=== PATIENT | male | born 1945 | race Caucasian/White ===

== ENCOUNTER 2018-06-27 21:10 | Observation (INO) | payer MEDICARE, OTHER ==
[2018-06-27] MEDS ORDERED: ACETAMINOPHEN 325 MG TABLET PO STA (21:17)
[2018-06-27 21:38] LABS: BASOPHILS # (AUTO) 0.1 10^3/uL (0.0-0.1); BASOPHILS % (AUTO) 0.6 %; EOSINOPHILS % (AUTO) 0.2 %; LYMPHOCYTES # (AUTO) 0.2 10^3/uL (1.5-3.5); LYMPHOCYTES % (AUTO) 1.8 %; MEAN CORPUSCULAR HEMOGLOBIN 31.8 pg (27.0-31.0); MEAN CORPUSCULAR HGB CONC 33.8 g/dL (32.0-36.0); MEAN CORPUSCULAR VOLUME 94.2 fL (80.0-94.0); MEAN PLATELET VOLUME 9.3 fL (7.4-11.4); MONOCYTES # (AUTO) 0.5 10^3/uL (0.0-1.0); MONOCYTES % (AUTO) 5.7 %; NEUTROPHILS # (AUTO) 8.2 10^3/uL (1.5-6.6); NEUTROPHILS % (AUTO) 91.7 %; PLT - PLATELET COUNT 101 10^3/uL (130-450); RED BLOOD COUNT 5.04 10^6/uL (4.70-6.10); RED CELL DISTRIBUTION WIDTH 13.2 % (12.0-15.0)
[2018-06-27 21:46] LABS: INR 1.3 (0.8-1.2); PT - PROTHROMBIN TIME 14.9 secs (9.9-12.6)
[2018-06-27 21:48] LABS: ALBUMIN 4.3 g/dL (3.2-5.5); ALBUMIN/GLOBULIN RATIO 1.3 (1.0-2.2); BILIRUBIN,TOTAL 1.3 mg/dL (0.2-1.0); CALCIUM 8.8 mg/dL (8.5-10.3); TOTAL PROTEIN 7.6 g/dL (6.7-8.2)
[2018-06-27 21:56] LABS: BILIRUBIN,URINE NEGATIVE (NEGATIVE); CLARITY,URINE CLEAR (CLEAR); GLUCOSE, URINE (UA) NEGATIVE (NEGATIVE); KETONES,URINE (UA) TRACE mg/dL (NEGATIVE); LEUKOCYTE ESTERASE, URINE NEGATIVE (NEGATIVE); NITRITE,URINE NEGATIVE (NEGATIVE); OCCULT BLOOD,URINE NEGATIVE (NEGATIVE); PROTEIN,URINE 100 mg/dL (NEGATIVE); UROBILINOGEN,URINE 0.2 (NORMAL) E.U./dL (NORMAL)
[2018-06-27] MEDS ORDERED: methylPREDNISolone SUCCINATE 125 MG/2 ML VIAL IVP STA (21:57)
[2018-06-27] MEDS ORDERED: IPRATROPIUM/ALBUTEROL 3 ML NEB INH STA (21:57)
--- NOTE | 2018-06-27 21:57 | ED Physician Documentation ---
History of Present Illness - Stated complaint Stated Complaint: SOA - Chief complaint Chief Complaint: Resp - History obtained from History obtained from: Patient - History of Present Illness Timing: Today Pain level max: 0 Pain level now: 0 Improved by: neb treatment Worsened by: exertion - Additonal information Additional information: Increased difficulty breathing for the past several days. Has a history of COPD and is using his inhaler more often. Subjective fevers as well. Increased coughing. Review of Systems Ten Systems: 10 systems reviewed and negative Constitutional: reports: Fever, Chills Nose: reports: Rhinorrhea / runny nose, Congestion Respiratory: denies: Cough GI: denies: Nausea, Vomiting, Diarrhea : denies: Dysuria Skin: denies: Rash Musculoskeletal: denies: Neck pain, Back pain Neurologic: denies: Headache PD PAST MEDICAL HISTORY - Past Medical History Past Medical History: Yes Cardiovascular: Hypertension, High cholesterol Respiratory: COPD, CPAP use HEENT: None Derm: None - Past Surgical History Past Surgical History: Yes Cardiovascular: Pacemaker - Present Medications Home Medications: Ambulatory Orders Medication Instructions Recorded Confirmed Aspirin 325 mg DAILY 10/25/15 10/25/15 Ibuprofen 800 mg PO DAILY 10/25/15 10/25/15 Multivitamin [Multivitamins] 1 each PO DAILY 10/25/15 10/25/15 oxyCODONE [Roxicodone] 5 mg PO Q4-6H #20 tablet 10/25/15 - Allergies Allergies/Adverse Reactions: Allergies Allergy/AdvReac Type Severity Reaction Status Date / Time No Known Drug Allergies Allergy Verified 10/25/15 19:16 - Social History Does the pt smoke?: Yes Smoking Status: Current every day smoker Does the pt drink ETOH?: No Does the pt have substance abuse?: No - Immunizations Immunizations are current?: Yes PD ED PE NORMAL - Vitals Vital signs reviewed: Yes - General General: Alert and oriented X 3, No acute distress - HEENT HEENT: Moist mucous membranes - Neck Neck: Supple, no meningeal sign - Cardiac Cardiac: RRR, Strong equal pulses - Respiratory Respiratory: No respiratory distress, Other (wheezing B) - Abdomen Abdomen: Soft, Non tender, Non distended - Back Back: No CVA TTP, No spinal TTP - Derm Derm: Warm and dry - Extremities Extremities: No edema - Neuro Neuro: Alert and oriented X 3 Results - Vitals Vitals: Vital Signs - 24 hr 06/27/18 06/27/18 06/27/18 21:10 21:56 22:06 Temperature 39.4 C H 37.8 C H Heart Rate 87 64 69 Respiratory 24 26 H 20 Rate Blood Pressure 138/66 H 98/52 L O2 Saturation 90 L 91 L 06/27/18 06/27/18 06/28/18 23:18 23:27 00:04 Temperature 37.5 C Heart Rate 72 52 L Respiratory 30 H 18 Rate Blood Pressure 77/59 L O2 Saturation 92 Oxygen O2 Source Nasal cannula - EKG (time done) 2122 Rate: Rate (enter#) (86) Rhythm: Paced - Labs Labs: Laboratory Tests 06/27/18 06/27/18 06/27/18 21:29 21:29 21:29 WBC 9.0 RBC 5.04 Hgb 16.0 Hct 47.5 MCV 94.2 H MCH 31.8 H MCHC 33.8 RDW 13.2 Plt Count 101 L MPV 9.3 Neut # (Auto) 8.2 H Lymph # (Auto) 0.2 L [place] # (Auto) 0.5 Eos # (Auto) 0.0 Baso # (Auto) 0.1 Absolute Nucleated RBC 0.00 Nucleated RBC % 0.0 PT INR Sodium 135 Potassium 4.4 Chloride 102 Carbon Dioxide 25 Anion Gap 8.0 BUN 20 Creatinine 1.0 Estimated GFR (MDRD) 73 L Glucose 126 H Lactic Acid Calcium 8.8 Total Bilirubin 1.3 H AST 29 ALT 21 Alkaline Phosphatase 45 Troponin I 0.07 Total Protein 7.6 Albumin 4.3 Globulin 3.3 Albumin/Globulin Ratio 1.3 Lipase 24 Urine Color Urine Clarity Urine pH Ur Specific [place] Urine Protein Urine Glucose (UA) Urine Ketones Urine Occult Blood Urine Nitrite Urine Bilirubin Urine Urobilinogen Ur Leukocyte Esterase Urine RBC Urine WBC Ur Squamous Epith Cells Urine Bacteria Ur Microscopic Review Urine Culture Comments Influenza A (Rapid) Influenza B (Rapid) 06/27/18 06/27/18 06/27/18 21:29 21:50 22:11 WBC RBC Hgb Hct MCV MCH MCHC RDW Plt Count MPV Neut # (Auto) Lymph # (Auto) [place] # (Auto) Eos # (Auto) Baso # (Auto) Absolute Nucleated RBC Nucleated RBC % PT 14.9 H INR 1.3 H Sodium Potassium Chloride Carbon Dioxide Anion Gap BUN Creatinine Estimated GFR (MDRD) Glucose Lactic Acid 1.0 Calcium Total Bilirubin AST ALT Alkaline Phosphatase Troponin I Total Protein Albumin Globulin Albumin/Globulin Ratio Lipase Urine Color DARK YELLOW Urine Clarity CLEAR Urine pH 6.0 Ur Specific [place] >=1.030 H Urine Protein 100 H Urine Glucose (UA) NEGATIVE Urine Ketones TRACE Urine Occult Blood NEGATIVE Urine Nitrite NEGATIVE Urine Bilirubin NEGATIVE Urine Urobilinogen 0.2 (NORMAL) Ur Leukocyte Esterase NEGATIVE Urine RBC 0-5 Urine WBC 0-3 Ur Squamous Epith Cells FEW Squamous Urine Bacteria None Seen Ur Microscopic Review INDICATED Urine Culture Comments NOT INDICATED Influenza A (Rapid) Influenza B (Rapid) 06/27/18 06/28/18 23:30 00:25 WBC RBC Hgb Hct MCV MCH MCHC RDW Plt Count MPV Neut # (Auto) Lymph # (Auto) [place] # (Auto) Eos # (Auto) Baso # (Auto) Absolute Nucleated RBC Nucleated RBC % PT INR Sodium Potassium Chloride Carbon Dioxide Anion Gap BUN Creatinine Estimated GFR (MDRD) Glucose Lactic Acid Calcium Total Bilirubin AST ALT Alkaline Phosphatase Troponin I 0.07 Total Protein Albumin Globulin Albumin/Globulin Ratio Lipase Urine Color Urine Clarity Urine pH Ur Specific [place] Urine Protein Urine Glucose (UA) Urine Ketones Urine Occult Blood Urine Nitrite Urine Bilirubin Urine Urobilinogen Ur Leukocyte Esterase Urine RBC Urine WBC Ur Squamous Epith Cells Urine Bacteria Ur Microscopic Review Urine Culture Comments Influenza A (Rapid) Negative Influenza B (Rapid) Negative - Rads (name of study) cxr Radiology: Prelim report reviewed, EMP read contemporaneously, See rad report (No acute disease) PD MEDICAL DECISION MAKING - ED course Complexity details: reviewed results, re-evaluated patient, considered differential, d/w patient, d/w family ED course: 73-year-old male presents to the emergency department for what appears to be a viral upper respiratory infection and COPD exacerbation. Given IV fluids, Solu- Medrol, breathing treatments. His blood pressure dropped significantly while in the emergency department and did respond to fluid bolus. Lactate is normal. No acute findings on chest x-ray, EKG. Given his hypotension and need for continued IV fluids as well as his hypoxia, not usually on oxygen at home, will have him observed in the hospital overnight.Discussed the case with the hospitalist who accepts This document was made in part using voice recognition software. While efforts are made to proofread this document, sound alike and grammatical errors may occur. Departure - Departure Disposition: 66 [facility] DC/Xfer Clinical Impression: COPD exacerbation, Hypoxia Hypotension Qualifiers: Hypotension type: unspecified hypotension type Qualified Code(s): I95.9 - Hypotension, unspecified Condition: Stable Discharge Date/Time: 06/28/18 01:35
[2018-06-27 22:00] LABS: BACTERIA,URINE None Seen /HPF (None Seen); RBC,URINE 0-5 /HPF (0-5); SQUAMOUS EPITHELIAL CELL,UR FEW Squamous (<= Few)
--- NOTE | 2018-06-27 22:08 | XRAY Report ---
Reason: cough, fever Procedure Date: 06/27/2018 Accession Number: [id number] / [id number] Procedure: XR - Chest 1 View X-Ray CPT Code: 74327 FULL RESULT: EXAM: CHEST RADIOGRAPHY EXAM DATE: 06/27/2018 09:38 PM. CLINICAL HISTORY: Cough, fever. COMPARISON: [facility] W/PA CHEST LT 10/25/2015 8:18 PM. TECHNIQUE: 1 view. FINDINGS: Lungs/Pleura: No focal opacities evident. No pleural effusion. No pneumothorax. Mediastinum: There is cardiomegaly. Left subclavian dual-lead pacemaker is in place. Other: None. IMPRESSION: No acute intrathoracic plain film abnormality. RADIA
[2018-06-27] MEDS ORDERED: ALBUTEROL NEB 2.5 MG/3 ML INH STA (23:13)
[2018-06-28] MEDS ORDERED: SODIUM CHLORIDE 0.9% 1,000 ML IV ONE ×2 (00:09→00:26)
[2018-06-28] MEDS ORDERED: SODIUM CHLORIDE FLUSH 0.9% 10 ML SYRINGE IVP PRN (00:58)
[2018-06-28] MEDS ORDERED: LACTATED RINGERS 1,000 ML IV SCH (01:00)
[2018-06-28] MEDS ORDERED: IOPAMIDOL-300 100 ML VIAL ONE (01:01)
[2018-06-28] MEDS ORDERED: methylPREDNISolone SUCCINATE 40 MG/ML VIAL IVP SCH ×2 (01:02→06:00)
[2018-06-28] MEDS ORDERED: IPRATROPIUM/ALBUTEROL 3 ML NEB INH PRN (01:02)
[2018-06-28] MEDS ORDERED: guaiFENesin/CODEINE 5 ML UDC PO PRN (01:04)
[2018-06-28] MEDS ORDERED: NITROGLYCERIN SL 0.4 MG TABLET SL PRN (01:05)
--- NOTE | 2018-06-28 01:11 | HISTORY & PHYSICAL EXAMINATION ---
Chief Complaint - Chief Complaint Chief Complaint: Shortness of breath with productive cough and wheezing Respiratory Admission HPI - History Obtained From Records Reviewed: RN notes reviewed History obtained from: Patient, Other () Exam limitations: No limitations - History of Present Illness HPI Comment/Other: This is a obese 73-year-old male with a history of COPD, obstructive sleep apnea on CPAP, coronary artery disease with an OH status post stent placement x1 04/2018 in [facility]), primary chief orthoptist Dr. Clyde Arreola, history of hypertension and a PM, p/w Increased difficulty breathing for the past several days. Has a history of COPD and is using his inhaler more often. Subjective fevers as well. Tmax 102 in ED with Increased coughing. Patient was also wheezing in ED, eventually ameliorated with duo nebs along with medical management. Patient was placed on 3 L nasal cannula as pulse ox showed 90% O2 saturation on room air. Patient's blood pressure dropped from systolics of 120s-130s to 77/50 and did respond to aggressive IV fluid resuscitation with 1 L normal saline bolus. Upon further review chest x-ray showed cardiomegaly with a left subclavian dual-chamber pacemaker with no evidence of PNA. Patient had a flu swab along with CBC which showed thrombocytopenia with a platelet of 101, creatinine of 1.0, 2 sets of troponin were 0.07. Patient does have possible underlying chronic kidney disease with a UA showing 100+ protein. Patient's INR was 1.3 with a glucose of 126 and a T bilirubin of 1.3. Patient states that he was feeling very weak and did not eat breakfast however took his blood pressure medications this morning. D-dimer as well as lactic acid were drawn, as well as blood cultures and CTA ordered in the setting of symptomatic hypotension. PMH/PSH - Past Medical History Cardiovascular: positive: Hypertension, High cholesterol Respiratory: positive: COPD, CPAP use HEENT: positive: None Derm: positive: None MRSA Hx?: No - Past Surgical History Cardiovascular: positive: Pacemaker Social & Family Hx - Social History Does the pt smoke?: Yes Smoking Status: Current every day smoker Does the pt drink ETOH?: No Does the pt have substance abuse?: No Meds/Allgy - Home Medications Home Medications: Ambulatory Orders Medication Instructions Recorded Confirmed Aspirin 325 mg DAILY 10/25/15 10/25/15 Ibuprofen 800 mg PO DAILY 10/25/15 10/25/15 Multivitamin [Multivitamins] 1 each PO DAILY 10/25/15 10/25/15 oxyCODONE [Roxicodone] 5 mg PO Q4-6H #20 tablet 10/25/15 - Allergies Allergies/Adverse Reactions: Allergies Allergy/AdvReac Type Severity Reaction Status Date / Time No Known Drug Allergies Allergy Verified 10/25/15 19:16 Review of Systems - All Other Systems All Other Systems: reports: Reviewed and negative Prior Level of Functionality: Patient is independent with home ADLs Exam - Vital Signs Reviewed Vital Signs: Yes Vital Signs: Vital Signs x48h Temp Pulse Resp BP Pulse Ox 06/28/18 00:04 37.5 C 06/27/18 23:27 52 L 18 06/27/18 23:18 72 30 H 77/59 L 92 06/27/18 22:06 69 20 06/27/18 21:56 37.8 C H 64 26 H 98/52 L 91 L 06/27/18 21:10 39.4 C H 87 24 138/66 H 90 L - Physical Exam General Appearance: positive: Alert, Mild distress, Other (Patient appears ill appearing, Calm and cooperative, Actively coughing) Eyes Bilateral: positive: Normal inspection, PERRL, EOMI ENT: positive: ENT inspection nml, Pharynx nml, No signs of dehydration. negative: Purulent nasal drainage, Pharyngeal erythema, Oral lesions Neck: positive: Thyroid nml, No JVD, Trachea midline. negative: Thyromegaly Respiratory: positive: Chest non-tender, Rhonchi, Other (Prolonged expiratory phase bilaterally) Cardiovascular: positive: Regular rate & rhythm, No murmur, No gallop, Other (Dual-chamber pacemaker) Peripheral Pulses: positive: 2+ Abdomen: positive: Non-tender, No organomegaly, Nml bowel sounds, No distention. negative: Tenderness, Bruit Back: positive: Nml inspection Skin: positive: Color nml, No rash, Warm Extremities: positive: Non-tender, Full ROM, Nml appearance Neurologic/Psychiatric: positive: Oriented x3, CN's nml (2-12) Results - Lab Results Lab results reviewed: Yes Fish Bones: 06/27/18 21:29 06/27/18 21:29 Other Lab Results: Lab Results x24hrs 06/27/18 06/27/18 06/27/18 Range/Units 23:30 22:11 21:50 WBC (4.8-10.8) x10^3/uL RBC (4.70-6.10) 10^6/uL Hgb (14.0-18.0) g/dL Hct (42.0-52.0) % MCV (80.0-94.0) fL MCH (27.0-31.0) pg MCHC (32.0-36.0) g/dL RDW (12.0-15.0) % Plt Count (130-450) 10^3/uL MPV (7.4-11.4) fL Neut # (Auto) (1.5-6.6) 10^3/uL Lymph # (Auto) (1.5-3.5) 10^3/uL [place] # (Auto) (0.0-1.0) 10^3/uL Eos # (Auto) (0.0-0.7) 10^3/uL Baso # (Auto) (0.0-0.1) 10^3/uL Absolute Nucleated RBC x10^3/uL Nucleated RBC % /100WBC PT (9.9-12.6) secs INR (0.8-1.2) Sodium (135-145) mmol/L Potassium (3.5-5.0) mmol/L Chloride (101-111) mmol/L Carbon Dioxide (21-32) mmol/L Anion Gap (6-13) BUN (6-20) mg/dL Creatinine (0.6-1.2) mg/dL Estimated GFR (MDRD) (>89) Glucose (70-100) mg/dL Lactic Acid 1.0 (0.5-2.2) mmol/L Calcium (8.5-10.3) mg/dL Total Bilirubin (0.2-1.0) mg/dL AST (10-42) IU/L ALT (10-60) IU/L Alkaline Phosphatase (42-121) IU/L Troponin I 0.07 (<0.49) ng/mL Total Protein (6.7-8.2) g/dL Albumin (3.2-5.5) g/dL Globulin (2.1-4.2) g/dL Albumin/Globulin Ratio (1.0-2.2) Lipase (22-51) U/L Urine Color DARK YELLOW Urine Clarity CLEAR (CLEAR) Urine pH 6.0 (5.0-7.5) PH Ur Specific [place] >=1.030 H (1.002-1.030) Urine Protein 100 H (NEGATIVE) mg/dL Urine Glucose (UA) NEGATIVE (NEGATIVE) mg/dL Urine Ketones TRACE (NEGATIVE) mg/dL Urine Occult Blood NEGATIVE (NEGATIVE) Urine Nitrite NEGATIVE (NEGATIVE) Urine Bilirubin NEGATIVE (NEGATIVE) Urine Urobilinogen 0.2 (NORMAL) (NORMAL) E.U./dL Ur Leukocyte Esterase NEGATIVE (NEGATIVE) Urine RBC 0-5 (0-5) /HPF Urine WBC 0-3 (0-3) /HPF Ur Squamous Epith Cells FEW Squamous (<= Few) Urine Bacteria None Seen (None Seen) /HPF Ur Microscopic Review INDICATED Urine Culture Comments NOT INDICATED 06/27/18 06/27/18 06/27/18 Range/Units 21:29 21:29 21:29 WBC (4.8-10.8) x10^3/uL RBC (4.70-6.10) 10^6/uL Hgb (14.0-18.0) g/dL Hct (42.0-52.0) % MCV (80.0-94.0) fL MCH (27.0-31.0) pg MCHC (32.0-36.0) g/dL RDW (12.0-15.0) % Plt Count (130-450) 10^3/uL MPV (7.4-11.4) fL Neut # (Auto) (1.5-6.6) 10^3/uL Lymph # (Auto) (1.5-3.5) 10^3/uL [place] # (Auto) (0.0-1.0) 10^3/uL Eos # (Auto) (0.0-0.7) 10^3/uL Baso # (Auto) (0.0-0.1) 10^3/uL Absolute Nucleated RBC x10^3/uL Nucleated RBC % /100WBC PT 14.9 H (9.9-12.6) secs INR 1.3 H (0.8-1.2) Sodium 135 (135-145) mmol/L Potassium 4.4 (3.5-5.0) mmol/L Chloride 102 (101-111) mmol/L Carbon Dioxide 25 (21-32) mmol/L Anion Gap 8.0 (6-13) BUN 20 (6-20) mg/dL Creatinine 1.0 (0.6-1.2) mg/dL Estimated GFR (MDRD) 73 L (>89) Glucose 126 H (70-100) mg/dL Lactic Acid (0.5-2.2) mmol/L Calcium 8.8 (8.5-10.3) mg/dL Total Bilirubin 1.3 H (0.2-1.0) mg/dL AST 29 (10-42) IU/L ALT 21 (10-60) IU/L Alkaline Phosphatase 45 (42-121) IU/L Troponin I 0.07 (<0.49) ng/mL Total Protein 7.6 (6.7-8.2) g/dL Albumin 4.3 (3.2-5.5) g/dL Globulin 3.3 (2.1-4.2) g/dL Albumin/Globulin Ratio 1.3 (1.0-2.2) Lipase 24 (22-51) U/L Urine Color Urine Clarity (CLEAR) Urine pH (5.0-7.5) PH Ur Specific [place] (1.002-1.030) Urine Protein (NEGATIVE) mg/dL Urine Glucose (UA) (NEGATIVE) mg/dL Urine Ketones (NEGATIVE) mg/dL Urine Occult Blood (NEGATIVE) Urine Nitrite (NEGATIVE) Urine Bilirubin (NEGATIVE) Urine Urobilinogen (NORMAL) E.U./dL Ur Leukocyte Esterase (NEGATIVE) Urine RBC (0-5) /HPF Urine WBC (0-3) /HPF Ur Squamous Epith Cells (<= Few) Urine Bacteria (None Seen) /HPF Ur Microscopic Review Urine Culture Comments 06/27/18 Range/Units 21:29 WBC 9.0 (4.8-10.8) x10^3/uL RBC 5.04 (4.70-6.10) 10^6/uL Hgb 16.0 (14.0-18.0) g/dL Hct 47.5 (42.0-52.0) % MCV 94.2 H (80.0-94.0) fL MCH 31.8 H (27.0-31.0) pg MCHC 33.8 (32.0-36.0) g/dL RDW 13.2 (12.0-15.0) % Plt Count 101 L (130-450) 10^3/uL MPV 9.3 (7.4-11.4) fL Neut # (Auto) 8.2 H (1.5-6.6) 10^3/uL Lymph # (Auto) 0.2 L (1.5-3.5) 10^3/uL [place] # (Auto) 0.5 (0.0-1.0) 10^3/uL Eos # (Auto) 0.0 (0.0-0.7) 10^3/uL Baso # (Auto) 0.1 (0.0-0.1) 10^3/uL Absolute Nucleated RBC 0.00 x10^3/uL Nucleated RBC % 0.0 /100WBC PT (9.9-12.6) secs INR (0.8-1.2) Sodium (135-145) mmol/L Potassium (3.5-5.0) mmol/L Chloride (101-111) mmol/L Carbon Dioxide (21-32) mmol/L Anion Gap (6-13) BUN (6-20) mg/dL Creatinine (0.6-1.2) mg/dL Estimated GFR (MDRD) (>89) Glucose (70-100) mg/dL Lactic Acid (0.5-2.2) mmol/L Calcium (8.5-10.3) mg/dL Total Bilirubin (0.2-1.0) mg/dL AST (10-42) IU/L ALT (10-60) IU/L Alkaline Phosphatase (42-121) IU/L Troponin I (<0.49) ng/mL Total Protein (6.7-8.2) g/dL Albumin (3.2-5.5) g/dL Globulin (2.1-4.2) g/dL Albumin/Globulin Ratio (1.0-2.2) Lipase (22-51) U/L Urine Color Urine Clarity (CLEAR) Urine pH (5.0-7.5) PH Ur Specific [place] (1.002-1.030) Urine Protein (NEGATIVE) mg/dL Urine Glucose (UA) (NEGATIVE) mg/dL Urine Ketones (NEGATIVE) mg/dL Urine Occult Blood (NEGATIVE) Urine Nitrite (NEGATIVE) Urine Bilirubin (NEGATIVE) Urine Urobilinogen (NORMAL) E.U./dL Ur Leukocyte Esterase (NEGATIVE) Urine RBC (0-5) /HPF Urine WBC (0-3) /HPF Ur Squamous Epith Cells (<= Few) Urine Bacteria (None Seen) /HPF Ur Microscopic Review Urine Culture Comments - Diagnostic Imaging Results Diagnostic Imaging Results: positive: Final report reviewed (Chest x-ray shows no acute cardiopulmonary process, cardiomegaly with left subclavian dual-chamber pacemaker leads) - EKG Results EKG Interpreted Independently: Yes EKG Comparison: positive: Old EKG unavailable EKG Findings: Patient has ventricular paced complexes noted on EKG Sepsis Event Note (H) - Evaluation Current Stage of Sepsis: Ruled out - Sepsis Criteria Sepsis Criteria: Recorded Temperature greater than 38.3C or Less than 36C (Meets SIRS ), Respiratory: Increasing oxygen requirements, SBP less than 90 mmH g Impression/Plan - Problem List Problem List: 1. SIRS 2. Acute COPD exacerbation 3. Symptomatic hypotension status post 1 L NS bolus, Responding to fluid challenge 4. Ischemic heart disease/CAD with hx OH s/p stent plcmt in 04/27 with mildly elevated troponin secondary to type II OH, demand ischemia 5. Obstructive sleep apnea on CPAP 6. Chronic tobacco use 7. Hypertension 8. Obese 9. Generalized weakness secondary to above 10. Advance care planning education and counseling Plan: Admit to telemetry under observation, Patient meets SIRS criteria, placed on IV Levaquin due to sputum production with no evidence of pneumonia on x-ray however would medically manage patient's chronic what appears to be chronic ischemic heart disease with mildly elevated troponins in the setting of underlying chronic kidney disease as seen with urinalysis and proteinuria with a creatinine of 1.0. Thrombocytopenia likely related to underlying COPD exacerbation or prior viral illness. Flu swab A/B negative, troponin trending as well as obtaining TSH and magnesium to rule out other metabolic causes. Patient is non-oxygen dependent and requiring up to 3 L nasal cannula currently saturation at 94-97% O2 saturation. Patient has chronic tobacco use and consumption where he smokes through a pipe will provide a nicotine patch. Pat ient primary chief orthoptist is Dr. Clyde Arreola who performed a stent placement unclear or unknown anatomy and would request records from [facility] in [place]. Stent was placed back in April 2018. Patient will continue with aspirin and likely needs a statin plus or minus beta-blockade however currently patient has symptomatic hypotension and will hold off on MADISON inhibitor ARB or beta blockade. May need an echocardiogram, if trops uptrend. Patient appears to be noncompliant as he was scheduled to return to Dr. Clyde Arreola and has not seen him since his last stent placement. We will continue with IV fluid resuscitation to correct systolic blood pressures and maintain map above 60. D- dimer as well as a CTA have been ordered to evaluate for possible underlying pulmonary embolism. Patient was initially febrile and unclear if this is due to underlying pulmonary embolism versus viral or other type of infection. Lactic acid was only 1.0. We will continue with duo nebs, pulmonary toileting, IV Solu- Medrol, obtain sputum Gram stain and culture. Anti-tussives for cough. Patient was given smoking cessation as well as advanced care planning education and counseling in regards to his cardiovascular comorbidities as it pertains to disease management symptomatic management and disease trajectory. Initiate DVT/GI prophylaxis. CODE STATUS: Full code Core Measures - Anticipated LOS I expect patient to be DC'd or transferred within 96 hours.: Yes - DVT/VTE - Prophylaxis VTE/DVT Device ordered at admit?: Yes VTE/DVT Prophylaxis med ordered at admit?: Yes - Stroke - Rehab Assessment Rehab services assessment to be ordered?: No Not Ordered - Medical Reason: Not indicated - AMI - Statin at Admit Aspirin Prescribed on Admit: Yes
[2018-06-28] MEDS ORDERED: IOPAMIDOL-300 100 ML VIAL IVP ONE ×2 (01:30)
[2018-06-28] MEDS ORDERED: levoFLOXacin 750 MG/150 ML 750 MG/150 ML BAG IV SCH (02:00)
--- NOTE | 2018-06-28 02:04 | CT Report ---
Reason: fever, cough, poss PE? Procedure Date: 06/28/2018 Accession Number: [id number] / [id number] Procedure: CT - ANGIO CHEST W/WO CPT Code: FULL RESULT: EXAM: CT ANGIOGRAM CHEST EXAM DATE: 06/28/2018 01:27 AM. CLINICAL HISTORY: Shortness of breath for 2 days. Productive cough. COMPARISON: None. TECHNIQUE: Routine helical imaging was performed through the chest in the pulmonary arterial phase. IV Contrast: 90 mL Isovue 300. Reconstructions: Coronal 3D MIP reconstructions. Sagittal and coronal. In accordance with CT protocol optimization, one or more of the following dose reduction techniques were utilized for this exam: automated exposure control, adjustment of mA and/or KV based on patient size, or use of iterative reconstructive technique. FINDINGS: Pulmonary Arteries: There is adequate opacification through the segmental arteries. No evidence for acute or chronic pulmonary emboli. Lungs and Pleura: Mild dependent atelectasis. No definite effusion or pneumothorax. Central Airways: Visualized central airways are without suspicious filling defects. Chest Wall: No significant abnormality. Thyroid: No significant abnormality. Mediastinum: Indeterminate right-sided paratracheal lymph node within the superior mediastinum, at the level of the aortic arch, measuring 2.8 x 1.5 cm (image 59 series 4). A few additional small as well as borderline enlarged mediastinal lymph nodes are noted. These are nonspecific. Heart: Mild to moderate cardiomegaly. No pericardial effusion. Severe coronary vascular calcifications. Severe aortic valvular calcifications. Aorta: Normal caliber. Moderate to severe atherosclerosis. Upper Abdomen: No significant abnormality. Bones: No suspicious bony lesions evident. IMPRESSION: 1. No evidence of pulmonary embolism. 2. Mild bilateral lower lobe dependent atelectasis. No other significant pulmonary parenchymal abnormality. 3. Mild mediastinal lymphadenopathy is noted, nonspecific. RADIA
[2018-06-28] MEDS: SODIUM CHLORIDE FLUSH 0.9% 10 ML SYRINGE IVP SCH ×2 (02:37→09:02)
[2018-06-28] MEDS: BENZONATATE 100 MG CAPSULE PO SCH ×2 (02:47→06:01)
[2018-06-28 05:07] LABS: ALBUMIN 3.6 g/dL (3.2-5.5); CALCIUM 8.2 mg/dL (8.5-10.3); CREATININE 1.1 mg/dL (0.6-1.2); PHOSPHORUS 2.8 mg/dL (2.5-4.6)
[2018-06-28 05:14] LABS: CHOL/HDL RATIO 2.4 (<5.0); CHOLESTEROL 126 mg/dL; HDL CHOLESTEROL 52 mg/dL; LDL CHOLESTEROL,CALCULATED 66 mg/dL; LDL/HDL RATIO 1.3 (<3.6); VLDL CHOLESTEROL 8 mg/dL
[2018-06-28 05:17] LABS: BASOPHILS % (AUTO) 0.1 %; HGB - HEMOGLOBIN 14.5 g/dL (14.0-18.0); LYMPHOCYTES # (AUTO) 0.1 10^3/uL (1.5-3.5); LYMPHOCYTES % (AUTO) 2.1 %; MEAN CORPUSCULAR HEMOGLOBIN 31.7 pg (27.0-31.0); MEAN CORPUSCULAR HGB CONC 33.4 g/dL (32.0-36.0); MEAN CORPUSCULAR VOLUME 94.9 fL (80.0-94.0); MEAN PLATELET VOLUME 9.2 fL (7.4-11.4); MONOCYTES # (AUTO) 0.1 10^3/uL (0.0-1.0); MONOCYTES % (AUTO) 1.4 %; NEUTROPHILS # (AUTO) 6.1 10^3/uL (1.5-6.6); NEUTROPHILS % (AUTO) 96.4 %; PLT - PLATELET COUNT 84 10^3/uL (130-450); RED BLOOD COUNT 4.57 10^6/uL (4.70-6.10); RED CELL DISTRIBUTION WIDTH 12.9 % (12.0-15.0); WHITE BLOOD COUNT 6.3 x10^3/uL (4.8-10.8)
[2018-06-28] MEDS ORDERED: BUDESONIDE 0.5 MG/2 ML NEB INH SCH (07:00)
[2018-06-28 07:31] VITALS: BP 109/58
[2018-06-28] MEDS ORDERED: ENOXAPARIN 40 MG/0.4 ML SYRINGE SUBQ SCH (09:00)
[2018-06-28] MEDS ORDERED: POLYETHYLENE GLYCOL 3350 17 GM PACKET PO SCH (09:00)
[2018-06-28] MEDS ORDERED: NICOTINE 14 MG PATCH TOP SCH (09:00)
[2018-06-28] MEDS ORDERED: ASPIRIN 325 MG TABLET PO SCH (09:00)
[2018-06-28] MEDS ORDERED: FAMOTIDINE 20 MG TABLET PO SCH (09:00)
[2018-06-28] MEDS ORDERED: IBUPROFEN 800 MG TABLET PO PRN (09:09)
--- NOTE | 2018-06-28 11:32 | Discharge Plan ---
Discharge Plan Disposition: Home, Self Care Condition: Good Prescriptions: Ipratropium/Albuterol [Duoneb] 3 ml INH Q4HR PRN #50 neb PRN Reason: Wheezing guaiFENesin/CODEINE [Robitussin AC] 10 ml PO TID PRN #120 udc PRN Reason: Cough Ibuprofen [Motrin] 800 mg PO BID PRN #60 tablet PRN Reason: Pain Levofloxacin [Levaquin] 750 mg PO DAILY #6 tablet Methylprednisolone [Medrol] 4 mg PO DAILY #1 tab.ds.pk Montelukast [Singulair] 10 mg PO QPM #30 tablet Nitroglycerin [Nitrostat] 0.4 mg SL PRN PRN #30 tablet PRN Reason: Chest Pain Diet: Cardiac Activity Restrictions: Activity as Tolerated Shower Restrictions: No Driving Restrictions: No Instruction Topics: COPD, Chronic Lung Disease Prevent Infec Additional Instructions or Follow Up instructions: You were admitted to the hospital and placed under observation for fever, and worsening of your mild emphysema. We did several studies to see if you had pneumonia because of your phlegm and fever. Chest x-ray was negative and CT scan of your chest was negative for pneumonia. Nevertheless your shortness of breath improved with nebulizers, steroids, antibiotics. We look for other amalia rces of infection such as your abdomen, or urine, and those were not the reason you were sick as far as we could see. You have improved tremendously after 1 night by doing these measures. We will continue treating you as if you have a lung infection or a viral infection. You need to take antibiotics for 6 more days. I have given you nebulizer treatments to put in your nebulizer machine. Steroids to taper off. And you asked for a refill of Motrin. Please do not smoke any tobacco products at all. You must know that it contributes to more emphysema as well as head and neck cancer. It will also contribute to hardening of the arteries in the stent that was placed in you in April and will be for nothing if you block that up again through smoking. [place] for you to get care [place] if you have a doctor that you can see locally. No Smoking: If you smoke, Please STOP! Call for help. Follow-up with: Clyde Arreola MD [Physician No Access] -
[2018-06-28] MEDS ORDERED: MONTELUKAST 10 MG TABLET PO SCH (21:00)
--- NOTE | 2018-06-30 03:32 | DISCHARGE SUMMARY ---
Physician: Kenyatta Miramontes MD DATE OF ADMISSION: 06/28/2018 DATE OF DISCHARGE: 06/28/2018 DISCHARGE DIAGNOSES 1. Systemic inflammatory response syndrome of noninfectious origin without acute organ dysfunction. 2. Chronic obstructive pulmonary disease exacerbation. 3. Thrombocytopenia. 4. Obstructive sleep apnea. 5. Atherosclerotic heart disease without angina. 6. Presence of a pacemaker. 7. Nicotine dependence. 8. Noncompliance with medical regimen and treatment. DISCHARGE MEDICATIONS 1. Aspirin 325 p.o. daily. 2. Atorvastatin 20 daily. 3. Plavix 75 daily. 4. Lasix 20 daily. 5. Lisinopril 5 daily. 6. Metoprolol XL 25 daily. 7. Multivitamin 1 daily. 8. DuoNeb via nebulizer every 4 hours as needed. 9. Guaifenesin with codeine 5 mL t.i.d. as needed. 10. Motrin 800 mg p.o. b.i.d. 11. Levaquin 750 mg daily, #6. 12. Medrol Dosepak, use as directed. 13. Singulair 10 mg p.o. daily, #30. 14. Sublingual nitroglycerin used p.r.n. angina, #30. PRINCIPAL PROCEDURES 1. Blood cultures negative after 1 day. 2. Respiratory culture with normal respiratory italo present in culture. 3. Chest x-ray with no acute intrapulmonary abnormalities. Pacer noted in place. 4. CT pulmonary angiogram has bibasilar atelectasis, possible early consolidation, pacer in place, n o pulmonary emboli. HOSPITAL COURSE: He is a 73-year-old male who has a history of COPD and continues to smoke tobacco p roducts, obstructive sleep apnea on CPAP, coronary artery disease with [place] and a stent placed in 2018 in [place], [facility], and has had increasing difficulty breathing for the last several d ays. He has not seen a primary care provider in quite some time. Has not seen the steam and gas turbine assembler in [facility] since his stent was placed in April. Because he has not seen his primary care provider. Susanna middleton has run out of his inhalers. What he did have, he was using more and more often over the last few days. He has had subjective fevers, myalgias, with severe coughing, producing phlegm. The phlegm is clear to yellow. T-max in the emergency room was 102, and he was wheezing quite a bit. He received DuoNeb with IV fluids, and a single dose of antibiotics. He was placed on 3 liters nasal cannula be cause pulse oximetry showed a 90% O2 saturation on room air. The patient's blood pressure then dropp ed from systolics of 120s-130s to 77/50. He required another liter of his aggressive IV fluid resusc itation. Chest x-ray showed cardiomegaly with a left subclavian dual-chamber pacemaker, but no evide nce of pneumonia. Flu swab with CBC was negative for flu, but he did have thrombocytopenia with plat elets of 101. Creatinine 1. Troponins for 2 sets were 0.07. Urinalysis has proteinuria, and he has chronic kidney disease of 1.1, and a GFR of 66 on his labs. TSH was 0.14. The patient was weak, wheezing, slightly tachypneic, and said that he did take his blood pressure thi s morning. D-dimer and lactic acid were drawn. Lactic acid was normal at 1. D-dimer was 219. Mary use of the hypotension and hypoxemia, he did have a CT pulmonary angiogram done and he was negative f or PE. The patient was placed in observation because he could go either way. He did not have clearcut pneum onia, and may have been having severe bronchitis with self PEEP as a cause of hypotension. Troponins were repeated and they were 0.06. It was noted about his TSH and we asked him to please follow up t o make sure that he was not hyperthyroid with his PCP. He also shared that he did not have a PCP. Has not seen one in a while and we encouraged him to do s o. He also wanted to have refills of his DuoNeb at home since he had run out of those, but he still had his nebulizer machine. After an overnight stay where he received empiric antibiotic therapy, had negative sputum cultures, n egative blood cultures, steroids, he was much improved. He was short of breath with getting up to wa lk to the bathroom, had a frequent cough productive of thick, yellowish, white phlegm. Initially, he was using his accessory muscles to breathe, but after an overnight stay that had abated. On the elkin of discharge, after an overnight stay, the patient felt that even though he was coughing, he was much improved. He did not want to stay anymore. I advised him to please stop smoking, please get a primary care provider, and to please follow up with his steam and gas turbine assembler because he had a stent, and he needed to make sure that he was maximally medically managed. By the morning after discharge, he was 92% on room air, and he really felt like he did not need to stay anymore. As such, he was discharged with a refill of his nebulizers. He was given antibiotics to complete, as well as a Medrol Dosepak. I added Singulair. I gave him a refill of sublingual nitroglycerin becau se the bottle he had, had been opened quite some time ago and he no longer felt they worked at all. He had no headaches with them. PHYSICAL EXAMINATION AT DISCHARGE GENERAL: Showed him to be a tall, white male, looks stated age. Well-nourished, well-developed. VITAL SIGNS: Temperature 36.5, pulse 64, respirations 16 and unlabored with a nasal tone of voice, c ough intermittent productive of thick, yellow phlegm; 92% on room air. [place]oddy anterior cervical milad opathy. LUNGS: Coarse tubular breath sounds, but no outright wheezing. No crackles or rhonchi, and no use o f accessory muscles at the time of discharge. HEART: PMI is normally placed, with a regular rate and rhythm. ABDOMEN: Soft, nontender. No organomegaly. He had trace pedal edema around both ankles. Again, I cannot emphasize enough that I asked him to please see his steam and gas turbine assembler and see primary care provider, and please stop smoking. TD: 06/29/2018 17:15
== END 2018-06-28 11:50 | disposition home or self-care (01) ==
LOC: ED 21:10 → UNDOADMIN 06-28 00:58 → MS3 06-28 00:58 → INTOOBSV 06-28 00:58
PROVIDERS: ADMIT Family Medicine; ATTEND Specialist
DX: R65.10 Systemic inflammatory response syndrome (SIRS) of non-infectious origin without acute organ dysfunction (principal); J44.1 Chronic obstructive pulmonary disease with (acute) exacerbation; D69.6 Thrombocytopenia, unspecified; G47.33 Obstructive sleep apnea (adult) (pediatric); F17.290 Nicotine dependence, other tobacco product, uncomplicated; I25.10 Atherosclerotic heart disease of native coronary artery without angina pectoris; I12.9 Hypertensive chronic kidney disease with stage 1 through stage 4 chronic kidney disease, or unspecified chronic kidney disease; N18.9 Chronic kidney disease, unspecified; I95.9 Hypotension, unspecified; R50.9 Fever, unspecified; T48.6X6A Underdosing of antiasthmatics, initial encounter; Z91.19 Patient's noncompliance with other medical treatment and regimen; E66.9 Obesity, unspecified; Z68.32 Body mass index [BMI] 32.0-32.9, adult; R79.89 Other specified abnormal findings of blood chemistry; Z95.0 Presence of cardiac pacemaker; Z95.5 Presence of coronary angioplasty implant and graft; I25.2 Old myocardial infarction; Z79.82 Long term (current) use of aspirin; Z79.899 Other long term (current) drug therapy; Z79.1 Long term (current) use of non-steroidal anti-inflammatories (NSAID)
CPT/HCPCS: 36415; 51701; 71045; 71275; 80053; 80061; 80069; 81001; 83605; 83690; 83735; 84443; 84484; 85025; 85379; 85610; 87040; 87070; 87205; 87275; 87276; 93005; 94640; 94664; 96361; 96365; 96366; 96375; 96376; 99284; A9270; G0378; J7120; J7626; Q9967; 81003; 83721; 87086; 96374; 99283

== ENCOUNTER → 2022-08-07 | Outpatient (CLI) | payer MEDICARE, OTHER | END | disposition short-term general hospital (02) | LOC: EMS 17:52 | DX: R07.89 Other chest pain (principal); Z95.810 Presence of automatic (implantable) cardiac defibrillator | CPT/HCPCS: A0425; A0429 ==

== ENCOUNTER 2022-12-27 12:49 | Observation (INO) | payer MEDICARE, OTHER ==
[2022-12-27] MEDS ORDERED: methylPREDNISolone SUCCINATE 125 MG/2 ML VIAL IVP STA (13:14)
[2022-12-27] MEDS ORDERED: IPRATROPIUM/ALBUTEROL 3 ML NEB INH STA (13:15)
--- NOTE | 2022-12-27 13:18 | ED Physician Documentation ---
History of Present Illness - Stated complaint Stated Complaint: COPD/COUGH - Chief complaint Chief Complaint: Resp - Additonal information Additional information: 77-year-old male who has a history of non O2 dependent COPD, A-fib flutter, st atus post pacemaker and AICD with known CHF presents emergency department for evaluation of 3 days cough, congestion and wheeze. No fevers. He has not smoked for many years. He reports that he knows he has COPD but does not take any medications or inhalers for it. His cardiac condition is followed by [facility]. He is denying chest pain. EMS noted that he had saturations of 90% on room air. 2 L nasal cannula quickly improved sats to 99%. He did receive a DuoNeb in route. Review of Systems Eyes: reports: Reviewed and negative Nose: reports: Reviewed and negative Throat: reports: Reviewed and negative Cardiac: denies: Chest pain / pressure, Palpitations, Pedal edema Respiratory: reports: Dyspnea, Cough, Wheezing GI: reports: Reviewed and negative : reports: Reviewed and negative Skin: reports: Reviewed and negative PD PAST MEDICAL HISTORY - Past Medical History Cardiovascular: Hypertension, High cholesterol Respiratory: COPD, CPAP use Endocrine/Autoimmune: None GI: None : Other HEENT: None Psych: None Musculoskeletal: None Derm: None - Past Surgical History Past Surgical History: Yes Cardiovascular: Pacemaker - Present Medications Home Medications: Ambulatory Orders Medication Instructions Recorded Confirmed Aspirin 325 mg DAILY 10/25/15 06/28/18 Multivitamin [Multivitamins] 1 each PO DAILY 10/25/15 06/28/18 Atorvastatin Calcium 20 mg PO QPM 06/28/18 06/28/18 Clopidogrel [Plavix] 75 mg PO DAILY 06/28/18 06/28/18 Furosemide [Lasix] 20 mg PO DAILY 06/28/18 06/28/18 Ibuprofen [Motrin] 800 mg PO BID PRN #60 tablet 06/28/18 Ipratropium/Albuterol [Duoneb] 3 ml INH Q4HR PRN #50 neb 06/28/18 Lisinopril [Zestril] 5 mg PO DAILY 06/28/18 06/28/18 Metoprolol Succinate [Toprol Xl] 25 mg PO DAILY 06/28/18 06/28/18 Montelukast [Singulair] 10 mg PO QPM #30 tablet 06/28/18 Nitroglycerin [Nitrostat] 0.4 mg SL PRN PRN #30 tablet 06/28/18 guaiFENesin/CODEINE [Robitussin AC] 10 ml PO TID PRN #120 udc 06/28/18 levoFLOXacin [Levaquin] 750 mg PO DAILY #6 tablet 06/28/18 methylPREDNISolone [Medrol] 4 mg PO DAILY #1 tab.ds.pk 06/28/18 - Allergies Allergies/Adverse Reactions: Allergies Allergy/AdvReac Type Severity Reaction Status Date / Time No Known Drug Allergies Allergy Verified 10/25/15 19:16 - Social History Does the pt smoke?: Yes Smoking Status: Current every day smoker Does the pt drink ETOH?: No Does the pt have substance abuse?: No - Immunizations Immunizations are current?: Yes PD ED PE NORMAL - General General: Alert and oriented X 3, No acute distress, Well developed/nourished - HEENT HEENT: Atraumatic, Moist mucous membranes - Neck Neck: Supple, no meningeal sign, No adenopathy - Cardiac Cardiac: Strong equal pulses, Other (No leg edema). No: RRR (Paced ECG on monitor.) - Respiratory Respiratory: No respiratory distress. No: Clear bilaterally (Diffuse scattered expiratory wheezes all lung brandt. No crackles.) - Abdomen Abdomen: Normal bowel sounds, Soft - Back Back: No CVA TTP, No spinal TTP - Derm Derm: Normal color - Extremities Extremities: No deformity - Neuro Neuro: Alert and oriented X 3, chemistry technician 2-12 intact Eye Opening: Spontaneous Motor: Obeys Commands Verbal: Oriented GCS Score: 15 Results - Vitals Vitals: Vital Signs - 24 hr 12/27/22 12/27/22 12/27/22 13:00 13:57 15:03 Temperature 37.2 C Heart Rate 72 62 Respiratory 22 16 24 Rate Blood Pressure 123/74 114/62 O2 Saturation 88 L 80 L If not protocol : Oxygen Flow, liters/minute 12/27/22 12/27/22 12/27/22 15:07 18:16 20:41 Temperature Heart Rate 60 75 16 L Respiratory 24 16 17 Rate Blood Pressure 103/61 O2 Saturation 92 If not protocol 2 2 : Oxygen Flow, liters/minute Oxygen O2 Source Room air - EKG (time done) 1300 EKG releavant findings:: EKG personally interpreted by author of this note. Relevant findings are: Rate: Rate (enter#) (62) Rhythm: Paced, Other (Underlying A-fib/flutter) [place]: Normal Intervals: Normal FL QRS: Normal Ischemia: Normal ST segments Computer interpretation: Agree with computer - Labs Labs: Laboratory Tests 12/27/22 12/27/22 12/27/22 13:36 13:37 13:37 WBC 6.3 RBC 4.91 Hgb 15.1 Hct 46.6 MCV 94.9 H MCH 30.8 MCHC 32.4 RDW 13.2 Plt Count 101 L MPV 10.8 Neut # (Auto) 5.4 Lymph # (Auto) 0.3 L Jack # (Auto) 0.5 Eos # (Auto) 0.0 Baso # (Auto) 0.0 Absolute Nucleated RBC 0.00 Nucleated RBC % 0.0 PT INR Sodium 137 Potassium 4.5 Chloride 101 Carbon Dioxide 30 Anion Gap 6.0 BUN 19 Creatinine 0.8 Estimated GFR (MDRD) 94 Glucose 123 H Calcium 9.4 Total Bilirubin 0.9 AST 22 ALT 23 Alkaline Phosphatase 54 B-Natriuretic Peptide 1283 H Total Protein 6.2 L Albumin 3.7 Globulin 2.5 Albumin/Globulin Ratio 1.5 Lipase 16 Nasal Adenovirus (PCR) NOT DETECTED Nasal B. parapertussis DNA (PCR) NOT DETECTED Nasal Coronavir 229E PCR NOT DETECTED Nasal Coronavir HKU1 PCR NOT DETECTED Nasal Coronavir NL63 PCR NOT DETECTED Nasal Coronavir OC43 PCR NOT DETECTED Nasal Enterovir/Rhinovir PCR NOT DETECTED Nasal Influenza B PCR NOT DETECTED Nasal Influenza A PCR NOT DETECTED Nasal Parainfluen 1 PCR NOT DETECTED Nasal Parainfluen 2 PCR NOT DETECTED Nasal Parainfluen 3 PCR NOT DETECTED Nasal Parainfluen 4 PCR NOT DETECTED Nasal RSV (PCR) NOT DETECTED Nasal B.pertussis DNA PCR NOT DETECTED Nasal C.pneumoniae (PCR) NOT DETECTED Shivam Human Metapneumo PCR NOT DETECTED Nasal M.pneumoniae (PCR) NOT DETECTED Nasal SARS-CoV-2 (PCR) NOT DETECTED 12/27/22 13:37 WBC RBC Hgb Hct MCV MCH MCHC RDW Plt Count MPV Neut # (Auto) Lymph # (Auto) Jack # (Auto) Eos # (Auto) Baso # (Auto) Absolute Nucleated RBC Nucleated RBC % PT 23.9 H INR 2.3 H Sodium Potassium Chloride Carbon Dioxide Anion Gap BUN Creatinine Estimated GFR (MDRD) Glucose Calcium Total Bilirubin AST ALT Alkaline Phosphatase B-Natriuretic Peptide Total Protein Albumin Globulin Albumin/Globulin Ratio Lipase Nasal Adenovirus (PCR) Nasal B. parapertussis DNA (PCR) Nasal Coronavir 229E PCR Nasal Coronavir HKU1 PCR Nasal Coronavir NL63 PCR Nasal Coronavir OC43 PCR Nasal Enterovir/Rhinovir PCR Nasal Influenza B PCR Nasal Influenza A PCR Nasal Parainfluen 1 PCR Nasal Parainfluen 2 PCR Nasal Parainfluen 3 PCR Nasal Parainfluen 4 PCR Nasal RSV (PCR) Nasal B.pertussis DNA PCR Nasal C.pneumoniae (PCR) Shivam Human Metapneumo PCR Nasal M.pneumoniae (PCR) Nasal SARS-CoV-2 (PCR) - Rads (name of study) cxr Relevant Findings:: Final report received (No acute cardiopulmonary process) PD Medical Decision Making - ED course Complexity details: reviewed results, re-evaluated patient, considered differential, d/w patient ED course: 77-year-old male who has a past medical history most significant for A-fib, presence of pacemaker/AICD presents to the emergency department for evaluation of dyspnea. He reports history of COPD but states he has not taking any respiratory medications for at least 8 or 9 months. He is followed by cardiology at [facility]. Dr. Quinn On presentation the patient is saturating 88 to 90% on room air though at times he does desaturate to 80%. He is diffusely wheezy though this did not improve with a DuoNeb treatment either by myself or EMS. A chest x-ray was without acute focal findings. Respiratory PCR panel is negative. We did obtain a CBC, electrolytes and a BNP. Per my interpretation normal hemoglobin. He does have a BNP of 1283. No previous for comparison. I did give the patient 125 mg of methylprednisolone on presentation given concern for COPD exacerbation. He also recceived 20 mg lasix IV. I was unable to speak with his chairman ceo though I did speak with the RN in clinic today. He indicated to me that the patient's last echo completed in August 2022 showed an EF of 30 to 35%. Previous to that it had been 50-55. He confirms the patient's medications is atorvastatin 20 mg daily, Plavix 75 mg daily, 20 mg of Lasix daily, metoprolol succinate 100 mg daily, Eliquis 5 mg twice daily, lisinopril 5 mg once daily, nitroglycerin as needed for pain. At this time there are no beds available for admission at [facility]. He will continue to board in the emergency department pending bed availability for CHF with hypoxia in the setting of COPD. 2030: Admission beds have opened up here at [facility]. I have spoken with Dr. Quiles [facility] hospitalist who reports that he will call back within about an hour to interview and admit the patient. Departure - Departure Disposition: 66 [facility] DC/Xfer Clinical Impression: Hypoxia CHF (congestive heart failure) Qualifiers: Heart failure type: unspecified Heart failure chronicity: unspecified Qualified Code(s): I50.9 - Heart failure, unspecified Forms: PCP List
[2022-12-27 13:52] LABS: BASOPHILS % (AUTO) 0.3 %; EOSINOPHILS % (AUTO) 0.6 %; HCT - HEMATOCRIT 46.6 % (42.0-52.0); HGB - HEMOGLOBIN 15.1 g/dL (14.0-18.0); LYMPHOCYTES # (AUTO) 0.3 10^3/uL (1.5-3.5); LYMPHOCYTES % (AUTO) 4.6 %; MEAN CORPUSCULAR HEMOGLOBIN 30.8 pg (27.0-31.0); MEAN CORPUSCULAR HGB CONC 32.4 g/dL (32.0-36.0); MEAN CORPUSCULAR VOLUME 94.9 fL (80.0-94.0); MEAN PLATELET VOLUME 10.8 fL (7.4-11.4); MONOCYTES # (AUTO) 0.5 10^3/uL (0.0-1.0); MONOCYTES % (AUTO) 8.4 %; NEUTROPHILS # (AUTO) 5.4 10^3/uL (1.5-6.6); NEUTROPHILS % (AUTO) 85.8 %; PLT - PLATELET COUNT 101 10^3/uL (130-450); RED BLOOD COUNT 4.91 10^6/uL (4.70-6.10); RED CELL DISTRIBUTION WIDTH 13.2 % (12.0-15.0); WHITE BLOOD COUNT 6.3 x10^3/uL (4.8-10.8)
[2022-12-27 14:09] LABS: ALBUMIN 3.7 g/dL (3.2-5.5); ALBUMIN/GLOBULIN RATIO 1.5 (1.0-2.2); BILIRUBIN,TOTAL 0.9 mg/dL (0.2-1.0); CALCIUM 9.4 mg/dL (8.5-10.3); CREATININE 0.8 mg/dL (0.6-1.3); POTASSIUM 4.5 mmol/L (3.5-4.5); TOTAL PROTEIN 6.2 g/dL (6.4-8.9)
--- NOTE | 2022-12-27 14:09 | XRAY Report ---
PROCEDURE: Chest 1 View X-Ray INDICATIONS: chest pain TECHNIQUE: One view of the chest was acquired. COMPARISON: None. FINDINGS: Surgical changes and devices: Left chest bell ICD/pacemaker generator with intravenous leads. Lungs and pleura: No pleural effusions or pneumothorax. Lungs are clear. Mediastinum: Mediastinal contours appear normal. Heart size is normal. Bones and chest wall: No suspicious bony lesions. Overlying soft tissues appear unremarkable. IMPRESSION: No acute cardiopulmonary process. Reviewed by: Antonio Brewer on 12/27/2022 2:08 PM PDT Approved by: Antonio Breewr on 12/27/2022 2:08 PM PDT Station ID: [id number]
[2022-12-27 14:10] LABS: INR 2.3 (0.8-1.2); PT - PROTHROMBIN TIME 23.9 secs (9.9-12.6)
[2022-12-27 14:47] LABS: CORONAVIRUS 229E-RESP PCR NOT DETECTED; CORONAVIRUS HKU1-RESP PCR NOT DETECTED; CORONAVIRUS NL63-RESP PCR NOT DETECTED; CORONAVIRUS OC43-RESP PCR NOT DETECTED; HUMAN METAPNEUMOVIRUS NOT DETECTED; INFLUENZA A- RESP PCR PANEL NOT DETECTED; RHINOVIRUS/ENTEROVIRUS NOT DETECTED; SARS-CoV-2 -RESP PCR PANEL NOT DETECTED
[2022-12-27 14:48] LABS: B. PARAPERTUSSIS- RESP PCR PAN NOT DETECTED; B. PERTUSSIS- RESP PCR PANEL NOT DETECTED; C. PNEUMONIAE- RESP PCR PANEL NOT DETECTED; INFLUENZA B - RESP PCR PANEL NOT DETECTED; M. PNEUMONIAE- RESP PCR PANEL NOT DETECTED; PARAINFLUENZA VIRUS 1 NOT DETECTED; PARAINFLUENZA VIRUS 2 NOT DETECTED; PARAINFLUENZA VIRUS 3 NOT DETECTED; PARAINFLUENZA VIRUS 4 NOT DETECTED; RSV- RESP PCR PANEL NOT DETECTED
[2022-12-27] MEDS ORDERED: FUROSEMIDE 20 MG/2 ML VIAL IVP STA (15:07)
[2022-12-27] MEDS: ALBUTEROL NEB 2.5 MG/3 ML INH SCH ×2 (18:14→20:39)
[2022-12-27] MEDS ORDERED: NITROGLYCERIN SL 0.4 MG TABLET SL PRN (22:28)
[2022-12-27] MEDS ORDERED: ACETAMINOPHEN 325 MG TABLET PO PRN (22:42)
[2022-12-27] MEDS ORDERED: SODIUM CHLORIDE FLUSH 0.9% 10 ML SYRINGE IVP PRN (22:42)
[2022-12-27] MEDS ORDERED: ONDANSETRON 4 MG/2 ML VIAL IVP PRN (22:42)
[2022-12-27] MEDS ORDERED: HYDROcod/ACETAM 5/325 MG TABLET PO PRN (22:42)
--- NOTE | 2022-12-27 22:52 | HISTORY & PHYSICAL EXAMINATION ---
Chief Complaint - Chief Complaint Chief Complaint: SOB and inability to get air in the lungs History of Present Illness - Admitted From Admitted From:: Home - History Obtained From Records Reviewed: Yes History obtained from: Patient and ER team and review of records Exam Limitations: None - History of Present Illness HPI Comment/Other: 77-year-old male who has a history of non O2 dependent COPD, A-fib flutter, status post pacemaker and AICD with known CHF presents emergency department for evaluation of 3 days cough, congestion and wheeze. No fevers. He has not smoked for many years. He reports that he knows he has COPD but does not take any medications or inhalers for it. His cardiac condition is followed by [place] [facility] services. He is denying chest pain. EMS noted that he had saturations of 90% on room air. 2 L nasal cannula quickly improved sats to 99%. He did receive a DuoNeb in route. 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 We discussed that when he goes to see his parimutuel cashier in [place] he should mention if he will benefit from Farxiga and Entresto, His EF is 30-35% meds reviewed, does not take ASA any more on Plavix and Eliquis. Ex smoker quit many years ago. Very nice gentleman who is pleasant and has a good attitude Patient informed this is telemedicine and I am based in [place], consent for telemedicine obtained and patient agrees History - Past Medical History Cardiovascular: reports: Hypertension, High cholesterol Respiratory: reports: COPD, CPAP use Endocrine/Autoimmune: reports: None GI: reports: None : reports: Other HEENT: reports: None Psych: reports: None Musculoskeletal: reports: None Derm: reports: None MRSA Hx?: No - Past Surgical History Cardiovascular: reports: Pacemaker Meds/Allgy - Home Medications Home Medications: Ambulatory Orders Medication Instructions Recorded Confirmed Aspirin 325 mg DAILY 10/25/15 06/28/18 Multivitamin [Multivitamins] 1 each PO DAILY 10/25/15 06/28/18 Atorvastatin Calcium 20 mg PO QPM 06/28/18 06/28/18 Clopidogrel [Plavix] 75 mg PO DAILY 06/28/18 06/28/18 Furosemide [Lasix] 20 mg PO DAILY 06/28/18 06/28/18 Ibuprofen [Motrin] 800 mg PO BID PRN #60 tablet 06/28/18 Ipratropium/Albuterol [Duoneb] 3 ml INH Q4HR PRN #50 neb 06/28/18 Lisinopril [Zestril] 5 mg PO DAILY 06/28/18 06/28/18 Metoprolol Succinate [Toprol Xl] 25 mg PO DAILY 06/28/18 06/28/18 Montelukast [Singulair] 10 mg PO QPM #30 tablet 06/28/18 Nitroglycerin [Nitrostat] 0.4 mg SL PRN PRN #30 tablet 06/28/18 guaiFENesin/CODEINE [Robitussin AC] 10 ml PO TID PRN #120 udc 06/28/18 levoFLOXacin [Levaquin] 750 mg PO DAILY #6 tablet 06/28/18 methylPREDNISolone [Medrol] 4 mg PO DAILY #1 tab.ds.pk 06/28/18 - Allergies Allergies/Adverse Reactions: Allergies Allergy/AdvReac Type Severity Reaction Status Date / Time No Known Drug Allergies Allergy Verified 10/25/15 19:16 Review of Systems - Respiratory Respiratory: reports: Cough, Orthopnea, SOB at rest, SOB with exertion Prior Level of Functionality: Independent with ADL, actively drives Exam - Vital Signs Vital Signs: Vital Signs x48h Pulse Resp BP Pulse Ox O2 Flow Rate 12/27/22 20:41 16 L 17 12/27/22 18:16 75 16 2 12/27/22 15:07 60 24 103/61 92 2 12/27/22 15:03 24 114/62 80 L - Physical Exam General Appearance: positive: No acute distress, Alert Eyes Bilateral: positive: Normal inspection, PERRL Neck: positive: Nml inspection, Thyroid nml Respiratory: positive: Breath sounds nml Cardiovascular: positive: Irregularly irregular, Systolic murmur Abdomen: positive: Non-tender, No organomegaly Back: positive: Nml inspection Extremities: positive: Non-tender, Full ROM Neurologic/Psychiatric: positive: Oriented x3, CN's nml (2-12) Sepsis Event Note (H) - Evaluation Current Stage of Sepsis: Ruled out Conclusion/Plan - Problem List (1) Atrial fibrillation and flutter Conclusion/Plan: Rate controlled Continue Eliquis Continue Toprol XL (2) Hypoxia Conclusion/Plan: Currently on room air, encourage use of CPAP at night hypoxia is resoled after nebs and diuretics (3) COPD exacerbation Conclusion/Plan: Duonebs, Prednisone 30 mg po x 3 days Magnesium 2 gm ivpb x one dose Singulair Outpatient Pulmoanry follow up and consider PFT Needs to be vaccinated for Flu if available in the hospital prior to dc (4) Heart failure Conclusion/Plan: BNP is mildly elevated Lasix 40 mg ivp in am then back to home dose continue current meds [place] XL Plavix Eliquis Statin discussed with primary cards regarding Entresto and Farxiga AICD in situ - Lab Results Fish Bones: 12/27/22 13:37 12/27/22 13:37 - Diagnostic Imaging Results Diagnostic Imaging Results: positive: Prelim report reviewed, Final report reviewed
[2022-12-27] MEDS ORDERED: MAGNESIUM SULFATE 2 GRAM 2 GM/50 ML BAG IV ONE (23:09)
[2022-12-27] MEDS: SODIUM CHLORIDE FLUSH 0.9% 10 ML SYRINGE IVP SCH (23:50)
[2022-12-28] MEDS: IPRATROPIUM/ALBUTEROL 3 ML NEB INH SCH ×2 (01:06→06:56)
[2022-12-28] MEDS ORDERED: FUROSEMIDE 40 MG/4 ML VIAL IVP SCH (05:00)
[2022-12-28] MEDS ORDERED: MULTIVITAMIN TABLET PO SCH (08:00)
[2022-12-28 08:29] VITALS: BP 117/58; O2SAT 91
[2022-12-28] MEDS: SODIUM CHLORIDE FLUSH 0.9% 10 ML SYRINGE IVP SCH (08:30)
[2022-12-28] MEDS ORDERED: CLOPIDOGREL 75 MG TABLET PO SCH (09:00)
[2022-12-28] MEDS ORDERED: lisinopriL 5 MG TABLET PO SCH (09:00)
[2022-12-28] MEDS ORDERED: METOPROLOL SUCCINATE 25 MG TABLET PO SCH (09:00)
[2022-12-28] MEDS ORDERED: APIXABAN 5 MG TABLET PO SCH (09:00)
[2022-12-28] MEDS ORDERED: predniSONE 20 MG TABLET PO SCH (09:00)
--- NOTE | 2022-12-28 10:26 | Discharge Plan ---
Discharge Plan Problem Reviewed?: Yes Disposition: Home, Self Care Condition: Stable Prescriptions: Ipratropium/Albuterol [Duoneb] 3 ml INH Q4HR PRN 30 Days #120 ml PRN Reason: Wheezing levoFLOXacin [Levaquin] 750 mg PO ONCE #21 tablet methylPREDNISolone [Medrol Dose Pack] 1 each PO .PACKAGEINSTRUCTIONS 6 Days #1 each Diet: Low Sodium Activity Restrictions: Activity as Tolerated Shower Restrictions: No Driving Restrictions: No Health Concerns: Mr. Hinojosa, You are a gentleman who has some serious medical issues with regards to lung and heart. You do not have a primary care provider. But you do have a cargo and ramp services manager and a rip and groove machine operator. While you know the name of your rip and groove machine operator, you do not know the name of your cargo and ramp services manager. You think you saw your cargo and ramp services manager a year ago. You also ran out of your nebulizer solution for an unknown length of time. When I listen to you tell me all of this, I gather that you feel relatively well enough not to worry about getting regular follow-up care. You find that it is difficult to even go see your specialist once a year. I know you were reluctant when I spoke to you, but I really do need you to invest in your health a little bit more seriously and a little bit more frequently. I am asking you to see your doctors every 4 months. There is a lot of loose ends going on with your heart and lungs that need to be seen more frequently. All of this is with a goal of having you live a longer and more healthy life. Only you can decide if that goal is worth achieving or if you would rather just let things slide with an expectation that you will not be with us as long as you could be. You came to the emergency room because you were having increasing cough, increasing phlegm. The problems we found you to have were: 1. Exacerbation of baseline emphysema. You also run out of your nebulizers. Chest x-ray did not have pneumonia. Oxygen was low and carbon dioxide levels were high. You have been stabilized with nebulizers, steroids, and antibiotics. You also still smoke. 2. You have history of congestive heart failure, and a low enough ejection fraction (how much blood is pushed forward with each heartbeat) that you have an AICD. Both problem #1 of emphysema and problem #3 of atrial fibrillation that is with an uncontrolled rate will make your congestive heart failure worse. 3. Your chronic atrial fibrillation was not very well controlled with regards to rate. The faster your heart rate, the worst your congestive heart failure. The pump cannot fill out fast enough to then push blood forward. Still blood starts backing up into your lungs and makes it even more short of breath. Plan of Treatment: 1. Please, please, please see your rip and groove machine operator and cargo and ramp services manager in the next 1 to 2 weeks. We had considered repeating your echocardiogram while here but since you already have a rip and groove machine operator and most likely have an echocardiogram in his office, we do not feel the need to repeat that here. But your rip and groove machine operator needs to adjust your meds with regards to your congestive heart failure and your atrial fibrillation. 2. I am sending prescriptions to [facility] in [place]. The prescriptions are for refills of your nebulizer solution to use in your nebulizer. You need to use those 4 times a day. I am ordering an antibiotic to be taken once a day for 7 days. And I also need you to take a steroid which is Medrol Dosepak in a tapering fashion over the next 5 days. 3. You need to stop all forms of tobacco. 4. I strongly recommend that your cargo and ramp services manager refer you to the cardiopulmonary rehab program that we have here in the hospital. It really will help cough and shortness of breath. Care Goals: My care goals for you would be for you to have your heart and lung disease is under control. This will then allow you to live a much more robust life. Assessment: Patient is alert, oriented. Understands situation. He says Following through will be difficult, and he does not know if he can comply with my request, but he will try No Smoking: If you smoke, Please STOP! Call for help.
--- NOTE | 2022-12-28 10:59 | DISCHARGE SUMMARY ---
Discharge Summary Admit Date: 12/27/22 Discharge Date: 12/28/22 Discharging Provider: Kenyatta Miramontes MD Primary Care Provider: Zhang Lynn MD Code Status: Attempt Resuscitation Condition at Discharge: Stable Discharge Disposition: 01 Home, Self Care - DIAGNOSES Discharge Diagnoses with Status of Each Condition: 1. COPD exacerbation 2. Acute respiratory failure with hypoxia 3. Atrial fibrillation with RVR, chronic 4. Acute on chronic systolic heart failure 5. Noncompliance with medications - HPI History of Present Illness: 77-year-old male who has a history of non O2 dependent COPD, A-fib flutter, status post pacemaker and AICD with known CHF presents emergency department for evaluation of 3 days cough, congestion and wheeze. No fevers. He has not smoked for many years. He reports that he knows he has COPD but does not take any medications or inhalers for it. His cardiac condition is followed by [place] [facility]ology services. He is denying chest pain. EMS noted that he had saturations of 90% on room air. 2 L nasal cannula quickly improved sats to 99%. He did receive a DuoNeb in route. 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 We discussed that when he goes to see his rebrander in [place] he should mention if he will benefit from Farxiga and Entresto, His EF is 30-35% meds reviewed, does not take ASA any more on Plavix and Eliquis. Ex smoker quit many years ago. Very nice gentleman who is pleasant and has a good attitude Patient informed this is telemedicine and I am based in [place], consent for telemedicine obtained and patient agrees History - Past Medical History Cardiovascular: reports: Hypertension, High cholesterol Respiratory: reports: COPD, CPAP use Endocrine/Autoimmune: reports: None GI: reports: None : reports: Other HEENT: reports: None Psych: reports: None Musculoskeletal: reports: None Derm: reports: None MRSA Hx?: No - Past Surgical History Cardiovascular: reports: Pacemaker - CONSULTS | PROCEDURES Procedures: Chest x-ray has no acute cardiopulmonary changes. Specifically no pneumonia. - HOSPITAL COURSE Hospital Course: This renzo gentleman shared with me that he is run out of his nebulized solution for several weeks now. And his shortness of breath was getting so worse that he could not "even take in a sip of air". Cough is increased, phlegm is increased. He did well with our steroids, empiric antibiotics and nebulizer treatment. Only needed to stay few hours. He felt stable enough to go home and didn't want to stay, but he asked if I could please refill his nebulizer solution. The impression this gentleman leaves me with is that he is reluctant patient with regards to follow-up. Has not seen his jd edwards in over a year. He thinks he saw his rebrander within the last year. He has ischemic cardiomyopathy with a low ejection fraction requiring an AICD, COPD, and continues to smoke a pipe, and is noncompliant with medications. I have stressed several times to him that he needs to take his medications on a regular basis. And it would make me, personally, feels so much better if he saw his jd edwards and rebrander at least every 4 months to make sure he is on the right course. He does not have a primary care provider. I explained to him my rationale. That if he can get his lungs and his heart under stable condition, it might buy him a better quality of life and a slightly longer life span. But if he keeps on smoking, keeps on being noncompliant with his medications, his lifespan will be significantly shortened. He responded that if he at least lives another day, that would be good for him. I am discharging him with a refill of DuoNeb for 30 days. I am giving him a Medrol Dosepak, and Levaquin for the next week. I am asking him to at least make an appointment to see his rebrander, Dr. Zhang Lynn, in the next 1 to 2 weeks. Even if his to see one of her colleagues in the office if she is not available. When I asked him to be seen every 4 months he says that he does not think he can do that because it is just hard enough for him to get there once a year much less every 4 months. I am also recommending that he be referred to cardiopulmonary rehab by his jd edwards. He is discharged in stable condition. He is walking in the room without any tachypnea, cough, increased respiratory effort. Temperature is 36.5, heart rate 84, blood pressure 117/58, respirations 18, 91 to 93% on room air. Shotty neck adenopathy. He has very limited airflow and I cannot really hear airflow but I hear copious musical rhonchi throughout all lung brandt but loudest at the bases. Prolonged I:E ratio but no outright wheezing. Abdomen is obese soft nontender. Extremities without edema. When I tell him that his lung exam is not at baseline he tries to reassure me by telling me "I always sound this way". - ALLERGIES Allergies/Adverse Reactions: Allergies Allergy/AdvReac Type Severity Reaction Status Date / Time No Known Drug Allergies Allergy Verified 10/25/15 19:16 - MEDICATIONS Home Medications: Ambulatory Orders Medication Instructions Recorded Confirmed Aspirin 325 mg DAILY 10/25/15 06/28/18 Multivitamin [Multivitamins] 1 each PO DAILY 10/25/15 06/28/18 Atorvastatin Calcium 20 mg PO QPM 06/28/18 06/28/18 Clopidogrel [Plavix] 75 mg PO DAILY 06/28/18 06/28/18 Furosemide [Lasix] 20 mg PO DAILY 06/28/18 06/28/18 Ibuprofen [Motrin] 800 mg PO BID PRN #60 tablet 06/28/18 Lisinopril [Zestril] 5 mg PO DAILY 06/28/18 06/28/18 Metoprolol Succinate [Toprol Xl] 25 mg PO DAILY 06/28/18 06/28/18 Montelukast [Singulair] 10 mg PO QPM #30 tablet 06/28/18 Nitroglycerin [Nitrostat] 0.4 mg SL PRN PRN #30 tablet 06/28/18 Apixaban [Eliquis] 5 mg PO BID tab 12/28/22 Ipratropium/Albuterol [Duoneb] 3 ml INH Q4HR PRN 30 Days #120 ml 12/28/22 levoFLOXacin [Levaquin] 750 mg PO ONCE #21 tablet 12/28/22 methylPREDNISolone [Medrol Dose 1 each PO .PACKAGEINSTRUCTIONS 6 12/28/22 Pack] Days #1 each - LABS Result Diagrams: 12/27/22 13:37 12/27/22 13:37
[2022-12-28] MEDS ORDERED: MONTELUKAST 10 MG TABLET PO SCH (21:00)
[2022-12-28] MEDS ORDERED: ATORVASTATIN 10 MG TABLET PO SCH (21:00)
== END 2022-12-28 11:00 | disposition home or self-care (01) ==
LOC: ED 12:49 → MS2 22:42
PROVIDERS: ADMIT Internal Medicine; ATTEND Specialist
DX: J44.1 Chronic obstructive pulmonary disease with (acute) exacerbation (principal); J96.01 Acute respiratory failure with hypoxia; I48.20 Chronic atrial fibrillation, unspecified; I11.0 Hypertensive heart disease with heart failure; I50.23 Acute on chronic systolic (congestive) heart failure; E78.00 Pure hypercholesterolemia, unspecified; I25.5 Ischemic cardiomyopathy; Z20.822 Contact with and (suspected) exposure to COVID-19; Z79.01 Long term (current) use of anticoagulants; Z79.02 Long term (current) use of antithrombotics/antiplatelets; Z79.82 Long term (current) use of aspirin; Z79.899 Other long term (current) drug therapy; Z87.891 Personal history of nicotine dependence; Z91.148 Patient's other noncompliance with medication regimen for other reason; Z95.810 Presence of automatic (implantable) cardiac defibrillator
CPT/HCPCS: 36415; 71045; 80053; 83690; 83880; 85025; 85610; 87633; 93005; 94640; 96365; 96375; 96376; 99285; A9270; G0378; J7512

== ENCOUNTER 2023-09-20 10:31 | Observation (INO) | payer MEDICARE, OTHER ==
[2023-09-20 11:06] LABS: BASOPHILS % (AUTO) 0.5 %; EOSINOPHILS # (AUTO) 0.1 10^3/uL (0.0-0.7); EOSINOPHILS % (AUTO) 1.3 %; HCT - HEMATOCRIT 52.4 % (42.0-52.0); LYMPHOCYTES # (AUTO) 0.7 10^3/uL (1.5-3.5); LYMPHOCYTES % (AUTO) 11.3 %; MEAN CORPUSCULAR HEMOGLOBIN 30.7 pg (27.0-31.0); MEAN CORPUSCULAR HGB CONC 30.5 g/dL (32.0-36.0); MEAN CORPUSCULAR VOLUME 100.6 fL (80.0-94.0); MEAN PLATELET VOLUME 10.5 fL (7.4-11.4); MONOCYTES # (AUTO) 0.5 10^3/uL (0.0-1.0); MONOCYTES % (AUTO) 8.4 %; NEUTROPHILS # (AUTO) 4.8 10^3/uL (1.5-6.6); NEUTROPHILS % (AUTO) 78.3 %; PLT - PLATELET COUNT 105 10^3/uL (130-450); RED BLOOD COUNT 5.21 10^6/uL (4.70-6.10); RED CELL DISTRIBUTION WIDTH 13.9 % (12.0-15.0); WHITE BLOOD COUNT 6.1 x10^3/uL (4.8-10.8)
--- NOTE | 2023-09-20 11:16 | ED Physician Documentation ---
PD HPI DYSPNEA - Stated complaint Stated Complaint: SOA,DIZZINESS,SHAKING - Chief complaint Chief Complaint: Cardiac - Additional information Additional information: 78-year-old male history of hypertension, hypercholesterolemia, COPD and known CHF presents emergency department from walk-in clinic for increased shortness of breath, dizziness that has been ongoing for the last couple days. He has had multiple near syncopal episodes over the last few days denies any chest pain. Patient said last time he was here he had his right lung drained sounds like they took about a liter off and he had significant improvement of symptoms at home he is on room air about per triage nurse patient was satting well on room air but any sort of exertional activity his oxygen dropped to the mid 80s requiring now supplemental oxygen. Patient says that they were supposed to drain his left lung but for some reason never got around to it. No new medication or supplement changes. No recent fevers or chills no rhinorrhea. Patient also reports that he has pacemaker and defibrillator also reports that he smokes a tobacco pipe daily. PD PAST MEDICAL HISTORY - Past Medical History Past Medical History: Yes Cardiovascular: Hypertension, High cholesterol, Other Respiratory: COPD, CPAP use Endocrine/Autoimmune: None GI: None : Other HEENT: None Psych: None Musculoskeletal: None Derm: None - Past Surgical History Past Surgical History: Yes Cardiovascular: Pacemaker - Present Medications Home Medications: Ambulatory Orders Medication Instructions Recorded Confirmed Aspirin 325 mg DAILY 10/25/15 06/28/18 Multivitamin [Multivitamins] 1 each PO DAILY 10/25/15 06/28/18 Atorvastatin Calcium 20 mg PO QPM 06/28/18 06/28/18 Clopidogrel [Plavix] 75 mg PO DAILY 06/28/18 06/28/18 Furosemide [Lasix] 20 mg PO DAILY 06/28/18 06/28/18 Ibuprofen [Motrin] 800 mg PO BID PRN #60 tablet 06/28/18 Lisinopril [Zestril] 5 mg PO DAILY 06/28/18 06/28/18 Metoprolol Succinate [Toprol Xl] 25 mg PO DAILY 06/28/18 06/28/18 Montelukast [Singulair] 10 mg PO QPM #30 tablet 06/28/18 Nitroglycerin [Nitrostat] 0.4 mg SL PRN PRN #30 tablet 06/28/18 Apixaban [Eliquis] 5 mg PO BID tab 12/28/22 Ipratropium/Albuterol [Duoneb] 3 ml INH Q4HR PRN 30 Days #120 ml 12/28/22 levoFLOXacin [Levaquin] 750 mg PO ONCE #21 tablet 12/28/22 methylPREDNISolone [Medrol Dose 1 each PO .PACKAGEINSTRUCTIONS 6 12/28/22 Pack] Days #1 each - Allergies Allergies/Adverse Reactions: Allergies Allergy/AdvReac Type Severity Reaction Status Date / Time No Known Drug Allergies Allergy Verified 09/20/23 10:48 - Social History Does the pt smoke?: Yes Smoking Status: Current every day smoker Does the pt drink ETOH?: No Does the pt have substance abuse?: No - Immunizations Immunizations are current?: Yes PD ED PE NORMAL - Vitals Vital signs reviewed: Yes - General General: Alert and oriented X 3, Well developed/nourished, Other (Shortness of breath) - HEENT HEENT: Atraumatic - Cardiac Cardiac: RRR, No murmur PD ED PE EXPANDED - Respiratory Respiratory: Rhonchi, Decreased breath sounds, Right upper lobe, Right middle lobe, Right lower lobe, Left upper lobe, Left lower lobe Results - Vitals Vitals: Vital Signs - 24 hr 09/20/23 09/20/23 09/20/23 10:43 10:48 10:49 Temperature 36.3 C L Heart Rate 70 Respiratory 18 Rate Blood Pressure 124/63 O2 Saturation 94 83 L 97 If not protocol 4 : Oxygen Flow, liters/minute 09/20/23 09/20/23 09/20/23 11:50 12:48 14:00 Temperature Heart Rate 80 70 60 Respiratory 20 18 15 Rate Blood Pressure 126/70 106/60 O2 Saturation 96 90 L If not protocol 4 : Oxygen Flow, liters/minute 09/20/23 14:25 Temperature Heart Rate Respiratory Rate Blood Pressure O2 Saturation 88 L If not protocol : Oxygen Flow, liters/minute Oxygen O2 Source Room air Oxygen Flow Rate 3 - EKG (time done) 1107 EKG releavant findings:: EKG personally interpreted by author of this note. Relevant findings are: Rate: Rate (enter#) (60) Rhythm: Atrial fibrillation, Other (Ventricular paced rhythm) Ischemia: Normal ST segments Computer interpretation: Agree with computer - Labs Labs: Laboratory Tests 09/20/23 09/20/23 09/20/23 10:55 10:55 10:55 WBC 6.1 RBC 5.21 Hgb 16.0 Hct 52.4 H MCV 100.6 H MCH 30.7 MCHC 30.5 L RDW 13.9 Plt Count 105 L MPV 10.5 Neut # (Auto) 4.8 Lymph # (Auto) 0.7 L Amelia # (Auto) 0.5 Eos # (Auto) 0.1 Baso # (Auto) 0.0 Absolute Nucleated RBC 0.00 Nucleated RBC % 0.0 Sodium 141 Potassium 5.0 H Chloride 102 Carbon Dioxide 38 H Anion Gap 1.0 L BUN 21 H Creatinine 0.9 Estimated GFR (MDRD) 82 L Glucose 106 H Calcium 9.7 Total Bilirubin 0.9 AST 29 ALT 23 Alkaline Phosphatase 75 Troponin I High Sens 27.7 H* B-Natriuretic Peptide 1254 H Total Protein 7.0 Albumin 3.9 Globulin 3.1 Albumin/Globulin Ratio 1.3 Lipase 27 Nasal Adenovirus (PCR) Nasal B. parapertussis DNA (PCR) Nasal Coronavir 229E PCR Nasal Coronavir HKU1 PCR Nasal Coronavir NL63 PCR Nasal Coronavir OC43 PCR Nasal Enterovir/Rhinovir PCR Nasal Influenza B PCR Nasal Influenza A PCR Nasal Parainfluen 1 PCR Nasal Parainfluen 2 PCR Nasal Parainfluen 3 PCR Nasal Parainfluen 4 PCR Nasal RSV (PCR) Nasal B.pertussis DNA PCR Nasal C.pneumoniae (PCR) Shivam Human Metapneumo PCR Nasal M.pneumoniae (PCR) Nasal SARS-CoV-2 (PCR) 09/20/23 09/20/23 13:25 14:03 WBC RBC Hgb Hct MCV MCH MCHC RDW Plt Count MPV Neut # (Auto) Lymph # (Auto) Amelia # (Auto) Eos # (Auto) Baso # (Auto) Absolute Nucleated RBC Nucleated RBC % Sodium Potassium Chloride Carbon Dioxide Anion Gap BUN Creatinine Estimated GFR (MDRD) Glucose Calcium Total Bilirubin AST ALT Alkaline Phosphatase Troponin I High Sens 28.8 H* B-Natriuretic Peptide Total Protein Albumin Globulin Albumin/Globulin Ratio Lipase Nasal Adenovirus (PCR) NOT DETECTED Nasal B. parapertussis DNA (PCR) NOT DETECTED Nasal Coronavir 229E PCR NOT DETECTED Nasal Coronavir HKU1 PCR NOT DETECTED Nasal Coronavir NL63 PCR NOT DETECTED Nasal Coronavir OC43 PCR NOT DETECTED Nasal Enterovir/Rhinovir PCR NOT DETECTED Nasal Influenza B PCR NOT DETECTED Nasal Influenza A PCR NOT DETECTED Nasal Parainfluen 1 PCR NOT DETECTED Nasal Parainfluen 2 PCR NOT DETECTED Nasal Parainfluen 3 PCR NOT DETECTED Nasal Parainfluen 4 PCR NOT DETECTED Nasal RSV (PCR) NOT DETECTED Nasal B.pertussis DNA PCR NOT DETECTED Nasal C.pneumoniae (PCR) NOT DETECTED Shviam Human Metapneumo PCR NOT DETECTED Nasal M.pneumoniae (PCR) NOT DETECTED Nasal SARS-CoV-2 (PCR) NOT DETECTED - Rads (name of study) Chest x-ray Relevant Findings:: Final report received, EMP independent interpretation of test, Other (Mild cardiomegaly with bilateral interstitial prominence and small bilateral pleural effusions) CTA chest Relevant Findings:: Final report received, EMP independent interpretation of test, Other (No acute pulmonary embolism, enlargement of the left side of the heart, CHF, moderate right pleural effusion, mild left pleural effusion, bibasilar atelectasis) PD Medical Decision Making - ED course ED course: 78-year-old male presents emergency department for increased shortness of b reath. Differentials include but are not limited to, COPD exacerbation, CHF exacerbation, pulmonary embolism, pneumonia, upper respiratory infection. Labs are complete for further evaluation no elevated white count or anemia he does have hyperkalemia, potassium 5.0, BUN also very minimally elevated at 21 most likely due to dehydration as well as an elevated BNP at 1254. Initial troponin came back at 27.7 and repeat troponin 2 hours later also came back slightly elevated at 28.8 this is most likely related to demand I do not believe this is acute coronary syndrome. Respiratory swab also came back negative. EKG does not show any ST elevation or T wave inversions. He is found to be in A- fib/flutter and is ventricular paced. Patient was given 40 mg of IV Lasix here in the emergency department to help with CHF exacerbation pleural effusion is not large enough to tap CTA negative for pulmonary embolism but does reveal enlargement of the left side of the heart and compensated CHF. He was also given 125 mg of methylprednisolone here in the emergency department for possible COPD exacerbation given that patient was quite hypoxic desatting to 86% on room air at rest and also desatted into the low 80s with any sort of exertional activity. Patient was originally going to leave AGAINST MEDICAL ADVICE but has agreed no at this point in time to stay after speaking with his . I spoke with hospitalist Dr. Ching who is graciously agreed to admit the patient for observation to help with CHF versus COPD exacerbation. Departure - Departure Disposition: ED Place in Observation Clinical Impression: CHF exacerbation, COPD exacerbation, Hypoxia
[2023-09-20 11:20] LABS: ALBUMIN 3.9 g/dL (3.2-5.5); ALBUMIN/GLOBULIN RATIO 1.3 (1.0-2.2); BILIRUBIN,TOTAL 0.9 mg/dL (0.2-1.0); CALCIUM 9.7 mg/dL (8.5-10.3); CREATININE 0.9 mg/dL (0.6-1.3)
[2023-09-20] MEDS ORDERED: iohexoL-300 100 ML VIAL ONE (11:36)
[2023-09-20 11:42] LABS: TROPONIN I HIGH SENSITIVITY 27.7 ng/L (2.3-19.7)
--- NOTE | 2023-09-20 11:44 | XRAY Report ---
PROCEDURE: Chest 1V INDICATIONS: Chest pain TECHNIQUE: One view of the chest was acquired. COMPARISON: Chest radiographs 12/27/2022. FINDINGS: Surgical changes and devices: A cardiac pacemaker is seen with pulse generator in the left chest. Lungs and pleura: Small bilateral pleural effusions and bibasilar atelectasis. Mild interstitial pro minence. No pneumothorax. Mediastinum: Cardiac silhouette is enlarged. Bones and chest wall: No suspicious bony lesions. Overlying soft tissues appear unremarkable. IMPRESSION: Mild cardiomegaly as well as bilateral interstitial prominence and small bilateral pleural effusions, suspicious for pulmonary edema/CHF. Reviewed by: Dionicio Mckenzie MD on 09/20/2023 11:43 AM PDT Approved by: Dionicio Mckenzie MD on 09/20/2023 11:43 AM PDT Station ID: [id number]
[2023-09-20] MEDS: IPRATROPIUM/ALBUTEROL 3 ML NEB INH STA (11:47)
[2023-09-20] MEDS: methylPREDNISolone SUCCINATE 125 MG/2 ML VIAL IVP STA (12:10)
--- NOTE | 2023-09-20 13:13 | CT Report ---
PROCEDURE: Angio Chest INDICATIONS: r/o PE CONTRAST: Omni 300 80ml TECHNIQUE: After the administration of intravenous contrast, 2 mm axial images were acquired from the pulmonary apices to the posterior costophrenic angles during the arterial phase. In addition, 1 mm lung kernel and 5 mm soft tissue kernel reconstructions were performed. 3-dimensional coronal oblique maximum int ensity projection (MIP) reformats, 8 mm axial MIP, and 5 mm coronal and sagittal MPR reformats were t hen performed through the thorax. For radiation dose reduction, the following was used: automated exp osure control, adjustment of mA and/or kV according to patient size. COMPARISON: 06/28/2018. FINDINGS: Image quality: Excellent. Large vessels: No filling defects within the opacified pulmonary arteries, accounting for motion and contrast timing. No evidence of acute aortic syndrome or aortic aneurysm. Lungs and pleura: Moderate right pleural effusion with compressive atelectasis on the right lower lob e. Mild left pleural effusion with left basilar compressive atelectasis. No suspicious pulmonary nodu les which require follow up. Mediastinum: Left ventricular enlargement. A degree of left atrial enlargement. Pacemaker. No pericar dial effusion. No large vessel abnormality. No mediastinal adenopathy by size criteria. Chest wall and lower neck: Thyroid is unremarkable. No axillary or supraclavicular adenopathy by size . Bones: No aggressive osseous abnormality. Upper Abdomen: Unremarkable. IMPRESSION: 1. No acute pulmonary blood. 2. Enlargement of the left side of the heart. 3. Findings consistent with compensated congestive heart failure. Moderate right pleural effusion, mi ld left pleural effusion, bibasilar atelectasis, right greater than left. Reviewed by: Keny Ho MD on 09/20/2023 1:12 PM PDT Approved by: Keny Ho MD on 09/20/2023 1:12 PM PDT Station ID: [id number]
[2023-09-20] MEDS: FUROSEMIDE 40 MG/4 ML VIAL IVP STA (13:59)
[2023-09-20 15:01] LABS: B. PARAPERTUSSIS- RESP PCR PAN NOT DETECTED; B. PERTUSSIS- RESP PCR PANEL NOT DETECTED; C. PNEUMONIAE- RESP PCR PANEL NOT DETECTED; CORONAVIRUS 229E-RESP PCR NOT DETECTED; CORONAVIRUS HKU1-RESP PCR NOT DETECTED; CORONAVIRUS NL63-RESP PCR NOT DETECTED; CORONAVIRUS OC43-RESP PCR NOT DETECTED; HUMAN METAPNEUMOVIRUS NOT DETECTED; INFLUENZA A- RESP PCR PANEL NOT DETECTED; INFLUENZA B - RESP PCR PANEL NOT DETECTED; M. PNEUMONIAE- RESP PCR PANEL NOT DETECTED; PARAINFLUENZA VIRUS 1 NOT DETECTED; PARAINFLUENZA VIRUS 2 NOT DETECTED; PARAINFLUENZA VIRUS 3 NOT DETECTED; PARAINFLUENZA VIRUS 4 NOT DETECTED; RHINOVIRUS/ENTEROVIRUS NOT DETECTED; RSV- RESP PCR PANEL NOT DETECTED; SARS-CoV-2 -RESP PCR PANEL NOT DETECTED
[2023-09-20] MEDS: iohexoL-300 100 ML VIAL IVP ONE (15:19)
[2023-09-20] MEDS ORDERED: SODIUM CHLORIDE FLUSH 0.9% 10 ML SYRINGE IVP PRN (15:32)
[2023-09-20] MEDS ORDERED: ACETAMINOPHEN 325 MG TABLET PO PRN (15:32)
[2023-09-20] MEDS ORDERED: HYDROcod/ACETAM 5/325 MG TABLET PO PRN (15:32)
[2023-09-20] MEDS ORDERED: ONDANSETRON ODT 4 MG TABLET TL PRN (15:32)
[2023-09-20] MEDS ORDERED: NITROGLYCERIN SL 0.4 MG TABLET SL PRN (15:39)
--- NOTE | 2023-09-20 15:54 | HISTORY & PHYSICAL EXAMINATION ---
Chief Complaint - Chief Complaint Chief Complaint: Weakness and shortness of breath History of Present Illness - Admitted From Admitted From:: Emergency department - History Obtained From Records Reviewed: ED records History obtained from: Patient Exam Limitations: None - History of Present Illness HPI Comment/Other: Patient is a 78-year-old man with a PMH of COPD, CHF, suspected aortic valve disease, status post defibrillator and pacemaker, paroxysmal atrial fibrillation, hyperlipidemia, who presented to the ED with 2-day history of worsening shortness of breath. Patient states that in the last couple of months he has been having worsening dyspnea on exertion as well as orthopnea. He was evaluated in the outpatient setting and found to have bilateral pleural effusions and had a right-sided thoracentesis and was supposed to come back to have the left side but never did. After worsening shortness of breath over the past few days he attempted to visit a new PCP hoping to get a referral for a repeat thoracentesis but was instead referred directly to the emergency department. In the ED, he presented with oxygen saturations in the mid 80% range, was tachypneic and unable to speak comfortably. He was placed on oxygen by nasal cannula and was responding well to 2 to 4 L of nasal cannula oxygen. His chest x-ray was remarkable for bilateral pleural effusions and a CT angiogram was obtained to rule out PE which did not show any embolus but did confirm bilateral pleural effusions as well. His WBC was normal, he had no fever, and vital signs were stable. He was given 1 dose of Lasix 40 mg IV and 1 dose of 125 solu- medrol IV and observation admission was requested. History - Past Medical History Cardiovascular: reports: Hypertension, High cholesterol, Other Respiratory: reports: COPD, CPAP use Endocrine/Autoimmune: reports: None GI: reports: None : reports: Other HEENT: reports: None Psych: reports: None Musculoskeletal: reports: None Derm: reports: None MRSA Hx?: No - Past Surgical History Cardiovascular: reports: Pacemaker - Family & Social History Living arrangement: At home Meds/Allgy - Home Medications Home Medications: Ambulatory Orders Medication Instructions Recorded Confirmed Aspirin 325 mg DAILY 10/25/15 06/28/18 Multivitamin [Multivitamins] 1 each PO DAILY 10/25/15 06/28/18 Atorvastatin Calcium 20 mg PO QPM 06/28/18 06/28/18 Clopidogrel [Plavix] 75 mg PO DAILY 06/28/18 06/28/18 Furosemide [Lasix] 20 mg PO DAILY 06/28/18 06/28/18 Ibuprofen [Motrin] 800 mg PO BID PRN #60 tablet 06/28/18 Lisinopril [Zestril] 5 mg PO DAILY 06/28/18 06/28/18 Metoprolol Succinate [Toprol Xl] 25 mg PO DAILY 06/28/18 06/28/18 Montelukast [Singulair] 10 mg PO QPM #30 tablet 06/28/18 Nitroglycerin [Nitrostat] 0.4 mg SL PRN PRN #30 tablet 06/28/18 Apixaban [Eliquis] 5 mg PO BID tab 12/28/22 Ipratropium/Albuterol [Duoneb] 3 ml INH Q4HR PRN 30 Days #120 ml 12/28/22 levoFLOXacin [Levaquin] 750 mg PO ONCE #21 tablet 12/28/22 methylPREDNISolone [Medrol Dose 1 each PO .PACKAGEINSTRUCTIONS 6 12/28/22 Pack] Days #1 each - Allergies Allergies/Adverse Reactions: Allergies Allergy/AdvReac Type Severity Reaction Status Date / Time No Known Drug Allergies Allergy Verified 09/20/23 10:48 Review of Systems - Constitutional Constitutional: reports: Fatigue, Weakness - Cardiovascular Cariovascular: reports: Lightheadedness, Exertional dyspnea, Orthopnea. denies: Irregular heart rate, Palpitations, Chest pain, Syncope - All Other Systems All Other Systems: reports: Reviewed and negative Prior Level of Functionality: Independent but worsening mobility over the past year and no longer lives with his house very often. He is retired and lives with his . Exam - Vital Signs Reviewed Vital Signs: Yes Vital Signs: Vital Signs x48h Temp Pulse Resp BP Pulse Ox O2 Flow Rate 09/20/23 14:25 88 L 09/20/23 14:00 60 15 106/60 90 L 09/20/23 12:48 70 18 126/70 96 4 09/20/23 11:50 80 20 09/20/23 10:49 97 4 09/20/23 10:48 83 L 09/20/23 10:43 36.3 C L 70 18 124/63 94 - Physical Exam General Appearance: positive: No acute distress, Alert Eyes Bilateral: positive: Normal inspection Neck: positive: Nml inspection, Thyroid nml, No JVD Respiratory: positive: Chest non-tender, No respiratory distress, Rales. negative: Wheezes, Rhonchi Cardiovascular: positive: Regular rate & rhythm, No murmur, No gallop, Other (Distant heart sounds bilaterally) Peripheral Pulses: positive: 2+ Abdomen: positive: Non-tender, No organomegaly, Nml bowel sounds Skin: positive: Color nml, No rash, Warm Extremities: positive: Pedal edema (mild, R >L) Neurologic/Psychiatric: positive: Oriented x3, CN's nml (2-12) Conclusion/Plan - Problem List (1) Acute respiratory failure with hypoxia Conclusion/Plan: Patient with acute respiratory failure with hypoxia, responding well to 2 to 4 L nasal cannula with no tachypnea at rest. Suspect underlying etiology is cardiac in origin rather than COPD. Given history of aortic valve disease, and may have worsening aortic stenosis versus CHF versus both. Admit patient to [facility] observation for IV Lasix and echocardiogram. Repeat BNP in the a.m. Wean oxygen as able. (2) Bilateral pleural effusion Conclusion/Plan: Pleural effusion likely secondary to fluid overload due to CHF. Status postthoracentesis 1 month ago, may require a second thoracentesis but at this time given that his oxygen burden is relatively manageable will start with IV Lasix 40 mg IV and proceed accordingly. (3) Aortic valve disease Conclusion/Plan: Uncertain if this patient has an aortic valve regurgitation versus stenosis versus both. Check echocardiogram in the a.m. (4) CHF exacerbation Conclusion/Plan: Uncertain ejection fraction but presenting like CHF exacerbation. Will continue metoprolol and lisinopril and check echocardiogram in the morning. As above, Lasix 40 mg IV twice daily and titrate to dry weight. (5) HLD (hyperlipidemia) Conclusion/Plan: Stable, resume statin (6) Atrial fibrillation and flutter Conclusion/Plan: Patient with history of sick sinus syndrome and pacemaker with defibrillator. Currently stable, rate controlled. Continue metoprolol and Eliquis. (7) CAD (coronary artery disease) Conclusion/Plan: CAD status post multiple stents with no presenting ACS symptoms. Stable, continue home medications. Qualifiers: Associated angina: without angina - Lab Results Lab results reviewed: Yes Fish Bones: 09/20/23 10:55 09/20/23 10:55 - Diagnostic Imaging Results Diagnostic Imaging Results: positive: Final report reviewed - EKG Results EKG Interpreted Independently: Yes Core Measures - Anticipated LOS I expect patient to be DC'd or transferred within 96 hours.: Yes - DVT/VTE - Prophylaxis VTE/DVT Device ordered at admit?: Yes
--- NOTE | 2023-09-20 17:59 | PHARMACY PROGRESS NOTE ---
- Best Possible Medication History Admit Date and Time: 09/20/23 1533 Processed by: Pharmacy Medications reviewed in ED?: No Medication History completed: In progress (CONFIRMED WITH PATIENT. PENDING INSURANCE FILL HX WITH [facility] TO CROSS CHECK.) Patient Interview: Completed As the person ultimately responsible for medication therapy, providers are able to order a medication from an existing home medication list in [facility] via the "Reconcile Routine" prior to Confirmation of that medication by medical support specialist. Such practice is discouraged except when the physician, in their clinical judgment, deems that a medical need exists for a medication without regard to previous use.
[2023-09-20] MEDS: ATORVASTATIN 10 MG TABLET PO SCH (20:14)
[2023-09-20] MEDS: FUROSEMIDE 40 MG/4 ML VIAL IVP SCH (20:14)
[2023-09-20] MEDS: SODIUM CHLORIDE FLUSH 0.9% 10 ML SYRINGE IVP SCH (20:14)
[2023-09-20] MEDS: APIXABAN 5 MG TABLET PO SCH (20:14)
[2023-09-20] MEDS: MONTELUKAST 10 MG TABLET PO SCH (20:15)
[2023-09-21] MEDS: IPRATROPIUM/ALBUTEROL 3 ML NEB INH PRN (00:25)
[2023-09-21 06:03] LABS: CALCIUM 9.2 mg/dL (8.5-10.3); POTASSIUM 4.7 mmol/L (3.5-4.5)
[2023-09-21] MEDS: lisinopriL 5 MG TABLET PO SCH (08:16)
[2023-09-21] MEDS: MULTIVITAMIN TABLET PO SCH (08:17)
[2023-09-21] MEDS: CLOPIDOGREL 75 MG TABLET PO SCH (08:17)
[2023-09-21] MEDS: METOPROLOL SUCCINATE 25 MG TABLET PO SCH (08:17)
[2023-09-21 12:58] VITALS: BP 88/49; O2SAT 88
--- NOTE | 2023-09-21 14:06 | Discharge Plan ---
Discharge Plan Problem Reviewed?: Yes Disposition: Home, Self Care Condition: Stable Diet: Low Sodium Activity Restrictions: Activity as Tolerated Shower Restrictions: No Driving Restrictions: No Weight Bearing: Full Weight Plan of Treatment: Justin, you have fluid in your lungs that is what is likely the main cause of your shortness of breath. Although you also have COPD, I don't feel like this current difficulty breathing was because of COPD but rather the fluid in your lungs. The fluid could be caused by your heart. And this is why I ordered an echocardiogram. Although this test was completed today, I don't have results yet, but your PCP can obtain the records at your follow up appointment and review them to determine the next steps. For now, we admitted you and provided IV Lasix to help get the fluid off your lungs. This may prove to be insufficient and you may still eventually need to have another drainage of the lungs. But for now, the increased dose of lasix (3 tabs in the morning and 2 tabs in the afternoon) along with the newly provided oxygen should help until you can follow up with your ux engineer, cardiologis t, and PCP. No Smoking: If you smoke, Please STOP! Call for help.
--- NOTE | 2023-09-21 16:20 | DISCHARGE SUMMARY ---
"Discharge Summary Admit Date: 09/20/23 Discharge Date: 09/21/23 Discharging Provider: Rustam Ching MD Condition at Discharge: Stable Discharge Disposition: 01 Home, Self Care - DIAGNOSES Admission Diagnoses: Acute respiratory failure with hypoxia Bilateral pleural effusion Aortic valve disease CHF exacerbation HLD A-fib and flutter CAD Discharge Diagnoses with Status of Each Condition: Acute respiratory failure with hypoxia - Stable, patient discharged home with oxygen Bilateral pleural effusion - Improved, patient diuresed with IV Lasix during admission Aortic valve disease - Stable CHF exacerbation - Improved HLD - Stable A-fib and flutter - Stable CAD - Stable - HPI History of Present Illness: Patient is a 78-year-old man with a PMH of COPD, CHF, suspected aortic valve disease, status post defibrillator and pacemaker, paroxysmal atrial fibrillation, hyperlipidemia, who presented to the ED with 2-day history of worsening shortness of breath. Patient states that in the last couple of months he has been having worsening dyspnea on exertion as well as orthopnea. He was evaluated in the outpatient setting and found to have bilateral pleural effusions and had a right-sided thoracentesis and was supposed to come back to have the left side but never did. After worsening shortness of breath over the past few days he attempted to visit a new PCP hoping to get a referral for a repeat thoracentesis but was instead referred directly to the emergency department. In the ED, he presented with oxygen saturations in the mid 80% range, was tachypneic and unable to speak comfortably. He was placed on oxygen by nasal cannula and was responding well to 2 to 4 L of nasal cannula oxygen. His chest x-ray was remarkable for bilateral pleural effusions and a CT angiogram was obtained to rule out PE which did not show any embolus but did confirm bilateral pleural effusions as well. His WBC was normal, he had no fever, and vital signs were stable. He was given 1 dose of Lasix 40 mg IV and 1 dose of 125 solu- medrol IV and observation admission was requested. - CONSULTS | PROCEDURES Procedures: Echocardiogram - HOSPITAL COURSE Hospital Course: Patient was admitted from the ED after having received Lasix 40 mg IV x 1. He was then placed in telemetry unit where Lasix 40 mg IV twice daily was ordered. This was successful in providing adequate diuresis to improve his dyspnea and orthopnea, but did not resolve his hypoxia. A oxygen desaturation screening was done which demonstrated that the patient continued to be hypoxic requiring 2 to 3 L of oxygen delivered by nasal cannula at rest and potentially higher with ambulation. His hypoxia may be indefinite given that he has a known history of COPD as well as aortic valve disease, and CHF along with bilateral pleural effusions that were already addressed by thoracentesis 1 month prior and reaccumulated. Home oxygen was prescribed. Of note, an echocardiogram was obtained however the patient became very anxious about discharging home and initially tried to leave against medical advice in the laborer general after admission. I was able to convince the patient to stay long enough to at least obtain the echocardiogram, even if he did not want to wait for the results. I also told him that I would like to try to continue more aggressive diuresis as it was likely that he continued to have fluid that would respond to IV Lasix and his renal function also demonstrated the ability to tolerate more diuresis. Unfortunately he did not want to stay any longer so I recommended follow-up with his PCP, cardiology, and pulmonology. The results of the echocardiogram remain pending at the time of discharge.He was advised to increase his home Lasix of 20 mg tablets to 3 tablets (60mg) in the morning and 2 (40mg) in the afternoon which is an increase from previously taking 40 mg twice daily. The importance of follow-up labs to monitor renal function was relayed to the patient. - ALLERGIES Allergies/Adverse Reactions: Allergies Allergy/AdvReac Type Severity Reaction Status Date / Time No Known Drug Allergies Allergy Verified 09/20/23 10:48 - MEDICATIONS Home Medications: Ambulatory Orders Medication Instructions Recorded Confirmed Multivitamin [Multivitamins] 1 each PO DAILY 10/25/15 09/20/23 Atorvastatin Calcium 20 mg PO DAILY 06/28/18 09/20/23 Clopidogrel [Plavix] 75 mg PO DAILY 06/28/18 09/20/23 Furosemide [Lasix] 20 mg PO DAILY 06/28/18 09/20/23 Lisinopril [Zestril] 5 mg PO DAILY 06/28/18 09/20/23 Metoprolol Succinate [Toprol Xl] 25 mg PO DAILY 06/28/18 09/20/23 Nitroglycerin [Nitrostat] 0.4 mg SL PRN PRN #30 tablet 06/28/18 09/20/23 Apixaban [Eliquis] 5 mg PO BID tab 12/28/22 09/20/23 Ibuprofen [Motrin] 800 mg PO DAILY PRN 09/20/23 09/20/23 Ipratropium/Albuterol [Duoneb] 3 ml INH DAILY PRN 09/20/23 09/20/23 Acetaminophen [Tylenol] 650 mg PO Q4HR PRN tab 09/21/23 FUROSEMIDE INJ 40mg VIAL [LASIX 40 mg IVP BID ml 09/21/23 INJ 40 mg VIAL] HYDROcod/ACETAM 5/325 [[place] 5/325] 1 tab PO Q4HR PRN tab 09/21/23 Ipratropium/Albuterol [Duoneb] 3 ml INH Q4HR PRN ml 09/21/23 Montelukast [Singulair] 10 mg PO QPM tab 09/21/23 Ondansetron Odt [Zofran Odt] 4 mg TL Q6HR PRN tab 09/21/23 Sodium Chloride Flush 0.9% [Normal 10 ml IVP 0100,0900,1700 ml 09/21/23 Saline Flush 0.9%] Sodium Chloride Flush 0.9% [Normal 10 ml IVP PRN PRN ml 09/21/23 Saline Flush 0.9%] - LABS Result Diagrams: 09/20/23 10:55 09/21/23 05:36"
== END 2023-09-21 15:35 | disposition home or self-care (01) ==
LOC: ED 10:31 → MS2 15:33
PROVIDERS: ADMIT Family Medicine Sports Medicine; ATTEND Family Medicine Sports Medicine
DX: J96.01 Acute respiratory failure with hypoxia (principal); J90 Pleural effusion, not elsewhere classified; I50.9 Heart failure, unspecified; I48.92 Unspecified atrial flutter; I25.10 Atherosclerotic heart disease of native coronary artery without angina pectoris; I48.0 Paroxysmal atrial fibrillation; E78.00 Pure hypercholesterolemia, unspecified; F17.290 Nicotine dependence, other tobacco product, uncomplicated; E87.5 Hyperkalemia; J44.1 Chronic obstructive pulmonary disease with (acute) exacerbation; I35.1 Nonrheumatic aortic (valve) insufficiency; Z20.818 Contact with and (suspected) exposure to other bacterial communicable diseases; Z20.822 Contact with and (suspected) exposure to COVID-19; Z20.828 Contact with and (suspected) exposure to other viral communicable diseases; Z79.01 Long term (current) use of anticoagulants; Z79.02 Long term (current) use of antithrombotics/antiplatelets; Z79.82 Long term (current) use of aspirin; Z79.899 Other long term (current) drug therapy; Z95.810 Presence of automatic (implantable) cardiac defibrillator
CPT/HCPCS: 36415; 71045; 71275; 80048; 80053; 83690; 83880; 84484; 85025; 87633; 93005; 93307; 94640; 94761; 96374; 96375; 96376; 99285; A9270; G0378; Q9967

== ENCOUNTER 2023-12-11 09:03 | Outpatient (CLI) | payer MEDICARE, OTHER ==
[2023-12-11 09:17] LABS: BASOPHILS % (AUTO) 0.4 %; EOSINOPHILS # (AUTO) 0.1 10^3/uL (0.0-0.7); EOSINOPHILS % (AUTO) 1.8 %; HGB - HEMOGLOBIN 14.2 g/dL (14.0-18.0); LYMPHOCYTES # (AUTO) 0.6 10^3/uL (1.5-3.5); LYMPHOCYTES % (AUTO) 8.5 %; MEAN CORPUSCULAR HEMOGLOBIN 30.7 pg (27.0-31.0); MEAN CORPUSCULAR HGB CONC 32.3 g/dL (32.0-36.0); MEAN CORPUSCULAR VOLUME 95.2 fL (80.0-94.0); MEAN PLATELET VOLUME 10.3 fL (7.4-11.4); MONOCYTES # (AUTO) 0.7 10^3/uL (0.0-1.0); MONOCYTES % (AUTO) 9.4 %; NEUTROPHILS # (AUTO) 5.7 10^3/uL (1.5-6.6); NEUTROPHILS % (AUTO) 79.5 %; PLT - PLATELET COUNT 157 10^3/uL (130-450); RED BLOOD COUNT 4.62 10^6/uL (4.70-6.10); RED CELL DISTRIBUTION WIDTH 12.7 % (12.0-15.0); WHITE BLOOD COUNT 7.1 x10^3/uL (4.8-10.8)
[2023-12-11 09:33] LABS: ALBUMIN 3.5 g/dL (3.2-5.5); BILIRUBIN,TOTAL 0.8 mg/dL (0.2-1.0); CALCIUM 9.1 mg/dL (8.5-10.3); CREATININE 0.8 mg/dL (0.6-1.3)
== END 2023-12-11 09:04 | disposition home or self-care (01) ==
LOC: LAB 09:03
PROVIDERS: ATTEND Nurse Practitioner Family
DX: I50.9 Heart failure, unspecified (principal)
CPT/HCPCS: 36415; 80053; 83880; 85025

== ENCOUNTER 2023-12-14 13:01 | Outpatient (CLI) | payer MEDICARE, OTHER ==
--- NOTE | 2023-12-14 17:26 | XRAY Report ---
PROCEDURE: Chest 2V INDICATIONS: CONGESTIVE HEART FAILURE TECHNIQUE: 2 views of the chest were acquired. COMPARISON: 09/20/2023 FINDINGS: Surgical changes and devices: Left chest wall pulse generator. Lungs and pleura: Bibasilar opacities and small effusions. Background interstitial prominence. Mediastinum: Heart size is borderline enlarged, unchanged. Bones and chest wall: Degenerative findings IMPRESSION: Small bilateral effusions and adjacent opacities. Interstitial prominence. Findings are suggestive of edema and atelectasis. Superimposed infection is possible. Consider future imaging surveillance to assess for resolution. Reviewed by: Diego Russell MD on 12/14/2023 5:25 PM PDT Approved by: Diego Russell MD on 12/14/2023 5:25 PM PDT Station ID: [id number]
== END 2023-12-14 13:02 | disposition home or self-care (01) ==
LOC: DI 13:01
PROVIDERS: ATTEND Family Medicine
DX: J90 Pleural effusion, not elsewhere classified (principal); I50.9 Heart failure, unspecified

== ENCOUNTER 2024-03-10 05:22 | Inpatient (IN) ==
[2024-03-10] MEDS ORDERED: SUCCINYLCHOLINE 200 MG/10 ML VIAL ONE (05:26)
[2024-03-10] MEDS ORDERED: PROPOFOL 1000 MG/100 ML 1,000 MG/100 ML BOTTLE IV ONE (05:27)
[2024-03-10] MEDS ORDERED: MIDAZOLAM DRIP 50 MG/50 ML 50 MG/50 ML BAG IV ONE (05:29)
[2024-03-10] MEDS ORDERED: MIDAZOLAM 2 MG/2 ML VIAL ONE ×2 (05:29→05:32)
[2024-03-10] MEDS: MIDAZOLAM 10 MG/2 ML VIAL IVP STA (05:34)
[2024-03-10] MEDS: SUCCINYLCHOLINE 200 MG/10 ML VIAL IVP STA (05:35)
[2024-03-10] MEDS: PROPOFOL 1000 MG/100 ML 1,000 MG/100 ML BOTTLE IV STA (05:47)
--- NOTE | 2024-03-10 05:47 | ED Physician Documentation ---
History of Present Illness Stated complaint Stated Complaint: UNRESPONSIVE Chief complaint Chief Complaint: Critical Care Additonal information Additional information: BIBA. Patient arrives in extremis (respiratory distress), required my immediate attention on arrival. He is unable to contribute to HPI/ROS. EMS says that patient's called 911. 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 EMS arrived to find patient's pulse ox 88% on room air. They say he was responding and was verbal albeit 1-2 word responses at the time. They trialed him on CPAP but shortly after initiating this intervention, the patient became unresponsive. Meds/Allgy Home Medications Ambulatory Orders Medication Instructions Recorded Confirmed multivitamin 1 ea PO DAILY 10/25/15 02/22/24 atorvastatin 20 mg tablet 20 mg PO DAILY 06/28/18 02/22/24 apixaban 5 mg tablet (Eliquis) 5 mg PO BID 12/28/22 02/22/24 ipratropium 0.5 mg-albuterol 3 mg 3 ml inhalation Q4H PRN 09/26/23 02/22/24 (2.5 mg base)/3 mL nebulization Wheezing/Shortness of breath #360 soln mL empagliflozin 10 mg tablet mg PO QDAY 01/16/24 02/22/24 (Jardiance) losartan 25 mg tablet mg PO QDAY 01/16/24 02/22/24 metoprolol succinate 50 mg mg PO 01/16/24 02/22/24 tablet,extended release 24 hr nitroglycerin 0.4 mg sublingual 0.4 mg sublingual Q5M PRN 01/16/24 02/22/24 tablet omega-3 fatty acids 1,000 mg 1,000 mg PO QDAY 01/16/24 02/22/24 capsule spironolactone 25 mg tablet 12.5 mg PO QDAY 01/16/24 02/22/24 Permanent Disabled Placard #1 ea 01/28/24 01/28/24 amiodarone 200 mg tablet 200 mg PO QDAY 02/22/24 02/22/24 budesonide-formoterol HFA 160 2 puff inhalation BID #10.2 grams 02/22/24 02/22/24 mcg-4.5 mcg/actuation aerosol inhaler (Symbicort) furosemide 40 mg tablet 40 mg PO QDAY 02/22/24 02/22/24 ibuprofen 800 mg tablet 800 mg PO Q8H 02/22/24 02/22/24 Allergies Allergies Allergy/AdvReac Type Severity Reaction Status Date / Time No Known Drug Allergies Allergy Verified 02/22/24 11:41 [facility] Medical History Medical History HTN (hypertension) Pacemaker Myocardial infarction Prostate cancer Family History Family History Other Alzheimers disease CAD (coronary artery disease) COPD (chronic obstructive pulmonary disease) Cancer Heart attack High blood pressure Social History Social History Smoking Status: Former smoker If you are a former smoker, when did you quit? (Date/Year): 2022; pipe Number of Years Smoked: 60 Second hand tobacco smoke exposure: No Do you dip or chew tobacco?: No Do you vape?: No Patient requests smoking cessation consult: No Initiate information on smoking cessation: No Living arrangement: At home Marital Status: Living Condition: With spouse/s.o. Relationship: Caregiver Level: Independent Do you feel safe in your home environment?: Yes (unobtainable) Suffered physical, verbal, emotional, or financial abuse?: No (unobtainable) History of Abuse: No ETOH Use: None Substance Use: denies use Are you sexually active?: No Retired: Yes Service: Yes Dates of Service: [id number] Are you following a diet prescribed by a doctor: No Are you following a special diet: No Exam Constitutional distress noted (severe) and (respiratory) and level of alertness abnormal (obtunded) Neck/C-Spine trachea midline Respiratory breath sounds equal bilaterally, abnormal respiratory effort (labored), auscultation abnormal (diminished breath sound) and rales noted (throughout) Cardiovascular normal heart rate noted and rhythm abnormal (irregular) Gastrointestinal abdomen soft to palpation and nondistended Psychiatry mental status abnormal (obtunded) responds to painful stimuli only Results Vitals Vitals: Vital Signs - 24 hr 03/10/24 05:22 03/10/24 05:45 03/10/24 06:09 Temperature 36.5 C Temperature Source Temporal Artery Scan Pulse Rate 80 67 61 Respiratory Rate 25 H 20 Blood Pressure 162/102 H O2 Saturation 7 L O2 Source Ambu bag Mechanical ventilator Fraction of Inspired Oxygen (FIO2) 100 Pain Intensity 0 03/10/24 06:16 03/10/24 06:26 03/10/24 06:36 Temperature 36.7 C 36.7 C Temperature Source Rectal Rectal Pulse Rate 64 61 62 Respiratory Rate 18 20 20 Blood Pressure 139/104 H 95/53 L 90/48 L O2 Saturation 92 99 100 O2 Source Mechanical ventilator Mechanical ventilator Mechanical ventilator Fraction of Inspired Oxygen (FIO2) Pain Intensity 4 0 0 03/10/24 06:47 03/10/24 06:54 03/10/24 07:19 Temperature Temperature Source Pulse Rate 63 64 Respiratory Rate 19 Blood Pressure 82/38 L 86/44 L O2 Saturation 98 92 O2 Source Mechanical ventilator Mechanical ventilator Fraction of Inspired Oxygen (FIO2) Pain Intensity 0 0 10 Oxygen O2 Source Mechanical ventilator EKG (time done) 05:28: EKG releavant findings:: EKG personally interpreted by author of this note. Relevant findings are: Rate: Rate (enter#) (80) Rhythm: Atrial fibrillation Labs Labs: Laboratory Tests 03/10/24 03/10/24 03/10/24 05:31 05:33 06:03 WBC 11.3 H RBC 5.14 Hgb 15.8 Hct 53.9 H MCV 104.9 H MCH 30.7 MCHC 29.3 L RDW 13.6 Plt Count 144 MPV 10.5 Neut # (Auto) 8.2 H Lymph # (Auto) 1.7 [place] # (Auto) 1.1 H Eos # (Auto) 0.2 Baso # (Auto) 0.1 Absolute Nucleated RBC 0.00 Nucleated RBC % 0.0 Bld Gas Analysis Time Sample Site ABG pH ABG pCO2 ABG pO2 ABG HCO3 ABG Total CO2 ABG O2 Saturation ABG Base Excess Win Test Respiration Rate O2 Delivery Device Vent Mode FiO2 Tidal Volume PEEP Pressure Support Vent Sodium 139 Potassium 4.3 Chloride 99 L Carbon Dioxide 36 H Anion Gap 4.0 L BUN 24 H Creatinine 1.5 H Estimated GFR (MDRD) 45 L Glucose 235 H POC Whole Bld Glucose 215 Calcium 9.5 Total Bilirubin 1.0 AST 21 ALT 16 Alkaline Phosphatase 70 Troponin I High Sens 26.1 H* B-Natriuretic Peptide 1545 H Total Protein 8.3 Albumin 4.1 Globulin 4.2 Albumin/Globulin Ratio 1.0 Lipase 15 Nasal Adenovirus (PCR) NOT DETECTED Nasal B. parapertussis DNA (PCR) NOT DETECTED Nasal Coronavir 229E PCR NOT DETECTED Nasal Coronavir HKU1 PCR NOT DETECTED Nasal Coronavir NL63 PCR NOT DETECTED Nasal Coronavir OC43 PCR NOT DETECTED Nasal Enterovir/Rhinovir PCR NOT DETECTED Nasal Influenza B PCR NOT DETECTED Nasal Influenza A PCR NOT DETECTED Nasal Parainfluen 1 PCR NOT DETECTED Nasal Parainfluen 2 PCR NOT DETECTED Nasal Parainfluen 3 PCR NOT DETECTED Nasal Parainfluen 4 PCR NOT DETECTED Nasal RSV (PCR) NOT DETECTED Nasal B.pertussis DNA PCR NOT DETECTED Nasal C.pneumoniae (PCR) NOT DETECTED Shivam Human Metapneumo PCR NOT DETECTED Nasal M.pneumoniae (PCR) NOT DETECTED Nasal SARS-CoV-2 (PCR) NOT DETECTED 03/10/24 06:42 WBC RBC Hgb Hct MCV MCH MCHC RDW Plt Count MPV Neut # (Auto) Lymph # (Auto) [place] # (Auto) Eos # (Auto) Baso # (Auto) Absolute Nucleated RBC Nucleated RBC % Bld Gas Analysis Time 06:56 Sample Site LEFT RADIAL ABG pH 7.29 L ABG pCO2 70 H* ABG pO2 108 H ABG HCO3 33.4 H ABG Total CO2 35.6 H ABG O2 Saturation 98 ABG Base Excess 4.3 H Win Test POSITIVE Respiration Rate 20 O2 Delivery Device VENTILATOR Vent Mode SIMV FiO2 100.00 Tidal Volume 500 PEEP 5 Pressure Support Vent 12 Sodium Potassium Chloride Carbon Dioxide Anion Gap BUN Creatinine Estimated GFR (MDRD) Glucose POC Whole Bld Glucose Calcium Total Bilirubin AST ALT Alkaline Phosphatase Troponin I High Sens B-Natriuretic Peptide Total Protein Albumin Globulin Albumin/Globulin Ratio Lipase Nasal Adenovirus (PCR) Nasal B. parapertussis DNA (PCR) Nasal Coronavir 229E PCR Nasal Coronavir HKU1 PCR Nasal Coronavir NL63 PCR Nasal Coronavir OC43 PCR Nasal Enterovir/Rhinovir PCR Nasal Influenza B PCR Nasal Influenza A PCR Nasal Parainfluen 1 PCR Nasal Parainfluen 2 PCR Nasal Parainfluen 3 PCR Nasal Parainfluen 4 PCR Nasal RSV (PCR) Nasal B.pertussis DNA PCR Nasal C.pneumoniae (PCR) Shivam Human Metapneumo PCR Nasal M.pneumoniae (PCR) Nasal SARS-CoV-2 (PCR) Rads (name of study) chest xray: Relevant Findings:: Prelim report reviewed and See rad report Procedures Intubation - Major Provider: Emergency physician Medications: Versed, Propofol and Succinylcholine Blade: Glidescope (S3) Tube: Size-enter number (8.5), Cuffed and Marked at lips-enter cm (25) Route: Oral Confirmation: Direct visualization (via glidescope camera), Bilateral breath sounds, No abdominal breath sound, Pulse ox, Chest xray and Other (colorometric change noted) Complications: No compications PD Medical Decision Making ED course Complexity details: reviewed results, re-evaluated patient and considered differential ED course: Unremarkable CBC. Mildly elevated bun (24), creatinine (1.5). Hyperglyemic (235). BNP 1545 and chest xray c/w CHF (bilateral pleural effusions). Given 60mg IV lasix to effect diuresis. hs-cTn mildly elevated (26.1). Care of patient is turned over to oncoming ED physician at end of my shift (Dr. Bah) Critical Care Time(min): 45 Time Includes: Direct patient care, Review records, Reassess patient, Document care and See progress note Data interpretation: Labs, Pulse ox, ABG, CXR and See progress note Procedures included in critical care time: See progress note Procedures excluded from critical care time: Intubation and See progress note Discharge Plan Discharge Prescriptions: No Action multivitamin 1 EACH capsule 1 ea PO DAILY atorvastatin 20 MG tablet 20 mg PO DAILY apixaban [Eliquis] 5 MG tablet 5 mg PO BID 0RF ipratropium-albuterol 3 ML solution for nebulization 3 ml inhalation Q4H PRN (Reason: Wheezing/Shortness of breath) Qty: 360 2RF Rx Instructions: Nebulize 3 mL every 4 hours as needed for wheezing/shortness of breath. (DME) [facility] [place]ructions .MEDSUPPLY Qty: 1 0RF Rx Instructions: As directed Jardiance 10 mg tablet PO QDAY losartan 25 mg tablet PO QDAY metoprolol succinate 50 mg tablet extended release 24 hr PO spironolactone 25 mg tablet 12.5 mg PO QDAY omega-3 fatty acids 1,000 mg capsule 1,000 mg PO QDAY nitroglycerin 0.4 mg tablet, sublingual 0.4 mg sublingual Q5M PRN Rx Instructions: do not exceed 3 doses per episode amiodarone 200 mg tablet 200 mg PO QDAY furosemide 40 mg tablet 40 mg PO QDAY ibuprofen 800 mg tablet 800 mg PO Q8H budesonide-formoterol [Symbicort] 160-4.5 mcg/actuation HFA aerosol inhaler 2 puff inhalation BID Qty: 10.2 4RF Print Language: Tajik Stand Alone Forms: PCP List
[2024-03-10 05:57] LABS: BASOPHILS # (AUTO) 0.1 10^3/uL (0.0-0.1); BASOPHILS % (AUTO) 0.4 %; EOSINOPHILS # (AUTO) 0.2 10^3/uL (0.0-0.7); EOSINOPHILS % (AUTO) 1.4 %; HCT - HEMATOCRIT 53.9 % (42.0-52.0); HGB - HEMOGLOBIN 15.8 g/dL (14.0-18.0); LYMPHOCYTES # (AUTO) 1.7 10^3/uL (1.5-3.5); LYMPHOCYTES % (AUTO) 15.2 %; MEAN CORPUSCULAR HEMOGLOBIN 30.7 pg (27.0-31.0); MEAN CORPUSCULAR HGB CONC 29.3 g/dL (32.0-36.0); MEAN CORPUSCULAR VOLUME 104.9 fL (80.0-94.0); MEAN PLATELET VOLUME 10.5 fL (7.4-11.4); MONOCYTES # (AUTO) 1.1 10^3/uL (0.0-1.0); MONOCYTES % (AUTO) 9.6 %; NEUTROPHILS # (AUTO) 8.2 10^3/uL (1.5-6.6); PLT - PLATELET COUNT 144 10^3/uL (130-450); RED BLOOD COUNT 5.14 10^6/uL (4.70-6.10); RED CELL DISTRIBUTION WIDTH 13.6 % (12.0-15.0); WHITE BLOOD COUNT 11.3 x10^3/uL (4.8-10.8)
[2024-03-10] MEDS: IPRATROPIUM/ALBUTEROL 3 ML NEB INH STA (06:01)
[2024-03-10] MEDS: DEXAMETHASONE 10 MG/ML VIAL IVP STA (06:03)
[2024-03-10 06:11] LABS: ALBUMIN 4.1 g/dL (3.2-5.5); CALCIUM 9.5 mg/dL (8.5-10.3); CREATININE 1.5 mg/dL (0.6-1.3); POTASSIUM 4.3 mmol/L (3.5-4.5); TOTAL PROTEIN 8.3 g/dL (6.4-8.9)
[2024-03-10] MEDS: FUROSEMIDE 40 MG/4 ML VIAL IVP STA (06:13)
[2024-03-10] MEDS: PROPOFOL 200 MG/20 ML VIAL IVP STA (06:31)
[2024-03-10 06:58] LABS: ABG BASE EXCESS 4.3 mmol/L (-2.0-3.0); ABG HCO3 33.4 mmol/L (22.0-26.0); ABG OXYGEN SATURATION 98 % (94-98); ABG PH 7.29 (7.35-7.45); ABG PO2 108 mmHg (80-100); ABG TCO2 35.6 MMOL/L (21.0-29.0)
[2024-03-10 06:59] LABS: ABG MODE OF VENTILATION SIMV; ABG RESPIRATORY RATE 20 b/min; ALLEN TEST POSITIVE
[2024-03-10 06:59] LABS: B. PARAPERTUSSIS- RESP PCR PAN NOT DETECTED; B. PERTUSSIS- RESP PCR PANEL NOT DETECTED; C. PNEUMONIAE- RESP PCR PANEL NOT DETECTED; CORONAVIRUS 229E-RESP PCR NOT DETECTED; CORONAVIRUS HKU1-RESP PCR NOT DETECTED; CORONAVIRUS NL63-RESP PCR NOT DETECTED; CORONAVIRUS OC43-RESP PCR NOT DETECTED; HUMAN METAPNEUMOVIRUS NOT DETECTED; INFLUENZA A- RESP PCR PANEL NOT DETECTED; INFLUENZA B - RESP PCR PANEL NOT DETECTED; M. PNEUMONIAE- RESP PCR PANEL NOT DETECTED; PARAINFLUENZA VIRUS 1 NOT DETECTED; PARAINFLUENZA VIRUS 2 NOT DETECTED; PARAINFLUENZA VIRUS 3 NOT DETECTED; PARAINFLUENZA VIRUS 4 NOT DETECTED; RHINOVIRUS/ENTEROVIRUS NOT DETECTED; RSV- RESP PCR PANEL NOT DETECTED; SARS-CoV-2 -RESP PCR PANEL NOT DETECTED
[2024-03-10 07:01] LABS: ABG PCO2 70 mmHg (34-45)
--- NOTE | 2024-03-10 07:07 | ED Physician Documentation ---
ED Addendum Addendum Addendum: Signout from Dr. Kirkpatrick at 7 AM shift change. Briefly Patient is a 79-year-old man with a PMH of COPD, CHF, suspected aortic valve disease, status post defibrillator and pacemaker, paroxysmal atrial fibrillation, hyperlipidemia, .who developed severe respiratory distress at home and then became obtunded. On signout he has low blood pressure in the neighborhood of 86/44 but is fighting the vent. Chest x-ray showing severe pulmonary edema. BNP severely elevated. Mild respiratory acidosis probably acute on chronic CO2 retention on ABG. I ordered a fentanyl bolus and drip for agitation noting his low blood pressure and plan to place central line. not at the bedside at this time but reportedly full code. Procedure note, central line: Consent could not be obtained as patient is obtunded and intubated. not at the bedside. He is in shock though with need for central access and pressors. The patient was prepped twice with ChloraPrep. I wore cap, mask, gown, sterile gloves. Full sterile sheet was utilized. Using real-time ultrasound guidance the right internal jugular vein was accessed and using Seldinger technique a triple-lumen 7 Green[place]ic central line was placed in standard fashion and sutured into place without immediate complications. Spoke with at 0747 by phone, . DNR for now, but vacillating. Awoke her this morning at 0400, sweaty and dyspneic. He wears O2 at baseline, not sure of amount, but questions 3 liters. Had CO with arrest in the past. Sees pulmonology/cardiology associated [facility]. Post Line CXR: 1. Lines and tubes in satisfactory position. Development of severe congestive heart failure Cardiology consult from January 31 of this year from Dr. Wiley was reviewed. He has a history of biventricular ICD, HFrEF, CAD, aortic stenosis, mitral regurgitation, KENIA, V. tach and pleural effusion. He has stents placed in 2018. He had an episode of V. tach and was hospitalized at [facility] in January. In March of last year he had LVEF 30% with multiple regional LV wall motion abnormalities, mild LVH, moderate and trace to mild AR. His troponin only went up slightly in a pattern not consistent with CO. Spoke with Dr. Tee Esparza for admission at 08 24 who accepts to the ICU. Both I and the nurse attempted Nj placement. A lot of resistance at the prostate and unable to pass. Asked our urologic store sales consultant, Dr. Cisneros to do his magic at 08 45. The urologist was also unable to place a Nj at bedside and plans to take him to the OR for catheter placement. Discharge Plan Discharge Patient Disposition: 66 [facility] DC/Xfer Condition: Critical Clinical Impression: Respiratory failure Congestive heart failure (CHF) Qualifiers: Heart failure type: unspecified Heart failure chronicity: acute on chronic Qualified Code(s): I50.9 - Heart failure, unspecified Prescriptions: No Action multivitamin 1 EACH capsule 1 ea PO DAILY atorvastatin 20 MG tablet 20 mg PO DAILY apixaban [Eliquis] 5 MG tablet 5 mg PO BID 0RF ipratropium-albuterol 3 ML solution for nebulization 3 ml inhalation Q4H PRN (Reason: Wheezing/Shortness of breath) Qty: 360 2RF Rx Instructions: Nebulize 3 mL every 4 hours as needed for wheezing/shortness of breath. (DME) Permanent Disabled Placard Misc See Rx Instructions .MEDSUPPLY Qty: 1 0RF Rx Instructions: As directed Jardiance 10 mg tablet PO QDAY losartan 25 mg tablet PO QDAY metoprolol succinate 50 mg tablet extended release 24 hr PO spironolactone 25 mg tablet 12.5 mg PO QDAY omega-3 fatty acids 1,000 mg capsule 1,000 mg PO QDAY nitroglycerin 0.4 mg tablet, sublingual 0.4 mg sublingual Q5M PRN Rx Instructions: do not exceed 3 doses per episode amiodarone 200 mg tablet 200 mg PO QDAY furosemide 40 mg tablet 40 mg PO QDAY ibuprofen 800 mg tablet 800 mg PO Q8H budesonide-formoterol [Symbicort] 160-4.5 mcg/actuation HFA aerosol inhaler 2 puff inhalation BID Qty: 10.2 4RF Print Language: Estonian
[2024-03-10] MEDS: fentaNYL 100 MCG/2 ML VIAL IVP STA (07:19)
[2024-03-10] MEDS: NOREPINEPHRINE/0.9 % NS 8 MG/250 ML BAG IV SCH (07:25)
[2024-03-10] MEDS: fentaNYL 2,500 MCG in SODIUM CHLORIDE 0.9% 200 ML IV STA (07:41)
--- NOTE | 2024-03-10 08:07 | XRAY Report ---
PROCEDURE: XR Chest for Line Placement INDICATIONS: RIJ CVC TECHNIQUE: One view of the chest was acquired. COMPARISON: 02/05/2024. FINDINGS: Surgical changes and devices: Pacemaker, ET tube, NG tube, right IJ line. Lines and tubes in satisfa ctory position. Tip of right IJ line projects in the distal SVC. Lungs and pleura: Development of extensive alveolar pulmonary edema, bilateral pleural effusions, an d bibasilar atelectasis. Mediastinum: Mediastinal contours appear normal. Heart size is normal. Bones and chest wall: No suspicious bony lesions. Overlying soft tissues appear unremarkable. IMPRESSION: 1. Lines and tubes in satisfactory position. Development of severe congestive heart failure Reviewed by: Keny Ho MD on 03/10/2024 8:06 AM PST Approved by: Keny Ho MD on 03/10/2024 8:06 AM PST Station ID: [id number]
--- NOTE | 2024-03-10 08:16 | XRAY Report ---
PROCEDURE: XR Chest 1V INDICATIONS: respiratory failure TECHNIQUE: One view of the chest was acquired. COMPARISON: Chest chest x-ray 02/05/2024 x-ray 02/05/2024 FINDINGS: Surgical changes and devices: Pacemaker is present. Endotracheal tube is proximally 4.5 cm superior to the caro. Distal aspect of the nasogastric tube is not included within distal aspect of the fernanda ogastric tube is not included within the [id number] the field of view.. Lungs and pleura: Mild effusion with edema. Mediastinum: Mediastinal contours appear normal. Heart size is enlarged Bones and chest wall: No suspicious bony lesions. Overlying soft tissues appear unremarkable. IMPRESSION: Support lines as support lines as above, some incompletely visualized. Effusion with edema. The above findings are concordant with preliminary report. Reviewed by: Evelyn Harkins MD on 03/10/2024 8:14 AM PST Approved by: Evelyn Harkins MD on 03/10/2024 8:14 AM [facility] Station ID: [id number]
--- NOTE | 2024-03-10 09:18 | PREOP HISTORY & PHYSICAL ---
Surgical History & Physical Chief Complaint/HPI Chief Complaint: urinary retention History of Present Illness: Justin is a 79-year-old male who is here for a COPD and CHF exacerbation. He has atrial fibrillation and is on Eliquis. At the time my evaluation he was intubated and sedated in the ER. He reportedly has a history of prostate cancer. We can see a dots in his pelvis consistent with radiation targeting. I do not have any records otherwise A catheter was attempted to be placed to help diurese him along with evaluate strict I&O's for his ICU admission. However, nursing staff and ER physician were unable to place catheter. I attempted to place 16 Togolese coud catheter and met resistance of the prostate consistent with stricture disease. Home Meds and Allergies Active Medications Generic Name Dose Route Start Last Admin Trade Name Freq PRN Reason Stop Dose Admin Amiodarone HCl 200 mg 03/10/24 09:00 Amiodarone 200 Mg Tablet PO DAILY AVIS Apixaban 5 mg 03/10/24 09:00 Apixaban 5 Mg Tablet PO BID AVIS Atorvastatin Calcium 20 mg 03/10/24 09:00 Atorvastatin 10 Mg Tablet PO DAILY AVIS Furosemide 40 mg 03/10/24 14:00 Furosemide 40 Mg/4 Ml Vial IVP BID AVIS Propofol 1,000 mg in 100 mls @ 6.66 mls/hr 03/10/24 06:27 03/10/24 06:56 Diprivan IV 03/10/24 21:27 20 mcg/kg/min TITR STA 13.32 mls/hr Titration Protocol 10 MCG/KG/MIN Fentanyl 2,500 mcg/ Sodium 250 mls @ 11.1 mls/hr 03/10/24 07:04 03/10/24 07:41 Chloride IV 03/11/24 05:35 1 mcg/kg/hr .[id number] STA 11.1 mls/hr Administration Protocol 1 MCG/KG/HR Norepinephrine/Sodium Chloride 8 mg in 250 mls @ 15 mls/hr 03/10/24 08:00 03/10/24 08:47 Levophed 8 Mg/250-0.9% Nacl IV 0 mcg/min .[id number] AVIS 0 mls/hr Titration Protocol 8 MCG/MIN Cefazolin Sodium 2 gm/ Sodium 100 mls @ 200 mls/hr 03/10/24 09:14 Chloride IV 03/10/24 09:43 ONCE ONE Insulin Human Regular 1 - 5 unit 03/10/24 12:00 Insulin Regular, Human 300 Unit/3 Ml Pen SUBQ Q6HR [facility] Protocol Sodium Chloride 10 ml 03/10/24 08:48 Sodium Chloride Flush 0.9% 10 Ml Syringe IVP PRN PRN NEEDED PER PROVIDER ORDERS Sodium Chloride 10 ml 03/10/24 09:00 Sodium Chloride Flush 0.9% 10 Ml Syringe IVP 0100,0900,1700 [facility] multivitamin 1 ea PO DAILY 10/25/15 atorvastatin 20 mg tablet 20 mg PO DAILY 06/28/18 apixaban 5 mg tablet (Eliquis) 5 mg PO BID 12/28/22 ipratropium 0.5 mg-albuterol 3 mg (2.5 mg base)/3 mL nebulization soln 3 ml inhalation Q4H PRN Wheezing/Shortness of breath #360 mL 09/26/23 empagliflozin 10 mg tablet (Jardiance) mg PO QDAY 01/16/24 losartan 25 mg tablet mg PO QDAY 01/16/24 metoprolol succinate 50 mg tablet,extended release 24 hr mg PO 01/16/24 nitroglycerin 0.4 mg sublingual tablet 0.4 mg sublingual Q5M PRN 01/16/24 omega-3 fatty acids 1,000 mg capsule 1,000 mg PO QDAY 01/16/24 spironolactone 25 mg tablet 12.5 mg PO QDAY 01/16/24 Permanent Disabled Placard #1 ea 01/28/24 amiodarone 200 mg tablet 200 mg PO QDAY 02/22/24 budesonide-formoterol HFA 160 mcg-4.5 mcg/actuation aerosol inhaler (Symbicort) 2 puff inhalation BID #10.2 grams 02/22/24 furosemide 40 mg tablet 40 mg PO QDAY 02/22/24 ibuprofen 800 mg tablet 800 mg PO Q8H 02/22/24 Allergies Allergy/AdvReac Type Severity Reaction Status Date / Time No Known Drug Allergies Allergy Verified 02/22/24 11:41 Vital Signs O2 Saturation: 100 Patient Review Patient Review Pertinent Tests Reviewed [facility] Medical History Medical History (Updated 03/10/24 @ 08:24 by Jose Bah MD) HTN (hypertension) Pacemaker Myocardial infarction Prostate cancer Family History Family History Other Alzheimers disease CAD (coronary artery disease) COPD (chronic obstructive pulmonary disease) Cancer Heart attack High blood pressure Social History Social History Smoking Status: Former smoker If you are a former smoker, when did you quit? (Date/Year): 2022; pipe Number of Years Smoked: 60 Second hand tobacco smoke exposure: No Do you dip or chew tobacco?: No Do you vape?: No Patient requests smoking cessation consult: No Initiate information on smoking cessation: No Living arrangement: At home Marital Status: Living Condition: With spouse/s.o. Relationship: Caregiver Level: Independent Do you feel safe in your home environment?: Yes (unobtainable) Suffered physical, verbal, emotional, or financial abuse?: No (unobtainable) History of Abuse: No ETOH Use: None Substance Use: denies use Are you sexually active?: No Retired: Yes Service: Yes Dates of Service: [id number] Are you following a diet prescribed by a doctor: No Are you following a special diet: No Exam Exam NAD lying in bed intubated RRR breath sounds mechanical Assessment & Plan Assessment & Plan Assessment & Plan: 79-year-old male who is critically ill with CHF and COPD exacerbation requiring diuresis, now with urinary retention and inability to place catheter likely secondary to 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 On Eliquis for atrial fibrillation Urology unable to place catheter at bedside Patient requires a cystoscopy, urethral dilation, possible suprapubic tube. Unfortunately we are unable to reach the family despite multiple phone calls. For this reason given the critical need for this and overall minimal risks for this procedure a two-physician consent was obtained with the hospitalist. For this reason risk and benefits alternatives were not able to be discussed appropriate with the patient given his sedated status and inability to reach his family members. Risks of this procedure include: Infection, bleeding, injury to adjacent structures, need for additional procedures, failure of therapy, Anesthesia risks
[2024-03-10 10:08] LABS: ABG BASE EXCESS 9.3 mmol/L (-2.0-3.0); ABG HCO3 33.4 mmol/L (22.0-26.0); ABG OXYGEN SATURATION 98 % (94-98); ABG PCO2 43 mmHg (34-45); ABG PH 7.51 (7.35-7.45); ABG PO2 87 mmHg (80-100); ABG TCO2 34.7 MMOL/L (21.0-29.0)
[2024-03-10 10:09] LABS: ABG MODE OF VENTILATION SIMV; ABG RESPIRATORY RATE 22 b/min
[2024-03-10 10:10] LABS: ALLEN TEST POSITIVE
[2024-03-10] MEDS ORDERED: iohexoL-240 10 ML VIAL IVP ONE (10:31)
[2024-03-10] MEDS ORDERED: LIDOCAINE 2% URO-JET 5 ML SYRINGE UR ONE (10:31)
--- NOTE | 2024-03-10 10:33 | HISTORY & PHYSICAL EXAMINATION ---
Chief Complaint Chief Complaint Chief Complaint: Shortness of breath History of Present Illness Admitted From Admitted From:: Home History of Present Illness HPI Comment/Other: Information was obtained from previous chart notes, ED physician at bedside. Currently patient intubated and sedated. This is a 79-year-old male with An extensive cardiac history including CHF with reduced ejection fraction of 30%, per echo done in January 30, Severe aortic stenosis, Coronary artery disease, Ventricular tachycardia status post ICD, MRI about 10 years ago, hypertension, atrial fibrillation on Eliquis, hyperlipidemia, KENIA treated with CPAP, status post breast cancer, COPD from long-term smoking history, recurrent bilateral effusions And diabetes type 2 who presents to the ER intubated due to Acute Respiratory failure Per family, patient reportedly had a rapid onset of dyspnea a few hours [employer], rapidly worsening. EMS arrived to find patient's pulse ox 88% on room air. They say he was responding and was verbal albeit 1-2 word responses at the time. They trialed him on CPAP but shortly after initiating this intervention, the patient became unresponsive. Patient was intubated in the field. Upon arrival to the ER, patient became hypotensive, the midline was placed and patient was started on Low-dose Levophed. Patient was given 1 dose of Lasix in the ER Chest x-ray indicates extensive pulm edema likely secondary to CHF exacerbation Initial ABG Indicated hypercapnic respiratory acidosis, pH 7.29 pCO2 70 pO2 108 on 100% FiO2 and PEEP of 5 Patient went to the OR for placement of suprapubic catheter. Chemistry indicated slightly elevated creatinine of 1.5, troponin of 30.8 and elevated BNP of 1545 Patient see [facility] cardiology in [place] Patient consults: Partial code, yes to intubation, no to ACLS procedure Meds/Allgy Home Medications Ambulatory Orders Medication Instructions Recorded Confirmed multivitamin 1 ea PO DAILY 10/25/15 03/10/24 atorvastatin 20 mg tablet 20 mg PO DAILY 06/28/18 02/22/24 apixaban 5 mg tablet (Eliquis) 5 mg PO BID 12/28/22 03/10/24 ipratropium 0.5 mg-albuterol 3 mg 3 ml inhalation Q4H PRN 09/26/23 03/10/24 (2.5 mg base)/3 mL nebulization Wheezing/Shortness of breath #360 soln mL empagliflozin 10 mg tablet 10 mg PO DAILY 10/09/24 12/02/24 (Jardiance) losartan 25 mg tablet 25 mg PO DAILY 01/16/24 03/10/24 nitroglycerin 0.4 mg sublingual 0.4 mg sublingual Q5M PRN chest 01/16/24 03/10/24 tablet pain omega-3 fatty acids 1,000 mg 1,000 mg PO QDAY 01/16/24 03/10/24 capsule Permanent Disabled Placard #1 ea 01/28/24 01/28/24 amiodarone 200 mg tablet 200 mg PO DAILY 02/22/24 03/10/24 budesonide-formoterol HFA 160 2 puff inhalation BID #10.2 grams 02/22/24 03/10/24 mcg-4.5 mcg/actuation aerosol inhaler (Symbicort) furosemide 40 mg tablet 40 mg PO QDAY 02/22/24 03/10/24 Allergies Allergies Allergy/AdvReac Type Severity Reaction Status Date / Time No Known Drug Allergies Allergy Verified 02/22/24 11:41 [facility] Medical History Medical History (Updated 03/10/24 @ 11:55 by Michael Esparza DO) HTN (hypertension) Myocardial infarction Prostate cancer Family History Family History Other Alzheimers disease CAD (coronary artery disease) COPD (chronic obstructive pulmonary disease) Cancer Heart attack High blood pressure Social History Social History Smoking Status: Former smoker If you are a former smoker, when did you quit? (Date/Year): 2022; pipe Number of Years Smoked: 60 Second hand tobacco smoke exposure: No Do you dip or chew tobacco?: No Do you vape?: No Patient requests smoking cessation consult: No Initiate information on smoking cessation: No Living arrangement: At home Marital Status: Living Condition: With spouse/s.o. Relationship: Spouse Level: Independent Home Mobility Equipment: Walker Do you feel safe in your home environment?: Yes (per ) Suffered physical, verbal, emotional, or financial abuse?: No History of Abuse: No ETOH Use: None Substance Use: denies use Are you sexually active?: No Retired: Yes Service: Yes Dates of Service: [id number] Are you following a diet prescribed by a doctor: No Are you following a special diet: No POLST POLST Status: Limited Interventions (Yes to intubation, no chest compression) Review of Systems Unable to assess, patient Is intubated and sedated Exam Constitutional normal general appearance and no apparent distress HENMT normocephalic Eyes PERRL Neck/C-Spine visual inspection normal and trachea midline Right-sided Central line present Chest inspection of chest normal Reduced breath sounds bilaterally Respiratory Reduced breath sounds bilaterally Cardiovascular Borderline Bradycardic, paced Gastrointestinal abdomen normal to inspection and abdomen soft to palpation Morbidly obese Genitourinary external appearance normal Extremities normal to inspection Neurology Unable to assess, patient is intubated and sedated Skin skin color normal Conclusion/Plan Problem List (1) Acute on chronic respiratory failure with hypoxia and hypercapnia: Plan: Likely due to CHF exacerbation resulting in flash pulm edema requiring intubation Lung protective ventilation DuoNebs as needed Daily SAT, SBT (2) COPD (chronic obstructive pulmonary disease): Plan: DuoNebs prn At this time patient does not seem to be in exacerbation, Qualifiers: COPD type: unspecified COPD Qualified Code(s): J44.9 - Chronic obstructive pulmonary disease, unspecified (3) Reduced ejection fraction concurrent with and due to acute on chronic heart failure: Plan: Echo in January 2024 indicated a reduced EF of 30%. Continue with aggressive diuresis, BNP is elevated at > 1500 Continue amidarone for HR control Strict I/O. Hold losartan and metoprolol due to borderline hypotension Pt is followed by cardiology in [place] (4) AICD (automatic cardioverter/defibrillator) present: Plan: due to hx of ventricular tachycardia, monitor for arrhythmia, continue amiodarone (5) Flash pulmonary edema: Plan: Likely due to exacerbation of heart failure w/ reduced EF. Diuresis, lasix bid, hold off on echo, latest echo done in Jan 2024 EF < 30% (6) Bilateral pleural effusion: Plan: consider thoracentesis if not resolve with diuretics (7) Hypotension: Plan: wean off levophed as tolerated Qualifiers: Hypotension type: unspecified hypotension type Qualified Code(s): I95.9 - Hypotension, unspecified (8) DAVID (acute kidney injury): Plan: Likely ATN due to EF < 30%, hypotension monitor urine output avoid nephrotoxic drugs (9) A-fib: Plan: continue eliquis, amiodarone hold metoprolol due hypotension Qualifiers: Atrial fibrillation type: longstanding persistent Qualified Code(s): I 48.11 - Longstanding persistent atrial fibrillation (10) Elevated troponin: Plan: likley due to demand ischemia, ischemic cardiomyopathy monitor trop (11) Suprapubic catheter: Plan: Unable to place Nj catheter due to previous history of radiation radiation treatment of prostate cancer. Suprapubic catheter was placed by urology in the OR. Recommendation: Follow-up with Urology Within 7 days after discharge. Lab Results Lab results reviewed: Yes 03/10/24 05:31 03/10/24 05:31 Diagnostic Imaging Results Diagnostic Imaging Results: positive Final report reviewed EKG Results EKG Interpreted Independently: Yes
--- NOTE | 2024-03-10 10:41 | ANESTHESIA PROCEDURE NOTE ---
Pre-Anesthesia VS, & Labs Diagnosis Surgical Diagnosis:: urinary retention Procedure Procedure: cystoscopy, urethral dilation, crowley placement, possible suprapubic catheter Vitals Vital Signs: Temp Pulse Resp BP Pulse Ox O2 Flow Rate 37 C 60 22 118/71 100 100 03/10/24 08:00 03/10/24 09:42 03/10/24 09:42 03/10/24 09:42 03/10/24 09:42 03/10/24 08:00 NPO NPO: Other Lab Results Current Lab Results: Laboratory Tests 03/10/24 09:57: Bld Gas Analysis Time 10:03, Sample Site LEFT RADIAL, ABG pH 7.51 H, ABG pCO2 43, ABG pO2 87, ABG HCO3 33.4 H, ABG Total CO2 34.7 H, ABG O2 Saturation 98, ABG Base Excess 9.3 H, Win Test POSITIVE, Respiration Rate 22, O2 Delivery Device VENTILATOR, Vent Mode SIMV, FiO2 80.00, Tidal Volume 500, PEEP 5, Pressure Support Vent 12 03/10/24 07:45: Troponin I High Sens 30.8 H* 03/10/24 07:39: POC Whole Bld Glucose 135 03/10/24 06:42: Bld Gas Analysis Time 06:56, Sample Site LEFT RADIAL, ABG pH 7.29 L, ABG pCO2 70 H*, ABG pO2 108 H, ABG HCO3 33.4 H, ABG Total CO2 35.6 H, ABG O2 Saturation 98, ABG Base Excess 4.3 H, Win Test POSITIVE, Respiration Rate 20, O2 Delivery Device VENTILATOR, Vent Mode SIMV, FiO2 100.00, Tidal Volume 500, PEEP 5, Pressure Support Vent 12 03/10/24 05:33: POC Whole Bld Glucose 215 03/10/24 05:31: WBC 11.3 H, RBC 5.14, Hgb 15.8, Hct 53.9 H, MCV 104.9 H, MCH 30.7, MCHC 29.3 L, RDW 13.6, Plt Count 144, MPV 10.5, Neut # (Auto) 8.2 H, Lymph # (Auto) 1.7, Avery # (Auto) 1.1 H, Eos # (Auto) 0.2, Baso # (Auto) 0.1, Absolute Nucleated RBC 0.00, Nucleated RBC % 0.0, Sodium 139, Potassium 4.3, Chloride 99 L, Carbon Dioxide 36 H, Anion Gap 4.0 L, BUN 24 H, Creatinine 1.5 H, Estimated GFR (MDRD) 45 L, Glucose 235 H, Calcium 9.5, Total Bilirubin 1.0, AST 21, ALT 16, Alkaline Phosphatase 70, Troponin I High Sens 26.1 H*, B-Natriuretic Peptide 1545 H, Total Protein 8.3, Albumin 4.1, Globulin 4.2, Albumin/Globulin Ratio 1.0, Lipase 15 03/10/24 05:31 03/10/24 05:31 Meds/Allgy Home Medications Ambulatory Orders Medication Instructions Recorded Confirmed multivitamin 1 ea PO DAILY 10/25/15 02/22/24 atorvastatin 20 mg tablet 20 mg PO DAILY 06/28/18 02/22/24 apixaban 5 mg tablet (Eliquis) 5 mg PO BID 12/28/22 02/22/24 ipratropium 0.5 mg-albuterol 3 mg 3 ml inhalation Q4H PRN 09/26/23 02/22/24 (2.5 mg base)/3 mL nebulization Wheezing/Shortness of breath #360 soln mL empagliflozin 10 mg tablet mg PO QDAY 01/16/24 02/22/24 (Jardiance) losartan 25 mg tablet mg PO QDAY 01/16/24 02/22/24 metoprolol succinate 50 mg mg PO 01/16/24 02/22/24 tablet,extended release 24 hr nitroglycerin 0.4 mg sublingual 0.4 mg sublingual Q5M PRN 01/16/24 02/22/24 tablet omega-3 fatty acids 1,000 mg 1,000 mg PO QDAY 01/16/24 02/22/24 capsule spironolactone 25 mg tablet 12.5 mg PO QDAY 01/16/24 02/22/24 Permanent Disabled Placard #1 ea 01/28/24 01/28/24 amiodarone 200 mg tablet 200 mg PO QDAY 02/22/24 02/22/24 budesonide-formoterol HFA 160 2 puff inhalation BID #10.2 grams 02/22/24 02/22/24 mcg-4.5 mcg/actuation aerosol inhaler (Symbicort) furosemide 40 mg tablet 40 mg PO QDAY 02/22/24 02/22/24 ibuprofen 800 mg tablet 800 mg PO Q8H 02/22/24 02/22/24 Allergies Allergies Allergy/AdvReac Type Severity Reaction Status Date / Time No Known Drug Allergies Allergy Verified 02/22/24 11:41 [facility] Medical History Medical History (Updated 03/10/24 @ 10:43 by Gisela Rosas CRNA) HTN (hypertension) Myocardial infarction Prostate cancer Family History Family History Other Alzheimers disease CAD (coronary artery disease) COPD (chronic obstructive pulmonary disease) Cancer Heart attack High blood pressure Social History Social History Smoking Status: Former smoker If you are a former smoker, when did you quit? (Date/Year): 2022; pipe Number of Years Smoked: 60 Second hand tobacco smoke exposure: No Do you dip or chew tobacco?: No Do you vape?: No Patient requests smoking cessation consult: No Initiate information on smoking cessation: No Living arrangement: At home Marital Status: Living Condition: With spouse/s.o. Relationship: Caregiver Level: Independent Do you feel safe in your home environment?: Yes (unobtainable) Suffered physical, verbal, emotional, or financial abuse?: No (unobtainable) History of Abuse: No ETOH Use: None Substance Use: denies use Are you sexually active?: No Retired: Yes Service: Yes Dates of Service: [id number] Are you following a diet prescribed by a doctor: No Are you following a special diet: No POLST POLST Status: Limited Interventions Anesthesia Exam (Expanded) Exam General: Other (sedated) Dental: Other (unable to exam) Neck Mobility: Normal Mallampati classification: IV Thyromental Distance: 4-6 cm Respiratory: Crackles and Rhonchi Cardiovascular: Other (Afib/flutter) Plan Problem List (1) Respiratory failure: (2) Sedentary lifestyle: (3) COPD (chronic obstructive pulmonary disease): Qualifiers: COPD type: unspecified COPD Qualified Code(s): J44.9 - Chronic obstructive pulmonary disease, unspecified (4) Edema, peripheral: (5) Congestive heart failure (CHF): Qualifiers: Heart failure type: unspecified Heart failure chronicity: acute on chronic Qualified Code(s): I50.9 - Heart failure, unspecified (6) A-fib: Qualifiers: Atrial fibrillation type: longstanding persistent Qualified Code(s): I 48.11 - Longstanding persistent atrial fibrillation (7) Medication management: (8) Dyspnea on exertion: (9) Heart failure: Qualifiers: Heart failure type: unspecified Heart failure chronicity: acute Q ualified Code(s): I50.9 - Heart failure, unspecified (10) HTN (hypertension): (11) Pacemaker: (12) Myocardial infarction: (13) Prostate cancer: (14) AICD (automatic cardioverter/defibrillator) present: (15) Atrial flutter: Plan Anesthesia Type: General and MAC (pt currently intubated/sedated. will monitor and provide anesthesia as needed) Consent for Procedure(s) Verified and Reviewed: Yes Code Status: Do Not Attempt Resuscitation (medications only) ASA Classification ASA classification: 5-Moribund Is this case an emergency?: Yes
[2024-03-10] MEDS ORDERED: ROCURONIUM 50 MG/5 ML VIAL ONE (11:24)
[2024-03-10] MEDS ORDERED: ceFAZolin 1 GM VIAL ONE (11:33)
--- NOTE | 2024-03-10 11:59 | OPERATIVE REPORT ---
Operative Report General Admit Date: 03/10/24 Procedure Data: Operation Date: 03/10/24 13:25 Proposed Procedures p Cystoscopy with Urethral Dilation(Not Applicable) - Rashel Cisneros MD Actual Procedures p Cystoscopy with Urethral Dilation W/COMPLEX OWENS PLACEMENT(Not Applicable) - Rashel Cisneros MD Pre-Op Diagnosis: RESPIRATORY FAILURE CHF EXACERBATION; CYSTOSCOPY, URETERAL DILATION, POSSIBLE SUPRAPUBIC TUBE Anesthesia Type General Case Staff Anesthesia Provider: Tomas Bell Case Times Procedure Start: 03/10/24 11:28 Time out: 03/10/24 11:28 Pre-Op Diagnosis: Urinary retention Post Op Diagnosis: Urinary retention Procedure Note Estimated Blood Loss (ml): 5 Findings: Dense prostate obstruction and false passage Complications: none Other Other Information/Narrative: After informed consent was obtained from the family and from a second physician emergency consent the patient was brought to the OR and laid in the supine position. The patient was anesthetized per anesthesia protocols and then prepped draped in the usual sterile fashion in the dorsolithotomy position. A 22 Lao cystoscope was advanced easily into the bulbar urethra. There we could see that his prostate had a false passage and was significantly obstructed from likely prostate radiation damage. It was difficult to find a true lumen but after a Crede maneuver we were able to see a small opening in the left posterior lateral aspect of his urethra. A sensor wire was placed through this easily. We then placed a 5 Lao open-ended ureteral catheter over this and we could see that there was a steady drip of urine. We then switched the wire for a Amplatz Super Stiff wire and then sequentially dilated his urethra up from 5 Lao to 26 Lao. We reinspected his urethra and his bladder using a 22 Lao cystoscope we could see now a true lumen. He had a dense prostate from his radiation damage. There was no bladder mucosal abnormalities seen besides radiation changes. There were no obvious large masses or concerns. We tried to place a 22 Lao three-way Owens catheter however we could not pass this over the wire we placed a 20 Lao three-way Owens catheter. He was placed to gravity drainage. This concluded the procedure the patient tolerated the procedure well. He was brought to ICU without further issue He will keep the catheter in place for now and follow-up as an outpatient
--- NOTE | 2024-03-10 13:31 | PHARMACY PROGRESS NOTE ---
Best Possible Medication History Admit Date and Time: 03/10/24 Home Medications Medication Instructions Recorded Confirmed Type multivitamin 1 ea PO DAILY 10/25/15 03/10/24 History atorvastatin 20 mg tablet 20 mg PO DAILY 06/28/18 02/22/24 History apixaban 5 mg tablet (Eliquis) 5 mg PO BID 12/28/22 03/10/24 Rx ipratropium 0.5 mg-albuterol 3 mg 3 ml inhalation Q4H PRN 09/26/23 03/10/24 Rx (2.5 mg base)/3 mL nebulization Wheezing/Shortness of breath #360 soln mL empagliflozin 10 mg tablet 10 mg PO DAILY 01/16/24 03/10/24 History (Jardiance) losartan 25 mg tablet 25 mg PO DAILY 01/16/24 03/10/24 History nitroglycerin 0.4 mg sublingual 0.4 mg sublingual Q5M PRN chest 01/16/24 History tablet pain omega-3 fatty acids 1,000 mg 1,000 mg PO QDAY 01/16/24 03/10/24 History capsule Permanent Disabled Placard #1 ea 01/28/24 01/28/24 Rx amiodarone 200 mg tablet 200 mg PO DAILY 02/22/24 03/10/24 History budesonide-formoterol HFA 160 2 puff inhalation BID #10.2 grams 02/22/24 03/10/24 Rx mcg-4.5 mcg/actuation aerosol inhaler (Symbicort) furosemide 40 mg tablet 40 mg PO QDAY 02/22/24 03/10/24 History Processed by: Pharmacy Medications reviewed in ED?: No Medication History completed: Yes Patient Interview: Pt unable to participate Secondary Source(s): Spouse/Significant other ( confirmed most medications, however unable to confirm atorvastatin. I do not see any recent fill hx and unsure if patient is still on. Eliquis is being purchased in [place], no fill history available.) and Insurance records [facility] Statement: As the person ultimately responsible for medication therapy, providers are able to order a medication from an existing home medication list in [facility] via the "Reconcile Routine" prior to Confirmation of that medication by family support worker. Such practice is discouraged except when the physician, in their clinical judgment, deems that a medical need exists for a medication without regard to previous use.
[2024-03-10] MEDS: ceFAZolin (2G) 2 GM in SODIUM CHLORIDE 0.9% MINIBAG 100 ML IV ONE (14:03)
[2024-03-10] MEDS: ATORVASTATIN 10 MG TABLET PO SCH (14:14)
[2024-03-10] MEDS: APIXABAN 5 MG TABLET PO SCH (14:15)
[2024-03-10] MEDS: AMIODARONE 200 MG TABLET PO SCH (14:16)
[2024-03-10] MEDS: SODIUM CHLORIDE FLUSH 0.9% 10 ML SYRINGE IVP SCH (14:20)
[2024-03-10] MEDS: INSULIN REGULAR, HUMAN 300 UNIT/3 ML PEN SUBQ SCH (14:21)
[2024-03-10] MEDS: FUROSEMIDE 40 MG/4 ML VIAL IVP SCH (14:28)
[2024-03-10] MEDS: MIDAZOLAM DRIP 50 MG/50 ML 50 MG/50 ML BAG IV SCH (15:29)
[2024-03-10 15:30] LABS: ESTIMATED AVERAGE GLUCOSE 105 mg/dL (70-100); HEMOGLOBIN A1c% 5.3 % (4.27-6.07)
[2024-03-10] MEDS: IPRATROPIUM/ALBUTEROL 3 ML NEB INH PRN (17:04)
[2024-03-10 17:15] LABS: BILIRUBIN,URINE NEGATIVE (NEGATIVE); GLUCOSE, URINE (UA) 250 mg/dL (NEGATIVE); KETONES,URINE (UA) NEGATIVE (NEGATIVE); LEUKOCYTE ESTERASE, URINE TRACE (NEGATIVE); NITRITE,URINE NEGATIVE (NEGATIVE); OCCULT BLOOD,URINE LARGE (NEGATIVE); PROTEIN,URINE NEGATIVE (NEGATIVE); UROBILINOGEN,URINE 0.2 (NORMAL) E.U./dL (NORMAL)
[2024-03-10 17:34] LABS: BACTERIA,URINE Few /HPF (None Seen); CASTS, URINE 0-2 Hyaline Casts /LPF; CLARITY,URINE HAZY (CLEAR); RBC,URINE TNTC /HPF (0-5); SQUAMOUS EPITHELIAL CELL,UR NONE SEEN (<= Few)
[2024-03-10] MEDS: SODIUM CHLORIDE FLUSH 0.9% 10 ML SYRINGE IVP PRN (20:07)
[2024-03-10] MEDS: fentaNYL 2,500 MCG in SODIUM CHLORIDE 0.9% 200 ML IV SCH (22:04)
[2024-03-11 05:35] LABS: HCT - HEMATOCRIT 41.3 % (42.0-52.0); HGB - HEMOGLOBIN 13.5 g/dL (14.0-18.0); LYMPHOCYTES # (AUTO) 0.3 10^3/uL (1.5-3.5); LYMPHOCYTES % (AUTO) 2.8 %; MEAN CORPUSCULAR HEMOGLOBIN 30.8 pg (27.0-31.0); MEAN CORPUSCULAR HGB CONC 32.7 g/dL (32.0-36.0); MEAN CORPUSCULAR VOLUME 94.3 fL (80.0-94.0); MEAN PLATELET VOLUME 11.5 fL (7.4-11.4); MONOCYTES # (AUTO) 0.6 10^3/uL (0.0-1.0); MONOCYTES % (AUTO) 5.5 %; NEUTROPHILS # (AUTO) 10.6 10^3/uL (1.5-6.6); NEUTROPHILS % (AUTO) 91.2 %; PLT - PLATELET COUNT 119 10^3/uL (130-450); RED BLOOD COUNT 4.38 10^6/uL (4.70-6.10); RED CELL DISTRIBUTION WIDTH 13.7 % (12.0-15.0); WHITE BLOOD COUNT 11.6 x10^3/uL (4.8-10.8)
[2024-03-11 05:49] LABS: CREATININE 1.2 mg/dL (0.6-1.3); POTASSIUM 3.4 mmol/L (3.5-4.5)
[2024-03-11] MEDS: DEXMEDETOMIDINE 400 MCG/100 ML 100 ML IV PRN (11:07)
[2024-03-11] MEDS: PANTOPRAZOLE 40 MG VIAL IVP SCH (11:35)
--- NOTE | 2024-03-11 11:49 | PROVIDER PROGRESS NOTE ---
Subjective Subjective Subjective: Patient is intubated and sedated. When sedation is held, patient does follow some commands. Patient has an extensive cardiac history: CAD s/p arthrectomy and 02/2018, 3 drug-eluting stent placements to RCA, biventricular AICD placement. Echo done 01/11/2024 shows left ventricular ejection fraction of 20%, severe aortic valve stenosis. He was admitted to [facility] in January for ventricular tachycardia, hypotension requiring amiodarone drip. He visited his supervisor airplane flight attendant in [place] on 02/03; his medication list was updated to the following: Amiodarone 200 mg daily, Eliquis 5 mg twice daily, Lipitor 20 mg daily, Pulmicort daily, Jardiance 10 mg daily, perform rest daily, Lasix 40 mg daily, DuoNebs as needed, metoprolol 50 mg every 24 hours, spironolactone 25 mg daily. His supervisor airplane flight attendant was also planning on doing a thoracentesis in [place] if he still had large pleural effusions. He was told that he was too high risk for a TAVR with such poor LV function. Current Medications Current Medications Current Medications: Current Medications Generic Name Dose Route Start Last Admin Trade Name Freq PRN Reason Stop Dose Admin Albuterol/Ipratropium 3 ml 03/10/24 16:10 03/10/24 17:04 Ipratropium/Albuterol 3 Ml Neb INH 3 ml Q4HR PRN Administration Wheezing Amiodarone HCl 200 mg 03/10/24 09:00 03/11/24 09:26 Amiodarone 200 Mg Tablet PO 200 mg DAILY AVIS Administration Apixaban 5 mg 03/10/24 09:00 03/11/24 09:27 Apixaban 5 Mg Tablet PO 5 mg BID AVIS Administration Atorvastatin Calcium 20 mg 03/10/24 09:00 03/11/24 09:26 Atorvastatin 10 Mg Tablet PO 20 mg DAILY AVIS Administration Furosemide 40 mg 03/10/24 14:00 03/11/24 09:26 Furosemide 40 Mg/4 Ml Vial IVP 40 mg BID AVIS Administration Norepinephrine/Sodium Chloride 8 mg in 250 mls @ 15 mls/hr 03/10/24 08:00 03/11/24 06:23 Levophed 8 Mg/250-0.9% Nacl IV Not Given .[id number] AVIS Protocol 8 MCG/MIN Midazolam HCl 50 mg in 50 mls @ 4.28 mls/hr 03/10/24 15:00 03/11/24 10:20 Versed Drip 50 Mg/50 Ml IV Infused .[id number] AVIS Titration Protocol 0.04 MG/KG/HR Fentanyl 2,500 mcg/ Sodium 250 mls @ 10.7 mls/hr 03/10/24 23:00 03/10/24 23:57 Chloride IV 1 mcg/kg/hr .[id number] AVIS 10.7 mls/hr Titration Protocol 1 MCG/KG/HR Dexmedetomidine/Sodium Chloride 100 mls @ 5.25 mls/hr 03/11/24 10:46 03/11/24 11:07 Precedex Premix IV 0.2 mcg/kg/hr .Q19H3M PRN 5.25 mls/hr Agitation Administration Protocol 0.2 MCG/KG/HR Insulin Human Regular 1 - 5 unit 03/10/24 12:00 03/11/24 06:00 Insulin Regular, Human 300 Unit/3 Ml Pen SUBQ Not Given Q6HR [facility] Protocol Midazolam HCl 1 mg 03/10/24 14:24 Midazolam 2 Mg/2 Ml Vial IVP Q1H PRN AGITATION Pantoprazole Sodium 40 mg 03/11/24 11:00 03/11/24 11:35 Pantoprazole 40 Mg Vial IVP 40 mg QDAC AVIS Administration Sodium Chloride 10 ml 03/10/24 08:48 03/11/24 04:55 Sodium Chloride Flush 0.9% 10 Ml Syringe IVP 10 ml PRN PRN Administration NEEDED PER PROVIDER ORDERS Sodium Chloride 10 ml 03/10/24 09:00 03/11/24 09:27 Sodium Chloride Flush 0.9% 10 Ml Syringe IVP 10 ml 0100,0900,1700 AVIS Administration Objective Vital Signs/Intake & Output Reviewed Vital Signs: Yes Vital Signs: Vital Signs x48h Temp Pulse Pulse Resp BP Pulse Ox 03/11/24 11:34 60 03/11/24 11:00 98 H 18 122/70 94 03/11/24 10:00 60 18 112/57 L 93 03/11/24 09:20 98 H 03/11/24 09:00 88 18 115/62 94 03/11/24 08:00 98.8 F 61 18 103/54 L 95 03/11/24 07:00 60 18 109/57 L 97 03/11/24 06:59 60 03/11/24 06:00 60 18 112/57 L 97 03/11/24 05:00 98.6 F 64 18 111/60 98 03/11/24 04:45 66 03/11/24 04:00 98.8 F 61 18 102/61 97 Intake & Output: Intake & Output 03/09/24 03/10/24 03/11/24 03/12/24 05:59 05:59 05:59 05:59 Intake Total 532 / 532 195 / 195 Output Total 1916 / 1916 910 / 910 Balance -1385 / -1385 -715 / -715 Weight (kg) 111 kg 107 kg 105 kg Objective General Appearance: positive No acute distress and Other (Intubated, sedated. ET tube in place.) Eyes Bilateral: positive Normal inspection, PERRL and EOMI ENT: positive ENT inspection nml and No signs of dehydration Neck: positive Nml inspection and Trachea midline Respiratory: positive Rales (bilateral diffuse crackles noted) Cardiovascular: positive No gallop, Irregularly irregular and Systolic murmur Abdomen: positive Non-tender, No organomegaly and No distention; negative Tenderness or Guarding Back: positive Nml inspection; negative CVA tenderness (R) or CVA tenderness (L) Skin: positive Color nml, No rash, Warm and Dry Extremities: positive Non-tender, Nml appearance and Pedal edema Neurologic/Psychiatric: positive Other (Sedated) Lab Results 03/11/24 04:58 03/11/24 04:58 Other Labs: Lab Results x24hrs 03/11/24 03/11/24 03/11/24 Range/Units 11:31 09:46 06:05 WBC (4.8-10.8) x10^3/uL RBC (4.70-6.10) 10^6/uL Hgb (14.0-18.0) g/dL Hct (42.0-52.0) % MCV (80.0-94.0) fL MCH (27.0-31.0) pg MCHC (32.0-36.0) g/dL RDW (12.0-15.0) % Plt Count (130-450) 10^3/uL MPV (7.4-11.4) fL Neut # (Auto) (1.5-6.6) 10^3/uL Lymph # (Auto) (1.5-3.5) 10^3/uL Cottle # (Auto) (0.0-1.0) 10^3/uL Eos # (Auto) (0.0-0.7) 10^3/uL Baso # (Auto) (0.0-0.1) 10^3/uL Absolute Nucleated RBC x10^3/uL Nucleated RBC % /100WBC Sodium (135-145) mmol/L Potassium (3.5-4.5) mmol/L Chloride (101-111) mmol/L Carbon Dioxide (21-32) mmol/L Anion Gap (6-13) BUN (6-20) mg/dL Creatinine (0.6-1.3) mg/dL Estimated GFR (MDRD) (>89) Glucose (74-104) mg/dL POC Whole Bld Glucose 123 113 106 (70-100) mg/dL Estimat Average Glucose (70-100) mg/dL Hemoglobin A1c % (4.27-6.07) % Calcium (8.5-10.3) mg/dL Troponin I High Sens (2.3-19.7) ng/L Urine Color Urine Clarity (CLEAR) Urine pH (5.0-7.5) PH Ur Specific Hudd[place]eston (1.002-1.030) Urine Protein (NEGATIVE) mg/dL Urine Glucose (UA) (NEGATIVE) mg/dL Urine Ketones (NEGATIVE) mg/dL Urine Occult Blood (NEGATIVE) Urine Nitrite (NEGATIVE) Urine Bilirubin (NEGATIVE) Urine Urobilinogen (NORMAL) E.U./dL Ur Leukocyte Esterase (NEGATIVE) Urine RBC (0-5) /HPF Urine WBC (0-3) /HPF Ur Squamous Epith Cells (<= Few) Urine Bacteria (None Seen) /HPF Urine Casts /LPF Urine Culture Comments Nasal Screen MRSA (PCR) (NEGATIVE) 03/11/24 03/10/24 03/10/24 Range/Units 04:58 23:58 17:00 WBC 11.6 H (4.8-10.8) x10^3/uL RBC 4.38 L (4.70-6.10) 10^6/uL Hgb 13.5 L (14.0-18.0) g/dL Hct 41.3 L (42.0-52.0) % MCV 94.3 H (80.0-94.0) fL MCH 30.8 (27.0-31.0) pg MCHC 32.7 (32.0-36.0) g/dL RDW 13.7 (12.0-15.0) % Plt Count 119 L (130-450) 10^3/uL MPV 11.5 H (7.4-11.4) fL Neut # (Auto) 10.6 H (1.5-6.6) 10^3/uL Lymph # (Auto) 0.3 L (1.5-3.5) 10^3/uL Cottle # (Auto) 0.6 (0.0-1.0) 10^3/uL Eos # (Auto) 0.0 (0.0-0.7) 10^3/uL Baso # (Auto) 0.0 (0.0-0.1) 10^3/uL Absolute Nucleated RBC 0.00 x10^3/uL Nucleated RBC % 0.0 /100WBC Sodium 143 (135-145) mmol/L Potassium 3.4 L (3.5-4.5) mmol/L Chloride 101 (101-111) mmol/L Carbon Dioxide 36 H (21-32) mmol/L Anion Gap 6.0 (6-13) BUN 31 H (6-20) mg/dL Creatinine 1.2 (0.6-1.3) mg/dL Estimated GFR (MDRD) 58 L (>89) Glucose 113 H (74-104) mg/dL POC Whole Bld Glucose 132 (70-100) mg/dL Estimat Average Glucose (70-100) mg/dL Hemoglobin A1c % (4.27-6.07) % Calcium 9.0 (8.5-10.3) mg/dL Troponin I High Sens (2.3-19.7) ng/L Urine Color YELLOW Urine Clarity HAZY (CLEAR) Urine pH 6.0 (5.0-7.5) PH Ur Specific Hudd[place] 1.015 (1.002-1.030) Urine Protein NEGATIVE (NEGATIVE) mg/dL Urine Glucose (UA) 250 H (NEGATIVE) mg/dL Urine Ketones NEGATIVE (NEGATIVE) mg/dL Urine Occult Blood LARGE H (NEGATIVE) Urine Nitrite NEGATIVE (NEGATIVE) Urine Bilirubin NEGATIVE (NEGATIVE) Urine Urobilinogen 0.2 (NORMAL) (NORMAL) E.U./dL Ur Leukocyte Esterase TRACE H (NEGATIVE) Urine RBC TNTC H (0-5) /HPF Urine WBC 6-10 H (0-3) /HPF Ur Squamous Epith Cells NONE SEEN (<= Few) Urine Bacteria Few (None Seen) /HPF Urine Casts 0-2 Hyaline Casts /LPF Urine Culture Comments INDICATED Nasal Screen MRSA (PCR) (NEGATIVE) 03/10/24 03/10/24 03/10/24 Range/Units 16:42 13:30 12:28 WBC (4.8-10.8) x10^3/uL RBC (4.70-6.10) 10^6/uL Hgb (14.0-18.0) g/dL Hct (42.0-52.0) % MCV (80.0-94.0) fL MCH (27.0-31.0) pg MCHC (32.0-36.0) g/dL RDW (12.0-15.0) % Plt Count (130-450) 10^3/uL MPV (7.4-11.4) fL Neut # (Auto) (1.5-6.6) 10^3/uL Lymph # (Auto) (1.5-3.5) 10^3/uL Cottle # (Auto) (0.0-1.0) 10^3/uL Eos # (Auto) (0.0-0.7) 10^3/uL Baso # (Auto) (0.0-0.1) 10^3/uL Absolute Nucleated RBC x10^3/uL Nucleated RBC % /100WBC Sodium (135-145) mmol/L Potassium (3.5-4.5) mmol/L Chloride (101-111) mmol/L Carbon Dioxide (21-32) mmol/L Anion Gap (6-13) BUN (6-20) mg/dL Creatinine (0.6-1.3) mg/dL Estimated GFR (MDRD) (>89) Glucose (74-104) mg/dL POC Whole Bld Glucose 126 134 (70-100) mg/dL Estimat Average Glucose 105 H (70-100) mg/dL Hemoglobin A1c % 5.3 (4.27-6.07) % Calcium (8.5-10.3) mg/dL Troponin I High Sens 36.8 H* (2.3-19.7) ng/L Urine Color Urine Clarity (CLEAR) Urine pH (5.0-7.5) PH Ur Specific Huddleston (1.002-1.030) Urine Protein (NEGATIVE) mg/dL Urine Glucose (UA) (NEGATIVE) mg/dL Urine Ketones (NEGATIVE) mg/dL Urine Occult Blood (NEGATIVE) Urine Nitrite (NEGATIVE) Urine Bilirubin (NEGATIVE) Urine Urobilinogen (NORMAL) E.U./dL Ur Leukocyte Esterase (NEGATIVE) Urine RBC (0-5) /HPF Urine WBC (0-3) /HPF Ur Squamous Epith Cells (<= Few) Urine Bacteria (None Seen) /HPF Urine Casts /LPF Urine Culture Comments Nasal Screen MRSA (PCR) (NEGATIVE) 03/10/24 Range/Units 12:12 WBC (4.8-10.8) x10^3/uL RBC (4.70-6.10) 10^6/uL Hgb (14.0-18.0) g/dL Hct (42.0-52.0) % MCV (80.0-94.0) fL MCH (27.0-31.0) pg MCHC (32.0-36.0) g/dL RDW (12.0-15.0) % Plt Count (130-450) 10^3/uL MPV (7.4-11.4) fL Neut # (Auto) (1.5-6.6) 10^3/uL Lymph # (Auto) (1.5-3.5) 10^3/uL Cottle # (Auto) (0.0-1.0) 10^3/uL Eos # (Auto) (0.0-0.7) 10^3/uL Baso # (Auto) (0.0-0.1) 10^3/uL Absolute Nucleated RBC x10^3/uL Nucleated RBC % /100WBC Sodium (135-145) mmol/L Potassium (3.5-4.5) mmol/L Chloride (101-111) mmol/L Carbon Dioxide (21-32) mmol/L Anion Gap (6-13) BUN (6-20) mg/dL Creatinine (0.6-1.3) mg/dL Estimated GFR (MDRD) (>89) Glucose (74-104) mg/dL POC Whole Bld Glucose (70-100) mg/dL Estimat Average Glucose (70-100) mg/dL Hemoglobin A1c % (4.27-6.07) % Calcium (8.5-10.3) mg/dL Troponin I High Sens (2.3-19.7) ng/L Urine Color Urine Clarity (CLEAR) Urine pH (5.0-7.5) PH Ur Specific [place] (1.002-1.030) Urine Protein (NEGATIVE) mg/dL Urine Glucose (UA) (NEGATIVE) mg/dL Urine Ketones (NEGATIVE) mg/dL Urine Occult Blood (NEGATIVE) Urine Nitrite (NEGATIVE) Urine Bilirubin (NEGATIVE) Urine Urobilinogen (NORMAL) E.U./dL Ur Leukocyte Esterase (NEGATIVE) Urine RBC (0-5) /HPF Urine WBC (0-3) /HPF Ur Squamous Epith Cells (<= Few) Urine Bacteria (None Seen) /HPF Urine Casts /LPF Urine Culture Comments Nasal Screen MRSA (PCR) NEGATIVE (NEGATIVE) Diagnostic Imaging Diagnostic Imaging Results: positive Final report reviewed Assessment/Plan Problem List (1) Acute on chronic respiratory failure with hypoxia and hypercapnia: Impression: Patient was intubated and sedated on admission due to severe altered mental status requiring airway support. Chest x-ray shows severe fluid overload. proBNP elevated. Started on IV Lasix 40 mg twice daily. Continues today. Has put out about 2 L in the last 24 hours. Continue strict ins and outs. Repeat chest x-ray ordered this morning, pending. Will trial 1 more day of IV diuresis. If bilateral pleural effusions are not improved, we will refer to interventional radiology for thoracentesis. Eliquis twice daily switched to IV heparin in anticipation of this. (2) COPD (chronic obstructive pulmonary disease): Impression: Patient with history of COPD not on home oxygen. Continue to monitor. Qualifiers: COPD type: unspecified COPD Qualified Code(s): J44.9 - Chronic obstructive pulmonary disease, unspecified (3) Reduced ejection fraction concurrent with and due to acute on chronic heart failure: Impression: Patient has an extensive cardiac history: CAD s/p arthrectomy and 02/2018, 3 drug-eluting stent placements to RCA, biventricular AICD placement. Echo done 01/11/2024 shows left ventricular ejection fraction of 20%, severe aortic valve stenosis. He was admitted to [facility] in January for ventricular tachycardia, hypotension requiring amiodarone drip. He visited his supervisor airplane flight attendant in [place] on 02/03; his medication list was updated to the following: Amiodarone 200 mg daily, Eliquis 5 mg twice daily, Lipitor 20 mg daily, Pulmicort daily, Jardiance 10 mg daily, perform rest daily, Lasix 40 mg daily, DuoNebs as needed, metoprolol 50 mg every 24 hours, spironolactone 25 mg daily. His supervisor airplane flight attendant was also planning on doing a thoracentesis in [place] if he still had large pleural effusions. He was told that he was too high risk for a TAVR with such poor LV function. (4) AICD (automatic cardioverter/defibrillator) present: Impression: See above for cardiac history. (5) Flash pulmonary edema: Impression: Continue serial chest x-rays for resolution. Continue IV lasix; if no improvement, will do thoracentesis. (6) Bilateral pleural effusion: Impression: See above. (7) Hypotension: Impression: Likely due to sedation. Continue to wean Versed; switch to Precedex and fentanyl. Qualifiers: Hypotension type: unspecified hypotension type Qualified Code(s): I95.9 - Hypotension, unspecified (8) DAVID (acute kidney injury): Impression: Resolved. Baseline around 1; now 1.2. Continue IV Lasix. Continue strict ins and outs. (9) A-fib: Impression: Continue heparin ggt instead of Eliquis in case of procedure. Continue amiodarone. Metoprolol held at this time due to hypotension. Qualifiers: Atrial fibrillation type: longstanding persistent Qualified Code(s): I 48.11 - Longstanding persistent atrial fibrillation (10) Elevated troponin: Impression: Likely demand ischemia in setting of above. Continue to trend. (11) Suprapubic catheter: Impression: Placed by urology; follow up 7 days after discharge.
[2024-03-11] MEDS: HEPARIN 25000UNITS/500ML (D5W) 25,000 UNIT/500 ML BAG IV SCH (12:22)
[2024-03-11] MEDS: fentaNYL 2,500 MCG/250 ML 2,500 MCG/250 ML BAG IV SCH (15:22)
--- NOTE | 2024-03-11 16:22 | XRAY Report ---
PROCEDURE: XR Chest 1V INDICATIONS: PAWEL TECHNIQUE: One view of the chest was acquired. COMPARISON: Chest x-ray 03/10/2024, CT chest angiogram 09/20/2023 FINDINGS: Surgical changes and devices: Endotracheal tube tip 4.4 cm above caro. Enteric tube coursing along the esophagus; the distal tip is beyond the [id number]. Left pacemaker with the distal leads in t he projection of the right atrium, right ventricle, and coronary sinus. Right central venous catheter distal tip overlying the cavoatrial junction. Lungs and pleura: Mildly decreased bilateral pulmonary edema. Moderate bilateral pleural effusions. No pneumothorax. Mediastinum: Mediastinal contours appear normal. Cardiomegaly. Bones and chest wall: No suspicious bony lesions. Overlying soft tissues appear unremarkable. IMPRESSION: Mild-moderate CHF exacerbation with pleural effusions and associated passive atelectasis. Reviewed by: Victoriano Plaza MD on 03/11/2024 4:20 PM PST Approved by: Victoriano Plaza MD on 03/11/2024 4:20 PM PST Station ID: [id number]
--- NOTE | 2024-03-11 20:40 | PROVIDER PROGRESS NOTE ---
[employer] Note [employer]worker Note [employer] Note: RN paged " Pt's anaerobic blood culture is growing gm positive cocci in clusters. Blood culture PCR identification is added per lab. Pt. is not on any antibioticic." H&P reviwed. Patient here with acute hypoxemic resp failure 2/2 CHF exacerbation. underlying COPD however not in exacerbation. no on abx. culture 1 of 2 gram positive in cluster. possible contamination. recheck blood cultures. if not better/ worsening, conside empiric abx. Jalil Duncan
[2024-03-11] MEDS ORDERED: ZINC OXIDE 20% OINT 30 GM TUBE TOP PRN (21:39)
[2024-03-11] MEDS: MIDAZOLAM 2 MG/2 ML VIAL IVP PRN (23:05)
[2024-03-12] MEDS: ACETAMINOPHEN 1,000 MG/100 ML 1,000 MG/100 ML BAG IV PRN (01:13)
[2024-03-12 06:29] LABS: BASOPHILS % (AUTO) 0.3 %; EOSINOPHILS % (AUTO) 0.5 %; HCT - HEMATOCRIT 44.6 % (42.0-52.0); HGB - HEMOGLOBIN 14.1 g/dL (14.0-18.0); LYMPHOCYTES # (AUTO) 0.6 10^3/uL (1.5-3.5); LYMPHOCYTES % (AUTO) 7.8 %; MEAN CORPUSCULAR HEMOGLOBIN 30.5 pg (27.0-31.0); MEAN CORPUSCULAR HGB CONC 31.6 g/dL (32.0-36.0); MEAN CORPUSCULAR VOLUME 96.3 fL (80.0-94.0); MEAN PLATELET VOLUME 11.1 fL (7.4-11.4); MONOCYTES # (AUTO) 0.5 10^3/uL (0.0-1.0); MONOCYTES % (AUTO) 7.3 %; NEUTROPHILS # (AUTO) 6.2 10^3/uL (1.5-6.6); NEUTROPHILS % (AUTO) 83.7 %; PLT - PLATELET COUNT 105 10^3/uL (130-450); RED BLOOD COUNT 4.63 10^6/uL (4.70-6.10); WHITE BLOOD COUNT 7.4 x10^3/uL (4.8-10.8)
[2024-03-12 06:39] LABS: ABG PCO2 35 mmHg (34-45); ABG PH 7.59 (7.35-7.45)
[2024-03-12 06:40] LABS: ABG BASE EXCESS 11.1 mmol/L (-2.0-3.0); ABG HCO3 33.3 mmol/L (22.0-26.0); ABG MODE OF VENTILATION ASSIST/CONTROL; ABG OXYGEN SATURATION 95 % (94-98); ABG PO2 69 mmHg (80-100); ABG RESPIRATORY RATE 18 b/min; ABG TCO2 34.4 MMOL/L (21.0-29.0); ALLEN TEST POSITIVE
[2024-03-12 06:44] LABS: CALCIUM 8.7 mg/dL (8.5-10.3); CREATININE 1.2 mg/dL (0.6-1.3)
[2024-03-12] MEDS: AZITHROMYCIN INJ 500 MG in SODIUM CHLORIDE 0.9% 250 ML IV SCH (09:05)
[2024-03-12] MEDS: cefTRIAXone 1 GM VIAL IVP SCH (09:05)
[2024-03-12 09:35] LABS: INR 1.9 (0.8-1.2); PT - PROTHROMBIN TIME 19.4 secs (9.9-12.6)
--- NOTE | 2024-03-12 11:30 | PROVIDER PROGRESS NOTE ---
Subjective Subjective Subjective: Patient was extubated earlier today successfully. He is on 6 L nasal cannula, with appropriate respiratory rate of 16-18. He is answering yes or no questions, speaking in simple sentences, and following commands. Overnight, he did spike a fever. His blood cultures came back positive 1 out of 2 for gram- positive cocci, this is likely contaminant, but with a fever, we will empirically treat for community-acquired pneumonia. Plan is for thoracentesis today; his and son are at the bedside, and plan of care was explained to both of them, all questions were answered. Patient has an extensive cardiac history: CAD s/p arthrectomy and 02/2018, 3 drug-eluting stent placements to RCA, biventricular AICD placement. Echo done 01/11/2024 shows left ventricular ejection fraction of 20%, severe aortic valve stenosis. [facility] tachycardia, hypotension requiring amiodarone drip. He visited his supervisor grinding in [place] on 02/03; his medication list was updated to the following: Amiodarone 200 mg daily, Eliquis 5 mg twice daily, Lipitor 20 mg daily, Pulmicort daily, Jardiance 10 mg daily, perform rest daily, Lasix 40 mg daily, DuoNebs as needed, metoprolol 50 mg every 24 hours, spironolactone 25 mg daily. His supervisor grinding was also planning on doing a thoracentesis in [place] if he still had large pleural effusions. He was told that he was too high risk for a TAVR with such poor LV function. Current Medications Current Medications Current Medications: Current Medications Generic Name Dose Route Start Last Admin Trade Name Freq PRN Reason Stop Dose Admin Albuterol/Ipratropium 3 ml 03/10/24 16:10 03/12/24 08:54 Ipratropium/Albuterol 3 Ml Neb INH 3 ml Q4HR PRN Administration Wheezing Amiodarone HCl 200 mg 03/10/24 09:00 03/12/24 08:37 Amiodarone 200 Mg Tablet PO 200 mg DAILY AVIS Administration Atorvastatin Calcium 20 mg 03/10/24 09:00 03/12/24 08:37 Atorvastatin 10 Mg Tablet PO 20 mg DAILY AVIS Administration Ceftriaxone Sodium 1 gm 03/12/24 09:00 03/12/24 09:05 Ceftriaxone 1 Gm Vial IVP 1 gm DAILY AVIS Administration Furosemide 40 mg 03/10/24 14:00 03/12/24 08:37 Furosemide 40 Mg/4 Ml Vial IVP 40 mg BID AVIS Administration Heparin Sodium (Porcine) 1,000 - 2,000 unit 03/11/24 11:56 03/11/24 19:06 Heparin 1,000 Unit/Ml Vial IVP 1,000 unit Q6H PRN Administration aPTT <50 Protocol Norepinephrine/Sodium Chloride 8 mg in 250 mls @ 15 mls/hr 03/10/24 08:00 03/12/24 09:50 Levophed 8 Mg/250-0.9% Nacl IV Not Given .[id number] AVIS Protocol 8 MCG/MIN Heparin Sodium/Dextrose 25,000 unit in 500 mls @ 25.2 mls/hr 03/11/24 12:00 03/12/24 09:09 Heparin Sodium/Dextrose IV 0 unit/kg/hr .[id number] AVIS 0 mls/hr Titration Protocol 12 UNIT/KG/HR Acetaminophen 1,000 mg in 100 mls @ 400 mls/hr 03/12/24 00:49 03/12/24 07:00 Acetaminophen IV Infused Q6HR PRN Infusion FEVER > 100.5 F Azithromycin 500 mg/ Sodium 250 mls @ 250 mls/hr 03/12/24 09:00 03/12/24 09:05 Chloride IV 250 mls/hr DAILY AVIS Administration Insulin Human Regular 1 - 5 unit 03/10/24 12:00 03/12/24 06:25 Insulin Regular, Human 300 Unit/3 Ml Pen SUBQ Not Given Q6HR [facility] Protocol Multi-Ingredient Ointment 1 applic 03/11/24 21:39 Zinc Oxide 20% Oint 30 Gm Tube TOP PRN PRN Skin Care Pantoprazole Sodium 40 mg 03/11/24 11:00 03/12/24 06:47 Pantoprazole 40 Mg Vial IVP 40 mg QDAC AVIS Administration Sodium Chloride 10 ml 03/10/24 08:48 03/12/24 06:47 Sodium Chloride Flush 0.9% 10 Ml Syringe IVP 10 ml PRN PRN Administration NEEDED PER PROVIDER ORDERS Sodium Chloride 10 ml 03/10/24 09:00 03/12/24 08:38 Sodium Chloride Flush 0.9% 10 Ml Syringe IVP 10 ml 0100,0900,1700 [facility] Administration Objective Vital Signs/Intake & Output Reviewed Vital Signs: Yes Vital Signs: Vital Signs x48h Temp Pulse Pulse Pulse Resp BP Pulse Ox 03/12/24 11:00 61 18 118/54 L 96 03/12/24 10:00 60 19 94/50 L 97 03/12/24 09:00 83 24 101/69 95 03/12/24 08:59 03/12/24 08:57 93 H 24 03/12/24 08:55 97 03/12/24 08:00 98.5 F 89 13 113/66 97 03/12/24 07:16 60 87/49 L 96 03/12/24 07:02 61 03/12/24 07:00 99.3 F 60 14 L 96 H 101/57 L 03/12/24 06:00 60 20 111/59 L 93 03/12/24 05:00 60 60 18 120/63 95 03/12/24 04:37 60 03/12/24 04:00 99.3 F 60 18 118/60 95 O2 Flow Rate 03/12/24 11:00 6 03/12/24 10:00 10 03/12/24 09:00 10 03/12/24 08:59 2 03/12/24 08:57 03/12/24 08:55 15 03/12/24 08:00 03/12/24 07:16 03/12/24 07:02 03/12/24 07:00 03/12/24 06:00 03/12/24 05:00 03/12/24 04:37 03/12/24 04:00 Intake & Output: Intake & Output 03/10/24 03/11/24 03/12/24 03/13/24 05:59 05:59 05:59 05:59 Intake Total 532 / 532 1548 / 1548 804 / 804 Output Total 1916 3595 / 3595 585 / 585 Balance -1385 / -1385 -2046 / -2046 219 / 219 Weight (kg) 111 kg 107 kg 105 kg 101.5 kg Objective General Appearance: positive No acute distress and Lethargic (extubated, sedation turned off 7 AM) Eyes Bilateral: positive Normal inspection, PERRL and EOMI ENT: positive ENT inspection nml and No signs of dehydration Neck: positive Nml inspection and Trachea midline Respiratory: positive Rales (bilateral diffuse crackles noted) Cardiovascular: positive No gallop, Irregularly irregular and Systolic murmur Abdomen: positive Non-tender, No organomegaly and No distention; negative Tenderness or Guarding Back: positive Nml inspection; negative CVA tenderness (R) or CVA tenderness (L) Skin: positive Color nml, No rash, Warm and Dry Extremities: positive Non-tender, Nml appearance and Pedal edema Neurologic/Psychiatric: positive Disoriented to place, Disoriented to time and Weakness Lab Results 03/12/24 06:05 03/12/24 06:05 Other Labs: Lab Results x24hrs 03/12/24 03/12/24 03/12/24 Range/Units 09:45 09:22 06:30 WBC (4.8-10.8) x10^3/uL RBC (4.70-6.10) 10^6/uL Hgb (14.0-18.0) g/dL Hct (42.0-52.0) % MCV (80.0-94.0) fL MCH (27.0-31.0) pg MCHC (32.0-36.0) g/dL RDW (12.0-15.0) % Plt Count (130-450) 10^3/uL MPV (7.4-11.4) fL Neut # (Auto) (1.5-6.6) 10^3/uL Lymph # (Auto) (1.5-3.5) 10^3/uL [place] # (Auto) (0.0-1.0) 10^3/uL Eos # (Auto) (0.0-0.7) 10^3/uL Baso # (Auto) (0.0-0.1) 10^3/uL Absolute Nucleated RBC x10^3/uL Nucleated RBC % /100WBC PT 19.4 H (9.9-12.6) secs INR 1.9 H (0.8-1.2) APTT (24.9-33.3) secs Bld Gas Analysis Time 06:37 Sample Site LEFT RADIAL ABG pH 7.59 H (7.35-7.45) ABG pCO2 35 (34-45) mmHg ABG pO2 69 L (80-100) mmHg ABG HCO3 33.3 H (22.0-26.0) mmol/L ABG Total CO2 34.4 H (21.0-29.0) MMOL/L ABG O2 Saturation 95 (94-98) % ABG Base Excess 11.1 H (-2.0-3.0) mmol/L Win Test POSITIVE Respiration Rate 18 b/min O2 Delivery Device VENTILATOR Vent Mode ASSIST/CONTROL FiO2 40.00 Tidal Volume 500 mL PEEP 5 cmH2O Sodium (135-145) mmol/L Potassium (3.5-4.5) mmol/L Chloride (101-111) mmol/L Carbon Dioxide (21-32) mmol/L Anion Gap (6-13) BUN (6-20) mg/dL Creatinine (0.6-1.3) mg/dL Estimated GFR (MDRD) (>89) Glucose (74-104) mg/dL POC Whole Bld Glucose 111 (70-100) mg/dL Calcium (8.5-10.3) mg/dL Magnesium (1.7-2.3) mg/dL Troponin I High Sens (2.3-19.7) ng/L Procalcitonin Immunoas (<0.5) ng/mL 03/12/24 03/12/24 03/12/24 Range/Units 06:25 06:07 06:05 WBC 7.4 (4.8-10.8) x10^3/uL RBC 4.63 L (4.70-6.10) 10^6/uL Hgb 14.1 (14.0-18.0) g/dL Hct 44.6 (42.0-52.0) % MCV 96.3 H (80.0-94.0) fL MCH 30.5 (27.0-31.0) pg MCHC 31.6 L (32.0-36.0) g/dL RDW 14.0 (12.0-15.0) % Plt Count 105 L (130-450) 10^3/uL MPV 11.1 (7.4-11.4) fL Neut # (Auto) 6.2 (1.5-6.6) 10^3/uL Lymph # (Auto) 0.6 L (1.5-3.5) 10^3/uL [place] # (Auto) 0.5 (0.0-1.0) 10^3/uL Eos # (Auto) 0.0 (0.0-0.7) 10^3/uL Baso # (Auto) 0.0 (0.0-0.1) 10^3/uL Absolute Nucleated RBC 0.00 x10^3/uL Nucleated RBC % 0.0 /100WBC PT (9.9-12.6) secs INR (0.8-1.2) APTT 90.2 H (24.9-33.3) secs Bld Gas Analysis Time Sample Site ABG pH (7.35-7.45) ABG pCO2 (34-45) mmHg ABG pO2 (80-100) mmHg ABG HCO3 (22.0-26.0) mmol/L ABG Total CO2 (21.0-29.0) MMOL/L ABG O2 Saturation (94-98) % ABG Base Excess (-2.0-3.0) mmol/L Win Test Respiration Rate b/min O2 Delivery Device Vent Mode FiO2 Tidal Volume mL PEEP cmH2O Sodium 143 (135-145) mmol/L Potassium 3.0 L (3.5-4.5) mmol/L Chloride 101 (101-111) mmol/L Carbon Dioxide 37 H (21-32) mmol/L Anion Gap 5.0 L (6-13) BUN 32 H (6-20) mg/dL Creatinine 1.2 (0.6-1.3) mg/dL Estimated GFR (MDRD) 58 L (>89) Glucose 106 H (74-104) mg/dL POC Whole Bld Glucose 110 (70-100) mg/dL Calcium 8.7 (8.5-10.3) mg/dL Magnesium 2.0 (1.7-2.3) mg/dL Troponin I High Sens (2.3-19.7) ng/L Procalcitonin Immunoas 1.35 H (<0.5) ng/mL 03/12/24 03/12/24 03/11/24 Range/Units 01:00 00:08 18:30 WBC (4.8-10.8) x10^3/uL RBC (4.70-6.10) 10^6/uL Hgb (14.0-18.0) g/dL Hct (42.0-52.0) % MCV (80.0-94.0) fL MCH (27.0-31.0) pg MCHC (32.0-36.0) g/dL RDW (12.0-15.0) % Plt Count (130-450) 10^3/uL MPV (7.4-11.4) fL Neut # (Auto) (1.5-6.6) 10^3/uL Lymph # (Auto) (1.5-3.5) 10^3/uL [place] # (Auto) (0.0-1.0) 10^3/uL Eos # (Auto) (0.0-0.7) 10^3/uL Baso # (Auto) (0.0-0.1) 10^3/uL Absolute Nucleated RBC x10^3/uL Nucleated RBC % /100WBC PT (9.9-12.6) secs INR (0.8-1.2) APTT 52.5 H 45.4 H (24.9-33.3) secs Bld Gas Analysis Time Sample Site ABG pH (7.35-7.45) ABG pCO2 (34-45) mmHg ABG pO2 (80-100) mmHg ABG HCO3 (22.0-26.0) mmol/L ABG Total CO2 (21.0-29.0) MMOL/L ABG O2 Saturation (94-98) % ABG Base Excess (-2.0-3.0) mmol/L Win Test Respiration Rate b/min O2 Delivery Device Vent Mode FiO2 Tidal Volume mL PEEP cmH2O Sodium (135-145) mmol/L Potassium (3.5-4.5) mmol/L Chloride (101-111) mmol/L Carbon Dioxide (21-32) mmol/L Anion Gap (6-13) BUN (6-20) mg/dL Creatinine (0.6-1.3) mg/dL Estimated GFR (MDRD) (>89) Glucose (74-104) mg/dL POC Whole Bld Glucose 104 (70-100) mg/dL Calcium (8.5-10.3) mg/dL Magnesium (1.7-2.3) mg/dL Troponin I High Sens (2.3-19.7) ng/L Procalcitonin Immunoas (<0.5) ng/mL 03/11/24 03/11/24 03/11/24 Range/Units 18:05 16:52 13:13 WBC (4.8-10.8) x10^3/uL RBC (4.70-6.10) 10^6/uL Hgb (14.0-18.0) g/dL Hct (42.0-52.0) % MCV (80.0-94.0) fL MCH (27.0-31.0) pg MCHC (32.0-36.0) g/dL RDW (12.0-15.0) % Plt Count (130-450) 10^3/uL MPV (7.4-11.4) fL Neut # (Auto) (1.5-6.6) 10^3/uL Lymph # (Auto) (1.5-3.5) 10^3/uL [place] # (Auto) (0.0-1.0) 10^3/uL Eos # (Auto) (0.0-0.7) 10^3/uL Baso # (Auto) (0.0-0.1) 10^3/uL Absolute Nucleated RBC x10^3/uL Nucleated RBC % /100WBC PT (9.9-12.6) secs INR (0.8-1.2) APTT (24.9-33.3) secs Bld Gas Analysis Time Sample Site ABG pH (7.35-7.45) ABG pCO2 (34-45) mmHg ABG pO2 (80-100) mmHg ABG HCO3 (22.0-26.0) mmol/L ABG Total CO2 (21.0-29.0) MMOL/L ABG O2 Saturation (94-98) % ABG Base Excess (-2.0-3.0) mmol/L Wni Test Respiration Rate b/min O2 Delivery Device Vent Mode FiO2 Tidal Volume mL PEEP cmH2O Sodium (135-145) mmol/L Potassium (3.5-4.5) mmol/L Chloride (101-111) mmol/L Carbon Dioxide (21-32) mmol/L Anion Gap (6-13) BUN (6-20) mg/dL Creatinine (0.6-1.3) mg/dL Estimated GFR (MDRD) (>89) Glucose (74-104) mg/dL POC Whole Bld Glucose 120 142 (70-100) mg/dL Calcium (8.5-10.3) mg/dL Magnesium (1.7-2.3) mg/dL Troponin I High Sens 47.0 H* (2.3-19.7) ng/L Procalcitonin Immunoas (<0.5) ng/mL 03/11/24 03/11/24 Range/Units 12:13 11:31 WBC (4.8-10.8) x10^3/uL RBC (4.70-6.10) 10^6/uL Hgb (14.0-18.0) g/dL Hct (42.0-52.0) % MCV (80.0-94.0) fL MCH (27.0-31.0) pg MCHC (32.0-36.0) g/dL RDW (12.0-15.0) % Plt Count (130-450) 10^3/uL MPV (7.4-11.4) fL Neut # (Auto) (1.5-6.6) 10^3/uL Lymph # (Auto) (1.5-3.5) 10^3/uL [place] # (Auto) (0.0-1.0) 10^3/uL Eos # (Auto) (0.0-0.7) 10^3/uL Baso # (Auto) (0.0-0.1) 10^3/uL Absolute Nucleated RBC x10^3/uL Nucleated RBC % /100WBC PT (9.9-12.6) secs INR (0.8-1.2) APTT 31.1 (24.9-33.3) secs Bld Gas Analysis Time Sample Site ABG pH (7.35-7.45) ABG pCO2 (34-45) mmHg ABG pO2 (80-100) mmHg ABG HCO3 (22.0-26.0) mmol/L ABG Total CO2 (21.0-29.0) MMOL/L ABG O2 Saturation (94-98) % ABG Base Excess (-2.0-3.0) mmol/L Win Test Respiration Rate b/min O2 Delivery Device Vent Mode FiO2 Tidal Volume mL PEEP cmH2O Sodium (135-145) mmol/L Potassium (3.5-4.5) mmol/L Chloride (101-111) mmol/L Carbon Dioxide (21-32) mmol/L Anion Gap (6-13) BUN (6-20) mg/dL Creatinine (0.6-1.3) mg/dL Estimated GFR (MDRD) (>89) Glucose (74-104) mg/dL POC Whole Bld Glucose 123 (70-100) mg/dL Calcium (8.5-10.3) mg/dL Magnesium (1.7-2.3) mg/dL Troponin I High Sens (2.3-19.7) ng/L Procalcitonin Immunoas (<0.5) ng/mL Diagnostic Imaging Diagnostic Imaging Results: positive Final report reviewed Assessment/Plan Problem List (1) Acute on chronic respiratory failure with hypoxia and hypercapnia: Impression: Resolved. Patient was intubated and sedated on admission due to severe altered mental status requiring airway support. Extubtaed today on to 6 L. Chest x-ray shows severe fluid overload. proBNP elevated. Continue IV Lasix 40 mg twice daily. Continue strict ins and outs. Repeat chest x-ray ordered this morning, pending. Plan for interventional radiology to complete thoracentesis today. Eliquis twice daily switched to IV heparin in anticipation of this. (2) Pneumothorax, postprocedural: Impression: Patient had a thoracentesis done with 2.4 L of fluid output. Cell count, protein, glucose, LDH, cultures were sent. Post-procedure x-ray does show a small apical pneumothorax on the right side. General Surgery spoken withwill assess the patient, at this time is vitally stable, no urgent need for chest tube. Will likely need serial chest x-rays until resolution. (3) Septic shock: Impression: Patient spiked a fever overnight. Will treat with Rocephin azithromycin for possible community-acquired pneumonia in setting of recent ventilator dependence, poor inspiratory effort, atelectasis. Blood cultures 1 out of 2 positive for gram-positive cocci, although this is likely contaminant. Procalcitonin is also elevated. Patient is requiring less doses of Levophed now that the sedation is off. (4) COPD (chronic obstructive pulmonary disease): Impression: Patient with history of COPD not on home oxygen. Continue to monitor. Qualifiers: COPD type: unspecified COPD Qualified Code(s): J44.9 - Chronic obstructive pulmonary disease, unspecified (5) Reduced ejection fraction concurrent with and due to acute on chronic heart failure: Impression: Patient has an extensive cardiac history: CAD s/p arthrectomy and 02/2018, 3 drug-eluting stent placements to RCA, biventricular AICD placement. Echo done 01/11/2024 shows left ventricular ejection fraction of 20%, severe aortic valve stenosis. [facility] for ventricular tachycardia, hypotension requiring amiodarone drip. He visited his supervisor grinding in [place] on 02/03; his medication list was updated to the following: Amiodarone 200 mg daily, Eliquis 5 mg twice daily, Lipitor 20 mg daily, Pulmicort daily, Jardiance 10 mg daily, perform rest daily, Lasix 40 mg daily, DuoNebs as needed, metoprolol 50 mg every 24 hours, spironolactone 25 mg daily. His supervisor grinding was also planning on doing a thoracentesis in [place] if he still had large pleural effusions. He was told that he was too high risk for a TAVR with such poor LV function. (6) AICD (automatic cardioverter/defibrillator) present: Impression: See above for cardiac history. (7) Flash pulmonary edema: Impression: Continue serial chest x-rays for resolution. Continue IV lasix; plan today for thoracentesis. (8) Bilateral pleural effusion: Impression: See above. (9) Hypotension: Impression: Likely due to sedation vs. developing sepsis. Sedation weaned off; decreasing amounts of Levophed. Qualifiers: Hypotension type: unspecified hypotension type Qualified Code(s): I95.9 - Hypotension, unspecified (10) DAVID (acute kidney injury): Impression: Resolved. Baseline around 1; now 1.2. Continue IV Lasix. Continue strict ins and outs. (11) A-fib: Impression: Continue heparin ggt instead of Eliquis in case of procedure. Continue amiodarone. Metoprolol held at this time due to hypotension. Qualifiers: Atrial fibrillation type: longstanding persistent Qualified Code(s): I 48.11 - Longstanding persistent atrial fibrillation (12) Elevated troponin: Impression: Likely demand ischemia in setting of above. Continue to trend. (13) Suprapubic catheter: Impression: Placed by urology; follow up 7 days after discharge.
--- NOTE | 2024-03-12 13:17 | XRAY Report ---
PROCEDURE: XR Post Thoracentesis 1V CXR INDICATIONS: Post Thoracentesis TECHNIQUE: One view of the chest was acquired. COMPARISON: 03/12/2024 0604 hours. FINDINGS: Surgical changes and devices: Pacemaker, right IJ line. Previous ET tube has been removed.. Lungs and pleura: Interval resolution of right pleural fluid. Very small right apical pneumothorax. There is at least moderate left pleural fluid with left basilar atelectasis. There is interstitial pu lmonary edema. Mediastinum: Mediastinal contours appear normal. Heart size is normal. Bones and chest wall: No suspicious bony lesions. Overlying soft tissues appear unremarkable. IMPRESSION: 1. Congestive heart failure. 2. Interval right thoracentesis with minimal right apical pneumothorax. Above discussed with Dr. Page at the time of dictation on 03/12/2024 at 1340. Reviewed by: Keny Ho MD on 03/12/2024 1:16 PM PST Approved by: Keny Ho MD on 03/12/2024 1:16 PM PST Station ID: [id number]
[2024-03-12 13:24] LABS: BF SOURCE PLEURAL; CC,BF RBC 17000 /mm^3; CC,BF WBC 237 /mm^3
[2024-03-12 13:25] LABS: BF CLARITY HAZY
[2024-03-12 13:26] LABS: BF COLOR YELLOW
[2024-03-12 14:01] LABS: MESOTHELIAL %, BF 0 %
--- NOTE | 2024-03-12 14:05 | Ultrasound Report ---
PROCEDURE: US Thoracentesis Puncture INDICATIONS: pleural effusions, bilateral TECHNIQUE: The indications, alternatives, benefits, risks, and complications of the procedure were explained to the patient. Written informed consent was obtained and placed in the chart. The chest was examined sonographically, and an appropriate site was chosen for thoracentesis. The skin was prepared and valerie ped in the usual sterile fashion, and 1% lidocaine was infiltrated from the skin down through the ple ural surface. A 19-gauge catheter-covered needle was then introduced into the pleural space, the cat heter was advanced and the needle was withdrawn, and thereafter pleural fluid was aspirated. The cat heter was then removed and a dressing was applied. COMPARISON: CXR pre and post procedure, 03/11/2024. CT pulmonary angiogram 09/20/2023. FINDINGS: Access site: Right hemithorax. Positioned in the left lateral decubitus position. Needle: One-Step centesis catheter with introducer needle. Fluid volume and description: 2.4 L removed. Straw-colored blood-tinged Fluid sent for diagnostic testing: Therapeutic and diagnostic. Sample was acquired and sent. Medications: 1% lidocaine for local anaesthesia. Complications: Small right-sided pneumothorax is seen on postprocedural CXR. IMPRESSION: Successful ultrasound-guided therapeutic and diagnostic thoracentesis. Reviewed by: Blaine Rodriguez MD on 03/12/2024 2:04 PM [facility] Approved by: Blaine Rodriguez MD on 03/12/2024 2:04 PM PST Station ID: [id number]
[2024-03-12 14:32] LABS: HCT - HEMATOCRIT 46.6 % (42.0-52.0); HGB - HEMOGLOBIN 14.6 g/dL (14.0-18.0); MEAN CORPUSCULAR HEMOGLOBIN 30.8 pg (27.0-31.0); MEAN CORPUSCULAR HGB CONC 31.3 g/dL (32.0-36.0); MEAN CORPUSCULAR VOLUME 98.3 fL (80.0-94.0); MEAN PLATELET VOLUME 10.9 fL (7.4-11.4); RED BLOOD COUNT 4.74 10^6/uL (4.70-6.10); RED CELL DISTRIBUTION WIDTH 13.9 % (12.0-15.0); WHITE BLOOD COUNT 9.6 x10^3/uL (4.8-10.8)
--- NOTE | 2024-03-12 15:09 | CONSULTATION NOTE ---
Chief Complaint Chief Complaint Chief Complaint: extubated today and right chest fluid drained today. feeling better History of Present Illness History Obtained From Records Reviewed: yes History obtained from: family and pt Exam Limitations: none. History of Present Illness HPI Comment/Other: history chf and right pleural effusion. extubated today and right pleural effusion drained today. small less than 10 % pneumothorax. breathing has improved over last few hours. Meds/Allgy Home Medications Ambulatory Orders Medication Instructions Recorded Confirmed multivitamin 1 ea PO DAILY 10/25/15 03/10/24 atorvastatin 20 mg tablet 20 mg PO DAILY 06/28/18 02/22/24 apixaban 5 mg tablet (Eliquis) 5 mg PO BID 12/28/22 03/10/24 ipratropium 0.5 mg-albuterol 3 mg 3 ml inhalation Q4H PRN 09/26/23 03/10/24 (2.5 mg base)/3 mL nebulization Wheezing/Shortness of breath #360 soln mL empagliflozin 10 mg tablet 10 mg PO DAILY 01/16/24 03/10/24 (Jardiance) losartan 25 mg tablet 25 mg PO DAILY 01/16/24 03/10/24 nitroglycerin 0.4 mg sublingual 0.4 mg sublingual Q5M PRN chest 01/16/24 03/10/24 tablet pain omega-3 fatty acids 1,000 mg 1,000 mg PO QDAY 01/16/24 03/10/24 capsule Permanent Disabled Placard #1 ea 01/28/24 01/28/24 amiodarone 200 mg tablet 200 mg PO DAILY 02/22/24 03/10/24 budesonide-formoterol HFA 160 2 puff inhalation BID #10.2 grams 02/22/24 03/10/24 mcg-4.5 mcg/actuation aerosol inhaler (Symbicort) furosemide 40 mg tablet 40 mg PO QDAY 02/22/24 03/10/24 Allergies Allergies Allergy/AdvReac Type Severity Reaction Status Date / Time No Known Drug Allergies Allergy Verified 02/22/24 11:41 [facility] Medical History Medical History (Updated 03/12/24 @ 13:32 by Abdulaziz Page MD) HTN (hypertension) Myocardial infarction Prostate cancer Family History Family History Other Alzheimers disease CAD (coronary artery disease) COPD (chronic obstructive pulmonary disease) Cancer Heart attack High blood pressure Social History Social History Smoking Status: Former smoker If you are a former smoker, when did you quit? (Date/Year): 2022; pipe Number of Years Smoked: 60 Second hand tobacco smoke exposure: No Do you dip or chew tobacco?: No Do you vape?: No Patient requests smoking cessation consult: No Initiate information on smoking cessation: No Living arrangement: At home Marital Status: Living Condition: With spouse/s.o. Relationship: Spouse Level: Independent Home Mobility Equipment: Walker Do you feel safe in your home environment?: Yes (per ) Suffered physical, verbal, emotional, or financial abuse?: No History of Abuse: No ETOH Use: None Substance Use: denies use Are you sexually active?: No Retired: Yes Service: Yes Dates of Service: [id number] Are you following a diet prescribed by a doctor: No Are you following a special diet: No POLST POLST Status: Limited Interventions (Yes to intubation, no chest compression) Results Lab Results Lab results reviewed: Yes 03/12/24 14:18 03/12/24 06:05 Other Lab Results: Lab Results x24hrs 03/12/24 03/12/24 03/12/24 Range/Units 14:18 12:45 11:55 WBC 9.6 (4.8-10.8) x10^3/uL RBC 4.74 (4.70-6.10) 10^6/uL Hgb 14.6 (14.0-18.0) g/dL Hct 46.6 (42.0-52.0) % MCV 98.3 H (80.0-94.0) fL MCH 30.8 (27.0-31.0) pg MCHC 31.3 L (32.0-36.0) g/dL RDW 13.9 (12.0-15.0) % Plt Count 103 L (130-450) 10^3/uL MPV 10.9 (7.4-11.4) fL Neut # (Auto) (1.5-6.6) 10^3/uL Lymph # (Auto) (1.5-3.5) 10^3/uL Cross # (Auto) (0.0-1.0) 10^3/uL Eos # (Auto) (0.0-0.7) 10^3/uL Baso # (Auto) (0.0-0.1) 10^3/uL Absolute Nucleated RBC x10^3/uL Nucleated RBC % /100WBC PT (9.9-12.6) secs INR (0.8-1.2) APTT (24.9-33.3) secs Bld Gas Analysis Time Sample Site ABG pH (7.35-7.45) ABG pCO2 (34-45) mmHg ABG pO2 (80-100) mmHg ABG HCO3 (22.0-26.0) mmol/L ABG Total CO2 (21.0-29.0) MMOL/L ABG O2 Saturation (94-98) % ABG Base Excess (-2.0-3.0) mmol/L Win Test Respiration Rate b/min O2 Delivery Device Vent Mode FiO2 Tidal Volume mL PEEP cmH2O Sodium (135-145) mmol/L Potassium (3.5-4.5) mmol/L Chloride (101-111) mmol/L Carbon Dioxide (21-32) mmol/L Anion Gap (6-13) BUN (6-20) mg/dL Creatinine (0.6-1.3) mg/dL Estimated GFR (MDRD) (>89) Glucose (74-104) mg/dL POC Whole Bld Glucose 112 (70-100) mg/dL Calcium (8.5-10.3) mg/dL Magnesium (1.7-2.3) mg/dL Procalcitonin Immunoas (<0.5) ng/mL Fluid Source PLEURAL Fluid Color YELLOW Fluid Clarity HAZY Fluid WBC 237 /mm^3 Fluid RBC 44279 /mm^3 Fluid Neutrophils % 28.0 % Fluid Lymphocytes % 42.0 % Fluid Monocytes % 4.0 % Fluid Macrophages % 26.0 % Fld Mesothelial Cell % 0 % 03/12/24 03/12/24 03/12/24 Range/Units 09:45 09:22 06:30 WBC (4.8-10.8) x10^3/uL RBC (4.70-6.10) 10^6/uL Hgb (14.0-18.0) g/dL Hct (42.0-52.0) % MCV (80.0-94.0) fL MCH (27.0-31.0) pg MCHC (32.0-36.0) g/dL RDW (12.0-15.0) % Plt Count (130-450) 10^3/uL MPV (7.4-11.4) fL Neut # (Auto) (1.5-6.6) 10^3/uL Lymph # (Auto) (1.5-3.5) 10^3/uL Cross # (Auto) (0.0-1.0) 10^3/uL Eos # (Auto) (0.0-0.7) 10^3/uL Baso # (Auto) (0.0-0.1) 10^3/uL Absolute Nucleated RBC x10^3/uL Nucleated RBC % /100WBC PT 19.4 H (9.9-12.6) secs INR 1.9 H (0.8-1.2) APTT (24.9-33.3) secs Bld Gas Analysis Time 06:37 Sample Site LEFT RADIAL ABG pH 7.59 H (7.35-7.45) ABG pCO2 35 (34-45) mmHg ABG pO2 69 L (80-100) mmHg ABG HCO3 33.3 H (22.0-26.0) mmol/L ABG Total CO2 34.4 H (21.0-29.0) MMOL/L ABG O2 Saturation 95 (94-98) % ABG Base Excess 11.1 H (-2.0-3.0) mmol/L Win Test POSITIVE Respiration Rate 18 b/min O2 Delivery Device VENTILATOR Vent Mode ASSIST/CONTROL FiO2 40.00 Tidal Volume 500 mL PEEP 5 cmH2O Sodium (135-145) mmol/L Potassium (3.5-4.5) mmol/L Chloride (101-111) mmol/L Carbon Dioxide (21-32) mmol/L Anion Gap (6-13) BUN (6-20) mg/dL Creatinine (0.6-1.3) mg/dL Estimated GFR (MDRD) (>89) Glucose (74-104) mg/dL POC Whole Bld Glucose 111 (70-100) mg/dL Calcium (8.5-10.3) mg/dL Magnesium (1.7-2.3) mg/dL Procalcitonin Immunoas (<0.5) ng/mL Fluid Source Fluid Color Fluid Clarity Fluid WBC /mm^3 Fluid RBC /mm^3 Fluid Neutrophils % % Fluid Lymphocytes % % Fluid Monocytes % % Fluid Macrophages % % Fld Mesothelial Cell % % 03/12/24 03/12/24 03/12/24 Range/Units 06:25 06:07 06:05 WBC 7.4 (4.8-10.8) x10^3/uL RBC 4.63 L (4.70-6.10) 10^6/uL Hgb 14.1 (14.0-18.0) g/dL Hct 44.6 (42.0-52.0) % MCV 96.3 H (80.0-94.0) fL MCH 30.5 (27.0-31.0) pg MCHC 31.6 L (32.0-36.0) g/dL RDW 14.0 (12.0-15.0) % Plt Count 105 L (130-450) 10^3/uL MPV 11.1 (7.4-11.4) fL Neut # (Auto) 6.2 (1.5-6.6) 10^3/uL Lymph # (Auto) 0.6 L (1.5-3.5) 10^3/uL Cross # (Auto) 0.5 (0.0-1.0) 10^3/uL Eos # (Auto) 0.0 (0.0-0.7) 10^3/uL Baso # (Auto) 0.0 (0.0-0.1) 10^3/uL Absolute Nucleated RBC 0.00 x10^3/uL Nucleated RBC % 0.0 /100WBC PT (9.9-12.6) secs INR (0.8-1.2) APTT 90.2 H (24.9-33.3) secs Bld Gas Analysis Time Sample Site ABG pH (7.35-7.45) ABG pCO2 (34-45) mmHg ABG pO2 (80-100) mmHg ABG HCO3 (22.0-26.0) mmol/L ABG Total CO2 (21.0-29.0) MMOL/L ABG O2 Saturation (94-98) % ABG Base Excess (-2.0-3.0) mmol/L Win Test Respiration Rate b/min O2 Delivery Device Vent Mode FiO2 Tidal Volume mL PEEP cmH2O Sodium 143 (135-145) mmol/L Potassium 3.0 L (3.5-4.5) mmol/L Chloride 101 (101-111) mmol/L Carbon Dioxide 37 H (21-32) mmol/L Anion Gap 5.0 L (6-13) BUN 32 H (6-20) mg/dL Creatinine 1.2 (0.6-1.3) mg/dL Estimated GFR (MDRD) 58 L (>89) Glucose 106 H (74-104) mg/dL POC Whole Bld Glucose 110 (70-100) mg/dL Calcium 8.7 (8.5-10.3) mg/dL Magnesium 2.0 (1.7-2.3) mg/dL Procalcitonin Immunoas 1.35 H (<0.5) ng/mL Fluid Source Fluid Color Fluid Clarity Fluid WBC /mm^3 Fluid RBC /mm^3 Fluid Neutrophils % % Fluid Lymphocytes % % Fluid Monocytes % % Fluid Macrophages % % Fld Mesothelial Cell % % 03/12/24 03/12/24 03/11/24 Range/Units 01:00 00:08 18:30 WBC (4.8-10.8) x10^3/uL RBC (4.70-6.10) 10^6/uL Hgb (14.0-18.0) g/dL Hct (42.0-52.0) % MCV (80.0-94.0) fL MCH (27.0-31.0) pg MCHC (32.0-36.0) g/dL RDW (12.0-15.0) % Plt Count (130-450) 10^3/uL MPV (7.4-11.4) fL Neut # (Auto) (1.5-6.6) 10^3/uL Lymph # (Auto) (1.5-3.5) 10^3/uL Cross # (Auto) (0.0-1.0) 10^3/uL Eos # (Auto) (0.0-0.7) 10^3/uL Baso # (Auto) (0.0-0.1) 10^3/uL Absolute Nucleated RBC x10^3/uL Nucleated RBC % /100WBC PT (9.9-12.6) secs INR (0.8-1.2) APTT 52.5 H 45.4 H (24.9-33.3) secs Bld Gas Analysis Time Sample Site ABG pH (7.35-7.45) ABG pCO2 (34-45) mmHg ABG pO2 (80-100) mmHg ABG HCO3 (22.0-26.0) mmol/L ABG Total CO2 (21.0-29.0) MMOL/L ABG O2 Saturation (94-98) % ABG Base Excess (-2.0-3.0) mmol/L Win Test Respiration Rate b/min O2 Delivery Device Vent Mode FiO2 Tidal Volume mL PEEP cmH2O Sodium (135-145) mmol/L Potassium (3.5-4.5) mmol/L Chloride (101-111) mmol/L Carbon Dioxide (21-32) mmol/L Anion Gap (6-13) BUN (6-20) mg/dL Creatinine (0.6-1.3) mg/dL Estimated GFR (MDRD) (>89) Glucose (74-104) mg/dL POC Whole Bld Glucose 104 (70-100) mg/dL Calcium (8.5-10.3) mg/dL Magnesium (1.7-2.3) mg/dL Procalcitonin Immunoas (<0.5) ng/mL Fluid Source Fluid Color Fluid Clarity Fluid WBC /mm^3 Fluid RBC /mm^3 Fluid Neutrophils % % Fluid Lymphocytes % % Fluid Monocytes % % Fluid Macrophages % % Fld Mesothelial Cell % % 03/11/24 03/11/24 Range/Units 18:05 16:52 WBC (4.8-10.8) x10^3/uL RBC (4.70-6.10) 10^6/uL Hgb (14.0-18.0) g/dL Hct (42.0-52.0) % MCV (80.0-94.0) fL MCH (27.0-31.0) pg MCHC (32.0-36.0) g/dL RDW (12.0-15.0) % Plt Count (130-450) 10^3/uL MPV (7.4-11.4) fL Neut # (Auto) (1.5-6.6) 10^3/uL Lymph # (Auto) (1.5-3.5) 10^3/uL Cross # (Auto) (0.0-1.0) 10^3/uL Eos # (Auto) (0.0-0.7) 10^3/uL Baso # (Auto) (0.0-0.1) 10^3/uL Absolute Nucleated RBC x10^3/uL Nucleated RBC % /100WBC PT (9.9-12.6) secs INR (0.8-1.2) APTT (24.9-33.3) secs Bld Gas Analysis Time Sample Site ABG pH (7.35-7.45) ABG pCO2 (34-45) mmHg ABG pO2 (80-100) mmHg ABG HCO3 (22.0-26.0) mmol/L ABG Total CO2 (21.0-29.0) MMOL/L ABG O2 Saturation (94-98) % ABG Base Excess (-2.0-3.0) mmol/L Win Test Respiration Rate b/min O2 Delivery Device Vent Mode FiO2 Tidal Volume mL PEEP cmH2O Sodium (135-145) mmol/L Potassium (3.5-4.5) mmol/L Chloride (101-111) mmol/L Carbon Dioxide (21-32) mmol/L Anion Gap (6-13) BUN (6-20) mg/dL Creatinine (0.6-1.3) mg/dL Estimated GFR (MDRD) (>89) Glucose (74-104) mg/dL POC Whole Bld Glucose 120 142 (70-100) mg/dL Calcium (8.5-10.3) mg/dL Magnesium (1.7-2.3) mg/dL Procalcitonin Immunoas (<0.5) ng/mL Fluid Source Fluid Color Fluid Clarity Fluid WBC /mm^3 Fluid RBC /mm^3 Fluid Neutrophils % % Fluid Lymphocytes % % Fluid Monocytes % % Fluid Macrophages % % Fld Mesothelial Cell % % Exam Constitutional normal general appearance and no apparent distress HENMT normocephalic and head/scalp atraumatic Eyes PERRL, EOMs intact bilaterally and no scleral icterus Neck/C-Spine trachea midline Respiratory normal respiratory effort Neurology speech normal Psychiatry cooperative and affect normal Conclusion/Plan Problem List (1) Acute on chronic respiratory failure with hypoxia and hypercapnia: (2) Pneumothorax, postprocedural: Plan: small less than 10 % right pneumothorax. breathing has improved over last few hours. agree with observation and follow up cxr in am. chest tube placement indication and procedure discussed with pt and family. at this time does not seem it will become necessary. (3) Septic shock: (4) COPD (chronic obstructive pulmonary disease): Qualifiers: COPD type: unspecified COPD Qualified Code(s): J44.9 - Chronic obstructive pulmonary disease, unspecified (5) Reduced ejection fraction concurrent with and due to acute on chronic heart failure: (6) AICD (automatic cardioverter/defibrillator) present: (7) Flash pulmonary edema: (8) Bilateral pleural effusion: (9) Hypotension: Qualifiers: Hypotension type: unspecified hypotension type Qualified Code(s): I95.9 - Hypotension, unspecified (10) DAVID (acute kidney injury): (11) A-fib: Qualifiers: Atrial fibrillation type: longstanding persistent Qualified Code(s): I 48.11 - Longstanding persistent atrial fibrillation (12) Elevated troponin: (13) Suprapubic catheter: Lab Results Lab results reviewed: Yes 03/12/24 14:18 03/12/24 06:05
--- NOTE | 2024-03-12 16:01 | XRAY Report ---
PROCEDURE: XR Chest 1V INDICATIONS: pulm edema TECHNIQUE: One view of the chest was acquired. COMPARISON: Chest x-ray 03/11/2024 FINDINGS: Surgical changes and devices: Endotracheal tube nasogastric tube, right-sided catheter and pacemaker are unchanged. Lungs and pleura: Persistent appearance of bilateral effusions right greater than left appearing mor e prominent when compared to prior exam. Increased vascularity is present. Mediastinum: Mediastinal contours appear normal. Heart size is enlarged. Bones and chest wall: No suspicious bony lesions. Overlying soft tissues appear unremarkable. IMPRESSION: Worsening appearance of effusions and increased vascularity consistent with edema. Reviewed by: Evelyn Harkins MD on 03/12/2024 3:59 PM PST Approved by: Evelyn Harkins MD on 03/12/2024 3:59 PM [facility] Station ID: [id number]
[2024-03-12] MEDS: INSULIN LISPRO 300 UNIT/3 ML PEN SUBQ SCH (20:43)
[2024-03-13 06:22] LABS: BASOPHILS % (AUTO) 0.2 %; EOSINOPHILS # (AUTO) 0.1 10^3/uL (0.0-0.7); EOSINOPHILS % (AUTO) 0.7 %; HCT - HEMATOCRIT 43.4 % (42.0-52.0); HGB - HEMOGLOBIN 13.5 g/dL (14.0-18.0); LYMPHOCYTES # (AUTO) 0.4 10^3/uL (1.5-3.5); LYMPHOCYTES % (AUTO) 4.6 %; MEAN CORPUSCULAR HEMOGLOBIN 30.4 pg (27.0-31.0); MEAN CORPUSCULAR HGB CONC 31.1 g/dL (32.0-36.0); MEAN CORPUSCULAR VOLUME 97.7 fL (80.0-94.0); MEAN PLATELET VOLUME 11.1 fL (7.4-11.4); MONOCYTES # (AUTO) 0.6 10^3/uL (0.0-1.0); MONOCYTES % (AUTO) 6.8 %; NEUTROPHILS # (AUTO) 7.4 10^3/uL (1.5-6.6); NEUTROPHILS % (AUTO) 87.3 %; PLT - PLATELET COUNT 99 10^3/uL (130-450); RED BLOOD COUNT 4.44 10^6/uL (4.70-6.10); RED CELL DISTRIBUTION WIDTH 13.7 % (12.0-15.0); WHITE BLOOD COUNT 8.5 x10^3/uL (4.8-10.8)
[2024-03-13 06:40] LABS: CALCIUM 8.5 mg/dL (8.5-10.3)
[2024-03-13 08:10] LABS: PROTEIN BODY FLUID 3.3 g/dL (.)
--- NOTE | 2024-03-13 08:20 | PROVIDER PROGRESS NOTE ---
Subjective Subjective Subjective: Patient was extubated successfully yesterday. He is on 3 L nasal cannula, with appropriate respiratory rate of 16-18. He is answering yes or no questions, speaking in simple sentences, and following commands. Overnight, patient states that he had difficulty breathing. He was lying flat at that time. When sitting up, he states his breathing is better. Per and patient, he occasionally uses 2 L of oxygen at home. He is intermittently confused. He was asking when he was going to be "put down," and is confused about his hospital course here. He is alert and oriented x 4, but does need redirection and reorientation. He denies any fevers, chills, but does state that he had some sweats overnight. He is eager to go home. Patient is approaching 96 hours at this critical care hospital. They have made significant improvements with their acute hypoxic respiratory failure.There is no need for services beyond what this hospital can provide. They are continuing to improve but due to medical necessity will stay beyond 96 hours. He still requires one more day of IV diuresis, weaning of his oxygen, and closer monitoring of his pneumothorax with serial chest x-rays. After this, he will be discharged to SNF. Current Medications Current Medications Current Medications: Current Medications Generic Name Dose Route Start Last Admin Trade Name Freq PRN Reason Stop Dose Admin Albuterol/Ipratropium 3 ml 03/10/24 16:10 03/12/24 15:29 Ipratropium/Albuterol 3 Ml Neb INH 3 ml Q4HR PRN Administration Wheezing Amiodarone HCl 200 mg 03/10/24 09:00 03/12/24 08:37 Amiodarone 200 Mg Tablet PO 200 mg DAILY AVIS Administration Apixaban 5 mg 03/13/24 09:00 Apixaban 5 Mg Tablet PO BID AVIS Atorvastatin Calcium 20 mg 03/10/24 09:00 03/12/24 08:37 Atorvastatin 10 Mg Tablet PO 20 mg DAILY AVIS Administration Azithromycin 500 mg 03/13/24 09:00 Azithromycin 250 Mg Tablet PO 03/14/24 09:01 DAILY AVIS Ceftriaxone Sodium 1 gm 03/12/24 09:00 03/12/24 09:05 Ceftriaxone 1 Gm Vial IVP 1 gm DAILY AVIS Administration Furosemide 40 mg 03/10/24 14:00 03/12/24 20:43 Furosemide 40 Mg/4 Ml Vial IVP 40 mg BID AVIS Administration Norepinephrine/Sodium Chloride 8 mg in 250 mls @ 15 mls/hr 03/10/24 08:00 03/12/24 09:50 Levophed 8 Mg/250-0.9% Nacl IV Not Given .[id number] AVIS Protocol 8 MCG/MIN Acetaminophen 1,000 mg in 100 mls @ 400 mls/hr 03/12/24 00:49 03/12/24 07:00 Acetaminophen IV Infused Q6HR PRN Infusion FEVER > 100.5 F Insulin Human Lispro 1 - 5 unit 03/12/24 21:00 03/12/24 20:43 Insulin Lispro 300 Unit/3 Ml Pen SUBQ 1 unit 0800,1200,1700,2100 AVIS Administration Protocol Multi-Ingredient Ointment 1 applic 03/11/24 21:39 Zinc Oxide 20% Oint 30 Gm Tube TOP PRN PRN Skin Care Pantoprazole Sodium 40 mg 03/11/24 11:00 03/13/24 06:04 Pantoprazole 40 Mg Vial IVP 40 mg QDAC AVIS Administration Sodium Chloride 10 ml 03/10/24 08:48 03/13/24 06:05 Sodium Chloride Flush 0.9% 10 Ml Syringe IVP 10 ml PRN PRN Administration NEEDED PER PROVIDER ORDERS Sodium Chloride 10 ml 03/10/24 09:00 03/13/24 00:27 Sodium Chloride Flush 0.9% 10 Ml Syringe IVP 10 ml 0100,0900,1700 AVIS Administration Objective Vital Signs/Intake & Output Reviewed Vital Signs: Yes Vital Signs: Vital Signs x48h Temp Pulse Resp BP Pulse Ox O2 Flow Rate 03/13/24 07:00 60 18 102/58 L 98 3 03/13/24 06:00 61 18 115/59 L 96 3 03/13/24 05:00 98.1 F 73 21 118/53 L 97 3 03/13/24 04:00 81 23 110/58 L 98 3 03/13/24 03:00 74 19 110/55 L 97 3 03/13/24 02:00 76 20 110/56 L 98 3 03/13/24 01:00 73 20 118/60 93 3 Intake & Output: Intake & Output 03/11/24 03/12/24 03/13/24 03/14/24 05:59 05:59 05:59 05:59 Intake Total 532 / 532 1548 / 1548 1852 / 1852 867 / 867 Output Total 1916 3595 / 3595 1969 / 1969 150 / 150 Balance -1385 / -1385 -2047 / -2047 -118 / -118 717 / 717 Weight (kg) 107 kg 105 kg 101.5 kg 97.5 kg Objective General Appearance: positive No acute distress and Lethargic (extubated, sedation turned off 7 AM) Eyes Bilateral: positive Normal inspection, PERRL and EOMI ENT: positive ENT inspection nml and No signs of dehydration Neck: positive Nml inspection and Trachea midline Respiratory: positive Rales (bilateral diffuse crackles noted) Cardiovascular: positive No gallop, Irregularly irregular and Systolic murmur Abdomen: positive Non-tender, No organomegaly and No distention; negative Tenderness or Guarding Back: positive Nml inspection; negative CVA tenderness (R) or CVA tenderness (L) Skin: positive Color nml, No rash, Warm and Dry Extremities: positive Non-tender, Nml appearance and Pedal edema Neurologic/Psychiatric: positive Oriented x3 (confused about series of events, redirectable) and Weakness Lab Results 03/13/24 06:10 03/13/24 06:10 Other Labs: Lab Results x24hrs 03/13/24 03/13/24 03/13/24 Range/Units 07:36 06:10 00:26 WBC 8.5 (4.8-10.8) x10^3/uL RBC 4.44 L (4.70-6.10) 10^6/uL Hgb 13.5 L (14.0-18.0) g/dL Hct 43.4 (42.0-52.0) % MCV 97.7 H (80.0-94.0) fL MCH 30.4 (27.0-31.0) pg MCHC 31.1 L (32.0-36.0) g/dL RDW 13.7 (12.0-15.0) % Plt Count 99 L (130-450) 10^3/uL MPV 11.1 (7.4-11.4) fL Neut # (Auto) 7.4 H (1.5-6.6) 10^3/uL Lymph # (Auto) 0.4 L (1.5-3.5) 10^3/uL Dickenson # (Auto) 0.6 (0.0-1.0) 10^3/uL Eos # (Auto) 0.1 (0.0-0.7) 10^3/uL Baso # (Auto) 0.0 (0.0-0.1) 10^3/uL Absolute Nucleated RBC 0.00 x10^3/uL Nucleated RBC % 0.0 /100WBC PT (9.9-12.6) secs INR (0.8-1.2) APTT 59.4 H (24.9-33.3) secs Bld Gas Analysis Time Sample Site ABG pH (7.35-7.45) ABG pCO2 (34-45) mmHg ABG pO2 (80-100) mmHg ABG HCO3 (22.0-26.0) mmol/L ABG Total CO2 (21.0-29.0) MMOL/L ABG O2 Saturation (94-98) % ABG Base Excess (-2.0-3.0) mmol/L Win Test Respiration Rate b/min O2 Delivery Device Vent Mode FiO2 Tidal Volume mL PEEP cmH2O Sodium 141 (135-145) mmol/L Potassium 3.0 L (3.5-4.5) mmol/L Chloride 98 L (101-111) mmol/L Carbon Dioxide 38 H (21-32) mmol/L Anion Gap 5.0 L (6-13) BUN 34 H (6-20) mg/dL Creatinine 1.0 (0.6-1.3) mg/dL Estimated GFR (MDRD) 72 L (>89) Glucose 107 H (74-104) mg/dL POC Whole Bld Glucose 94 (70-100) mg/dL Calcium 8.5 (8.5-10.3) mg/dL Troponin I High Sens (2.3-19.7) ng/L Triglycerides 76 mg/dL Fluid Source Fluid Color Fluid Clarity Fluid WBC /mm^3 Fluid RBC /mm^3 Fluid Neutrophils % % Fluid Lymphocytes % % Fluid Monocytes % % Fluid Macrophages % % Fld Mesothelial Cell % % Fluid Glucose (.) mg/dL Fluid Total Protein (.) g/dL Fluid LDH (.) IU/L 12/04/24 12/04/24 12/04/24 Range/Units 20:06 17:33 14:18 WBC 9.6 (4.8-10.8) x10^3/uL RBC 4.74 (4.70-6.10) 10^6/uL Hgb 14.6 (14.0-18.0) g/dL Hct 46.6 (42.0-52.0) % MCV 98.3 H (80.0-94.0) fL MCH 30.8 (27.0-31.0) pg MCHC 31.3 L (32.0-36.0) g/dL RDW 13.9 (12.0-15.0) % Plt Count 103 L (130-450) 10^3/uL MPV 10.9 (7.4-11.4) fL Neut # (Auto) (1.5-6.6) 10^3/uL Lymph # (Auto) (1.5-3.5) 10^3/uL Dickenson # (Auto) (0.0-1.0) 10^3/uL Eos # (Auto) (0.0-0.7) 10^3/uL Baso # (Auto) (0.0-0.1) 10^3/uL Absolute Nucleated RBC x10^3/uL Nucleated RBC % /100WBC PT (9.9-12.6) secs INR (0.8-1.2) APTT (24.9-33.3) secs Bld Gas Analysis Time Sample Site ABG pH (7.35-7.45) ABG pCO2 (34-45) mmHg ABG pO2 (80-100) mmHg ABG HCO3 (22.0-26.0) mmol/L ABG Total CO2 (21.0-29.0) MMOL/L ABG O2 Saturation (94-98) % ABG Base Excess (-2.0-3.0) mmol/L Win Test Respiration Rate b/min O2 Delivery Device Vent Mode FiO2 Tidal Volume mL PEEP cmH2O Sodium (135-145) mmol/L Potassium (3.5-4.5) mmol/L Chloride (101-111) mmol/L Carbon Dioxide (21-32) mmol/L Anion Gap (6-13) BUN (6-20) mg/dL Creatinine (0.6-1.3) mg/dL Estimated GFR (MDRD) (>89) Glucose (74-104) mg/dL POC Whole Bld Glucose 145 124 (70-100) mg/dL Calcium (8.5-10.3) mg/dL Troponin I High Sens 46.3 H* (2.3-19.7) ng/L Triglycerides mg/dL Fluid Source Fluid Color Fluid Clarity Fluid WBC /mm^3 Fluid RBC /mm^3 Fluid Neutrophils % % Fluid Lymphocytes % % Fluid Monocytes % % Fluid Macrophages % % Fld Mesothelial Cell % % Fluid Glucose (.) mg/dL Fluid Total Protein (.) g/dL Fluid LDH (.) IU/L 03/12/24 03/12/24 03/12/24 Range/Units 12:45 11:55 09:45 WBC (4.8-10.8) x10^3/uL RBC (4.70-6.10) 10^6/uL Hgb (14.0-18.0) g/dL Hct (42.0-52.0) % MCV (80.0-94.0) fL MCH (27.0-31.0) pg MCHC (32.0-36.0) g/dL RDW (12.0-15.0) % Plt Count (130-450) 10^3/uL MPV (7.4-11.4) fL Neut # (Auto) (1.5-6.6) 10^3/uL Lymph # (Auto) (1.5-3.5) 10^3/uL Dickenson # (Auto) (0.0-1.0) 10^3/uL Eos # (Auto) (0.0-0.7) 10^3/uL Baso # (Auto) (0.0-0.1) 10^3/uL Absolute Nucleated RBC x10^3/uL Nucleated RBC % /100WBC PT (9.9-12.6) secs INR (0.8-1.2) APTT (24.9-33.3) secs Bld Gas Analysis Time Sample Site ABG pH (7.35-7.45) ABG pCO2 (34-45) mmHg ABG pO2 (80-100) mmHg ABG HCO3 (22.0-26.0) mmol/L ABG Total CO2 (21.0-29.0) MMOL/L ABG O2 Saturation (94-98) % ABG Base Excess (-2.0-3.0) mmol/L Win Test Respiration Rate b/min O2 Delivery Device Vent Mode FiO2 Tidal Volume mL PEEP cmH2O Sodium (135-145) mmol/L Potassium (3.5-4.5) mmol/L Chloride (101-111) mmol/L Carbon Dioxide (21-32) mmol/L Anion Gap (6-13) BUN (6-20) mg/dL Creatinine (0.6-1.3) mg/dL Estimated GFR (MDRD) (>89) Glucose (74-104) mg/dL POC Whole Bld Glucose 112 111 (70-100) mg/dL Calcium (8.5-10.3) mg/dL Troponin I High Sens (2.3-19.7) ng/L Triglycerides mg/dL Fluid Source PLEURAL Fluid Color YELLOW Fluid Clarity HAZY Fluid WBC 237 /mm^3 Fluid RBC 87682 /mm^3 Fluid Neutrophils % 28.0 % Fluid Lymphocytes % 42.0 % Fluid Monocytes % 4.0 % Fluid Macrophages % 26.0 % Fld Mesothelial Cell % 0 % Fluid Glucose 113 (.) mg/dL Fluid Total Protein 3.3 (.) g/dL Fluid LDH 105 (.) IU/L 03/12/24 03/12/24 Range/Units 09:22 06:30 WBC (4.8-10.8) x10^3/uL RBC (4.70-6.10) 10^6/uL Hgb (14.0-18.0) g/dL Hct (42.0-52.0) % MCV (80.0-94.0) fL MCH (27.0-31.0) pg MCHC (32.0-36.0) g/dL RDW (12.0-15.0) % Plt Count (130-450) 10^3/uL MPV (7.4-11.4) fL Neut # (Auto) (1.5-6.6) 10^3/uL Lymph # (Auto) (1.5-3.5) 10^3/uL Dickenson # (Auto) (0.0-1.0) 10^3/uL Eos # (Auto) (0.0-0.7) 10^3/uL Baso # (Auto) (0.0-0.1) 10^3/uL Absolute Nucleated RBC x10^3/uL Nucleated RBC % /100WBC PT 19.4 H (9.9-12.6) secs INR 1.9 H (0.8-1.2) APTT (24.9-33.3) secs Bld Gas Analysis Time 06:37 Sample Site LEFT RADIAL ABG pH 7.59 H (7.35-7.45) ABG pCO2 35 (34-45) mmHg ABG pO2 69 L (80-100) mmHg ABG HCO3 33.3 H (22.0-26.0) mmol/L ABG Total CO2 34.4 H (21.0-29.0) MMOL/L ABG O2 Saturation 95 (94-98) % ABG Base Excess 11.1 H (-2.0-3.0) mmol/L Win Test POSITIVE Respiration Rate 18 b/min O2 Delivery Device VENTILATOR Vent Mode ASSIST/CONTROL FiO2 40.00 Tidal Volume 500 mL PEEP 5 cmH2O Sodium (135-145) mmol/L Potassium (3.5-4.5) mmol/L Chloride (101-111) mmol/L Carbon Dioxide (21-32) mmol/L Anion Gap (6-13) BUN (6-20) mg/dL Creatinine (0.6-1.3) mg/dL Estimated GFR (MDRD) (>89) Glucose (74-104) mg/dL POC Whole Bld Glucose (70-100) mg/dL Calcium (8.5-10.3) mg/dL Troponin I High Sens (2.3-19.7) ng/L Triglycerides mg/dL Fluid Source Fluid Color Fluid Clarity Fluid WBC /mm^3 Fluid RBC /mm^3 Fluid Neutrophils % % Fluid Lymphocytes % % Fluid Monocytes % % Fluid Macrophages % % Fld Mesothelial Cell % % Fluid Glucose (.) mg/dL Fluid Total Protein (.) g/dL Fluid LDH (.) IU/L Diagnostic Imaging Diagnostic Imaging Results: positive Final report reviewed Assessment/Plan Problem List (1) Acute on chronic respiratory failure with hypoxia and hypercapnia: Impression: Resolved. Patient was intubated and sedated on admission due to severe altered mental status requiring airway support. Extubtaed today, now requiring 3L. Uses up to 2 L of oxygen at home. Chest x-ray shows severe fluid overload. proBNP elevated. Continue IV Lasix 40 mg twice daily for one more day, will transition to oral Lasix tomorrow pending clinical course. Continue strict ins and outs. Repeat chest x-ray ordered this morning, pending. Thoracentesis completed yesterday; fluid studies reviewed, serum LDH pending. Based on serum protein vs. fluid protein, likely transudative (due to CHF). Continue Eliquis twice daily. (2) Pneumothorax, postprocedural: Impression: Patient had a thoracentesis done with 2.4 L of fluid output. Post-procedure x-ray does show a small apical pneumothorax on the right side. General Surgery spoken with continue serial chest x-rays. Repeat pending this morning. (3) Septic shock: Impression: Patient spiked a fever overnight. Will treat with Rocephin and azithromycin for possible community-acquired pneumonia in setting of recent ventilator dependence, poor inspiratory effort, atelectasis. Blood cultures 1 out of 2 positive for gram-positive cocci, although this is likely contaminant. Procalcitonin is also elevated. Patient is off Levophed at this time. (4) COPD (chronic obstructive pulmonary disease): Impression: Patient with history of COPD not on home oxygen. Continue to monitor. Qualifiers: COPD type: unspecified COPD Qualified Code(s): J44.9 - Chronic obstructive pulmonary disease, unspecified (5) Reduced ejection fraction concurrent with and due to acute on chronic heart failure: Impression: Patient has an extensive cardiac history: CAD s/p arthrectomy and 02/2018, 3 drug-eluting stent placements to RCA, biventricular AICD placement. Echo done 01/11/2024 shows left ventricular ejection fraction of 20%, severe aortic valve stenosis. He was admitted to [facility] in January for ventricular tachycardia, hypotension requiring amiodarone drip. He visited his sparmaker in [place] on 02/03; his medication list was updated to the following: Amiodarone 200 mg daily, Eliquis 5 mg twice daily, Lipitor 20 mg daily, Pulmicort daily, Jardiance 10 mg daily, perform rest daily, Lasix 40 mg daily, DuoNebs as needed, metoprolol 50 mg every 24 hours, spironolactone 25 mg daily. His sparmaker was also planning on doing a thoracentesis in [place] if he still had large pleural effusions. He was told that he was too high risk for a TAVR with such poor LV function. (6) AICD (automatic cardioverter/defibrillator) present: Impression: See above for cardiac history. (7) Flash pulmonary edema: Impression: Continue serial chest x-rays for resolution. Continue IV lasix. (8) Bilateral pleural effusion: Impression: See above. (9) Hypotension: Impression: Likely due to sedation vs. developing sepsis. Sedation weaned off; decreasing amounts of Levophed. Qualifiers: Hypotension type: unspecified hypotension type Qualified Code(s): I95.9 - Hypotension, unspecified (10) DAVID (acute kidney injury): Impression: Resolved. Baseline around 1; now 1.2. Continue IV Lasix. Continue strict ins and outs. (11) A-fib: Impression: Continue Eliquis. Continue amiodarone. Metoprolol held at this time due to hypotension. Qualifiers: Atrial fibrillation type: longstanding persistent Qualified Code(s): I 48.11 - Longstanding persistent atrial fibrillation (12) Elevated troponin: Impression: Likely demand ischemia in setting of above. Stable. Continue to trend. (13) Suprapubic catheter: Impression: Placed by urology; follow up 7 days after discharge.
--- NOTE | 2024-03-13 08:40 | XRAY Report ---
PROCEDURE: XR Chest 1V INDICATIONS: f/u pneumo TECHNIQUE: One view of the chest was acquired. COMPARISON: 03/12/2024 FINDINGS: Surgical changes and devices: Right adjacent venous catheter tip projects over the low SVC. Left l[address] wall generator with cardiac leads. Lungs and pleura: Trace right apical pneumothorax, similar in size compared with prior. Similar smal l pleural effusions with bibasilar atelectasis/consolidation. Mediastinum: Mediastinal contours appear normal. Heart size is normal. Bones and chest wall: No suspicious bony lesions. Overlying soft tissues appear unremarkable. IMPRESSION: Unchanged trace right apical pneumothorax, without evidence of tension. Similar small pleural effusions with bibasilar atelectasis/consolidation. Reviewed by: Antonio Brewer MD on 03/13/2024 8:38 AM PST Approved by: Antonio Brewer MD on 03/13/2024 8:38 AM PST Station ID: [id number]
[2024-03-13] MEDS: POTASSIUM CHLORIDE 20 MEQ/15 ML UDC PO ONE (08:54)
[2024-03-13] MEDS: AZITHROMYCIN 250 MG TABLET PO SCH (08:54)
[2024-03-13] MEDS: APIXABAN 5 MG TABLET PO SCH (08:55)
--- NOTE | 2024-03-13 09:36 | PROVIDER PROGRESS NOTE ---
Subjective Subjective Pt reports feeling: Improved Current Medications Current Medications Current Medications: Current Medications Generic Name Dose Route Start Last Admin Trade Name Freq PRN Reason Stop Dose Admin Albuterol/Ipratropium 3 ml 03/10/24 16:10 03/12/24 15:29 Ipratropium/Albuterol 3 Ml Neb INH 3 ml Q4HR PRN Administration Wheezing Amiodarone HCl 200 mg 03/10/24 09:00 03/13/24 08:54 Amiodarone 200 Mg Tablet PO 200 mg DAILY AVIS Administration Apixaban 5 mg 03/13/24 09:00 03/13/24 08:55 Apixaban 5 Mg Tablet PO 5 mg BID AVIS Administration Atorvastatin Calcium 20 mg 03/10/24 09:00 03/13/24 08:54 Atorvastatin 10 Mg Tablet PO 20 mg DAILY AVIS Administration Azithromycin 500 mg 03/13/24 09:00 03/13/24 08:54 Azithromycin 250 Mg Tablet PO 03/14/24 09:01 500 mg DAILY AVIS Administration Ceftriaxone Sodium 1 gm 03/12/24 09:00 03/13/24 08:56 Ceftriaxone 1 Gm Vial IVP 1 gm DAILY AVIS Administration Furosemide 40 mg 03/10/24 14:00 03/13/24 08:55 Furosemide 40 Mg/4 Ml Vial IVP 40 mg BID AVIS Administration Acetaminophen 1,000 mg in 100 mls @ 400 mls/hr 03/12/24 00:49 03/12/24 07:00 Acetaminophen IV Infused Q6HR PRN Infusion FEVER > 100.5 F Insulin Human Lispro 1 - 5 unit 03/12/24 21:00 03/13/24 08:19 Insulin Lispro 300 Unit/3 Ml Pen SUBQ Not Given 0800,1200,1700,2100 [facility] Protocol Multi-Ingredient Ointment 1 applic 03/11/24 21:39 Zinc Oxide 20% Oint 30 Gm Tube TOP PRN PRN Skin Care Pantoprazole Sodium 40 mg 03/11/24 11:00 03/13/24 06:04 Pantoprazole 40 Mg Vial IVP 40 mg QDAC AVIS Administration Sodium Chloride 10 ml 03/10/24 08:48 03/13/24 08:57 Sodium Chloride Flush 0.9% 10 Ml Syringe IVP 10 ml PRN PRN Administration NEEDED PER PROVIDER ORDERS Sodium Chloride 10 ml 03/10/24 09:00 03/13/24 08:56 Sodium Chloride Flush 0.9% 10 Ml Syringe IVP 10 ml 0100,0900,1700 AVIS Administration Objective Vital Signs/Intake & Output Vital Signs: Vital Signs x48h Temp Pulse Resp BP Pulse Ox O2 Flow Rate 03/13/24 09:00 61 28 H 126/50 L 96 03/13/24 08:00 35.9 C L 66 22 115/70 95 3 03/13/24 07:00 60 18 102/58 L 98 3 03/13/24 06:00 61 18 115/59 L 96 3 03/13/24 05:00 36.7 C 73 21 118/53 L 97 3 03/13/24 04:00 81 23 110/58 L 98 3 03/13/24 03:00 74 19 110/55 L 97 3 03/13/24 02:00 76 20 110/56 L 98 3 Intake & Output: Intake & Output 03/11/24 03/12/24 03/13/24 03/14/24 05:59 05:59 05:59 05:59 Intake Total 532 / 532 1548 / 1548 1852 / 1852 867 / 867 Output Total 1917 / 1917 3595 / 3595 1970 / 1970 275 / 275 Balance -1385 / -1385 -2047 / -2047 -118 / -118 592 / 592 Weight (kg) 107 kg 105 kg 101.5 kg 97.5 kg Objective General Appearance: positive No acute distress and Alert Respiratory: positive No respiratory distress and Other (breathing comfortably) Lab Results 03/13/24 06:10 03/13/24 06:10 Other Labs: Lab Results x24hrs 03/13/24 03/13/24 03/13/24 Range/Units 07:36 06:10 00:26 WBC 8.5 (4.8-10.8) x10^3/uL RBC 4.44 L (4.70-6.10) 10^6/uL Hgb 13.5 L (14.0-18.0) g/dL Hct 43.4 (42.0-52.0) % MCV 97.7 H (80.0-94.0) fL MCH 30.4 (27.0-31.0) pg MCHC 31.1 L (32.0-36.0) g/dL RDW 13.7 (12.0-15.0) % Plt Count 99 L (130-450) 10^3/uL MPV 11.1 (7.4-11.4) fL Neut # (Auto) 7.4 H (1.5-6.6) 10^3/uL Lymph # (Auto) 0.4 L (1.5-3.5) 10^3/uL [place] # (Auto) 0.6 (0.0-1.0) 10^3/uL Eos # (Auto) 0.1 (0.0-0.7) 10^3/uL Baso # (Auto) 0.0 (0.0-0.1) 10^3/uL Absolute Nucleated RBC 0.00 x10^3/uL Nucleated RBC % 0.0 /100WBC PT (9.9-12.6) secs INR (0.8-1.2) APTT 72.9 H 59.4 H (24.9-33.3) secs Sodium 141 (135-145) mmol/L Potassium 3.0 L (3.5-4.5) mmol/L Chloride 98 L (101-111) mmol/L Carbon Dioxide 38 H (21-32) mmol/L Anion Gap 5.0 L (6-13) BUN 34 H (6-20) mg/dL Creatinine 1.0 (0.6-1.3) mg/dL Estimated GFR (MDRD) 72 L (>89) Glucose 107 H (74-104) mg/dL POC Whole Bld Glucose 94 (70-100) mg/dL Calcium 8.5 (8.5-10.3) mg/dL Lactate Dehydrogenase 141 (140-271) IU/L Troponin I High Sens (2.3-19.7) ng/L Triglycerides 76 mg/dL Fluid Source Fluid Color Fluid Clarity Fluid WBC /mm^3 Fluid RBC /mm^3 Fluid Neutrophils % % Fluid Lymphocytes % % Fluid Monocytes % % Fluid Macrophages % % Fld Mesothelial Cell % % Fluid Glucose (.) mg/dL Fluid Total Protein (.) g/dL Fluid LDH (.) IU/L 03/12/24 03/12/24 03/12/24 Range/Units 20:06 17:33 14:18 WBC 9.6 (4.8-10.8) x10^3/uL RBC 4.74 (4.70-6.10) 10^6/uL Hgb 14.6 (14.0-18.0) g/dL Hct 46.6 (42.0-52.0) % MCV 98.3 H (80.0-94.0) fL MCH 30.8 (27.0-31.0) pg MCHC 31.3 L (32.0-36.0) g/dL RDW 13.9 (12.0-15.0) % Plt Count 103 L (130-450) 10^3/uL MPV 10.9 (7.4-11.4) fL Neut # (Auto) (1.5-6.6) 10^3/uL Lymph # (Auto) (1.5-3.5) 10^3/uL [place] # (Auto) (0.0-1.0) 10^3/uL Eos # (Auto) (0.0-0.7) 10^3/uL Baso # (Auto) (0.0-0.1) 10^3/uL Absolute Nucleated RBC x10^3/uL Nucleated RBC % /100WBC PT (9.9-12.6) secs INR (0.8-1.2) APTT (24.9-33.3) secs Sodium (135-145) mmol/L Potassium (3.5-4.5) mmol/L Chloride (101-111) mmol/L Carbon Dioxide (21-32) mmol/L Anion Gap (6-13) BUN (6-20) mg/dL Creatinine (0.6-1.3) mg/dL Estimated GFR (MDRD) (>89) Glucose (74-104) mg/dL POC Whole Bld Glucose 145 124 (70-100) mg/dL Calcium (8.5-10.3) mg/dL Lactate Dehydrogenase (140-271) IU/L Troponin I High Sens 46.3 H* (2.3-19.7) ng/L Triglycerides mg/dL Fluid Source Fluid Color Fluid Clarity Fluid WBC /mm^3 Fluid RBC /mm^3 Fluid Neutrophils % % Fluid Lymphocytes % % Fluid Monocytes % % Fluid Macrophages % % Fld Mesothelial Cell % % Fluid Glucose (.) mg/dL Fluid Total Protein (.) g/dL Fluid LDH (.) IU/L 03/12/24 03/12/24 03/12/24 Range/Units 12:45 11:55 09:45 WBC (4.8-10.8) x10^3/uL RBC (4.70-6.10) 10^6/uL Hgb (14.0-18.0) g/dL Hct (42.0-52.0) % MCV (80.0-94.0) fL MCH (27.0-31.0) pg MCHC (32.0-36.0) g/dL RDW (12.0-15.0) % Plt Count (130-450) 10^3/uL MPV (7.4-11.4) fL Neut # (Auto) (1.5-6.6) 10^3/uL Lymph # (Auto) (1.5-3.5) 10^3/uL [place] # (Auto) (0.0-1.0) 10^3/uL Eos # (Auto) (0.0-0.7) 10^3/uL Baso # (Auto) (0.0-0.1) 10^3/uL Absolute Nucleated RBC x10^3/uL Nucleated RBC % /100WBC PT (9.9-12.6) secs INR (0.8-1.2) APTT (24.9-33.3) secs Sodium (135-145) mmol/L Potassium (3.5-4.5) mmol/L Chloride (101-111) mmol/L Carbon Dioxide (21-32) mmol/L Anion Gap (6-13) BUN (6-20) mg/dL Creatinine (0.6-1.3) mg/dL Estimated GFR (MDRD) (>89) Glucose (74-104) mg/dL POC Whole Bld Glucose 112 111 (70-100) mg/dL Calcium (8.5-10.3) mg/dL Lactate Dehydrogenase (140-271) IU/L Troponin I High Sens (2.3-19.7) ng/L Triglycerides mg/dL Fluid Source PLEURAL Fluid Color YELLOW Fluid Clarity HAZY Fluid WBC 237 /mm^3 Fluid RBC 96580 /mm^3 Fluid Neutrophils % 28.0 % Fluid Lymphocytes % 42.0 % Fluid Monocytes % 4.0 % Fluid Macrophages % 26.0 % Fld Mesothelial Cell % 0 % Fluid Glucose 113 (.) mg/dL Fluid Total Protein 3.3 (.) g/dL Fluid LDH 105 (.) IU/L 03/12/24 Range/Units 09:22 WBC (4.8-10.8) x10^3/uL RBC (4.70-6.10) 10^6/uL Hgb (14.0-18.0) g/dL Hct (42.0-52.0) % MCV (80.0-94.0) fL MCH (27.0-31.0) pg MCHC (32.0-36.0) g/dL RDW (12.0-15.0) % Plt Count (130-450) 10^3/uL MPV (7.4-11.4) fL Neut # (Auto) (1.5-6.6) 10^3/uL Lymph # (Auto) (1.5-3.5) 10^3/uL [place] # (Auto) (0.0-1.0) 10^3/uL Eos # (Auto) (0.0-0.7) 10^3/uL Baso # (Auto) (0.0-0.1) 10^3/uL Absolute Nucleated RBC x10^3/uL Nucleated RBC % /100WBC PT 19.4 H (9.9-12.6) secs INR 1.9 H (0.8-1.2) APTT (24.9-33.3) secs Sodium (135-145) mmol/L Potassium (3.5-4.5) mmol/L Chloride (101-111) mmol/L Carbon Dioxide (21-32) mmol/L Anion Gap (6-13) BUN (6-20) mg/dL Creatinine (0.6-1.3) mg/dL Estimated GFR (MDRD) (>89) Glucose (74-104) mg/dL POC Whole Bld Glucose (70-100) mg/dL Calcium (8.5-10.3) mg/dL Lactate Dehydrogenase (140-271) IU/L Troponin I High Sens (2.3-19.7) ng/L Triglycerides mg/dL Fluid Source Fluid Color Fluid Clarity Fluid WBC /mm^3 Fluid RBC /mm^3 Fluid Neutrophils % % Fluid Lymphocytes % % Fluid Monocytes % % Fluid Macrophages % % Fld Mesothelial Cell % % Fluid Glucose (.) mg/dL Fluid Total Protein (.) g/dL Fluid LDH (.) IU/L Diagnostic Imaging Diagnostic Imaging Results: positive Read independently (cxr small right ptx without change) Assessment/Plan Problem List (1) Acute on chronic respiratory failure with hypoxia and hypercapnia: (2) Pneumothorax, postprocedural: Impression: small stable right pneumothorax. breathing improved. no need for a chest tube. (3) Septic shock: (4) COPD (chronic obstructive pulmonary disease): Qualifiers: COPD type: unspecified COPD Qualified Code(s): J44.9 - Chronic obstructive pulmonary disease, unspecified (5) Reduced ejection fraction concurrent with and due to acute on chronic heart failure: (6) AICD (automatic cardioverter/defibrillator) present: (7) Flash pulmonary edema: (8) Bilateral pleural effusion: (9) Hypotension: Qualifiers: Hypotension type: unspecified hypotension type Qualified Code(s): I95.9 - Hypotension, unspecified (10) DAVID (acute kidney injury): (11) A-fib: Qualifiers: Atrial fibrillation type: longstanding persistent Qualified Code(s): I 48.11 - Longstanding persistent atrial fibrillation (12) Elevated troponin: (13) Suprapubic catheter:
[2024-03-13 10:10] LABS: pH BODY FLUID 7.7 (Not Estab.)
--- NOTE | 2024-03-13 13:20 | OT Plan of Care ---
OT Inpatient POC Diagnosis DIAGNOSIS Diagnosis: Acute on chronic respiratory failure Chief Complaint: Dyspenia Onset of Chief Complaint: CD MIXER MEDICAL/SURGICAL HISTORY Medical History (Updated 03/12/24 @ 13:32 by Abdulaziz Page MD) HTN (hypertension) Myocardial infarction Prostate cancer Assessment and Goals ASSESSMENT Assessment: Pt is a 79y/o male admitted to [facility] with AMS and dyspenia. Pt has an extensive cardiac history including CHF with reduced ejection fraction of 30%, per echo done in January 30, Severe aortic stenosis, Coronary artery disease, Ventricular tachycardia status post ICD, MRI about 10 years ago, hypertension, atrial fibrillation on Eliquis, hyperlipidemia, KENIA treated with CPAP, status post breast cancer, COPD from long-term smoking history, recurrent bilateral effusions And diabetes type 2. Intubated in ED for Acute on chronic respiratory failure with hypoxia and hypercapnia. Work up revealed extensive pulm edema likely secondary to CHF exacerbation with R plural effusions. Extubated to 6L NC 03/12 and bedside thoracentesis performed with success Post procedure small pneumothorax present and stable. Met supine in bed, A&O to self and place only - Follows 1 step commands with increased time and cues. Met sitting EOB - VSS on 2L NC during assessment as above. Performed sit to stand and lateral steps to HOB MIN AX2 using 2WW - SPT bed to chair MIN A x2 with heavy cues for sequencing, safety, and 2WW management. Currently MOD A ADL's with full set up and increased time. Overall presents with decreased endurance, activity tolerance, and ADL status. Will benefit from cont OT services during acute stay. Rec d/c to SNF. -Activities of Daily Living Improve Upper Extremity Dressing to:: Modified Independent Improve Lower Extremity Dressing to:: Modified Independent Improve Grooming/Hygiene to:: Modified Independent Improve Bathing to:: Modified Independent Improve Toileting to:: Modified Independent OT Inpatient Plan PLAN Treatment Frequency: 1x/day Duration: Until goals are met -Discharge Recommendations Discharge Location: Group Home Facility Transport Needs at Discharge: [facility]
[2024-03-13] MEDS: POTASSIUM CHLORIDE 20 MEQ TABLET PO ONE (15:05)
[2024-03-13] MEDS: PHENAZOPYRIDINE 100 MG TABLET PO STA (17:58)
[2024-03-14 05:01] LABS: CALCIUM, IONIZED 1.08 mmol/L (1.15-1.33); VBG PH 7.361 (7.31-7.41)
[2024-03-14 05:03] LABS: BASOPHILS % (AUTO) 0.2 %; EOSINOPHILS # (AUTO) 0.1 10^3/uL (0.0-0.7); EOSINOPHILS % (AUTO) 1.3 %; HCT - HEMATOCRIT 42.8 % (42.0-52.0); HGB - HEMOGLOBIN 13.4 g/dL (14.0-18.0); LYMPHOCYTES # (AUTO) 0.3 10^3/uL (1.5-3.5); LYMPHOCYTES % (AUTO) 3.4 %; MEAN CORPUSCULAR HEMOGLOBIN 30.7 pg (27.0-31.0); MEAN CORPUSCULAR HGB CONC 31.3 g/dL (32.0-36.0); MEAN CORPUSCULAR VOLUME 97.9 fL (80.0-94.0); MEAN PLATELET VOLUME 10.9 fL (7.4-11.4); MONOCYTES # (AUTO) 0.6 10^3/uL (0.0-1.0); MONOCYTES % (AUTO) 7.3 %; NEUTROPHILS # (AUTO) 7.6 10^3/uL (1.5-6.6); NEUTROPHILS % (AUTO) 87.5 %; PLT - PLATELET COUNT 113 10^3/uL (130-450); RED BLOOD COUNT 4.37 10^6/uL (4.70-6.10); RED CELL DISTRIBUTION WIDTH 13.7 % (12.0-15.0); WHITE BLOOD COUNT 8.7 x10^3/uL (4.8-10.8)
[2024-03-14 05:17] LABS: CALCIUM 8.8 mg/dL (8.5-10.3); MAGNESIUM 2.1 mg/dL (1.7-2.3); POTASSIUM 3.6 mmol/L (3.5-4.5)
[2024-03-14] MEDS: POTASSIUM CHLORIDE 20 MEQ TABLET PO ONE (06:05)
[2024-03-14] MEDS: CALCIUM CARBONATE CHEW 500 MG TABLET PO SCH (06:06)
[2024-03-14] MEDS: ONDANSETRON 4 MG/2 ML VIAL IVP PRN (08:06)
[2024-03-14] MEDS: FUROSEMIDE 40 MG TABLET PO SCH (08:08)
[2024-03-14] MEDS: DOCUSATE SODIUM 250 MG CAPSULE PO SCH (08:48)
[2024-03-14] MEDS: polyethylene glycoL 3350 17 GM PACKET PO SCH (08:48)
--- NOTE | 2024-03-14 09:12 | PROVIDER PROGRESS NOTE ---
Subjective Subjective Pt reports feeling: Improved Subjective: Patient feels a little better today. He states that his breathing has improved. He has had no coughing, no fevers, no chills. He did feel nauseous this morning, and had 2 episodes of emesis. He states he is passing gas. He is eating and drinking well otherwise. He has not had a bowel movement in a few days. Current Medications Current Medications Current Medications: Current Medications Generic Name Dose Route Start Last Admin Trade Name Freq PRN Reason Stop Dose Admin Albuterol/Ipratropium 3 ml 03/10/24 16:10 03/12/24 15:29 Ipratropium/Albuterol 3 Ml Neb INH 3 ml Q4HR PRN Administration Wheezing Amiodarone HCl 200 mg 03/10/24 09:00 03/14/24 08:08 Amiodarone 200 Mg Tablet PO 200 mg DAILY AVIS Administration Apixaban 5 mg 03/13/24 09:00 03/14/24 08:08 Apixaban 5 Mg Tablet PO 5 mg BID AVIS Administration Atorvastatin Calcium 20 mg 03/10/24 09:00 03/14/24 08:07 Atorvastatin 10 Mg Tablet PO 20 mg DAILY AVIS Administration Calcium Carbonate/Glycine 1,250 mg 03/14/24 06:00 03/14/24 06:06 Calcium Carbonate Chew 500 Mg Tablet PO 03/14/24 10:01 1,250 mg Q4H AVIS Administration Protocol Ceftriaxone Sodium 1 gm 03/12/24 09:00 03/14/24 08:08 Ceftriaxone 1 Gm Vial IVP 1 gm DAILY AVIS Administration Docusate Sodium 250 - 500 mg 03/14/24 09:00 03/14/24 08:48 Docusate Sodium 250 Mg Capsule PO 250 mg DAILY AVIS Administration Furosemide 40 mg 03/14/24 09:00 03/14/24 08:08 Furosemide 40 Mg Tablet PO 40 mg DAILY AVIS Administration Acetaminophen 1,000 mg in 100 mls @ 400 mls/hr 03/12/24 00:49 03/12/24 07:00 Acetaminophen IV Infused Q6HR PRN Infusion FEVER > 100.5 F Multi-Ingredient Ointment 1 applic 03/11/24 21:39 Zinc Oxide 20% Oint 30 Gm Tube TOP PRN PRN Skin Care Ondansetron HCl 4 mg 03/14/24 07:47 03/14/24 08:06 Ondansetron 4 Mg/2 Ml Vial IVP 4 mg Q6HR PRN Administration Nausea / Vomiting Pantoprazole Sodium 40 mg 03/14/24 10:00 Pantoprazole 40 Mg Tablet PO QDAC AVIS Polyethylene Glycol 17 gm 03/14/24 09:00 03/14/24 08:48 Polyethylene Glycol 3350 17 Gm Packet PO 17 gm DAILY AVIS Administration Sodium Chloride 10 ml 03/10/24 08:48 03/14/24 06:06 Sodium Chloride Flush 0.9% 10 Ml Syringe IVP 10 ml PRN PRN Administration NEEDED PER PROVIDER ORDERS Sodium Chloride 10 ml 03/10/24 09:00 03/14/24 08:10 Sodium Chloride Flush 0.9% 10 Ml Syringe IVP 10 ml 0100,0900,1700 AVIS Administration Objective Vital Signs/Intake & Output Reviewed Vital Signs: Yes Vital Signs: Vital Signs x48h Temp Pulse Resp BP Pulse Ox O2 Flow Rate 03/14/24 08:00 98.1 F 60 17 128/68 96 3 03/14/24 07:00 60 22 140/65 H 97 3 03/14/24 06:00 62 23 118/60 95 3 03/14/24 05:00 65 19 119/58 L 98 3 03/14/24 04:31 3 03/14/24 04:00 98.1 F 60 15 109/53 L 99 3 03/14/24 03:00 61 18 137/76 H 98 3 03/14/24 02:00 61 18 117/57 L 98 3 Intake & Output: Intake & Output 03/12/24 03/13/24 03/14/24 03/15/24 05:59 05:59 05:59 05:59 Intake Total 1548 / 1548 1852 / 1852 3042 / 3042 700 / 700 Output Total 3595 / 3595 1970 / 1970 2415 / 2415 130 / 130 Balance -2047 / -2047 -118 / -118 627 / 627 570 / 570 Weight (kg) 105 kg 101.5 kg 97.5 kg Objective General Appearance: positive No acute distress and Alert Eyes Bilateral: positive Normal inspection, PERRL and EOMI ENT: positive ENT inspection nml, Pharynx nml and No signs of dehydration Neck: positive Nml inspection, Thyroid nml and No JVD Respiratory: positive No respiratory distress; negative Wheezes, Rales or Rhonchi Cardiovascular: positive Regular rate & rhythm, No murmur and No gallop; negative Diastolic murmur or Friction rub Abdomen: positive Non-tender, Nml bowel sounds and No distention; negative Guarding, Hepatomegaly, Splenomegaly or Abnml bowel sounds Back: positive Nml inspection; negative CVA tenderness (R) or CVA tenderness (L) Skin: positive Color nml, No rash, Warm and Dry Extremities: positive Non-tender, Full ROM, Nml appearance and No pedal edema Neurologic/Psychiatric: positive Oriented x3, CN's nml (2-12), Motor nml and Mood/affect nml Lab Results 03/14/24 04:42 03/14/24 09:50 Other Labs: Lab Results x24hrs 03/14/24 03/13/24 03/12/24 Range/Units 04:42 13:40 12:45 WBC 8.7 (4.8-10.8) x10^3/uL RBC 4.37 L (4.70-6.10) 10^6/uL Hgb 13.4 L (14.0-18.0) g/dL Hct 42.8 (42.0-52.0) % MCV 97.9 H (80.0-94.0) fL MCH 30.7 (27.0-31.0) pg MCHC 31.3 L (32.0-36.0) g/dL RDW 13.7 (12.0-15.0) % Plt Count 113 L (130-450) 10^3/uL MPV 10.9 (7.4-11.4) fL Neut # (Auto) 7.6 H (1.5-6.6) 10^3/uL Lymph # (Auto) 0.3 L (1.5-3.5) 10^3/uL [place] # (Auto) 0.6 (0.0-1.0) 10^3/uL Eos # (Auto) 0.1 (0.0-0.7) 10^3/uL Baso # (Auto) 0.0 (0.0-0.1) 10^3/uL Absolute Nucleated RBC 0.00 x10^3/uL Nucleated RBC % 0.0 /100WBC VBG pH 7.361 (7.31-7.41) Ionized Calcium 1.08 L (1.15-1.33) mmol/L Sodium 142 (135-145) mmol/L Potassium 3.6 3.1 L (3.5-4.5) mmol/L Chloride 95 L (101-111) mmol/L Carbon Dioxide 37 H (21-32) mmol/L Anion Gap 10.0 (6-13) BUN 34 H (6-20) mg/dL Creatinine 1.0 (0.6-1.3) mg/dL Estimated GFR (MDRD) 72 L (>89) Glucose 110 H (74-104) mg/dL Calcium 8.8 (8.5-10.3) mg/dL Phosphorus 3.7 (2.5-5.0) mg/dL Magnesium 2.1 (1.7-2.3) mg/dL Fluid pH 7.7 (Not Estab.) Diagnostic Imaging Diagnostic Imaging Results: positive Read independently (cxr small right ptx without change) Assessment/Plan Problem List (1) Acute on chronic respiratory failure with hypoxia and hypercapnia: Impression: Resolved. Patient was intubated and sedated on admission due to severe altered mental status requiring airway support. Extubtaed today, now requiring 2L. Uses up to 2 L of oxygen at home. Chest x-ray shows severe fluid overload. proBNP elevated. Transition to oral Lasix today. Continue strict ins and outs. Repeat chest x-ray ordered this morning, pending. Thoracentesis completed 03/12; fluid studies reviewed, serum LDH pending. Based on serum protein vs. fluid protein, likely transudative (due to CHF). Continue Eliquis twice daily. (2) Pneumothorax, postprocedural: Impression: Small stable right pneumothorax. Breathing improved. General surgery spoken with -no need for a chest tube. Repeat chest x-ray pending today. (3) Septic shock: Impression: Continue with Rocephin and azithromycin for possible community-acquired pneumonia in setting of recent ventilator dependence, poor inspiratory effort, atelectasis. Blood cultures 1 out of 2 positive for gram-positive cocci, although this is likely contaminant. Procalcitonin is also elevated. Patient is off Levophed at this time. (4) COPD (chronic obstructive pulmonary disease): Impression: Patient with history of COPD not on home oxygen. Continue to monitor. Qualifiers: COPD type: unspecified COPD Qualified Code(s): J44.9 - Chronic obstructive pulmonary disease, unspecified (5) Reduced ejection fraction concurrent with and due to acute on chronic heart failure: Impression: Patient has an extensive cardiac history: CAD s/p arthrectomy and 02/2018, 3 drug-eluting stent placements to RCA, biventricular AICD placement. Echo done 01/11/2024 shows left ventricular ejection fraction of 20%, severe aortic valve stenosis. He was admitted to [facility] in January for ventricular tachycardia, hypotension requiring amiodarone drip. He visited his key maker in [place] on 02/03; his medication list was updated to the following: Amiodarone 200 mg daily, Eliquis 5 mg twice daily, Lipitor 20 mg daily, Pulmicort daily, Jardiance 10 mg daily, perform rest daily, Lasix 40 mg daily, DuoNebs as needed, metoprolol 50 mg every 24 hours, spironolactone 25 mg daily. His key maker was also planning on doing a thoracentesis in [place] if he still had large pleural effusions. He was told that he was too high risk for a TAVR with such poor LV function. (6) AICD (automatic cardioverter/defibrillator) present: Impression: See above for cardiac history. (7) Flash pulmonary edema: Impression: Continue serial chest x-rays for resolution. Continue oral Lasix. (8) Bilateral pleural effusion: Impression: See above. (9) Hypotension: Impression: Resolved. Sepsis vs. oversedation. Qualifiers: Hypotension type: unspecified hypotension type Qualified Code(s): I95.9 - Hypotension, unspecified (10) DAVID (acute kidney injury): Impression: Resolved. Baseline around 1; now 1.2. Continue oral Lasix. Continue strict ins and outs. (11) A-fib: Impression: Continue Eliquis. Continue amiodarone. Metoprolol held at this time due to hypotension. Qualifiers: Atrial fibrillation type: longstanding persistent Qualified Code(s): I 48.11 - Longstanding persistent atrial fibrillation (12) Elevated troponin: Impression: Likely demand ischemia in setting of above. Stable. Continue to trend. (13) Indwelling urinary catheter present: Impression: Placed by urology; follow up 7 days after discharge. Having some pain at insertion site; no kinks noted, urology not environmental permitting specialist this week. Will trial pyridium for pain as needed.
--- NOTE | 2024-03-14 09:33 | XRAY Report ---
PROCEDURE: XR Chest 1V INDICATIONS: f/u pneumothorax TECHNIQUE: One view of the chest was acquired. COMPARISON: Chest x-ray 03/13/2024 FINDINGS: Surgical changes and devices: Left pacemaker with the leads in the projection of the right atrium, r ight ventricle, and coronary sinus. Right central venous catheter distal tip overlying the cavoatrial junction. Lungs and pleura: Unchanged small right apical pneumothorax, measuring up to 1.2 cm. Persistent smal l right pleural effusions with associated passive atelectasis. Mediastinum: Aortic arch calcifications. Mediastinal contours otherwise appear normal. Heart size i s normal. Bones and chest wall: No acute abnormality. Left axillary vascular calcifications. IMPRESSION: 1.Persistent small right apical pneumothorax. 2.Persistent small bilateral pleural effusions with associated passive atelectasis. Reviewed by: Victoriano Plaza MD on 03/14/2024 9:32 AM PST Approved by: Victoriano Plaza MD on 03/14/2024 9:32 AM PST Station ID: [id number]
[2024-03-14 10:08] LABS: CALCIUM, IONIZED 1.11 mmol/L (1.15-1.33); VBG PH 7.369 (7.31-7.41)
[2024-03-14] MEDS: PANTOPRAZOLE 40 MG TABLET PO SCH (11:25)
[2024-03-14] MEDS: POTASSIUM CHLOR 20 MEQ/100 ML 20 MEQ/100 ML BAG IV SCH (11:26)
[2024-03-14] MEDS: PHENAZOPYRIDINE 100 MG TABLET PO PRN (17:49)
[2024-03-15 05:36] LABS: BASOPHILS % (AUTO) 0.6 %; EOSINOPHILS # (AUTO) 0.1 10^3/uL (0.0-0.7); EOSINOPHILS % (AUTO) 1.7 %; HCT - HEMATOCRIT 41.5 % (42.0-52.0); HGB - HEMOGLOBIN 13.2 g/dL (14.0-18.0); LYMPHOCYTES # (AUTO) 0.2 10^3/uL (1.5-3.5); LYMPHOCYTES % (AUTO) 3.5 %; MEAN CORPUSCULAR HEMOGLOBIN 30.9 pg (27.0-31.0); MEAN CORPUSCULAR HGB CONC 31.8 g/dL (32.0-36.0); MEAN CORPUSCULAR VOLUME 97.2 fL (80.0-94.0); MEAN PLATELET VOLUME 11.1 fL (7.4-11.4); MONOCYTES # (AUTO) 0.6 10^3/uL (0.0-1.0); MONOCYTES % (AUTO) 11.6 %; NEUTROPHILS # (AUTO) 4.5 10^3/uL (1.5-6.6); NEUTROPHILS % (AUTO) 82.2 %; PLT - PLATELET COUNT 116 10^3/uL (130-450); RED BLOOD COUNT 4.27 10^6/uL (4.70-6.10); RED CELL DISTRIBUTION WIDTH 13.5 % (12.0-15.0); WHITE BLOOD COUNT 5.5 x10^3/uL (4.8-10.8)
[2024-03-15 05:53] LABS: CALCIUM 8.7 mg/dL (8.5-10.3); CREATININE 1.3 mg/dL (0.6-1.3); POTASSIUM 4.1 mmol/L (3.5-4.5)
--- NOTE | 2024-03-15 08:38 | PROVIDER PROGRESS NOTE ---
Subjective Subjective Pt reports feeling: Improved Subjective: Patient feels a better today. He states that his breathing has improved. He has had no coughing, no fevers, no chills. He did use a CPAP overnight, and states that it allowed him to get a better sleep. Chest x-ray from this morning remains pending. He still has not had a bowel movement, although he feels like he has the urge to go. Current Medications Current Medications Current Medications: Current Medications Generic Name Dose Route Start Last Admin Trade Name Freq PRN Reason Stop Dose Admin Albuterol/Ipratropium 3 ml 03/10/24 16:10 03/12/24 15:29 Ipratropium/Albuterol 3 Ml Neb INH 3 ml Q4HR PRN Administration Wheezing Amiodarone HCl 200 mg 03/10/24 09:00 03/14/24 08:08 Amiodarone 200 Mg Tablet PO 200 mg DAILY AVIS Administration Apixaban 5 mg 03/13/24 09:00 03/14/24 20:00 Apixaban 5 Mg Tablet PO 5 mg BID AVIS Administration Atorvastatin Calcium 20 mg 03/10/24 09:00 03/14/24 08:07 Atorvastatin 10 Mg Tablet PO 20 mg DAILY AVIS Administration Ceftriaxone Sodium 1 gm 03/12/24 09:00 03/14/24 08:08 Ceftriaxone 1 Gm Vial IVP 1 gm DAILY AVIS Administration Docusate Sodium 250 - 500 mg 03/14/24 09:00 03/14/24 08:48 Docusate Sodium 250 Mg Capsule PO 250 mg DAILY AVIS Administration Furosemide 40 mg 03/14/24 09:00 03/14/24 08:08 Furosemide 40 Mg Tablet PO 40 mg DAILY AVIS Administration Acetaminophen 1,000 mg in 100 mls @ 400 mls/hr 03/12/24 00:49 03/12/24 07:00 Acetaminophen IV Infused Q6HR PRN Infusion FEVER > 100.5 F Metoprolol Succinate 50 mg 03/15/24 09:00 Metoprolol Succinate 50 Mg Tablet PO DAILY AVIS Multi-Ingredient Ointment 1 applic 03/11/24 21:39 Zinc Oxide 20% Oint 30 Gm Tube TOP PRN PRN Skin Care Ondansetron HCl 4 mg 03/14/24 07:47 03/14/24 15:11 Ondansetron 4 Mg/2 Ml Vial IVP 4 mg Q6HR PRN Administration Nausea / Vomiting Pantoprazole Sodium 40 mg 03/14/24 10:00 03/15/24 06:14 Pantoprazole 40 Mg Tablet PO 40 mg QDAC AVIS Administration Phenazopyridine HCl 100 mg 03/14/24 10:13 03/14/24 17:49 Phenazopyridine 100 Mg Tablet PO 100 mg TID PRN Administration pain, bladder Polyethylene Glycol 17 gm 03/14/24 09:00 03/14/24 08:48 Polyethylene Glycol 3350 17 Gm Packet PO 17 gm DAILY AVIS Administration Sodium Chloride 10 ml 03/10/24 08:48 03/14/24 06:06 Sodium Chloride Flush 0.9% 10 Ml Syringe IVP 10 ml PRN PRN Administration NEEDED PER PROVIDER ORDERS Sodium Chloride 10 ml 03/10/24 09:00 03/15/24 02:56 Sodium Chloride Flush 0.9% 10 Ml Syringe IVP 10 ml 0100,0900,1700 AVIS Administration Objective Vital Signs/Intake & Output Reviewed Vital Signs: Yes Vital Signs: Vital Signs x48h Temp Pulse Resp BP Pulse Ox O2 Flow Rate 03/15/24 08:23 98.4 F 69 20 106/55 L 97 3 03/15/24 06:45 3 03/15/24 06:00 96 H 16 107/46 L 93 6 Intake & Output: Intake & Output 03/13/24 03/14/24 03/15/24 03/16/24 05:59 05:59 05:59 05:59 Intake Total 1852 / 1852 3042 / 3042 1380 / 1380 Output Total 1969 / 1969 2415 / 2415 785 / 785 Balance -118 / -118 627 / 627 595 / 595 Weight (kg) 101.5 kg 97.5 kg 96 kg Objective General Appearance: positive No acute distress and Alert Eyes Bilateral: positive Normal inspection, PERRL and EOMI ENT: positive ENT inspection nml, Pharynx nml and No signs of dehydration Neck: positive Nml inspection, Thyroid nml and No JVD Respiratory: positive No respiratory distress; negative Wheezes, Rales or Rhonchi Cardiovascular: positive No murmur, No gallop and Irregularly irregular; negative Diastolic murmur or Friction rub Abdomen: positive Non-tender, Nml bowel sounds and No distention; negative Guarding, Hepatomegaly, Splenomegaly or Abnml bowel sounds Back: positive Nml inspection; negative CVA tenderness (R) or CVA tenderness (L) Skin: positive Color nml, No rash, Warm and Dry Extremities: positive Non-tender, Full ROM, Nml appearance and No pedal edema Neurologic/Psychiatric: positive Oriented x3, CN's nml (2-12), Motor nml and Mood/affect nml Lab Results 03/15/24 04:45 03/15/24 04:45 Other Labs: Lab Results x24hrs 03/15/24 03/14/24 Range/Units 04:45 09:50 WBC 5.5 (4.8-10.8) x10^3/uL RBC 4.27 L (4.70-6.10) 10^6/uL Hgb 13.2 L (14.0-18.0) g/dL Hct 41.5 L (42.0-52.0) % MCV 97.2 H (80.0-94.0) fL MCH 30.9 (27.0-31.0) pg MCHC 31.8 L (32.0-36.0) g/dL RDW 13.5 (12.0-15.0) % Plt Count 116 L (130-450) 10^3/uL MPV 11.1 (7.4-11.4) fL Neut # (Auto) 4.5 (1.5-6.6) 10^3/uL Lymph # (Auto) 0.2 L (1.5-3.5) 10^3/uL [place] # (Auto) 0.6 (0.0-1.0) 10^3/uL Eos # (Auto) 0.1 (0.0-0.7) 10^3/uL Baso # (Auto) 0.0 (0.0-0.1) 10^3/uL Absolute Nucleated RBC 0.00 x10^3/uL Nucleated RBC % 0.0 /100WBC VBG pH 7.369 (7.31-7.41) Ionized Calcium 1.11 L (1.15-1.33) mmol/L Sodium 136 (135-145) mmol/L Potassium 4.1 3.5 (3.5-4.5) mmol/L Chloride 96 L (101-111) mmol/L Carbon Dioxide 34 H (21-32) mmol/L Anion Gap 6.0 (6-13) BUN 39 H (6-20) mg/dL Creatinine 1.3 (0.6-1.3) mg/dL Estimated GFR (MDRD) 53 L (>89) Glucose 112 H (74-104) mg/dL Calcium 8.7 (8.5-10.3) mg/dL Diagnostic Imaging Diagnostic Imaging Results: positive Read independently (cxr small right ptx without change) Assessment/Plan Problem List (1) Acute on chronic respiratory failure with hypoxia and hypercapnia: Impression: Resolved. Patient was intubated and sedated on admission due to severe altered mental status requiring airway support. Extubtaed, now requiring 3L. Uses up to 2 L of oxygen at home. Initial chest x-ray showed severe fluid overload. proBNP elevated. Transitioned now to oral Lasix. Continue strict ins and outs. Repeat chest x- ray ordered this morning, pending. Thoracentesis completed 03/12; fluid studies reviewed, serum LDH pending. Based on serum protein vs. fluid protein, likely transudative (due to CHF). Continue Eliquis twice daily. (2) Pneumothorax, postprocedural: Impression: Small stable right pneumothorax. Breathing improved. General surgery spoken with -no need for a chest tube. Repeat chest x-ray pending today. (3) Septic shock: Impression: Continue with Rocephin and azithromycin for possible community-acquired pneumonia in setting of recent ventilator dependence, poor inspiratory effort, atelectasis. Azihtromycin course completed, Rocephin day 4/5 today. Blood cultures 1 out of 2 positive for gram-positive cocci, although this is likely contaminant. Procalcitonin is also elevated. Patient is off Levophed at this time. (4) COPD (chronic obstructive pulmonary disease): Impression: Patient with history of COPD not on home oxygen. Continue to monitor. Qualifiers: COPD type: unspecified COPD Qualified Code(s): J44.9 - Chronic obstructive pulmonary disease, unspecified (5) Reduced ejection fraction concurrent with and due to acute on chronic heart failure: Impression: Patient has an extensive cardiac history: CAD s/p arthrectomy and 02/2018, 3 drug-eluting stent placements to RCA, biventricular AICD placement. Echo done 01/11/2024 shows left ventricular ejection fraction of 20%, severe aortic valve stenosis. He was admitted to [facility] in January for ventricular tachycardia, hypotension requiring amiodarone drip. He visited his mixer operator raw salt in [place] on 02/03; his medication list was updated to the following: Amiodarone 200 mg daily, Eliquis 5 mg twice daily, Lipitor 20 mg daily, Pulmicort daily, Jardiance 10 mg daily, perform rest daily, Lasix 40 mg daily, DuoNebs as needed, metoprolol 50 mg every 24 hours, spironolactone 25 mg daily. His mixer operator raw salt was also planning on doing a thoracentesis in [place] if he still had large pleural effusions. He was told that he was too high risk for a TAVR with such poor LV function. (6) AICD (automatic cardioverter/defibrillator) present: Impression: See above for cardiac history. (7) Flash pulmonary edema: Impression: Continue serial chest x-rays for resolution. Continue oral Lasix. (8) Bilateral pleural effusion: Impression: See above. (9) Hypotension: Impression: Resolved. Sepsis vs. oversedation. Qualifiers: Hypotension type: unspecified hypotension type Qualified Code(s): I95.9 - Hypotension, unspecified (10) DAVID (acute kidney injury): Impression: Resolved. Baseline around 1; now 1.2. Continue oral Lasix. Continue strict ins and outs. (11) A-fib: Impression: Continue Eliquis. Continue amiodarone. Metoprolol held at this time due to hypotension. Qualifiers: Atrial fibrillation type: longstanding persistent Qualified Code(s): I 48.11 - Longstanding persistent atrial fibrillation (12) Elevated troponin: Impression: Likely demand ischemia in setting of above. Stable. Continue to trend. (13) Indwelling urinary catheter present: Impression: Placed by urology; follow up 7 days after discharge. Having some pain at insertion site; no kinks noted, urology not physical education aide this week. Trialed pyridium for pain as needed, is helping.
[2024-03-15] MEDS: METOPROLOL SUCCINATE 50 MG TABLET PO SCH (08:58)
--- NOTE | 2024-03-15 10:31 | XRAY Report ---
PROCEDURE: XR Chest 1V INDICATIONS: f/u pneumo TECHNIQUE: One view of the chest was acquired. COMPARISON: 03/14/2024 FINDINGS: Surgical changes and devices: Left-sided biventricular pacemaker/defibrillator. The right-sided IJ c entral venous catheter is been removed. Lungs and pleura: Heart size is enlarged. Moderate vascular congestion. Both hemidiaphragms are obsc ured, there is blunting of both costophrenic angles. Improving right apical pneumothorax now measures 9 mm to the thoracic apex, previously 14 mm IMPRESSION: Improving right apical small pneumothorax Cardiomegaly, moderate vascular congestion and bibasilar pleural effusions, stable. Reviewed by: Dami Duncan MD on 03/15/2024 9:30 AM [place] Approved by: Dami Duncan MD on 03/15/2024 9:30 AM [facility] Station ID: [id number]
[2024-03-15 21:53] VITALS: O2SAT 96
[2024-03-16 08:03] LABS: HCT - HEMATOCRIT 42.4 % (42.0-52.0); HGB - HEMOGLOBIN 12.8 g/dL (14.0-18.0); MEAN CORPUSCULAR HGB CONC 30.2 g/dL (32.0-36.0); MEAN CORPUSCULAR VOLUME 99.5 fL (80.0-94.0); MEAN PLATELET VOLUME 10.8 fL (7.4-11.4); RED BLOOD COUNT 4.26 10^6/uL (4.70-6.10); RED CELL DISTRIBUTION WIDTH 13.2 % (12.0-15.0); WHITE BLOOD COUNT 5.6 x10^3/uL (4.8-10.8)
[2024-03-16 08:17] LABS: CALCIUM 8.5 mg/dL (8.5-10.3); CREATININE 1.1 mg/dL (0.6-1.3); MAGNESIUM 2.3 mg/dL (1.7-2.3); POTASSIUM 3.7 mmol/L (3.5-4.5)
--- NOTE | 2024-03-16 09:28 | PROVIDER PROGRESS NOTE ---
Subjective Subjective Pt reports feeling: Improved Subjective: Patient feels a better today. He states that his breathing has improved. He has had no coughing, no fevers, no chills. He did use a CPAP overnight, and states that it allowed him to get a better sleep. Chest x-ray from this morning remains pending. He still has some pain around his [place] insertion site, although states it's improved with the Pyridium. He is ready for SNF and more rehab; he feels as if he's getting stronger every day. Current Medications Current Medications Current Medications: Current Medications Generic Name Dose Route Start Last Admin Trade Name Freq PRN Reason Stop Dose Admin Albuterol/Ipratropium 3 ml 03/10/24 16:10 03/12/24 15:29 Ipratropium/Albuterol 3 Ml Neb INH 3 ml Q4HR PRN Administration Wheezing Amiodarone HCl 200 mg 03/10/24 09:00 03/16/24 08:32 Amiodarone 200 Mg Tablet PO 200 mg DAILY AVIS Administration Apixaban 5 mg 03/13/24 09:00 03/16/24 08:32 Apixaban 5 Mg Tablet PO 5 mg BID AVIS Administration Atorvastatin Calcium 20 mg 03/10/24 09:00 03/16/24 08:32 Atorvastatin 10 Mg Tablet PO 20 mg DAILY AVIS Administration Ceftriaxone Sodium 1 gm 03/12/24 09:00 03/16/24 08:31 Ceftriaxone 1 Gm Vial IVP 1 gm DAILY AVIS Administration Docusate Sodium 250 - 500 mg 03/14/24 09:00 03/16/24 08:32 Docusate Sodium 250 Mg Capsule PO 250 mg DAILY AVIS Administration Furosemide 40 mg 03/14/24 09:00 03/16/24 08:32 Furosemide 40 Mg Tablet PO 40 mg DAILY AVIS Administration Acetaminophen 1,000 mg in 100 mls @ 400 mls/hr 03/12/24 00:49 03/12/24 07:00 Acetaminophen IV Infused Q6HR PRN Infusion FEVER > 100.5 F Metoprolol Succinate 50 mg 03/15/24 09:00 03/16/24 08:32 Metoprolol Succinate 50 Mg Tablet PO 50 mg DAILY AVIS Administration Multi-Ingredient Ointment 1 applic 03/11/24 21:39 Zinc Oxide 20% Oint 30 Gm Tube TOP PRN PRN Skin Care Ondansetron HCl 4 mg 03/14/24 07:47 03/14/24 15:11 Ondansetron 4 Mg/2 Ml Vial IVP 4 mg Q6HR PRN Administration Nausea / Vomiting Pantoprazole Sodium 40 mg 03/14/24 10:00 03/16/24 07:45 Pantoprazole 40 Mg Tablet PO 40 mg QDAC AVIS Administration Phenazopyridine HCl 100 mg 03/14/24 10:13 03/14/24 17:49 Phenazopyridine 100 Mg Tablet PO 100 mg TID PRN Administration pain, bladder Polyethylene Glycol 17 gm 03/14/24 09:00 03/16/24 08:31 Polyethylene Glycol 3350 17 Gm Packet PO 17 gm DAILY AVIS Administration Sodium Chloride 10 ml 03/10/24 08:48 03/14/24 06:06 Sodium Chloride Flush 0.9% 10 Ml Syringe IVP 10 ml PRN PRN Administration NEEDED PER PROVIDER ORDERS Sodium Chloride 10 ml 03/10/24 09:00 03/16/24 08:32 Sodium Chloride Flush 0.9% 10 Ml Syringe IVP 10 ml 0100,0900,1700 AVIS Administration Objective Vital Signs/Intake & Output Reviewed Vital Signs: Yes Vital Signs: Vital Signs x48h O2 Flow Rate 03/16/24 03:45 4 03/16/24 02:56 4 Intake & Output: Intake & Output 03/14/24 03/15/24 03/16/24 03/17/24 05:59 05:59 05:59 05:59 Intake Total 3042 / 3042 1380 / 1380 1070 / 1070 200 / 200 Output Total 2415 / 2415 785 / 785 650 / 650 450 / 450 Balance 627 / 627 595 / 595 420 / 420 -250 / -250 Weight (kg) 97.5 kg 96 kg Objective General Appearance: positive No acute distress and Alert Eyes Bilateral: positive Normal inspection, PERRL and EOMI ENT: positive ENT inspection nml, Pharynx nml and No signs of dehydration Neck: positive Nml inspection, Thyroid nml and No JVD Respiratory: positive No respiratory distress; negative Wheezes, Rales or Rhonchi Cardiovascular: positive No murmur, No gallop and Irregularly irregular; negative Diastolic murmur or Friction rub Abdomen: positive Non-tender, Nml bowel sounds and No distention; negative Guarding, Hepatomegaly, Splenomegaly or Abnml bowel sounds Back: positive Nml inspection; negative CVA tenderness (R) or CVA tenderness (L) Skin: positive Color nml, No rash, Warm and Dry Extremities: positive Non-tender, Full ROM, Nml appearance and No pedal edema Neurologic/Psychiatric: positive Oriented x3, CN's nml (2-12), Motor nml and Mood/affect nml Lab Results 03/16/24 07:44 03/16/24 07:44 Other Labs: Lab Results x24hrs 03/16/24 Range/Units 07:44 WBC 5.6 (4.8-10.8) x10^3/uL RBC 4.26 L (4.70-6.10) 10^6/uL Hgb 12.8 L (14.0-18.0) g/dL Hct 42.4 (42.0-52.0) % MCV 99.5 H (80.0-94.0) fL MCH 30.0 (27.0-31.0) pg MCHC 30.2 L (32.0-36.0) g/dL RDW 13.2 (12.0-15.0) % Plt Count 129 L (130-450) 10^3/uL MPV 10.8 (7.4-11.4) fL Sodium 135 (135-145) mmol/L Potassium 3.7 (3.5-4.5) mmol/L Chloride 96 L (101-111) mmol/L Carbon Dioxide 36 H (21-32) mmol/L Anion Gap 3.0 L (6-13) BUN 35 H (6-20) mg/dL Creatinine 1.1 (0.6-1.3) mg/dL Estimated GFR (MDRD) 65 L (>89) Glucose 95 (74-104) mg/dL Calcium 8.5 (8.5-10.3) mg/dL Magnesium 2.3 (1.7-2.3) mg/dL Diagnostic Imaging Diagnostic Imaging Results: positive Read independently (cxr small right ptx without change) Assessment/Plan Problem List (1) Acute on chronic respiratory failure with hypoxia and hypercapnia: Impression: Resolved. Patient was intubated and sedated on admission due to severe altered mental status requiring airway support. Extubtaed, now requiring 3L. Uses up to 2 L of oxygen at home. Initial chest x-ray showed severe fluid overload. proBNP elevated. Transitioned now to oral Lasix. Continue strict ins and outs. Repeat chest x- ray ordered this morning, pending. Thoracentesis completed 03/12; fluid studies reviewed, serum LDH pending. Based on serum protein vs. fluid protein, likely transudative (due to CHF). Continue Eliquis twice daily. (2) Pneumothorax, postprocedural: Impression: Small stable right pneumothorax. Breathing improved. General surgery spoken with -no need for a chest tube. Repeat chest x-ray pending today. (3) Septic shock: Impression: Continue with Rocephin and azithromycin for possible community-acquired pneumonia in setting of recent ventilator dependence, poor inspiratory effort, atelectasis. Azihtromycin course completed, Rocephin day 08/11 today. Blood cultures 1 out of 2 positive for gram-positive cocci, although this is likely contaminant. Procalcitonin is also elevated. Patient is off Levophed at this time. (4) COPD (chronic obstructive pulmonary disease): Impression: Patient with history of COPD not on home oxygen. Continue to monitor. Qualifiers: COPD type: unspecified COPD Qualified Code(s): J44.9 - Chronic obstructive pulmonary disease, unspecified (5) Reduced ejection fraction concurrent with and due to acute on chronic heart failure: Impression: Patient has an extensive cardiac history: CAD s/p arthrectomy and 02/2018, 3 drug-eluting stent placements to RCA, biventricular AICD placement. Echo done 01/11/2024 shows left ventricular ejection fraction of 20%, severe aortic valve stenosis. He was admitted to [facility] in January for ventricular tachycardia, hypotension requiring amiodarone drip. He visited his machine repairer maintenance in [place] on 02/03; his medication list was updated to the following: Amiodarone 200 mg daily, Eliquis 5 mg twice daily, Lipitor 20 mg daily, Pulmicort daily, Jardiance 10 mg daily, perform rest daily, Lasix 40 mg daily, DuoNebs as needed, metoprolol 50 mg every 24 hours, spironolactone 25 mg daily. His machine repairer maintenance was also planning on doing a thoracentesis in [place] if he still had large pleural effusions. He was told that he was too high risk for a TAVR with such poor LV function. (6) AICD (automatic cardioverter/defibrillator) present: Impression: See above for cardiac history. (7) Flash pulmonary edema: Impression: Continue serial chest x-rays for resolution. Continue oral Lasix. (8) Bilateral pleural effusion: Impression: See above. (9) Hypotension: Impression: Resolved. Sepsis vs. oversedation. Qualifiers: Hypotension type: unspecified hypotension type Qualified Code(s): I95.9 - Hypotension, unspecified (10) DAVID (acute kidney injury): Impression: Resolved. Baseline around 1; now 1.2. Continue oral Lasix. Continue strict ins and outs. (11) A-fib: Impression: Continue Eliquis. Continue amiodarone. Metoprolol held at this time due to hypotension. Qualifiers: Atrial fibrillation type: longstanding persistent Qualified Code(s): I 48.11 - Longstanding persistent atrial fibrillation (12) Elevated troponin: Impression: Likely demand ischemia in setting of above. Stable. Continue to trend. (13) Indwelling urinary catheter present: Impression: Placed by urology; follow up 7 days after discharge. Having some pain at insertion site; no kinks noted, urology not quality control inspector heading this week. Trialed pyridium for pain as needed, is helping.
--- NOTE | 2024-03-16 09:57 | Discharge Summary ---
"Discharge Summary Admit Date: 03/10/24 Discharge Date: 03/16/24 Discharging Provider: Dr. Abdulaziz Page DIAGNOSES Admission Diagnoses: Acute on chronic respiratory failure with hypoxia and hypercapnia COPD Reduced ejection fraction currently due to acute on chronic heart failure AICD present Flash pulm edema Bilateral pleural effusions Hypotension DAVID Atrial fibrillation Elevated troponin Suprapubic catheter Discharge Diagnoses with Status of Each Condition: Acute on chronic respiratory failure with hypoxia and hypercapniapatient was intubated for 2 days due to altered mental status requiring airway support. Extubated, now on 3 to 4 L of oxygen. Initial x-ray did show severe fluid overload, he was diuresed with IV Lasix, and this is now transition to oral Lasix. He also did a thoracentesis done on 03/12 with 2.4 L of fluid removed. After this, he had resultant small apical pneumothorax, which you have been following with serial chest x-raysthis has been resolving. General surgery also was consulted, and no chest tube was required. Advised to follow-up with a repeat chest x-ray in a few weeks outpatient. Pneumothorax, postproceduralsmall stable right pneumothorax. Oxygen status is stable. Went from 14 mm to 9 mm and a few days. Continue to follow-up outpatient. Advised to return if he has sudden onset shortness of breath, increasing oxygen requirements, tachycardia, etc. Septic shockpatient completed a course of Rocephin azithromycin for possible community-acquired pneumonia. Has been off Levophed, resolved. COPDcontinue home inhalers, DuoNebs as needed. Heart failure with reduced ejection fractionecho done 01/30 shows EF of 20%, severe aortic valve stenosis. He is followed closely with a real estate firm manager in [place]. He was told he was too high risk for TAVR with such poor LV function. Plan is to follow-up closely outpatient. AICD, biventricular pacerin place, doing well. Flash pulmonary edemaresolved. Continue oral Lasix on discharge. Bilateral pleural effusionresolving, continue oral Lasix on discharge. Hypotensionresolved, likely due to sepsis versus oversedation. Acute kidney injuryresolved. Baseline around 1. Continue oral Lasix. Atrial fibrillationcontinue Eliquis, amiodarone, metoprolol. Elevated troponinlikely demand ischemia in setting of above, it is now stabilized. Indwelling urinary catheter presentplaced by urology in the OR. Plan for follow-up after discharge. Was having some pain at insertion site, not kinked. Will discharge with Pyridium as needed, does seem to help. HPI History of Present Illness: Per Dr. Esparza: Information was obtained from previous chart notes, ED physician at bedside. Currently patient intubated and sedated. This is a 79-year-old male with An extensive cardiac history including CHF with reduced ejection fraction of 30%, per echo done in January 30, Severe aortic stenosis, Coronary artery disease, Ventricular tachycardia status post ICD, MRI about 10 years ago, hypertension, atrial fibrillation on Eliquis, hyperlipidemia, KENIA treated with CPAP, status post breast cancer, COPD from long-term smoking history, recurrent bilateral effusions And diabetes type 2 who presents to the ER intubated due to Acute Respiratory failure Per family, patient reportedly had a rapid onset of dyspnea a few hours [employer], rapidly worsening. EMS arrived to find patient's pulse ox 88% on room air. They say he was responding and was verbal albeit 1-2 word responses at the time. They trialed him on CPAP but shortly after initiating this intervention, the patient became unresponsive. Patient was intubated in the field. Upon arrival to the ER, patient became hypotensive, the midline was placed and patient was started on Low-dose Levophed. Patient was given 1 dose of Lasix in the ER Chest x-ray indicates extensive pulm edema likely secondary to CHF exacerbation Initial ABG Indicated hypercapnic respiratory acidosis, pH 7.29 pCO2 70 pO2 108 on 100% FiO2 and PEEP of 5 Patient went to the OR for placement of suprapubic catheter. Chemistry indicated slightly elevated creatinine of 1.5, troponin of 30.8 and elevated BNP of 1545 Patient see [facility] cardiology in [place] Patient consults: Partial code, yes to intubation, no to ACLS procedure CONSULTS | PROCEDURES Consultations: Pharmacy, respiratory therapy, PT, OT, SW, radiology, general surgery Procedures: Chest x-ray x 10, thoracentesis HOSPITAL COURSE Hospital Course: Patient is 79-year-old male with history of heart failure with reduced ejection fraction of 20%, COPD who presented with altered mentation. This is likely attributed to fluid overload, dyspnea at home. He was intubated for airway protection. He was diuresed extensively with IV Lasix initially, and then this was transitioned to oral Lasix. After two days of intubation, he was extubated onto 4 L nasal cannula. Thoracentesis was also done, and 2.4 L of fluid was removed from his right lung. After this, had a small postprocedural pneumothorax in the right lung measuring up to 14 mm. General surgery was consulted, this was followed by serial chest x-rays, and continues to decrease; it was approximately 9 mm. Per general surgery, there is no need for chest tube. Will continue to follow this in the outpatient setting. He completed five days of treatment for CAP with Rocephin and azithromycin. When he first got here, he was retaining urine, and Nj was difficult to place. Urology was consulted, and they put a Nj in in the OR. Instructions were given to follow-up in the outpatient setting a week after discharge for possible removal. His home medications were continued, including Eliquis, atorvastatin, amiodarone, metoprolol, Protonix. PT/OT did see the patient, and recommended SNF placement. Plan is for [facility] on discharge. Patient was extensively advised to follow-up with his primary care physician, his real estate firm manager, as well as his urologist on discharge. He demonstrated understanding. ALLERGIES Allergies Allergy/AdvReac Type Severity Reaction Status Date / Time No Known Drug Allergies Allergy Verified 02/22/24 11:41 MEDICATIONS Ambulatory Orders Medication Instructions Recorded Confirmed multivitamin 1 ea PO DAILY 10/25/15 03/10/24 atorvastatin 20 mg tablet 20 mg PO DAILY 06/28/18 02/22/24 apixaban 5 mg tablet (Eliquis) 5 mg PO BID 12/28/22 03/10/24 ipratropium 0.5 mg-albuterol 3 mg 3 ml inhalation Q4H PRN 09/26/23 03/10/24 (2.5 mg base)/3 mL nebulization Wheezing/Shortness of breath #360 soln mL empagliflozin 10 mg tablet 10 mg PO DAILY 01/16/24 03/10/24 (Jardiance) losartan 25 mg tablet 25 mg PO DAILY 01/16/24 03/10/24 nitroglycerin 0.4 mg sublingual 0.4 mg sublingual Q5M PRN chest 01/16/24 03/10/24 tablet pain omega-3 fatty acids 1,000 mg 1,000 mg PO QDAY 01/16/24 03/10/24 capsule Permanent Disabled Placard #1 ea 01/28/24 01/28/24 amiodarone 200 mg tablet 200 mg PO DAILY 02/22/24 03/10/24 budesonide-formoterol HFA 160 2 puff inhalation BID #10.2 grams 02/22/24 03/10/24 mcg-4.5 mcg/actuation aerosol inhaler (Symbicort) furosemide 40 mg tablet 40 mg PO QDAY 02/22/24 03/10/24 metoprolol succinate 50 mg 50 mg PO DAILY 30 days #30 tabs 03/16/24 tablet,extended release 24 hr phenazopyridine 100 mg tablet 100 mg PO TID PRN pain, bladder 30 03/16/24 days #0 tabs PHYSICAL EXAM AT DISCHARGE General Appearance: positive No acute distress; negative Anxious or Lethargic Eyes Bilateral: positive Normal inspection, PERRL and EOMI ENT: positive ENT inspection nml, Pharynx nml and No signs of dehydration Neck: positive Nml inspection, Thyroid nml and No JVD Respiratory: positive Chest non-tender, No respiratory distress and Rales (mild bibasilar crackles noted); negative Wheezes Cardiovascular: positive No murmur and Irregularly irregular; negative Tachycardia, Bradycardia or Systolic murmur Peripheral Pulses: positive 2+ Abdomen: positive Non-tender, No organomegaly and Nml bowel sounds; negative Tenderness, Guarding, Rebound, Hepatomegaly or Splenomegaly Back: positive Nml inspection; negative CVA tenderness (R) or CVA tenderness (L) Skin: positive Color nml, No rash, Warm and Dry Extremities: positive Non-tender, Full ROM, Nml appearance and No pedal edema Neurologic/Psychiatric: positive Oriented x3 and Mood/affect nml LABS 03/16/24 07:44 03/16/24 07:44 DIAGNOSTIC IMAGING Diagnostic Imaging Results: Final report reviewed SEPSIS Current Stage of Sepsis: Resolved QUALITY (Female Hip Fx Only) Was patient sent home on osteoporosis medication?: No FOLLOW UP Follow Up: Follow up with cardiology, PCP, and urology. TIME SPENT Time Spent in Discharge (Minutes): 35 Discharge Plan Discharge Patient Disposition: DC/Xfer Condition: Stable Prescriptions: New metoprolol succinate 50 mg Tablet Extended Release 24 Hr 50 mg PO DAILY 30 Days Qty: 30 0RF phenazopyridine 100 mg Tablet 100 mg PO TID PRN (Reason: pain, bladder) 30 Days Qty: 0 0RF Continued multivitamin 1 EACH capsule 1 ea PO DAILY atorvastatin 20 MG tablet 20 mg PO DAILY Eliquis 5 MG tablet 5 mg PO BID 0RF ipratropium-albuterol 3 ML solution for nebulization 3 ml inhalation Q4H PRN (Reason: Wheezing/Shortness of breath) Qty: 360 2RF Rx Instructions: Nebulize 3 mL every 4 hours as needed for wheezing/shortness of breath. (DME) [facility] See Rx Instructions .MEDSUPPLY Qty: 1 0RF Rx Instructions: As directed Jardiance 10 mg tablet 10 mg PO DAILY losartan 25 mg tablet 25 mg PO DAILY omega-3 fatty acids 1,000 mg capsule 1,000 mg PO QDAY nitroglycerin 0.4 mg tablet, sublingual 0.4 mg sublingual Q5M PRN (Reason: chest pain) Rx Instructions: do not exceed 3 doses per episode amiodarone 200 mg tablet 200 mg PO DAILY furosemide 40 mg tablet 40 mg PO QDAY budesonide-formoterol [Symbicort] 160-4.5 mcg/actuation HFA aerosol inhaler 2 puff inhalation BID Qty: 10.2 4RF Activity Restrictions: Activity as Tolerated Diet: Cardiac Health Concerns: You came in because you were having difficulty breathing and getting more lethargic and confused. As such, you are placed on life support with the ventilator. We started you on a strong IV water pill to get extra fluid off your lungs. We were able to successfully discontinue the ventilator, and you are now on some oxygen through your nose. We also did a procedure called a thoracentesis to get some extra fluid out of your lung. After this, you developed what we call pneumothorax, a small hole in your lung. The surgeon saw you and followed your chest x-rays closely while you were here; this is getting better on its own as we can see it get smaller on your chest x-rays. On discharge, we did continue all your medications, including your heart medicationsmetoprolol, losartan, Lasix, amiodarone, Eliquis. It is important that you follow-up with your real estate firm manager on a regular basis for your heart failure and your aortic stenosis (narrowing of your aortic valve). You will also need to follow-up with the urologist in about a week after discharge to reassess what needs to be done about the Nj that was placed while you are here. I have included his office information in this paperwork. Finally, please follow-up with your primary care doctor. You will likely need a chest x-ray or CT scan of your chest done in the outpatient setting to reassess the pneumothorax in 4 to 6 weeks. If you experience sudden shortness of breath, feelings like your heart is racing, difficulty breathing, worsening confusing, please return to the emergency room. We are glad you are feeling better, we hope you do well at rehab and continue to get stronger. Thank you for allowing us take care of you. Print Language: Ugandan Patient Instructions: Pneumothorax Ch, Heart Failure Dc Stand Alone Forms: PCP List Follow-up Care: Rashel Cisneros MD [Provider Admit Priv/Credential] -"
[2024-03-16 13:44] VITALS: BP 110/58; TEMP 98.1
--- NOTE | 2024-03-16 16:31 | XRAY Report ---
PROCEDURE: XR Chest 1V INDICATIONS: PAWEL TECHNIQUE: One view of the chest was acquired. COMPARISON: 03/15/2024 FINDINGS: Surgical changes and devices: Multilead left-sided pacemaker. Lungs and pleura: Diffuse thickening of the interstitial markings. Hazy bibasilar alveolar opacities and small bilateral pleural effusions, stable. Small, stable right pneumothorax. Mediastinum: Indistinct central vessels. Moderate cardiomegaly. Stable aortic contour. Bones and chest wall: No suspicious bony lesions. Overlying soft tissues appear unremarkable. IMPRESSION: Findings suggesting central vascular, interstitial congestion, and bibasilar pulmonary edema. There m ay be slight interval improvement in interstitial congestion. Stable small right pneumothorax postthoracentesis. Reviewed by: Niyah Trotter MD on 03/16/2024 4:30 PM PST Approved by: Niyah Trotter MD on 03/16/2024 4:30 PM PST Station ID: [id number]
== END 2024-03-16 14:30 | DRG 871 ==
LOC: ED 05:22 → ICU 09:21 → SUATTDRO 09:21 → ICU 11:21 → MS2 03-15 21:40
PROVIDERS: ADMIT Internal Medicine; ATTEND Internal Medicine
DX: J95.811 Postprocedural pneumothorax; Z92.3 Personal history of irradiation; R40.4 Transient alteration of awareness; E11.9 Type 2 diabetes mellitus without complications; N36.5 Urethral false passage; E87.29 Other acidosis; J44.0 Chronic obstructive pulmonary disease with (acute) lower respiratory infection; E78.5 Hyperlipidemia, unspecified; G30.9 Alzheimer's disease, unspecified; N42.89 Other specified disorders of prostate; Z78.1 Physical restraint status; J44.9 Chronic obstructive pulmonary disease, unspecified; Z95.810 Presence of automatic (implantable) cardiac defibrillator; R57.9 Shock, unspecified; I25.10 Atherosclerotic heart disease of native coronary artery without angina pectoris; I50.23 Acute on chronic systolic (congestive) heart failure; J90 Pleural effusion, not elsewhere classified; Z85.46 Personal history of malignant neoplasm of prostate; J18.9 Pneumonia, unspecified organism; Z95.5 Presence of coronary angioplasty implant and graft; I35.0 Nonrheumatic aortic (valve) stenosis; J96.02 Acute respiratory failure with hypercapnia; N17.9 Acute kidney failure, unspecified; Z87.891 Personal history of nicotine dependence; I11.0 Hypertensive heart disease with heart failure; A41.9 Sepsis, unspecified organism; I24.89 Other forms of acute ischemic heart disease; J96.01 Acute respiratory failure with hypoxia; I95.9 Hypotension, unspecified; Z99.81 Dependence on supplemental oxygen; R33.8 Other retention of urine; J96.90 Respiratory failure, unspecified, unspecified whether with hypoxia or hypercapnia; G47.33 Obstructive sleep apnea (adult) (pediatric); Z79.01 Long term (current) use of anticoagulants; R65.21 Severe sepsis with septic shock; I48.91 Unspecified atrial fibrillation; N40.1 Benign prostatic hyperplasia with lower urinary tract symptoms; I48.11 Longstanding persistent atrial fibrillation; I25.2 Old myocardial infarction; Z66 Do not resuscitate; Z79.84 Long term (current) use of oral hypoglycemic drugs; F02.80 Dementia in other diseases classified elsewhere, unspecified severity, without behavioral disturbance, psychotic disturbance, mood disturbance, and anxiety

== ENCOUNTER 2024-04-02 23:00 | Inpatient (IN) ==
[2024-04-02 23:13] LABS: BASOPHILS % (AUTO) 0.5 %; EOSINOPHILS # (AUTO) 0.1 10^3/uL (0.0-0.7); EOSINOPHILS % (AUTO) 1.3 %; HGB - HEMOGLOBIN 7.7 g/dL (14.0-18.0); LYMPHOCYTES # (AUTO) 0.8 10^3/uL (1.5-3.5); LYMPHOCYTES % (AUTO) 8.8 %; MEAN CORPUSCULAR HEMOGLOBIN 30.9 pg (27.0-31.0); MEAN CORPUSCULAR HGB CONC 30.8 g/dL (32.0-36.0); MEAN CORPUSCULAR VOLUME 100.4 fL (80.0-94.0); MEAN PLATELET VOLUME 10.3 fL (7.4-11.4); MONOCYTES # (AUTO) 0.6 10^3/uL (0.0-1.0); MONOCYTES % (AUTO) 7.3 %; NEUTROPHILS % (AUTO) 81.5 %; NRBC ABSOLUTE COUNT (AUTO) 0.04 x10^3/uL; NUCLEATED RED BLOOD CELLS AUTO 0.5 /100WBC; PLT - PLATELET COUNT 156 10^3/uL (130-450); RED BLOOD COUNT 2.49 10^6/uL (4.70-6.10); RED CELL DISTRIBUTION WIDTH 16.4 % (12.0-15.0); WHITE BLOOD COUNT 8.5 x10^3/uL (4.8-10.8)
[2024-04-02 23:23] LABS: VBG HCO3 24.6 mmol/L (23-28); VBG OXYGEN SATURATION 90.5 % (60-80); VBG PCO2 39.5 mmHg (41-51); VBG PH 7.412 (7.31-7.41); VBG PO2 60.9 mmHg (25-47); VBG TOTAL CO2 25.8 mmol/L (24-29)
[2024-04-02 23:33] LABS: ALBUMIN 3.3 g/dL (3.2-5.5); BILIRUBIN,TOTAL 0.4 mg/dL (0.2-1.0); CREATININE 1.3 mg/dL (0.6-1.3); TOTAL PROTEIN 6.6 g/dL (6.4-8.9)
--- NOTE | 2024-04-02 23:47 | XRAY Report ---
PROCEDURE: XR Chest 1V INDICATIONS: soa TECHNIQUE: One view of the chest was acquired. COMPARISON: Chest x-ray 03/24/2024 FINDINGS: Surgical changes and devices: Pacemaker. Lungs and pleura: Mild bilateral effusions. Inferior most aspect of lung bases are not included with in the [id number]. Mediastinum: Mediastinal contours appear normal. Heart size is enlarged. Bones and chest wall: No suspicious bony lesions. Overlying soft tissues appear unremarkable. IMPRESSION: Mild bilateral effusions. Underlying areas of pneumonia/atelectasis or other mass lesion cannot be ex cluded. Recommend interval follow-up to document resolution. Reviewed by: Evelyn Harkins MD on 04/02/2024 11:45 PM PST Approved by: Evelyn Harkins MD on 04/02/2024 11:45 PM PST Station ID: [id number]
--- NOTE | 2024-04-02 23:54 | ED Physician Documentation ---
PD HPI DYSPNEA Stated complaint Stated Complaint: SOA, EDEMA Chief complaint Chief Complaint: Resp History obtained from History obtained from: Patient Additional information Additional information: 79yM with pmh VT, CHF, pacemaker, copd on 2L home o2 p/w dizziness with standing and SAWYER worsening over the past couple days, as well as dark stool X 5 days. denies fever, abdominal pain, cp, cough, leg swelling. Meds/Allgy Home Medications Ambulatory Orders Medication Instructions Recorded Confirmed multivitamin 1 ea PO DAILY 10/25/15 03/10/24 atorvastatin 20 mg tablet 20 mg PO DAILY 06/28/18 02/22/24 apixaban 5 mg tablet (Eliquis) 5 mg PO BID 12/28/22 03/10/24 ipratropium 0.5 mg-albuterol 3 mg 3 ml inhalation Q4H PRN 09/26/23 03/10/24 (2.5 mg base)/3 mL nebulization Wheezing/Shortness of breath #360 soln mL empagliflozin 10 mg tablet 10 mg PO DAILY 01/16/24 03/10/24 (Jardiance) losartan 25 mg tablet 25 mg PO DAILY 01/16/24 03/10/24 nitroglycerin 0.4 mg sublingual 0.4 mg sublingual Q5M PRN chest 01/16/24 03/10/24 tablet pain omega-3 fatty acids 1,000 mg 1,000 mg PO QDAY 01/16/24 03/10/24 capsule Permanent Disabled Placard #1 ea 01/28/24 01/28/24 amiodarone 200 mg tablet 200 mg PO DAILY 02/22/24 03/10/24 budesonide-formoterol HFA 160 2 puff inhalation BID #10.2 grams 02/22/24 03/10/24 mcg-4.5 mcg/actuation aerosol inhaler (Symbicort) furosemide 40 mg tablet 40 mg PO QDAY 02/22/24 03/10/24 metoprolol succinate 50 mg 50 mg PO DAILY 30 days #30 tabs 03/16/24 tablet,extended release 24 hr phenazopyridine 100 mg tablet 100 mg PO TID PRN pain, bladder 30 03/16/24 days #0 tabs Allergies Allergies Allergy/AdvReac Type Severity Reaction Status Date / Time No Known Drug Allergies Allergy Verified 04/02/24 23:13 [facility] Medical History Medical History (Updated 04/03/24 @ 00:02 by Marimar Miguel MD) HTN (hypertension) Myocardial infarction Prostate cancer Family History Family History Other Alzheimers disease CAD (coronary artery disease) COPD (chronic obstructive pulmonary disease) Cancer Heart attack High blood pressure Social History Social History Smoking Status: Former smoker If you are a former smoker, when did you quit? (Date/Year): 2022; pipe Number of Years Smoked: 60 Second hand tobacco smoke exposure: No Do you dip or chew tobacco?: No Do you vape?: No Patient requests smoking cessation consult: No Initiate information on smoking cessation: No Living arrangement: At home Marital Status: Living Condition: With spouse/s.o. Relationship: Spouse Level: Independent Home Mobility Equipment: Walker Do you feel safe in your home environment?: Yes Suffered physical, verbal, emotional, or financial abuse?: No History of Abuse: No ETOH Use: None Substance Use: denies use Are you sexually active?: No Retired: Yes Service: Yes Dates of Service: 0701-1976 Are you following a diet prescribed by a doctor: No Are you following a special diet: No POLST POLST Status: Limited Interventions (Yes to intubation, no chest compression) Exam Constitutional normal general appearance and no apparent distress elderaly appearing HENMT normocephalic, head/scalp atraumatic and hearing grossly normal bilaterally Eyes PERRL and EOMs intact bilaterally pale conjunctivae Neck/C-Spine visual inspection normal Lymph no lymphadenopathy noted Respiratory breath sounds equal bilaterally, normal respiratory effort and clear to auscultation bilaterally Cardiovascular normal heart rate noted and regular rhythm noted Gastrointestinal abdomen normal to inspection, abdomen soft to palpation and nontender to palpation Results Vitals Vitals: Vital Signs - 24 hr 04/02/24 23:08 04/02/24 23:24 Temperature 36.3 C L Temperature Source Temporal Artery Scan Pulse Rate 70 Respiratory Rate 30 H Blood Pressure 113/59 L O2 Saturation 100 Oxygen Delivery Method Nasal Cannula O2 Source Nasal cannula If not protocol: Oxygen Flow, liters/minute 2 2 Pain Intensity 0 Oxygen O2 Source Nasal cannula Labs Labs: Laboratory Tests 04/02/24 04/02/24 23:06 23:17 WBC 8.5 RBC 2.49 L Hgb 7.7 L Hct 25.0 L MCV 100.4 H MCH 30.9 MCHC 30.8 L RDW 16.4 H Plt Count 156 MPV 10.3 Neut # (Auto) 7.0 H Lymph # (Auto) 0.8 L [place] # (Auto) 0.6 Eos # (Auto) 0.1 Baso # (Auto) 0.0 Absolute Nucleated RBC 0.04 Nucleated RBC % 0.5 VBG pH 7.412 H VBG pCO2 39.5 L VBG pO2 60.9 H VBG HCO3 24.6 VBG Total CO2 25.8 VBG O2 Saturation 90.5 H VBG Base Excess 0.0 Sodium 138 Potassium 4.0 Chloride 101 Carbon Dioxide 30 Anion Gap 7.0 BUN 36 H Creatinine 1.3 Estimated GFR (MDRD) 53 L Glucose 116 H Calcium 9.0 Total Bilirubin 0.4 AST 26 ALT 19 Alkaline Phosphatase 51 Total Protein 6.6 Albumin 3.3 Globulin 3.3 Albumin/Globulin Ratio 1.0 Lipase 59 PD Medical Decision Making ED course ED course: 79yM p/w dark stools and precipitous drop in hemoglobin to 7.7 today from 12.8 on 03/16/24. He is symptomatic with dizziness and SAWYER therefore 1 U prbc was ordered. d/w Dr. Chicas who recommends admission to medicine with him consulting in. possible bowel prep tomorrow. Discharge Plan Discharge Patient Disposition: 66 [facility] DC/Xfer Condition: Fair Clinical Impression: Dark stools, Anemia, Dizziness Prescriptions: No Action multivitamin 1 EACH capsule 1 ea PO DAILY atorvastatin 20 MG tablet 20 mg PO DAILY Eliquis 5 MG tablet 5 mg PO BID 0RF ipratropium-albuterol 3 ML solution for nebulization 3 ml inhalation Q4H PRN (Reason: Wheezing/Shortness of breath) Qty: 360 2RF Rx Instructions: Nebulize 3 mL every 4 hours as needed for wheezing/shortness of breath. metoprolol succinate 50 mg Tablet Extended Release 24 Hr 50 mg PO DAILY 30 Days Qty: 30 0RF phenazopyridine 100 mg Tablet 100 mg PO TID PRN (Reason: pain, bladder) 30 Days Qty: 0 0RF (DME) Permanent Disabled Placard Misc See Rx Instructions .MEDSUPPLY Qty: 1 0RF Rx Instructions: As directed Jardiance 10 mg tablet 10 mg PO DAILY losartan 25 mg tablet 25 mg PO DAILY omega-3 fatty acids 1,000 mg capsule 1,000 mg PO QDAY nitroglycerin 0.4 mg tablet, sublingual 0.4 mg sublingual Q5M PRN (Reason: chest pain) Rx Instructions: do not exceed 3 doses per episode amiodarone 200 mg tablet 200 mg PO DAILY furosemide 40 mg tablet 40 mg PO QDAY budesonide-formoterol [Symbicort] 160-4.5 mcg/actuation HFA aerosol inhaler 2 puff inhalation BID Qty: 10.2 4RF Print Language: Senegalese Stand Alone Forms: PCP List
[2024-04-03] MEDS ORDERED: ONDANSETRON 4 MG/2 ML VIAL IVP PRN (00:14)
[2024-04-03] MEDS ORDERED: ACETAMINOPHEN 325 MG TABLET PO PRN (00:14)
[2024-04-03] MEDS ORDERED: SODIUM CHLORIDE FLUSH 0.9% 10 ML SYRINGE IVP PRN (00:14)
[2024-04-03] MEDS ORDERED: oxyCODONE 5 MG TABLET PO PRN (00:14)
[2024-04-03] MEDS ORDERED: NITROGLYCERIN SL 0.4 MG TABLET SL PRN (00:17)
[2024-04-03 00:21] LABS: B. PARAPERTUSSIS- RESP PCR PAN NOT DETECTED; B. PERTUSSIS- RESP PCR PANEL NOT DETECTED; C. PNEUMONIAE- RESP PCR PANEL NOT DETECTED; CORONAVIRUS 229E-RESP PCR NOT DETECTED; CORONAVIRUS HKU1-RESP PCR NOT DETECTED; CORONAVIRUS NL63-RESP PCR NOT DETECTED; CORONAVIRUS OC43-RESP PCR NOT DETECTED; HUMAN METAPNEUMOVIRUS NOT DETECTED; INFLUENZA A- RESP PCR PANEL NOT DETECTED; INFLUENZA B - RESP PCR PANEL NOT DETECTED; M. PNEUMONIAE- RESP PCR PANEL NOT DETECTED; PARAINFLUENZA VIRUS 1 NOT DETECTED; PARAINFLUENZA VIRUS 2 NOT DETECTED; PARAINFLUENZA VIRUS 3 NOT DETECTED; PARAINFLUENZA VIRUS 4 NOT DETECTED; RHINOVIRUS/ENTEROVIRUS NOT DETECTED; RSV- RESP PCR PANEL NOT DETECTED; SARS-CoV-2 -RESP PCR PANEL NOT DETECTED
--- NOTE | 2024-04-03 00:43 | HISTORY & PHYSICAL EXAMINATION ---
Chief Complaint Chief Complaint Chief Complaint: Pinching in chest and weakness with heavy breathing History of Present Illness Admitted From Admitted From:: Home History Obtained From Records Reviewed: Yes History obtained from: patient and EMR and ER staff Exam Limitations: Telemedicine History of Present Illness HPI Comment/Other: 79yM with pmh [place], CHF, pacemaker, copd on 2L home o2 p/w dizziness with standing and SAWYER worsening over the past couple days, as well as dark stool X 5 days. denies fever, abdominal pain, cp, cough, leg swelling. Patient was recently admitted to this hospital had thoracentesis and was dc. He states he had heamturia with clots coming out few days ago also dark stools which hav eimprove He does have hx of severe Aortic stenosis, CHF ef of 20%, hx of V tach. 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 He lives with his , wants to live few more years but states if he ends up in vegetaive state then he should be transitioned to comofort care and his life should not be prolonged; he looks comfortable and is in no pain or distress Review of Systems Status of ROS: 10 or more systems reviewed and unremarkable except as noted in history and below [facility] Medical History Medical History HTN (hypertension) Myocardial infarction Prostate cancer Family History Family History Other Alzheimers disease CAD (coronary artery disease) COPD (chronic obstructive pulmonary disease) Cancer Heart attack High blood pressure Social History Social History Smoking Status: Former smoker If you are a former smoker, when did you quit? (Date/Year): 2022; pipe Number of Years Smoked: 60 Second hand tobacco smoke exposure: No Do you dip or chew tobacco?: No Do you vape?: No Patient requests smoking cessation consult: No Initiate information on smoking cessation: No Living arrangement: At home Marital Status: Living Condition: With spouse/s.o. Relationship: Spouse Level: Independent Home Mobility Equipment: Walker Do you feel safe in your home environment?: Yes Suffered physical, verbal, emotional, or financial abuse?: No History of Abuse: No ETOH Use: None Substance Use: denies use Are you sexually active?: No Retired: Yes Service: Yes Dates of Service: [id number] Are you following a diet prescribed by a doctor: No Are you following a special diet: No POLST POLST Status: Full Code (Yes to intubation, no chest compression) Meds/Allgy Home Medications Ambulatory Orders Medication Instructions Recorded Confirmed multivitamin 1 ea PO DAILY 10/25/15 03/10/24 atorvastatin 20 mg tablet 20 mg PO DAILY 06/28/18 02/22/24 apixaban 5 mg tablet (Eliquis) 5 mg PO BID 12/28/22 03/10/24 ipratropium 0.5 mg-albuterol 3 mg 3 ml inhalation Q4H PRN 09/26/23 03/10/24 (2.5 mg base)/3 mL nebulization Wheezing/Shortness of breath #360 soln mL empagliflozin 10 mg tablet 10 mg PO DAILY 01/16/24 03/10/24 (Jardiance) losartan 25 mg tablet 25 mg PO DAILY 01/16/24 03/10/24 nitroglycerin 0.4 mg sublingual 0.4 mg sublingual Q5M PRN chest 01/16/24 03/10/24 tablet pain omega-3 fatty acids 1,000 mg 1,000 mg PO QDAY 01/16/24 03/10/24 capsule Permanent Disabled Placard #1 ea 01/28/24 01/28/24 amiodarone 200 mg tablet 200 mg PO DAILY 02/22/24 03/10/24 budesonide-formoterol HFA 160 2 puff inhalation BID #10.2 grams 02/22/24 03/10/24 mcg-4.5 mcg/actuation aerosol inhaler (Symbicort) furosemide 40 mg tablet 40 mg PO QDAY 02/22/24 03/10/24 metoprolol succinate 50 mg 50 mg PO DAILY 30 days #30 tabs 03/16/24 tablet,extended release 24 hr phenazopyridine 100 mg tablet 100 mg PO TID PRN pain, bladder 30 03/16/24 days #0 tabs Allergies Allergies Allergy/AdvReac Type Severity Reaction Status Date / Time No Known Drug Allergies Allergy Verified 04/02/24 23:13 Prior Level of Functionality: Independent with ADL Exam Constitutional no apparent distress and average body habitus Looks Plae HENMT normocephalic Eyes PERRL and conjunctivae normal Neck/C-Spine visual inspection normal and trachea midline Chest inspection of chest normal Respiratory breath sounds equal bilaterally and normal respiratory effort Cardiovascular normal heart rate noted and no JVD Gastrointestinal abdomen normal to inspection Genitourinary no CVA tenderness and external appearance normal Extremities normal to inspection and no tenderness Neurology flotation operator II-XII intact, no movement abnormality noted and no focal motor deficit noted Skin no rash and no lesions Conclusion/Plan Problem List (1) Dark stools: (2) Indwelling urinary catheter present: (3) Reduced ejection fraction concurrent with and due to acute on chronic heart failure: (4) Anemia: (5) Dizziness: (6) AICD (automatic cardioverter/defibrillator) present: Plan 79 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 Symptomatic anemia 2. Dizziness 3. SOB 4.Hx of hematuria 5. Possible hemaotchezia/occult blood via stool 6. Severe Aortic Stenosis 7. Systolic cardiomyopathy 8.Hx of V tach with ICD in sity 9. A fib 10. On eliquis 11. Indweliing crowley catheter in situ 12. Recent thoracentsis 13.GERD 14. Mild renal insufficiency 15.Hyperlipidemia Plan Admit to med surg with telemetry 2 large bore iv Hold eliquis Continue rest of cardiac meds Hold ARB to be reusmed in 24 hours Hold Eliquis Blood transfusiosn ordered in ER goal HB > 9 Patient is a high risk candidate for any invosive procedure due to complex cardiac history Surgery has been consulted by ER and aware of patient Avoid nephrotoxins SCD for dvt prophylaxis Patient is full code but if ends up in a vegetative state then would not like to prolong his life and requests transition to comfort care Follow up with urology and cardiology as outpatient has good MD seeing him All of the above discussed at length with the patient Lab Results Lab results reviewed: Yes 04/02/24 23:06 04/02/24 23:06 Diagnostic Imaging Results Diagnostic Imaging Results: positive Prelim report reviewed Telemedicine Consult Details Provider Location & Consult Time Telemedicine consultation conducted via videoconferencing?: Yes
[2024-04-03] MEDS: FUROSEMIDE 40 MG TABLET PO SCH (03:37)
[2024-04-03] MEDS: PANTOPRAZOLE 40 MG VIAL IV STA (03:55)
[2024-04-03] MEDS: SODIUM CHLORIDE FLUSH 0.9% 10 ML SYRINGE IVP SCH (03:56)
[2024-04-03] MEDS: oxyCODONE 5 MG TABLET PO PRN (04:48)
[2024-04-03] MEDS: FORMOTEROL FUMARATE NEB 20 MCG/2 ML INH SCH (08:00)
[2024-04-03] MEDS: BUDESONIDE 0.5 MG/2 ML NEB INH SCH (08:00)
--- NOTE | 2024-04-03 08:27 | PROVIDER PROGRESS NOTE ---
Subjective Prog Note Date Prog Note Date: 04/03/24 Prog Note Time: 08:26 Subjective Subjective: 79yM with pmh [place], CHF, pacemaker, copd on 2L home o2 p/w dizziness with standing and SAWYER worsening over the past couple days, as well as dark stool X 5 days. denies fever, abdominal pain, cp, cough, leg swelling. Patient was recently admitted to this hospital had thoracentesis and was dc. He states he had heamturia with clots coming out few days ago also dark stools which hav eimprove He does have hx of severe Aortic stenosis, CHF ef of 20%, hx of V tach. 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 States that hematuria has resolved. States that he feels well after receiving 1 unit RBCs. Upon questioning, patient cannot confirm bloody or dark stools. Current Medications Current Medications Current Medications: Current Medications Generic Name Dose Route Start Last Admin Trade Name Freq PRN Reason Stop Dose Admin Acetaminophen 650 mg 04/03/24 00:14 Acetaminophen 325 Mg Tablet PO Q4HR PRN Pain 1 to 4, or Fever Albuterol/Ipratropium 3 ml 04/03/24 00:17 Ipratropium/Albuterol 3 Ml Neb INH Q4H PRN Wheezing/Shortness of breath Amiodarone HCl 200 mg 04/03/24 09:00 Amiodarone 200 Mg Tablet PO DAILY AVIS Atorvastatin Calcium 20 mg 04/03/24 09:00 Atorvastatin 10 Mg Tablet PO DAILY [facility]IS Budesonide 0.5 mg 04/03/24 08:00 Budesonide 0.5 Mg/2 Ml Neb INH RTBID AVIS Formoterol Fumarate 20 mcg 04/03/24 08:00 Formoterol Fumarate Neb 20 Mcg/2 Ml INH RTBID AVIS Furosemide 40 mg 04/03/24 08:00 Furosemide 40 Mg/4 Ml Vial IVP BIDDIURETIC AVIS Metoprolol Succinate 50 mg 04/03/24 09:00 Metoprolol Succinate 50 Mg Tablet PO DAILY [facility] Multivitamins 1 tab 04/03/24 09:00 Multivitamin Tablet PO DAILY [facility] Nitroglycerin 0.4 mg 04/03/24 00:17 Nitroglycerin Sl 0.4 Mg Tablet SL Q5M PRN chest pain Ondansetron HCl 4 mg 04/03/24 00:14 Ondansetron 4 Mg/2 Ml Vial IVP Q6HR PRN Nausea / Vomiting Oxycodone HCl 5 mg 04/03/24 00:14 04/03/24 04:48 Oxycodone 5 Mg Tablet PO 5 mg Q4HR PRN Administration Pain 5 to 7 Oxycodone HCl 10 mg 04/03/24 00:14 Oxycodone 5 Mg Tablet PO Q4HR PRN Pain 8 to 10 Empagliflozin [ 1 each 04/03/24 09:00 Jardiance] 10 Mg PO Tablet DAILY [facility] Sodium Chloride 10 ml 04/03/24 00:14 Sodium Chloride Flush 0.9% 10 Ml Syringe IVP PRN PRN NEEDED PER PROVIDER ORDERS Sodium Chloride 10 ml 04/03/24 01:00 04/03/24 03:56 Sodium Chloride Flush 0.9% 10 Ml Syringe IVP 10 ml 0100,[id number],1700 [facility] Administration Objective Vital Signs/Intake & Output Reviewed Vital Signs: Yes Vital Signs: Vital Signs x48h Temp Pulse Resp BP Pulse Ox O2 Flow Rate 04/03/24 04:17 36.7 C 71 18 107/62 95 1 04/03/24 01:38 36.5 C 72 20 106/70 96 04/03/24 01:22 60 98 2 04/03/24 01:20 36.2 C L 60 23 109/47 L 99 2 04/03/24 01:06 36.6 C 60 18 99 2 Intake & Output: Intake & Output 03/31/24 04/01/24 04/02/24 04/03/24 23:59 23:59 23:59 23:59 Intake Total 300 / 300 Output Total 550 / 550 Balance -250 / -250 Weight (kg) 104.6 kg 98 kg Objective General Appearance: positive No acute distress and Alert Eyes Bilateral: positive Normal inspection and PERRL ENT: positive ENT inspection nml and No signs of dehydration Neck: positive Nml inspection and Trachea midline Respiratory: positive Chest non-tender and No respiratory distress Cardiovascular: positive Regular rate & rhythm, No murmur and Other (AICD present) Abdomen: positive Non-tender and No organomegaly Rectal: positive Other (Indwelling catheter present) Back: positive Nml inspection Skin: positive Color nml and No rash Extremities: positive Non-tender and Full ROM Neurologic/Psychiatric: positive Oriented x3 and CN's nml (2-12) Lab Results 04/02/24 23:06 04/02/24 23:06 Other Labs: Lab Results x24hrs 04/02/24 04/02/24 04/02/24 Range/Units 23:51 23:20 23:17 WBC (4.8-10.8) x10^3/uL RBC (4.70-6.10) 10^6/uL Hgb (14.0-18.0) g/dL Hct (42.0-52.0) % MCV (80.0-94.0) fL MCH (27.0-31.0) pg MCHC (32.0-36.0) g/dL RDW (12.0-15.0) % Plt Count (130-450) 10^3/uL MPV (7.4-11.4) fL Neut # (Auto) (1.5-6.6) 10^3/uL Lymph # (Auto) (1.5-3.5) 10^3/uL [place] # (Auto) (0.0-1.0) 10^3/uL Eos # (Auto) (0.0-0.7) 10^3/uL Baso # (Auto) (0.0-0.1) 10^3/uL Absolute Nucleated RBC x10^3/uL Nucleated RBC % /100WBC VBG pH 7.412 H (7.31-7.41) VBG pCO2 39.5 L (41-51) mmHg VBG pO2 60.9 H (25-47) mmHg VBG HCO3 24.6 (23-28) mmol/L VBG Total CO2 25.8 (24-29) mmol/L VBG O2 Saturation 90.5 H (60-80) % VBG Base Excess 0.0 (-2 - +2) mmol/L Sodium (135-145) mmol/L Potassium (3.5-4.5) mmol/L Chloride (101-111) mmol/L Carbon Dioxide (21-32) mmol/L Anion Gap (6-13) BUN (6-20) mg/dL Creatinine (0.6-1.3) mg/dL Estimated GFR (MDRD) (>89) Glucose (74-104) mg/dL Calcium (8.5-10.3) mg/dL Total Bilirubin (0.2-1.0) mg/dL AST (10-42) IU/L ALT (10-60) IU/L Alkaline Phosphatase (42-121) IU/L B-Natriuretic Peptide (5-100) pg/mL Total Protein (6.4-8.9) g/dL Albumin (3.2-5.5) g/dL Globulin (2.1-4.2) g/dL Albumin/Globulin Ratio (1.0-2.2) Lipase (11-82) U/L Nasal Adenovirus (PCR) NOT DETECTED Nasal B. parapertussis DNA (PCR) NOT DETECTED Nasal Coronavir 229E PCR NOT DETECTED Nasal Coronavir HKU1 PCR NOT DETECTED Nasal Coronavir NL63 PCR NOT DETECTED Nasal Coronavir OC43 PCR NOT DETECTED Nasal Enterovir/Rhinovir PCR NOT DETECTED Nasal Influenza B PCR NOT DETECTED Nasal Influenza A PCR NOT DETECTED Nasal Parainfluen 1 PCR NOT DETECTED Nasal Parainfluen 2 PCR NOT DETECTED Nasal Parainfluen 3 PCR NOT DETECTED Nasal Parainfluen 4 PCR NOT DETECTED Nasal RSV (PCR) NOT DETECTED Nasal B.pertussis DNA PCR NOT DETECTED Nasal C.pneumoniae (PCR) NOT DETECTED Shivam Human Metapneumo PCR NOT DETECTED Nasal M.pneumoniae (PCR) NOT DETECTED Nasal SARS-CoV-2 (PCR) NOT DETECTED Blood Type AB NEGATIVE Blood Type Recheck Antibody Screen NEGATIVE Crossmatch IS Only See Detail 04/02/24 04/02/24 Range/Units 23:06 23:00 WBC 8.5 (4.8-10.8) x10^3/uL RBC 2.49 L (4.70-6.10) 10^6/uL Hgb 7.7 L (14.0-18.0) g/dL Hct 25.0 L (42.0-52.0) % MCV 100.4 H (80.0-94.0) fL MCH 30.9 (27.0-31.0) pg MCHC 30.8 L (32.0-36.0) g/dL RDW 16.4 H (12.0-15.0) % Plt Count 156 (130-450) 10^3/uL MPV 10.3 (7.4-11.4) fL Neut # (Auto) 7.0 H (1.5-6.6) 10^3/uL Lymph # (Auto) 0.8 L (1.5-3.5) 10^3/uL [place] # (Auto) 0.6 (0.0-1.0) 10^3/uL Eos # (Auto) 0.1 (0.0-0.7) 10^3/uL Baso # (Auto) 0.0 (0.0-0.1) 10^3/uL Absolute Nucleated RBC 0.04 x10^3/uL Nucleated RBC % 0.5 /100WBC VBG pH (7.31-7.41) VBG pCO2 (41-51) mmHg VBG pO2 (25-47) mmHg VBG HCO3 (23-28) mmol/L VBG Total CO2 (24-29) mmol/L VBG O2 Saturation (60-80) % VBG Base Excess (-2 - +2) mmol/L Sodium 138 (135-145) mmol/L Potassium 4.0 (3.5-4.5) mmol/L Chloride 101 (101-111) mmol/L Carbon Dioxide 30 (21-32) mmol/L Anion Gap 7.0 (6-13) BUN 36 H (6-20) mg/dL Creatinine 1.3 (0.6-1.3) mg/dL Estimated GFR (MDRD) 53 L (>89) Glucose 116 H (74-104) mg/dL Calcium 9.0 (8.5-10.3) mg/dL Total Bilirubin 0.4 (0.2-1.0) mg/dL AST 26 (10-42) IU/L ALT 19 (10-60) IU/L Alkaline Phosphatase 51 (42-121) IU/L B-Natriuretic Peptide 1129 H (5-100) pg/mL Total Protein 6.6 (6.4-8.9) g/dL Albumin 3.3 (3.2-5.5) g/dL Globulin 3.3 (2.1-4.2) g/dL Albumin/Globulin Ratio 1.0 (1.0-2.2) Lipase 59 (11-82) U/L Nasal Adenovirus (PCR) Nasal B. parapertussis DNA (PCR) Nasal Coronavir 229E PCR Nasal Coronavir HKU1 PCR Nasal Coronavir NL63 PCR Nasal Coronavir OC43 PCR Nasal Enterovir/Rhinovir PCR Nasal Influenza B PCR Nasal Influenza A PCR Nasal Parainfluen 1 PCR Nasal Parainfluen 2 PCR Nasal Parainfluen 3 PCR Nasal Parainfluen 4 PCR Nasal RSV (PCR) Nasal B.pertussis DNA PCR Nasal C.pneumoniae (PCR) Shivam Human Metapneumo PCR Nasal M.pneumoniae (PCR) Nasal SARS-CoV-2 (PCR) Blood Type Blood Type Recheck AB NEGATIVE Antibody Screen Crossmatch IS Only Diagnostic Imaging Diagnostic Imaging Results: positive Final report reviewed Assessment/Plan Problem List (1) Dark stools: Impression: This was not confirmed by patient. Surgery was consulted for possible scope. Surgery recommended no EGD or colonoscopy at this point in time. (2) Indwelling urinary catheter present: Impression: Consulted urology for Nj exchange due to history of enlarged prostate And prostate cancer. Per urology, nurse should be able to exchange Nj catheter. Order placed (3) Reduced ejection fraction concurrent with and due to acute on chronic heart failure: Impression: Lasix IV 40 twice daily Continue home CHF medications. monitor Volume status, strict I's and O's. Pt [id number] = 4, Guidelines recommend anticoagulation., Patient's HAS-BLED score = 2, guidelines recommend to consider anticoagulation. Will restart Eliquis, monitor for acute bleeding. Patient will need to follow- up as an outpatient with cardiology. (4) Anemia: Impression: Acute blood loss anemia secondary to hematuria. Hold Eliquis. Consult cardiology for anticoagulation recommendation. Monitor H&H (5) Dizziness: Impression: Resolved
[2024-04-03] MEDS: ATORVASTATIN 10 MG TABLET PO SCH (08:29)
[2024-04-03] MEDS: MULTIVITAMIN TABLET PO SCH (08:29)
[2024-04-03] MEDS: AMIODARONE 200 MG TABLET PO SCH (08:29)
[2024-04-03] MEDS: **Empagliflozin [Jardiance] 10 mg tablet PO SCH (08:44)
[2024-04-03] MEDS ORDERED: BUDESONIDE FORMOTEROL INH SCH (09:00)
[2024-04-03] MEDS ORDERED: [UNRECOGNIZED DRUG - OTHER] INH SCH (09:00)
[2024-04-03] MEDS: METOPROLOL SUCCINATE 50 MG TABLET PO SCH (09:14)
[2024-04-03] MEDS: ALBUMIN 25% 12.5 GM/50 ML VIAL IV SCH (09:25)
[2024-04-03] MEDS: FUROSEMIDE 40 MG/4 ML VIAL IVP SCH (11:10)
[2024-04-03] MEDS: APIXABAN 5 MG TABLET PO SCH (12:25)
--- NOTE | 2024-04-03 13:30 | CONSULTATION NOTE ---
Chief Complaint Chief Complaint Chief Complaint: blood in the urine bag and dizzy and short of breath History of Present Illness Admitted From Admitted From:: ed History Obtained From Records Reviewed: yes History obtained from: pt Exam Limitations: none History of Present Illness HPI Comment/Other: ED consult for possible gi bleed. pt is very clear that he had several urine bags of blood. he has had a crowley. he denies any bloody stool, any significant dark stool and any significant intestinal symptoms Meds/Allgy Home Medications Ambulatory Orders Medication Instructions Recorded Confirmed multivitamin 1 ea PO DAILY 10/25/15 03/10/24 atorvastatin 20 mg tablet 20 mg PO DAILY 06/28/18 02/22/24 apixaban 5 mg tablet (Eliquis) 5 mg PO BID 12/28/22 03/10/24 ipratropium 0.5 mg-albuterol 3 mg 3 ml inhalation Q4H PRN 09/26/23 03/10/24 (2.5 mg base)/3 mL nebulization Wheezing/Shortness of breath #360 soln mL empagliflozin 10 mg tablet 10 mg PO DAILY 01/16/24 03/10/24 (Jardiance) losartan 25 mg tablet 25 mg PO DAILY 01/16/24 03/10/24 nitroglycerin 0.4 mg sublingual 0.4 mg sublingual Q5M PRN chest 01/16/24 03/10/24 tablet pain omega-3 fatty acids 1,000 mg 1,000 mg PO QDAY 01/16/24 03/10/24 capsule Permanent Disabled Placard #1 ea 01/28/24 01/28/24 amiodarone 200 mg tablet 200 mg PO DAILY 02/22/24 03/10/24 budesonide-formoterol HFA 160 2 puff inhalation BID #10.2 grams 02/22/24 03/10/24 mcg-4.5 mcg/actuation aerosol inhaler (Symbicort) furosemide 40 mg tablet 40 mg PO QDAY 02/22/24 03/10/24 metoprolol succinate 50 mg 50 mg PO DAILY 30 days #30 tabs 03/16/24 tablet,extended release 24 hr phenazopyridine 100 mg tablet 100 mg PO TID PRN pain, bladder 30 03/16/24 days #0 tabs Allergies Allergies Allergy/AdvReac Type Severity Reaction Status Date / Time calcium carbonate (From Tums) AdvReac Intermediate Vomiting Verified 04/03/24 02:35 [facility] Medical History Medical History (Updated 04/03/24 @ 02:59 by Trina Roblero RN) HTN (hypertension) Myocardial infarction Prostate cancer Family History Family History Other Alzheimers disease CAD (coronary artery disease) COPD (chronic obstructive pulmonary disease) Cancer Heart attack High blood pressure Social History Social History Smoking Status: Former smoker If you are a former smoker, when did you quit? (Date/Year): 04/09/2023 Number of Years Smoked: 60 How many cigarettes a day do you smoke? (20 cigarettes=1 Pk): 15 Second hand tobacco smoke exposure: No Do you dip or chew tobacco?: No Do you vape?: Yes Patient requests smoking cessation consult: No Initiate information on smoking cessation: No Living arrangement: At home Marital Status: Living Condition: With spouse/s.o. Relationship: Spouse Level: Independent Home Mobility Equipment: Cane Do you feel safe in your home environment?: Yes Suffered physical, verbal, emotional, or financial abuse?: No History of Abuse: No ETOH Use: None Substance Use: denies use Are you sexually active?: No Retired: Yes Service: Yes Dates of Service: 5214-1567 Are you following a diet prescribed by a doctor: No Are you following a special diet: No POLST POLST Status: Full Code (Yes to intubation, no chest compression) Results Lab Results Lab results reviewed: Yes 04/02/24 23:06 04/02/24 23:06 Other Lab Results: Lab Results x24hrs 04/02/24 04/02/24 04/02/24 Range/Units 23:51 23:20 23:17 WBC (4.8-10.8) x10^3/uL RBC (4.70-6.10) 10^6/uL Hgb (14.0-18.0) g/dL Hct (42.0-52.0) % MCV (80.0-94.0) fL MCH (27.0-31.0) pg MCHC (32.0-36.0) g/dL RDW (12.0-15.0) % Plt Count (130-450) 10^3/uL MPV (7.4-11.4) fL Neut # (Auto) (1.5-6.6) 10^3/uL Lymph # (Auto) (1.5-3.5) 10^3/uL Hinds # (Auto) (0.0-1.0) 10^3/uL Eos # (Auto) (0.0-0.7) 10^3/uL Baso # (Auto) (0.0-0.1) 10^3/uL Absolute Nucleated RBC x10^3/uL Nucleated RBC % /100WBC VBG pH 7.412 H (7.31-7.41) VBG pCO2 39.5 L (41-51) mmHg VBG pO2 60.9 H (25-47) mmHg VBG HCO3 24.6 (23-28) mmol/L VBG Total CO2 25.8 (24-29) mmol/L VBG O2 Saturation 90.5 H (60-80) % VBG Base Excess 0.0 (-2 - +2) mmol/L Sodium (135-145) mmol/L Potassium (3.5-4.5) mmol/L Chloride (101-111) mmol/L Carbon Dioxide (21-32) mmol/L Anion Gap (6-13) BUN (6-20) mg/dL Creatinine (0.6-1.3) mg/dL Estimated GFR (MDRD) (>89) Glucose (74-104) mg/dL Calcium (8.5-10.3) mg/dL Total Bilirubin (0.2-1.0) mg/dL AST (10-42) IU/L ALT (10-60) IU/L Alkaline Phosphatase (42-121) IU/L B-Natriuretic Peptide (5-100) pg/mL Total Protein (6.4-8.9) g/dL Albumin (3.2-5.5) g/dL Globulin (2.1-4.2) g/dL Albumin/Globulin Ratio (1.0-2.2) Lipase (11-82) U/L Nasal Adenovirus (PCR) NOT DETECTED Nasal B. parapertussis DNA (PCR) NOT DETECTED Nasal Coronavir 229E PCR NOT DETECTED Nasal Coronavir HKU1 PCR NOT DETECTED Nasal Coronavir NL63 PCR NOT DETECTED Nasal Coronavir OC43 PCR NOT DETECTED Nasal Enterovir/Rhinovir PCR NOT DETECTED Nasal Influenza B PCR NOT DETECTED Nasal Influenza A PCR NOT DETECTED Nasal Parainfluen 1 PCR NOT DETECTED Nasal Parainfluen 2 PCR NOT DETECTED Nasal Parainfluen 3 PCR NOT DETECTED Nasal Parainfluen 4 PCR NOT DETECTED Nasal RSV (PCR) NOT DETECTED Nasal B.pertussis DNA PCR NOT DETECTED Nasal C.pneumoniae (PCR) NOT DETECTED Shivam Human Metapneumo PCR NOT DETECTED Nasal M.pneumoniae (PCR) NOT DETECTED Nasal SARS-CoV-2 (PCR) NOT DETECTED Blood Type AB NEGATIVE Blood Type Recheck Antibody Screen NEGATIVE Crossmatch IS Only See Detail 04/02/24 04/02/24 Range/Units 23:06 23:00 WBC 8.5 (4.8-10.8) x10^3/uL RBC 2.49 L (4.70-6.10) 10^6/uL Hgb 7.7 L (14.0-18.0) g/dL Hct 25.0 L (42.0-52.0) % MCV 100.4 H (80.0-94.0) fL MCH 30.9 (27.0-31.0) pg MCHC 30.8 L (32.0-36.0) g/dL RDW 16.4 H (12.0-15.0) % Plt Count 156 (130-450) 10^3/uL MPV 10.3 (7.4-11.4) fL Neut # (Auto) 7.0 H (1.5-6.6) 10^3/uL Lymph # (Auto) 0.8 L (1.5-3.5) 10^3/uL Hinds # (Auto) 0.6 (0.0-1.0) 10^3/uL Eos # (Auto) 0.1 (0.0-0.7) 10^3/uL Baso # (Auto) 0.0 (0.0-0.1) 10^3/uL Absolute Nucleated RBC 0.04 x10^3/uL Nucleated RBC % 0.5 /100WBC VBG pH (7.31-7.41) VBG pCO2 (41-51) mmHg VBG pO2 (25-47) mmHg VBG HCO3 (23-28) mmol/L VBG Total CO2 (24-29) mmol/L VBG O2 Saturation (60-80) % VBG Base Excess (-2 - +2) mmol/L Sodium 138 (135-145) mmol/L Potassium 4.0 (3.5-4.5) mmol/L Chloride 101 (101-111) mmol/L Carbon Dioxide 30 (21-32) mmol/L Anion Gap 7.0 (6-13) BUN 36 H (6-20) mg/dL Creatinine 1.3 (0.6-1.3) mg/dL Estimated GFR (MDRD) 53 L (>89) Glucose 116 H (74-104) mg/dL Calcium 9.0 (8.5-10.3) mg/dL Total Bilirubin 0.4 (0.2-1.0) mg/dL AST 26 (10-42) IU/L ALT 19 (10-60) IU/L Alkaline Phosphatase 51 (42-121) IU/L B-Natriuretic Peptide 1129 H (5-100) pg/mL Total Protein 6.6 (6.4-8.9) g/dL Albumin 3.3 (3.2-5.5) g/dL Globulin 3.3 (2.1-4.2) g/dL Albumin/Globulin Ratio 1.0 (1.0-2.2) Lipase 59 (11-82) U/L Nasal Adenovirus (PCR) Nasal B. parapertussis DNA (PCR) Nasal Coronavir 229E PCR Nasal Coronavir HKU1 PCR Nasal Coronavir NL63 PCR Nasal Coronavir OC43 PCR Nasal Enterovir/Rhinovir PCR Nasal Influenza B PCR Nasal Influenza A PCR Nasal Parainfluen 1 PCR Nasal Parainfluen 2 PCR Nasal Parainfluen 3 PCR Nasal Parainfluen 4 PCR Nasal RSV (PCR) Nasal B.pertussis DNA PCR Nasal C.pneumoniae (PCR) Shivam Human Metapneumo PCR Nasal M.pneumoniae (PCR) Nasal SARS-CoV-2 (PCR) Blood Type Blood Type Recheck AB NEGATIVE Antibody Screen Crossmatch IS Only Review of Systems very significant heart disease. recent admission requiring intubation for heart failure. Status of ROS: 10 or more systems reviewed and unremarkable except as noted in history and below Exam Constitutional normal general appearance and no apparent distress very alert and clear HENMT normocephalic and head/scalp atraumatic Eyes PERRL and no scleral icterus Neck/C-Spine trachea midline Respiratory normal respiratory effort seen earlier this am when he was sound asleep. mildly labored breathing at that time. Gastrointestinal nondistended Neurology speech normal and GCS 15 Psychiatry oriented x3, thought process normal, cooperative, affect normal and memory normal Conclusion/Plan Problem List (1) Dark stools: Plan: he denies any significant dark stools. no bloody stools. no significant gi symptoms. he states he had several urine bags of blood. he and his family and I all agree with current care including diet. no plan for endoscopy unless he appears to have gi hemorrhage. elective endoscopy is not recommend given his significant heart disease and very low probability endoscopy would be helpful or change coordinator (2) Indwelling urinary catheter present: (3) Reduced ejection fraction concurrent with and due to acute on chronic heart failure: (4) Anemia: (5) Dizziness: Lab Results Lab results reviewed: Yes 04/02/24 23:06 04/02/24 23:06
[2024-04-03] MEDS: IPRATROPIUM/ALBUTEROL 3 ML NEB INH PRN (14:03)
--- NOTE | 2024-04-03 14:38 | PHARMACY PROGRESS NOTE ---
Best Possible Medication History Admit Date and Time: 04/03/24 0014 Home Medications Medication Instructions Recorded Confirmed Type multivitamin 1 ea PO DAILY 10/25/15 04/03/24 History atorvastatin 20 mg tablet 20 mg PO DAILY 06/28/18 04/03/24 History apixaban 5 mg tablet (Eliquis) 5 mg PO BID 12/28/22 04/03/24 Rx ipratropium 0.5 mg-albuterol 3 mg 3 ml inhalation Q4H PRN 09/26/23 04/03/24 Rx (2.5 mg base)/3 mL nebulization Wheezing/Shortness of breath #360 soln mL empagliflozin 10 mg tablet 10 mg PO DAILY 01/16/24 04/03/24 History (Jardiance) losartan 25 mg tablet 25 mg PO DAILY 01/16/24 04/03/24 History nitroglycerin 0.4 mg sublingual 0.4 mg sublingual Q5M PRN chest 01/16/2403/10 History tablet pain omega-3 fatty acids 1,000 mg 1,000 mg PO QDAY 01/16/24 04/03/24 History capsule Permanent Disabled Placard #1 ea 01/28/24 01/28/24 Rx amiodarone 200 mg tablet 200 mg PO DAILY 02/22/24 04/03/24 History budesonide-formoterol HFA 160 2 puff inhalation BID #10.2 grams 02/22/24 04/03/24 Rx mcg-4.5 mcg/actuation aerosol inhaler (Symbicort) furosemide 40 mg tablet 40 mg PO QDAY 02/22/24 04/03/24 History metoprolol succinate 50 mg 50 mg PO DAILY 30 days #30 tabs 03/16/24 04/03/24 Rx tablet,extended release 24 hr Processed by: Pharmacy Medications reviewed in ED?: No Medication History completed: Yes Patient Interview: Pt unable to participate (Patient states no changes to med list from prior admission. Reviewed med rec and updated accordingly.) Secondary Source(s): Insurance records [facility] Statement: As the person ultimately responsible for medication therapy, providers are able to order a medication from an existing home medication list in [facility] via the "Reconcile Routine" prior to Confirmation of that medication by clinical support manager. Such practice is discouraged except when the physician, in their clinical judgment, deems that a medical need exists for a medication without regard to previous use.
[2024-04-04 05:54] LABS: BASOPHILS % (AUTO) 0.4 %; EOSINOPHILS # (AUTO) 0.2 10^3/uL (0.0-0.7); EOSINOPHILS % (AUTO) 2.2 %; HCT - HEMATOCRIT 27.5 % (42.0-52.0); HGB - HEMOGLOBIN 8.2 g/dL (14.0-18.0); LYMPHOCYTES # (AUTO) 0.6 10^3/uL (1.5-3.5); LYMPHOCYTES % (AUTO) 7.7 %; MEAN CORPUSCULAR HEMOGLOBIN 29.8 pg (27.0-31.0); MEAN CORPUSCULAR HGB CONC 29.8 g/dL (32.0-36.0); MEAN PLATELET VOLUME 10.5 fL (7.4-11.4); MONOCYTES # (AUTO) 0.8 10^3/uL (0.0-1.0); MONOCYTES % (AUTO) 9.9 %; NEUTROPHILS # (AUTO) 6.5 10^3/uL (1.5-6.6); NEUTROPHILS % (AUTO) 79.2 %; NRBC ABSOLUTE COUNT (AUTO) 0.04 x10^3/uL; NUCLEATED RED BLOOD CELLS AUTO 0.5 /100WBC; PLT - PLATELET COUNT 165 10^3/uL (130-450); RED BLOOD COUNT 2.75 10^6/uL (4.70-6.10); RED CELL DISTRIBUTION WIDTH 17.7 % (12.0-15.0); WHITE BLOOD COUNT 8.2 x10^3/uL (4.8-10.8)
[2024-04-04 06:19] LABS: CALCIUM 8.3 mg/dL (8.5-10.3); CREATININE 1.2 mg/dL (0.6-1.3); POTASSIUM 3.5 mmol/L (3.5-4.5)
[2024-04-04 08:06] VITALS: BP 112/48; TEMP 97.7; O2SAT 97
--- NOTE | 2024-04-04 08:44 | Discharge Summary ---
"Discharge Summary Admit Date: 04/03/24 Discharge Date: 04/04/24 Discharging Provider: Dr. Esparza Code Status: Attempt Resuscitation DIAGNOSES Admission Diagnoses: Anemia secondary to blood loss hematuria Acute on chronic CHF with reduced ejection fracture exacerbation Indwelling catheter Dizziness Discharge Diagnoses with Status of Each Condition: Anemia: Resolved Hematuria: Resolved Acute on chronic CHF with reduced EF: Continue Home directed CHF medications Intermittent catheter: Replaced by nurse Dizziness: Resolved HPI History of Present Illness: 79yM with pmh SC, CHF, pacemaker, copd on 2L home o2 p/w dizziness with standing and SAWYER worsening over the past couple days, as well as dark stool X 5 days. denies fever, abdominal pain, cp, cough, leg swelling. Patient was recently admitted to this hospital had thoracentesis and was dc. He states he had heamturia with clots coming out few days ago also dark stools which hav eimprove He does have hx of severe Aortic stenosis, CHF ef of 20%, hx of V tach. 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 States that hematuria has resolved. States that he feels well after receiving 1 unit RBCs. Upon questioning, patient cannot confirm bloody or dark stools. CONSULTS | PROCEDURES Consultations: Urology Procedures: Recommendation to change Nj catheter by nurse HOSPITAL COURSE Hospital Course: Patient was urgently admitted for dizziness, symptomatic anemia. Labs indicated decreased H&H of 7.7. Patient was given 1 unit of RBCs, dizziness resolved. Anemia was most likely secondary to patient Hemoccult diarrhea. Patient is on Eliquis with a indwelling catheter. Upon admission. Eliquis was stopped. Hematuria resolved. After discussing risk for the benefit of Eliquis for patient with severe heart failure patient opted to continue Eliquis. Eliquis was restarted, H&H were stable, no hematuria was observed. I reached out to cardiology and [place] for recommendation of Eliquis versus aspirin. Clinic showed she never called me back. Patient has an appointment with cardiology at the end of next month. Nj catheter was exchanged By nurse Via recommendation by urology. Patient was started on IV Lasix 40 twice daily which helped with his pedal edema. Patient felt that edema had mostly resolved. Patient was discharged with increased Lasix of 40 twice daily. Patient is being discharged to home in stable condition. Patient was advised to seek medical attention if hematuria recurs and he becomes symptomatic such as dizziness, confusion or weakness. ALLERGIES Allergies Allergy/AdvReac Type Severity Reaction Status Date / Time calcium carbonate (From Tums) AdvReac Intermediate Vomiting Verified 04/03/24 02:35 MEDICATIONS Ambulatory Orders Medication Instructions Recorded Confirmed multivitamin 1 ea PO DAILY 10/25/15 04/03/24 atorvastatin 20 mg tablet 20 mg PO DAILY 06/28/18 04/03/24 apixaban 5 mg tablet (Eliquis) 5 mg PO BID 12/28/22 04/03/24 ipratropium 0.5 mg-albuterol 3 mg 3 ml inhalation Q4H PRN 09/26/23 04/03/24 (2.5 mg base)/3 mL nebulization Wheezing/Shortness of breath #360 soln mL empagliflozin 10 mg tablet 10 mg PO DAILY 01/16/24 04/03/24 (Jardiance) losartan 25 mg tablet 25 mg PO DAILY 01/16/24 04/03/24 nitroglycerin 0.4 mg sublingual 0.4 mg sublingual Q5M PRN chest 01/16/24 04/03/24 tablet pain omega-3 fatty acids 1,000 mg 1,000 mg PO QDAY 01/16/24 04/03/24 capsule Permanent Disabled Placard #1 ea 01/28/24 01/28/24 amiodarone 200 mg tablet 200 mg PO DAILY 02/22/24 04/03/24 budesonide-formoterol HFA 160 2 puff inhalation BID #10.2 grams 02/22/24 04/03/24 mcg-4.5 mcg/actuation aerosol inhaler (Symbicort) metoprolol succinate 50 mg 50 mg PO DAILY 30 days #30 tabs 03/16/24 04/03/24 tablet,extended release 24 hr furosemide 40 mg tablet (Lasix) 40 mg PO BID #60 tabs 04/04/24 PHYSICAL EXAM AT DISCHARGE General Appearance: positive No acute distress and Alert Eyes Bilateral: positive Normal inspection and PERRL ENT: positive ENT inspection nml Neck: positive Nml inspection and Trachea midline Respiratory: positive Chest non-tender and No respiratory distress Cardiovascular: positive Regular rate & rhythm and No murmur Peripheral Pulses: positive 1+ Abdomen: positive Non-tender and No organomegaly Back: positive Nml inspection Skin: positive Color nml and No rash Extremities: positive Non-tender and Full ROM Neurologic/Psychiatric: positive Oriented x3 and CN's nml (2-12) LABS 04/04/24 05:48 04/04/24 05:48 DIAGNOSTIC IMAGING Diagnostic Imaging Results: Final report reviewed TIME SPENT Time Spent in Discharge (Minutes): 35 Discharge Plan Discharge Patient Disposition: GAIL, Self Care Condition: Stable Medically Cleared Date:: 04/04/24 Prescriptions: New furosemide [Lasix] 40 mg tablet 40 mg PO BID Qty: 60 2RF Continued multivitamin 1 EACH capsule 1 ea PO DAILY atorvastatin 20 MG tablet 20 mg PO DAILY Eliquis 5 MG tablet 5 mg PO BID 0RF ipratropium-albuterol 3 ML solution for nebulization 3 ml inhalation Q4H PRN (Reason: Wheezing/Shortness of breath) Qty: 360 2RF Rx Instructions: Nebulize 3 mL every 4 hours as needed for wheezing/shortness of breath. metoprolol succinate 50 mg Tablet Extended Release 24 Hr 50 mg PO DAILY 30 Days Qty: 30 0RF (DME) Permanent Disabled Placard Misc See Rx Instructions .MEDSUPPLY Qty: 1 0RF Rx Instructions: As directed Jardiance 10 mg tablet 10 mg PO DAILY losartan 25 mg tablet 25 mg PO DAILY omega-3 fatty acids 1,000 mg capsule 1,000 mg PO QDAY nitroglycerin 0.4 mg tablet, sublingual 0.4 mg sublingual Q5M PRN (Reason: chest pain) Rx Instructions: do not exceed 3 doses per episode amiodarone 200 mg tablet 200 mg PO DAILY budesonide-formoterol [Symbicort] 160-4.5 mcg/actuation HFA aerosol inhaler 2 puff inhalation BID Qty: 10.2 4RF Discontinued furosemide 40 mg tablet 40 mg PO QDAY Activity Restrictions: Activity as Tolerated Diet: Cardiac Health Concerns: We discussed the benefits vs risk for Eliquis in the background of heart failure and hematuria (blood in urine). You opted to continue taking Eliquis. Please follow with a discussion concerning Eliquis with your motorcycle delivery driver and urologist next month (reg scheduled appointment) Plan of Treatment: Follow up with your motorcycle delivery driver and urologist concerning the use of Eliquis. Please seek medical attention if you have ongoing hematuria and feel symptomatic (dizziness, confusion, weakness ...) Print Language: Czech Patient Instructions: Hematuria Urologic Causes Ch, Heart Failure, Hematuria Stand Alone Forms: PCP List"
== END 2024-04-04 10:31 | disposition home or self-care (01) | DRG 291 ==
LOC: ED 23:00 → MS2 04-03 00:14
PROVIDERS: ADMIT Internal Medicine; ATTEND Internal Medicine
DX: R19.5 Other fecal abnormalities; I35.0 Nonrheumatic aortic (valve) stenosis; D62 Acute posthemorrhagic anemia; Z20.828 Contact with and (suspected) exposure to other viral communicable diseases; N28.9 Disorder of kidney and ureter, unspecified; K21.9 Gastro-esophageal reflux disease without esophagitis; I42.8 Other cardiomyopathies; Z79.899 Other long term (current) drug therapy; E78.5 Hyperlipidemia, unspecified; R42 Dizziness and giddiness; Z87.891 Personal history of nicotine dependence; Z20.822 Contact with and (suspected) exposure to COVID-19; I11.0 Hypertensive heart disease with heart failure; M25.472 Effusion, left ankle; I50.23 Acute on chronic systolic (congestive) heart failure; Z96.0 Presence of urogenital implants; J44.9 Chronic obstructive pulmonary disease, unspecified; D64.9 Anemia, unspecified; Z79.01 Long term (current) use of anticoagulants; I25.2 Old myocardial infarction; Z95.810 Presence of automatic (implantable) cardiac defibrillator; I50.9 Heart failure, unspecified; Z20.818 Contact with and (suspected) exposure to other bacterial communicable diseases; R31.0 Gross hematuria; K92.1 Melena; M25.471 Effusion, right ankle

== ENCOUNTER 2024-06-02 15:34 | Inpatient (IN) ==
[2024-06-02] MEDS: SODIUM CHLORIDE 0.9% 500 ML IV STA ×2 (16:22→18:14)
[2024-06-02 16:36] LABS: BASOPHILS % (AUTO) 0.4 %; EOSINOPHILS % (AUTO) 0.6 %; HCT - HEMATOCRIT 29.4 % (42.0-52.0); HGB - HEMOGLOBIN 7.8 g/dL (14.0-18.0); LYMPHOCYTES # (AUTO) 0.3 10^3/uL (1.5-3.5); MEAN CORPUSCULAR HEMOGLOBIN 20.4 pg (27.0-31.0); MEAN CORPUSCULAR HGB CONC 26.5 g/dL (32.0-36.0); MEAN CORPUSCULAR VOLUME 76.8 fL (80.0-94.0); MEAN PLATELET VOLUME 10.3 fL (7.4-11.4); MONOCYTES # (AUTO) 0.5 10^3/uL (0.0-1.0); MONOCYTES % (AUTO) 10.2 %; NEUTROPHILS # (AUTO) 4.4 10^3/uL (1.5-6.6); NEUTROPHILS % (AUTO) 83.4 %; PLT - PLATELET COUNT 194 10^3/uL (130-450); RED BLOOD COUNT 3.83 10^6/uL (4.70-6.10); RED CELL DISTRIBUTION WIDTH 21.2 % (12.0-15.0); WHITE BLOOD COUNT 5.2 x10^3/uL (4.8-10.8)
--- NOTE | 2024-06-02 16:52 | XRAY Report ---
PROCEDURE: XR Chest 1V INDICATIONS: dyspnea TECHNIQUE: One view of the chest was acquired. COMPARISON: 04/10/2024. FINDINGS: Surgical changes and devices: Pacemaker. Lungs and pleura: Mild pulmonary edema, bilateral pleural effusions, right greater than left, bibasi lar atelectasis. Mediastinum: Mediastinal contours appear normal. Heart size is enlarged. Bones and chest wall: No suspicious bony lesions. Overlying soft tissues appear unremarkable. IMPRESSION: Congestive heart failure exacerbation. Reviewed by: Keny Ho MD on 06/02/2024 4:51 PM PST Approved by: Keny Ho MD on 06/02/2024 4:51 PM PST Station ID: [id number]
--- NOTE | 2024-06-02 16:52 | ED Physician Documentation ---
History of Present Illness Stated complaint Stated Complaint: RT LEG PX Chief complaint Chief Complaint: Wound History obtained from History obtained from: Patient and Family Additonal information Additional information: 79-year-old male with a history of congestive heart failure with reduced ejection fraction, approximately 20%. History of peripheral vascular disease. Complains of weeping edema to the bilateral lower extremities. He states that he has a history of low blood pressure, his usual systolic blood pressures around 100. No fevers or chills. Has a dry cough but no different than usual. No abdominal pain, nausea, vomiting. He states that his legs have felt colder for the last 3 to 4 months. No numbness or tingling. Patient uses oxygen at home, 2 to 4 L depending on his needs. No chest pain. No increase shortness of breath. Has developed a wound on the right lower extremity as well. Concerned about potential infection. Review of Systems Constitutional Denies: Fever or Chills Cardiovascular Denies: chest pain or palpitations Genitourinary Denies: Flank pain, Urinary frequency or Urinary urgency Meds/Allgy Home Medications Ambulatory Orders Medication Instructions Recorded Confirmed multivitamin 1 ea PO DAILY 10/25/15 06/02/24 atorvastatin 20 mg tablet 20 mg PO DAILY 06/28/18 06/02/24 apixaban 5 mg tablet (Eliquis) 5 mg PO BID 12/28/22 06/02/24 ipratropium 0.5 mg-albuterol 3 mg 3 ml inhalation Q4H PRN 09/26/23 06/02/24 (2.5 mg base)/3 mL nebulization Wheezing/Shortness of breath #360 soln mL empagliflozin 10 mg tablet 10 mg PO DAILY 01/16/24 06/02/24 (Jardiance) losartan 25 mg tablet 25 mg PO DAILY 01/16/24 06/02/24 nitroglycerin 0.4 mg sublingual 0.4 mg sublingual Q5M PRN chest 01/16/24 06/02/24 tablet pain omega-3 fatty acids 1,000 mg 1,000 mg PO QDAY 01/16/24 06/02/24 capsule Permanent Disabled Placard #1 ea 01/28/24 05/15/24 amiodarone 200 mg tablet 200 mg PO DAILY 02/22/24 06/02/24 budesonide-formoterol HFA 160 2 puff inhalation BID #10.2 grams 02/22/24 06/02/24 mcg-4.5 mcg/actuation aerosol inhaler (Symbicort) metoprolol succinate 50 mg 50 mg PO DAILY 30 days #30 tabs 03/16/24 06/02/24 tablet,extended release 24 hr furosemide 40 mg tablet (Lasix) 40 mg PO BID #60 tabs 04/07/24 06/02/24 lidocaine 5 % topical gel 2 ea transdermal QID #113 grams 05/15/24 06/02/24 metolazone 2.5 mg tablet 2.5 mg PO .COMPLEX 06/02/24 06/02/24 Allergies Allergies Allergy/AdvReac Type Severity Reaction Status Date / Time calcium carbonate (From Tums) AdvReac Intermediate Vomiting Verified 06/02/24 16:03 PFSH Active Problems All Active Problems (Updated 06/02/24 @ 21:20 by AMANDEEP Coppola) Peripheral artery disease (Acute) Pulmonary edema (Acute) Acute hyperkalemia (Acute) Acute hyponatremia (Acute) Edema, peripheral (Acute) Cellulitis of right ankle (Acute) Acute exacerbation of chronic heart failure (Acute) Cellulitis of right lower leg (Acute) Edema, peripheral (Acute 08/13/23) Dyspnea on exertion (Acute) Medical History Medical History (Updated 06/02/24 @ 21:20 by AMANDEEP Coppola) Heart failure Problem List clean-up per request of Phys. EHR Cmte Medication management A-fib Congestive heart failure (CHF) (08/13/23) COPD (chronic obstructive pulmonary disease) Sedentary lifestyle Pacemaker Atrial flutter Reduced ejection fraction concurrent with and due to acute on chronic heart f ailure Sepsis Pneumothorax, postprocedural Indwelling urinary catheter present Dark stools Anemia Dizziness Hematuria Nj catheter in place Hypotension due to blood loss Hematuria Anemia History of anticoagulant use Pseudomonas urinary tract infection HTN (hypertension) Myocardial infarction Prostate cancer Surgical History Surgical History (Updated 05/15/24 @ 15:54 by Luke Doran PA-C) AICD (automatic cardioverter/defibrillator) present Family History Family History Other Alzheimers disease CAD (coronary artery disease) COPD (chronic obstructive pulmonary disease) Cancer Heart attack High blood pressure Social History Social History Smoking Status: Former smoker If you are a former smoker, when did you quit? (Date/Year): 04/09/2023 Number of Years Smoked: 60 How many cigarettes a day do you smoke? (20 cigarettes=1 Pk): 15 Second hand tobacco smoke exposure: No Do you dip or chew tobacco?: No Do you vape?: Yes Patient requests smoking cessation consult: No Initiate information on smoking cessation: No Living arrangement: At home Marital Status: Living Condition: With spouse/s.o. Relationship: Level: Independent Home Mobility Equipment: Cane Do you feel safe in your home environment?: Yes Suffered physical, verbal, emotional, or financial abuse?: No History of Abuse: No ETOH Use: None Substance Use: denies use Are you sexually active?: No Retired: Yes Service: Yes Dates of Service: [id number] Are you following a diet prescribed by a doctor: No Are you following a special diet: No POLST POLST Status: Full Code (Yes to intubation, no chest compression) Exam Constitutional normal general appearance and no apparent distress HENMT normocephalic and head/scalp atraumatic Eyes PERRL Neck/C-Spine trachea midline Respiratory Diminished breath sounds bilaterally with crackles bilaterally. Cardiovascular normal heart rate noted and regular rhythm noted Gastrointestinal abdomen soft to palpation and nontender to palpation Back/Pelvis no thoracic spine tenderness and no lumbar spine tenderness Extremities 2+ bilateral lower extremity pitting edema. Legs are cool to the touch, the pitting edema goes up above the knees bilaterally. Neurovascular intact Psychiatry mental status grossly normal and oriented x3 Skin skin color normal Results Vitals Vitals: Vital Signs - 24 hr 06/02/24 15:57 06/02/24 16:03 06/02/24 16:25 Temperature 36.4 C L Temperature Source Temporal Artery Scan Pulse Rate 68 86 Respiratory Rate 20 16 Blood Pressure 72/49 L 68/37 L O2 Saturation 100 98 Oxygen Delivery Method Nasal Cannula O2 Source Nasal cannula Room air Oxygen Flow Rate If not protocol: Oxygen Flow, liters/minute 4 4 Pain Intensity 2 5 06/02/24 16:25 06/02/24 16:33 06/02/24 17:03 Temperature Temperature Source Pulse Rate 76 60 Respiratory Rate 14 16 Blood Pressure 65/38 L 72/36 L O2 Saturation 98 97 Oxygen Delivery Method Nasal Cannula O2 Source Room air Nasal cannula Oxygen Flow Rate 4 If not protocol: Oxygen Flow, liters/minute 2 Pain Intensity 5 5 06/02/24 18:00 06/02/24 18:06 06/02/24 18:30 Temperature Temperature Source Pulse Rate 78 84 Respiratory Rate 20 16 Blood Pressure 93/63 83/53 L O2 Saturation 82 L 98 Oxygen Delivery Method O2 Source Nasal cannula Room air Oxygen Flow Rate If not protocol: Oxygen Flow, liters/minute 3 Pain Intensity 8 4 06/02/24 19:00 06/02/24 19:00 06/02/24 19:28 Temperature Temperature Source Pulse Rate 86 60 Respiratory Rate 16 19 Blood Pressure 89/53 L 80/52 L O2 Saturation 96 99 Oxygen Delivery Method O2 Source Nasal cannula Nasal cannula Oxygen Flow Rate If not protocol: Oxygen Flow, liters/minute 4 4 Pain Intensity 2 4 4 06/02/24 20:04 06/02/24 20:06 06/02/24 20:27 Temperature 36.9 C Temperature Source Oral Pulse Rate 60 Respiratory Rate 20 Blood Pressure 81/50 L O2 Saturation 99 Oxygen Delivery Method Nasal Cannula Nasal Cannula O2 Source Nasal cannula Oxygen Flow Rate 2 If not protocol: Oxygen Flow, liters/minute 2 2 Pain Intensity 2 06/02/24 20:30 Temperature Temperature Source Pulse Rate 78 Respiratory Rate 22 Blood Pressure 102/53 L O2 Saturation 100 Oxygen Delivery Method O2 Source Nasal cannula Oxygen Flow Rate If not protocol: Oxygen Flow, liters/minute 2 Pain Intensity Oxygen O2 Source Nasal cannula Oxygen Flow Rate 2 EKG (time done) 1621: EKG releavant findings:: EKG personally interpreted by author of this note. Relevant findings are: Rate: Other (70bpm, paced) Labs Labs: Microbiology 06/02/24 18:15 Wound Culture - Preliminary Ankle - Right Laboratory Tests 06/02/24 06/02/24 16:20 17:29 WBC 5.2 RBC 3.83 L Hgb 7.8 L Hct 29.4 L MCV 76.8 L MCH 20.4 L MCHC 26.5 L RDW 21.2 H Plt Count 194 MPV 10.3 Neut # (Auto) 4.4 Lymph # (Auto) 0.3 L [place] # (Auto) 0.5 Eos # (Auto) 0.0 Baso # (Auto) 0.0 Absolute Nucleated RBC 0.00 Nucleated RBC % 0.0 Sodium 126 L Potassium 5.9 H Chloride 93 L Carbon Dioxide 27 Anion Gap 6.0 BUN 75 H Creatinine 1.9 H Estimated GFR (MDRD) 34 L Glucose 86 Lactic Acid 1.4 Calcium 8.8 Total Bilirubin 0.5 AST 39 ALT 26 Alkaline Phosphatase 52 Troponin I High Sens 24.7 H* B-Natriuretic Peptide 1556 H Total Protein 7.3 Albumin 3.5 Globulin 3.8 Albumin/Globulin Ratio 0.9 L Lipase 65 Rads (name of study) cxr: Relevant Findings:: Final report received art duplex RLE: Relevant Findings:: Final report received PD Medical Decision Making ED course Complexity details: reviewed results, re-evaluated patient, considered differential, d/w patient, d/w family and d/w rehab consultant ED course: Patient is a 79-year-old male history of congestive heart failure with very poor ejection fraction. Has significant pitting edema in the bilateral lower extremities. Found to be significantly hyponatremic and hyperkalemic. Slight worsening of his creatinine from baseline. Appears to be third spacing fluid, causing intravascular depletion. He is hypotensive. Gentle fluid boluses were given to improve his blood pressure. His normal systolic blood pressure is only around 100. He is mentating well. He is sitting at the end of the bed talking to his after fluids. Consulted the hospitalist, Dr. Ching, he requests a arterial ultrasound for possible PAD. Ultrasound was obtained, showed focal areas of high-grade stenosis versus occlusion in the mid superficial arm or her artery and popliteal artery, flow is seen distal to these areas, biphasic waveforms throughout. Discussed the case with vascular surgery at [facility] in [place], Dr. Jansen, Reviewed the physical exam findings and the ultrasound findings. Given the biphasic flow distal to these areas of likely high-grade stenosis, occlusion is felt to be unlikely especially given the progression of symptoms over months. He recommends continuing the patient on Eliquis, can follow-up as an outpatient he states there likely is no intervention for this patient. Discussed the case with the hospitalist and we will admit the patient for correction of electrolytes, diuresis and gentle IV hydration for intravascular depletion. Pulmonary edema present on chest x-ray. Maintained on his normal home oxygen. This document was made in part using voice recognition software. While efforts are made to proofread this document, sound alike and grammatical errors may occur. Discharge Plan Discharge Patient Disposition: 66 [facility] DC/Xfer Condition: Stable Clinical Impression: Acute exacerbation of chronic heart failure, Edema, peripheral, Acute hyponatremia, Acute hyperkalemia Pulmonary edema Qualifiers: Chronicity: acute Qualified Code(s): J81.0 - Acute pulmonary edema
[2024-06-02 16:54] LABS: ALBUMIN 3.5 g/dL (3.2-5.5); ALBUMIN/GLOBULIN RATIO 0.9 (1.0-2.2); BILIRUBIN,TOTAL 0.5 mg/dL (0.2-1.0); CALCIUM 8.8 mg/dL (8.5-10.3); CREATININE 1.9 mg/dL (0.6-1.3); POTASSIUM 5.9 mmol/L (3.5-4.5); TOTAL PROTEIN 7.3 g/dL (6.4-8.9)
[2024-06-02 16:57] LABS: TROPONIN I HIGH SENSITIVITY 24.7 ng/L (2.3-19.7)
[2024-06-02] MEDS: FUROSEMIDE 20 MG/2 ML VIAL IVP STA (18:05)
[2024-06-02] MEDS: fentaNYL 100 MCG/2 ML VIAL IVP STA (18:06)
[2024-06-02] MEDS: SODIUM CHLORIDE 0.9% 1,000 ML IV STA (19:56)
--- NOTE | 2024-06-02 20:17 | Ultrasound Report ---
PROCEDURE: US Arterial Duplex Lwr Ext RT INDICATIONS: RLE swelling, cool to touch TECHNIQUE: Color and pulse Doppler interrogation was performed of the right lower extremity arterial system, wit h image documentation. COMPARISON: None FINDINGS: Common femoral artery: 125 cm/sec, with biphasic flow. Deep femoral artery: 108 cm/sec, with monophasic flow. Proximal superficial femoral artery: 125 cm/sec, with biphasic flow. Mid superficial femoral artery: 103 cm/sec, with biphasic flow. Distal superficial femoral artery: 53 cm/sec, with biphasic flow. Popliteal artery: 56 cm/sec, with biphasic flow. Posterior tibial artery: 73 cm/sec, with biphasic flow. Anterior tibial artery/dorsalis pedis: 43/34 cm/sec, with biphasic flow. [place]-scale imaging description: Atherosclerotic vascular calcifications are present. Focal areas of high-grade stenosis involving the mid superficial femoral artery and popliteal artery. IMPRESSION: Focal areas of high-grade stenosis versus occlusion within the mid superficial femoral artery and pop liteal artery. Flow is seen just distal to these areas of high-grade stenosis however occlusion is in the differential. Biphasic wave forms throughout. Recommend vascular surgery consultation. Agree with preliminary interpretation provided to the ordering provider by the ultrasound technologis t. Reviewed by: Chandler Turner MD on 06/02/2024 8:16 PM PST Approved by: Chandler Turner MD on 06/02/2024 8:16 PM PST Station ID: [id number]
--- NOTE | 2024-06-02 21:00 | HISTORY & PHYSICAL EXAMINATION ---
Chief Complaint Chief Complaint Chief Complaint: right leg pain History of Present Illness Admitted From Admitted From:: home History Obtained From Records Reviewed: last admit History obtained from: patient and History of Present Illness HPI Comment/Other: 79-year-old gentleman with known history of heart failure with reduced ejection fraction, peripheral edema, COPD recently treated for cellulitis of the right ankle with oral antibiotics [facility] of right lower extremity pain. This pain has been ongoing for for 1 month. He has been not sleeping in a bed but sleeping in a chair because he has more pain in his legs when they are elevated. He also has difficulty lying flat due to paroxysmal nocturnal dyspnea. He has not been wearing his CPAP for some time now for an unknown reason. Last echocardiogram is dated January 11, 2024 at [facility] showed severely dilated left ventricle, LVEF estimate 20% akinesis of the entire inferior inferior apical lateral and anterolateral bell grossly normal RV size with likely mildly reduced RV systolic function, eccentric moderate to severe mitral valve regurgitation, heavily calcified aortic valve with severely reduced leaflet motion, with severe stenosis mild aortic valve regurgitation elevated right ventricular systolic pressure of 59 mmHg moderate tricuspid valve regurg moderate bilateral pleural effusions His PCP is [facility]. He is also seen by cardiology. He has not been seen by nephrology.His director retirement is [employer] Wiley at [facility] [employer] in [place] When asked about CODE STATUS, patient states that he does not want CPR but he does want to be on a ventilator. He states that he would only want extreme measures taken to continue his life if he were able to have his current quality of life or better. His Obdulia would be his medical decision maker with his son Irvin as a secondary contact. Meds/Allgy Home Medications Ambulatory Orders Medication Instructions Recorded Confirmed multivitamin 1 ea PO DAILY 10/25/15 06/02/24 atorvastatin 20 mg tablet 20 mg PO DAILY 06/28/18 06/02/24 apixaban 5 mg tablet (Eliquis) 5 mg PO BID 12/28/22 06/02/24 ipratropium 0.5 mg-albuterol 3 mg 3 ml inhalation Q4H PRN 09/26/23 06/02/24 (2.5 mg base)/3 mL nebulization Wheezing/Shortness of breath #360 soln mL empagliflozin 10 mg tablet 10 mg PO DAILY 01/16/24 06/02/24 (Jardiance) losartan 25 mg tablet 25 mg PO DAILY 01/16/24 06/02/24 nitroglycerin 0.4 mg sublingual 0.4 mg sublingual Q5M PRN chest 01/16/24 06/02/24 tablet pain omega-3 fatty acids 1,000 mg 1,000 mg PO QDAY 01/16/24 06/02/24 capsule Permanent Disabled Placard #1 ea 01/28/24 05/15/24 amiodarone 200 mg tablet 200 mg PO DAILY 02/22/24 06/02/24 budesonide-formoterol HFA 160 2 puff inhalation BID #10.2 grams 02/22/24 06/02/24 mcg-4.5 mcg/actuation aerosol inhaler (Symbicort) metoprolol succinate 50 mg 50 mg PO DAILY 30 days #30 tabs 03/16/24 06/02/24 tablet,extended release 24 hr furosemide 40 mg tablet (Lasix) 40 mg PO BID #60 tabs 04/07/24 06/02/24 lidocaine 5 % topical gel 2 ea transdermal QID #113 grams 05/15/24 06/02/24 metolazone 2.5 mg tablet 2.5 mg PO .COMPLEX 06/02/24 06/02/24 Allergies Allergies Allergy/AdvReac Type Severity Reaction Status Date / Time calcium carbonate (From Tums) AdvReac Intermediate Vomiting Verified 06/02/24 16:03 PFSH Active Problems All Active Problems (Updated 06/02/24 @ 21:20 by AMANDEEP Coppola) Peripheral artery disease (Acute) Pulmonary edema (Acute) Acute hyperkalemia (Acute) Acute hyponatremia (Acute) Edema, peripheral (Acute) Cellulitis of right ankle (Acute) Acute exacerbation of chronic heart failure (Acute) Cellulitis of right lower leg (Acute) Edema, peripheral (Acute 08/13/23) Dyspnea on exertion (Acute) Medical History Medical History (Updated 06/02/24 @ 21:20 by AMANDEEP Coppola) Heart failure Problem List clean-up per request of Phys. EHR Cmte Medication management A-fib Congestive heart failure (CHF) (08/13/23) COPD (chronic obstructive pulmonary disease) Sedentary lifestyle Pacemaker Atrial flutter Reduced ejection fraction concurrent with and due to acute on chronic heart failure Sepsis Pneumothorax, postprocedural Indwelling urinary catheter present Dark stools Anemia Dizziness Hematuria Nj catheter in place Hypotension due to blood loss Hematuria Anemia History of anticoagulant use Pseudomonas urinary tract infection HTN (hypertension) Myocardial infarction Prostate cancer Surgical History Surgical History (Updated 05/15/24 @ 15:54 by Luke Doran PA-C) AICD (automatic cardioverter/defibrillator) present Family History Family History Other Alzheimers disease CAD (coronary artery disease) COPD (chronic obstructive pulmonary disease) Cancer Heart attack High blood pressure Social History Social History Smoking Status: Former smoker If you are a former smoker, when did you quit? (Date/Year): 04/09/2023 Number of Years Smoked: 60 How many cigarettes a day do you smoke? (20 cigarettes=1 Pk): 15 Second hand tobacco smoke exposure: No Do you dip or chew tobacco?: No Do you vape?: Yes Patient requests smoking cessation consult: No Initiate information on smoking cessation: No Living arrangement: At home Marital Status: Living Condition: With spouse/s.o. Relationship: Level: Independent Home Mobility Equipment: Cane Do you feel safe in your home environment?: Yes Suffered physical, verbal, emotional, or financial abuse?: No History of Abuse: No ETOH Use: None Substance Use: denies use Are you sexually active?: No Retired: Yes Service: Yes Dates of Service: [id number] Are you following a diet prescribed by a doctor: No Are you following a special diet: No POLST Patient has POLST: No POLST Status: Full Code (Yes to intubation, no chest compression) Review of Systems Status of ROS: 10 or more systems reviewed and unremarkable except as noted in history and below Constitutional Reports: Fatigue and Weakness Cardiovascular Reports: swelling of feet/ankles, shortness of breath when lying down and Decreased exercise tolerance Respiratory Reports: Cough Gastrointestinal Denies: Abdominal pain, Diarrhea, Constipation or Change in bowel habits Genitourinary Denies: Painful urination Musculoskeletal Reports: Extremity pain and Extremity swelling; Denies: Gout Integumentary/Breast Reports: Redness Endocrine Reports: Fatigue Prior Level of Functionality: Ambulates limited distances with a cane. Lives with his who is his primary caregiver. Exam Constitutional appears chronically ill HENMT normocephalic and external ears normal poor dentition Eyes conjunctivae normal Neck/C-Spine visual inspection normal JVD Lymph no lymphadenopathy noted Chest inspection of chest normal and palpation of chest normal Respiratory breath sounds equal bilaterally, normal respiratory effort, no wheezes and use of accessory muscles noted diminished at bases Cardiovascular normal heart rate noted and regular rhythm noted non palpable pulses, dependent rubor of the bilateral lower ext, much worse on the right, 2 inches below the knee, when feet are raised above heart, limbs quickly develop pallor and become painful. systolic blood pressure increases from low 80's to 97 with lower extremity elevation. Gastrointestinal abdomen normal to inspection and abdomen soft to palpation Back/Pelvis spine normal to inspection Extremities right lower extremity with dependent rubor and edema, pitting to the upper calf, there is a shallow ulceration with fibrinous exudate about 3cm diameter which is weeping clear fluid. The extremity is not warm, it is cool left lower ext 2+pitting edema to the mid calf with less dependent rubor and no active wounds. no hair growth noted on the legs. hypertrophic nails Neurology no movement abnormality noted, no focal motor deficit noted and GCS 15 Psychiatry mental status grossly normal, oriented x3, thought process normal, cooperative and memory normal Skin see above. this is not a cellulitis Conclusion/Plan Problem List (1) Acute exacerbation of chronic heart failure: Plan: Last echocardiogram is dated January 11, 2024 at [facility] showed severely dilated left ventricle, LVEF estimate 20% akinesis of the entire inferior inferior apical lateral and anterolateral bell grossly normal RV size with likely mildly reduced RV systolic function, eccentric moderate to severe mitral valve regurgitation, heavily calcified aortic valve with severely reduced leaflet motion, with severe stenosis mild aortic valve regurgitation elevated right ventricular systolic pressure of 59 mmHg moderate tricuspid valve regurg moderate bilateral pleural effusions This patient has peripheral edema which is severe made worse by chronic dependency which is probably due to his mixed picture arterial insufficiency and reduced ejection fraction giving him chronic vascular rest pain. His BN P is 1556. Approximately 6 weeks ago it was about 1000. Troponin is 24 on admission, no evidence of acute coronary syndrome. Patient is not have any chest pain. I think he likely has reduced intravascular volume with moderate to severe peripheral edema. The challenge will be to appropriately diurese him without worsening his kidney function. Without relief of his lower extremity edema he will continue to have pain and ulcerations which are difficult to heal. (2) Pulmonary edema: Plan: BNP is elevated as stated above. His chest x-ray shows a congestive heart failure exacerbation. Patient seems intravascularly volume depleted but has a lot of fluid in his extracellular spaces. Will attempt to give albumin, diuretics and fluids. His pulmonary edema may worsen and may necessitate BiPAP. He consents to BiPAP he also consents to intubation. Qualifiers: Chronicity: acute Qualified Code(s): J81.0 - Acute pulmonary edema (3) DAVID (acute kidney injury): Plan: Baseline renal function shows creatinine that hovers between 1.0 and 1.2. More recently on 15 May he shows a creatinine of 1.8 and tonight a creatinine of 1.9. This is indicative of worsening renal function. His BUN is elevated over the last month into the mid 60s to mid 70s. Attempting to diurese this patient while maintaining kidney function. He is also experiencing hyperkalemia and hyponatremia. (4) Acute hyperkalemia: Plan: Potassium of 5.9 which appears acute. I have ordered 1 dose of Lokelma to be given on admission. Additionally we will continue to diurese the patient with Lasix which hopefully will drive the potassium down. (5) Acute hyponatremia: Plan: Hyponatremia is unusual for this patient he has a sodium of 126 this evening. Will continue to monitor. Repeat serum sodium upon arrival to the floor. (6) Peripheral artery disease: Plan: Dependent rubor with pallor when the extremities are elevated and vascular rest pain with elevation of the extremities above the heart. Stat duplex scan of the lower extremity arteries shows focal areas of high-grade stenosis versus occlusion within the mid SFA and popliteal artery on the right. There is distal flow and there are biphasic waveforms throughout vascular surgery consultation is recommended. ED MD consulted with vascular sx at [facility], this is not an acute vascular issue, but more one of heart failure with insufficent perfusion of the extremities. (7) Edema, peripheral: Plan: Subsequently there peripheral edema due to chronic dependency and likely venous insufficiency in the setting of january mitten heart failure with reduced ejection fraction and peripheral vascular disease I will attempt to diurese, compress and elevate his extremities. (8) COPD (chronic obstructive pulmonary disease): Plan: He is on his baseline oxygen requirement of 2 L/min. I do not believe he is having exacerbation of his COPD. I will continue his home medications. Qualifiers: COPD type: unspecified COPD Qualified Code(s): J44.9 - Chronic obstructive pulmonary disease, unspecified Plan I expect this patient to the be admitted for at least 2 midnights for diuresis, monitoring of electrolytes and renal function and assessment of his peripheral edema and wounds. I have spent 80 minutes in the care of this patient today. This includes time [id number], review and ordering of diagnostic imaging and laboratory studies and consultation with other providers.. Monitoring the patient's signs symptoms, evaluation of medication effectiveness and patient's response to treatment. Discussion with Dr Kenny in the ED and the decision was made to admit. Lab Results Lab results reviewed: Yes 06/02/24 16:20 06/02/24 16:20 Core Measures Anticipated LOS I expect patient to be DC'd or transferred within 96 hours.: Yes Issues Hospital Issues and Management Plan: acute heart failure with reduced EF and PVD with dependent edema DVT/VTE - Prophylaxis VTE/DVT Device ordered at admit?: Yes VTE/DVT Prophylaxis med ordered at admit?: Yes
[2024-06-02] MEDS: FUROSEMIDE 40 MG/4 ML VIAL IVP SCH (21:47)
[2024-06-02] MEDS: ACETAMINOPHEN 325 MG TABLET PO STA (21:49)
[2024-06-02] MEDS: ALBUMIN 25% 12.5 GM/50 ML VIAL IV ONE (21:53)
[2024-06-02] MEDS: SODIUM ZIRCONIUM CYCLOSILICATE 5 GM PACKET PO ONE (23:20)
[2024-06-02] MEDS: APIXABAN 5 MG TABLET PO SCH (23:21)
[2024-06-02] MEDS: SODIUM CHLORIDE 0.9% 1,000 ML IV SCH (23:48)
[2024-06-03] MEDS: SODIUM CHLORIDE FLUSH 0.9% 10 ML SYRINGE IVP SCH (00:21)
[2024-06-03] MEDS: HYDROmorphone 0.5 MG/0.5 ML SYRINGE IVP PRN (00:37)
[2024-06-03 04:59] LABS: BASOPHILS % (AUTO) 0.3 %; EOSINOPHILS % (AUTO) 0.7 %; HCT - HEMATOCRIT 27.4 % (42.0-52.0); HGB - HEMOGLOBIN 7.5 g/dL (14.0-18.0); LYMPHOCYTES # (AUTO) 0.5 10^3/uL (1.5-3.5); LYMPHOCYTES % (AUTO) 7.8 %; MEAN CORPUSCULAR HEMOGLOBIN 20.7 pg (27.0-31.0); MEAN CORPUSCULAR HGB CONC 27.4 g/dL (32.0-36.0); MEAN CORPUSCULAR VOLUME 75.7 fL (80.0-94.0); MONOCYTES # (AUTO) 0.6 10^3/uL (0.0-1.0); MONOCYTES % (AUTO) 10.2 %; NEUTROPHILS # (AUTO) 4.8 10^3/uL (1.5-6.6); NEUTROPHILS % (AUTO) 80.7 %; PLT - PLATELET COUNT 179 10^3/uL (130-450); RED BLOOD COUNT 3.62 10^6/uL (4.70-6.10); RED CELL DISTRIBUTION WIDTH 20.7 % (12.0-15.0); WHITE BLOOD COUNT 5.9 x10^3/uL (4.8-10.8)
[2024-06-03 05:07] LABS: SLIDE REVIEW? Indicated
[2024-06-03 05:10] LABS: CALCIUM 8.4 mg/dL (8.5-10.3); CREATININE 2.1 mg/dL (0.6-1.3); POTASSIUM 5.1 mmol/L (3.5-4.5)
[2024-06-03 05:40] LABS: PLATELET ESTIMATE, MANUAL NORMAL (130-450,000) (NORMAL); PLATELET MORPHOLOGY NORMAL APPEARANCE (NORMAL)
[2024-06-03] MEDS: AMIODARONE 200 MG TABLET PO SCH (09:15)
[2024-06-03] MEDS: ethyl alcohoL 62% SWAB AMPULE NAS SCH (09:16)
[2024-06-03] MEDS: ALBUMIN 25% 12.5 GM/50 ML VIAL IV STA (10:24)
[2024-06-03] MEDS: HYDROCORTISONE 1% CREAM 28 GM TUBE TOP SCH (10:25)
--- NOTE | 2024-06-03 11:34 | PROVIDER PROGRESS NOTE ---
Subjective Prog Note Date Prog Note Date: 06/03/24 Prog Note Time: 11:27 Subjective Pt reports feeling: Improved Subjective: Mr. Hinojosa has continuing right leg edema and pain, but he remains in good spirit and is joking with staff. RN is currently changing dressing so I was able to see his wound, which appears dry without active bleeding or weeping. He is unable to lay his legs still due to pain, keeping the right leg lifted with knee flexed, touching the calf and najera lightly with his hands while verbalizing/moaning in pain. His body and left leg shake with pain. RN notes patient is unable to tolerate compression CURT hose due to severe pain. He denies chest pain, difficulty breathing, confusion. He states his only complaint currently is the leg pain. Current Medications Current Medications Current Medications: Current Medications Generic Name Dose Route Start Last Admin Trade Name Freq PRN Reason Stop Dose Admin Albuterol/Ipratropium 3 ml 06/02/24 22:06 Ipratropium/Albuterol 3 Ml Neb INH Q4H PRN Wheezing/Shortness of breath Alcohol 1 amp 06/03/24 09:00 06/03/24 09:16 Ethyl Alcohol 62% Swab Ampule GORGE 1 amp BID AVIS Administration Amiodarone HCl 200 mg 06/03/24 09:00 06/03/24 09:15 Amiodarone 200 Mg Tablet PO 200 mg DAILY AVIS Administration Apixaban 5 mg 06/02/24 22:06 06/03/24 09:15 Apixaban 5 Mg Tablet PO 5 mg BID AVIS Administration Furosemide 40 mg 06/02/24 21:00 06/03/24 09:15 Furosemide 40 Mg/4 Ml Vial IVP 40 mg BID AVIS Administration Hydrocortisone 1 applic 06/03/24 11:00 06/03/24 10:25 Hydrocortisone 1% Cream 28 Gm Tube TOP 1 applic BID AVIS Administration Hydromorphone HCl 0.5 mg 06/02/24 20:48 06/03/24 11:20 Hydromorphone 0.5 Mg/0.5 Ml Syringe IVP 0.5 mg Q2H PRN Administration PAIN >8 Ondansetron HCl 4 mg 06/02/24 20:48 Ondansetron 4 Mg/2 Ml Vial IVP Q6H PRN Nausea / Vomiting Empagliflozin [ 1 each 06/03/24 09:00 06/03/24 09:17 Jardiance] 10 Mg PO Not Given Tablet DAILY AVIS Sodium Chloride 10 ml 06/02/24 22:06 Sodium Chloride Flush 0.9% 10 Ml Syringe IVP PRN PRN NEEDED PER PROVIDER ORDERS Sodium Chloride 10 ml 06/03/24 01:00 06/03/24 09:16 Sodium Chloride Flush 0.9% 10 Ml Syringe IVP 10 ml 0100,0900,1700 AVIS Administration Objective Vital Signs/Intake & Output Reviewed Vital Signs: Yes Vital Signs: Vital Signs x48h Temp Pulse Resp BP Pulse Ox O2 Flow Rate 06/03/24 11:00 71 17 101/54 L 98 2 06/03/24 10:00 65 22 98/48 L 99 2 06/03/24 09:00 86 22 101/72 96 2 06/03/24 08:00 36.5 C 72 22 105/52 L 100 2 06/03/24 07:00 75 19 105/44 L 98 2 06/03/24 06:00 36.5 C 79 17 106/60 100 2 06/03/24 05:00 68 18 103/47 L 100 2 06/03/24 04:00 67 18 105/56 L 100 2 Intake & Output: Intake & Output 05/31/24 06/01/24 06/02/24 06/03/24 23:59 23:59 23:59 23:59 Intake Total 550 / 550 2681 / 2681 Output Total 1275 / 1275 Balance 550 / 550 1406 / 1406 Weight (kg) 92 kg 92 kg Objective General Appearance: positive Alert and Moderate distress (visibly in pain, verbalizing and moaning in pain, shaking, uncomfortable) Eyes Bilateral: positive Normal inspection, PERRL and EOMI ENT: positive ENT inspection nml, Pharynx nml and No signs of dehydration Neck: positive Nml inspection and No JVD Respiratory: positive Chest non-tender, No respiratory distress and Breath sounds nml; negative Wheezes, Rales or Rhonchi Cardiovascular: positive Regular rate & rhythm, No murmur, No gallop and Other (paced rhythm ) Abdomen: positive Non-tender; negative Guarding, Rebound, Hepatomegaly, Splenomegaly or Mass Back: positive Nml inspection; negative CVA tenderness (R) or CVA tenderness (L) Skin: positive Color nml Extremities: positive Pedal edema (bilateral, R>L, 3+ up to mid-thigh), Calf tenderness (bilateral, equal) and Other (bilateral LE: dependent rubor and edema, pitting to the upper calf, + ulceration on R leg - granulation tissue in tact, some purulence noted, cool to touch, +nail hypertrophy, no hair growth; LLE with small blister on inner calf) Neurologic/Psychiatric: positive Oriented x3, CN's nml (2-12), Motor nml and Sensation nml Lab Results 06/03/24 04:46 06/03/24 12:12 Other Labs: Lab Results x24hrs 06/03/24 06/03/24 06/03/24 Range/Units 08:59 04:46 04:46 WBC (4.8-10.8) x10^3/uL RBC (4.70-6.10) 10^6/uL Hgb (14.0-18.0) g/dL Hct (42.0-52.0) % MCV (80.0-94.0) fL MCH (27.0-31.0) pg MCHC (32.0-36.0) g/dL RDW (12.0-15.0) % Plt Count (130-450) 10^3/uL MPV (7.4-11.4) fL Neut # (Auto) (1.5-6.6) 10^3/uL Lymph # (Auto) (1.5-3.5) 10^3/uL [place] # (Auto) (0.0-1.0) 10^3/uL Eos # (Auto) (0.0-0.7) 10^3/uL Baso # (Auto) (0.0-0.1) 10^3/uL Absolute Nucleated RBC x10^3/uL Nucleated RBC % /100WBC Manual Slide Review Platelet Estimate (NORMAL) Platelet Morphology (NORMAL) RBC Morph Micro Appear 1+ OVALOCYTES 2+ HYPOCHROMASIA (NORMAL) Sodium 128 L (135-145) mmol/L Potassium 5.1 H (3.5-4.5) mmol/L Chloride 95 L (101-111) mmol/L Carbon Dioxide 26 (21-32) mmol/L Anion Gap 7.0 (6-13) BUN 69 H (6-20) mg/dL Creatinine 2.1 H (0.6-1.3) mg/dL Estimated GFR (MDRD) 31 L (>89) Glucose 95 (74-104) mg/dL Lactic Acid (0.5-2.2) mmol/L Calcium 8.4 L (8.5-10.3) mg/dL Total Bilirubin (0.2-1.0) mg/dL AST (10-42) IU/L ALT (10-60) IU/L Alkaline Phosphatase (42-121) IU/L Troponin I High Sens (2.3-19.7) ng/L B-Natriuretic Peptide 1784 H (5-100) pg/mL Total Protein (6.4-8.9) g/dL Albumin (3.2-5.5) g/dL Globulin (2.1-4.2) g/dL Albumin/Globulin Ratio (1.0-2.2) Lipase (11-82) U/L Nasal Screen MRSA (PCR) (NEGATIVE) 06/03/24 06/02/24 06/02/24 Range/Units 04:46 22:49 22:17 WBC 5.9 (4.8-10.8) x10^3/uL RBC 3.62 L (4.70-6.10) 10^6/uL Hgb 7.5 L (14.0-18.0) g/dL Hct 27.4 L (42.0-52.0) % MCV 75.7 L (80.0-94.0) fL MCH 20.7 L (27.0-31.0) pg MCHC 27.4 L (32.0-36.0) g/dL RDW 20.7 H (12.0-15.0) % Plt Count 179 (130-450) 10^3/uL MPV 10.0 (7.4-11.4) fL Neut # (Auto) 4.8 (1.5-6.6) 10^3/uL Lymph # (Auto) 0.5 L (1.5-3.5) 10^3/uL [place] # (Auto) 0.6 (0.0-1.0) 10^3/uL Eos # (Auto) 0.0 (0.0-0.7) 10^3/uL Baso # (Auto) 0.0 (0.0-0.1) 10^3/uL Absolute Nucleated RBC 0.00 x10^3/uL Nucleated RBC % 0.0 /100WBC Manual Slide Review Indicated Platelet Estimate NORMAL (130-450,000) (NORMAL) Platelet Morphology NORMAL APPEARANCE (NORMAL) RBC Morph Micro Appear 1+ ANISOCYTOSIS (NORMAL) Sodium 128 L (135-145) mmol/L Potassium (3.5-4.5) mmol/L Chloride (101-111) mmol/L Carbon Dioxide (21-32) mmol/L Anion Gap (6-13) BUN (6-20) mg/dL Creatinine (0.6-1.3) mg/dL Estimated GFR (MDRD) (>89) Glucose (74-104) mg/dL Lactic Acid (0.5-2.2) mmol/L Calcium (8.5-10.3) mg/dL Total Bilirubin (0.2-1.0) mg/dL AST (10-42) IU/L ALT (10-60) IU/L Alkaline Phosphatase (42-121) IU/L Troponin I High Sens (2.3-19.7) ng/L B-Natriuretic Peptide (5-100) pg/mL Total Protein (6.4-8.9) g/dL Albumin (3.2-5.5) g/dL Globulin (2.1-4.2) g/dL Albumin/Globulin Ratio (1.0-2.2) Lipase (11-82) U/L Nasal Screen MRSA (PCR) POSITIVE A* (NEGATIVE) 06/02/24 06/02/24 Range/Units 17:29 16:20 WBC 5.2 (4.8-10.8) x10^3/uL RBC 3.83 L (4.70-6.10) 10^6/uL Hgb 7.8 L (14.0-18.0) g/dL Hct 29.4 L (42.0-52.0) % MCV 76.8 L (80.0-94.0) fL MCH 20.4 L (27.0-31.0) pg MCHC 26.5 L (32.0-36.0) g/dL RDW 21.2 H (12.0-15.0) % Plt Count 194 (130-450) 10^3/uL MPV 10.3 (7.4-11.4) fL Neut # (Auto) 4.4 (1.5-6.6) 10^3/uL Lymph # (Auto) 0.3 L (1.5-3.5) 10^3/uL [place] # (Auto) 0.5 (0.0-1.0) 10^3/uL Eos # (Auto) 0.0 (0.0-0.7) 10^3/uL Baso # (Auto) 0.0 (0.0-0.1) 10^3/uL Absolute Nucleated RBC 0.00 x10^3/uL Nucleated RBC % 0.0 /100WBC Manual Slide Review Platelet Estimate (NORMAL) Platelet Morphology (NORMAL) RBC Morph Micro Appear (NORMAL) Sodium 126 L (135-145) mmol/L Potassium 5.9 H (3.5-4.5) mmol/L Chloride 93 L (101-111) mmol/L Carbon Dioxide 27 (21-32) mmol/L Anion Gap 6.0 (6-13) BUN 75 H (6-20) mg/dL Creatinine 1.9 H (0.6-1.3) mg/dL Estimated GFR (MDRD) 34 L (>89) Glucose 86 (74-104) mg/dL Lactic Acid 1.4 (0.5-2.2) mmol/L Calcium 8.8 (8.5-10.3) mg/dL Total Bilirubin 0.5 (0.2-1.0) mg/dL AST 39 (10-42) IU/L ALT 26 (10-60) IU/L Alkaline Phosphatase 52 (42-121) IU/L Troponin I High Sens 24.7 H* (2.3-19.7) ng/L B-Natriuretic Peptide 1556 H (5-100) pg/mL Total Protein 7.3 (6.4-8.9) g/dL Albumin 3.5 (3.2-5.5) g/dL Globulin 3.8 (2.1-4.2) g/dL Albumin/Globulin Ratio 0.9 L (1.0-2.2) Lipase 65 (11-82) U/L Nasal Screen MRSA (PCR) (NEGATIVE) Diagnostic Imaging Diagnostic Imaging Results: positive Final report reviewed ABX Reporting Has patient been on IV antibiotics over the past 48 hours?: No Assessment/Plan Problem List (1) Acute exacerbation of chronic heart failure: Impression: - Combination of arterial insufficiency and low output heart failure resulting in dependent edema, open ulceration due to poor wound healing in lower extremities. BNP is elevated to 1784. - Cardiology notes reviewed from 02/01/2024echo at that time showed left ventricular ejection fraction of 20%, akinesis of entire inferior, inferoapical, lateral and anterolateral bell. He also heavily calcified aortic valve with severely reduced leaflet motion. Categorized as severe aortic stenosis. Right left heart catheterization done 01/14/2024 showed no significant disease in left main, moderate size LAD, widely patent stents in the proximal and mid, and chronically occluded proximal circumflex. No aortic regurgitation was noted. Overall, patient has extensive cardiac history including CAD with stents in the RCA, heart failure with severely depressed ejection fraction of 20%, moderate to severe aortic valve stenosis, ventricular tachycardia requiring cardioversion in 01/30, paroxysmal atrial fibrillation, biventricular AICD placement. - Continue aggressive diuresis of Lasix 40mg IV BID. Will give a few doses of albumin to aid in intravascular depletion. Continue to trend. If creatinine worsens, urine output decreases, may need transfer to higher level of care with cardiology nephrology present. Continue Jardiance at this time. (2) Cellulitis of right lower leg: Impression: - Patient with increased swelling, redness, open ulceration of right lower extremity. - MRSA swab positive. - Will treat for cellulitis with doxycycline and amoxicillin at this time. Wound culture sent; preliminary results show many gram-negative bacillus. Identification and sensitivities to follow. Previously in 04/10/2024, he did grow Pseudomonas, which was sanchez-sensitive. Will continue to monitor. (3) Edema, peripheral: Impression: - Subsequently there peripheral edema due to chronic dependency and likely venous insufficiency in the setting of congestive heart failure with reduced ejection fraction and peripheral vascular disease. - Continue diuresis as outlined above. Encourage elevation of legs. (4) Pulmonary edema: Impression: Stable at this time. Patient requires 2 to 4 L of oxygen at home. Lungs are clear to auscultation. Continue diuresis as stated above. Qualifiers: Chronicity: acute Qualified Code(s): J81.0 - Acute pulmonary edema (5) DAVID (acute kidney injury): Impression: - Creatinine elevated this morning to 2.1, indicative of worsening renal function. BUN is remains elevated to 69 (down from 75 last night). He is also experiencing hyperkalemia and hyponatremia which have moderately improved since admission. - We will continue attempting to diurese this patient while maintaining kidney function. (6) Acute hyperkalemia: Impression: - Potassium is moderately improved to 5.1 this morning. Likely due to acute worsening of kidney function. - We will continue to monitor with daily BMP. Repeat ordered for noon. - We will continue diuresis with Lasix. (7) Acute hyponatremia: Impression: - Likely hypervolemic hyponatremia due to fluid overload. - We will continue to trend. (8) Peripheral artery disease: Impression: - Chronic vascular insufficiency secondary due to low output heart failure. Vascular surgery consulted, recommends no acute vascular intervention, focus on improving perfusion of extremities. (9) COPD (chronic obstructive pulmonary disease): Impression: - He remains stable on his baseline oxygen requirement of 2 L/min with SpO2 at 98%. No acute exacerbation of COPD. - We will continue his home medications. Qualifiers: COPD type: unspecified COPD Qualified Code(s): J44.9 - Chronic obstructive pulmonary disease, unspecified (10) A-fib: Impression: - Continue amiodarone, Eliquis, metoprolol. Qualifiers: Atrial fibrillation type: longstanding persistent Qualified Code(s): I 48.11 - Longstanding persistent atrial fibrillation
[2024-06-03] MEDS ORDERED: ACETAMINOPHEN 325 MG TABLET PO PRN (11:53)
[2024-06-03] MEDS: DOXYCYCLINE 100 MG TABLET PO SCH (11:59)
[2024-06-03 12:58] LABS: CALCIUM 8.5 mg/dL (8.5-10.3)
[2024-06-03] MEDS: AMOXICILLIN 250 MG CAPSULE PO SCH (14:29)
[2024-06-03] MEDS: HYDROcod/ACETAM 5/325 MG TABLET PO PRN (15:08)
[2024-06-03] MEDS: SODIUM CHLORIDE FLUSH 0.9% 10 ML SYRINGE IVP PRN (15:21)
--- NOTE | 2024-06-03 15:54 | PHARMACY PROGRESS NOTE ---
Best Possible Medication History Admit Date and Time: 06/02/242047 Home Medications Medication Instructions Recorded Confirmed Type multivitamin 1 ea PO DAILY 10/25/15 06/02/24 History atorvastatin 20 mg tablet 20 mg PO DAILY 06/28/18 06/02/24 History apixaban 5 mg tablet (Eliquis) 5 mg PO BID 12/28/22 06/02/24 Rx ipratropium 0.5 mg-albuterol 3 mg 3 ml inhalation Q4H PRN 09/26/23 06/03/24 Rx (2.5 mg base)/3 mL nebulization Wheezing/Shortness of breath #360 soln mL empagliflozin 10 mg tablet 10 mg PO DAILY 01/16/24 06/02/24 History (Jardiance) losartan 25 mg tablet 25 mg PO DAILY 01/16/24 06/02/24 History nitroglycerin 0.4 mg sublingual 0.4 mg sublingual Q5M PRN chest 01/16/2405/11 History tablet pain omega-3 fatty acids 1,000 mg 1,000 mg PO QDAY 01/16/24 06/02/24 History capsule Permanent Disabled Placard #1 ea 01/28/24 05/15/24 Rx amiodarone 200 mg tablet 200 mg PO DAILY 02/22/24 06/02/24 History budesonide-formoterol HFA 160 2 puff inhalation BID #10.2 grams 02/22/24 06/03/24 Rx mcg-4.5 mcg/actuation aerosol inhaler (Symbicort) metoprolol succinate 50 mg 50 mg PO DAILY 30 days #30 tabs 03/16/24 06/02/24 Rx tablet,extended release 24 hr furosemide 40 mg tablet (Lasix) 40 mg PO BID #60 tabs 04/07/24 06/02/24 Rx lidocaine 5 % topical gel 2 ea transdermal QID #113 grams 05/15/24 06/02/24 Rx metolazone 2.5 mg tablet 2.5 mg PO .COMPLEX 06/02/24 06/02/24 History spironolactone 25 mg tablet 25 mg PO DAILY 06/03/24 06/03/24 History Processed by: Pharmacy Medications reviewed in ED?: Yes Medication History completed: Yes Patient Interview: Completed Secondary Source(s): Pharmacy records and Insurance records [facility] Statement: As the person ultimately responsible for medication therapy, providers are able to order a medication from an existing home medication list in [facility] via the "Reconcile Routine" prior to Confirmation of that medication by manufacturing support engineer. Such practice is discouraged except when the physician, in their clinical judgment, deems that a medical need exists for a medication without regard to previous use.
[2024-06-03 18:24] LABS: CALCIUM 8.6 mg/dL (8.5-10.3); CREATININE 2.1 mg/dL (0.6-1.3); POTASSIUM 4.8 mmol/L (3.5-4.5)
[2024-06-04] MEDS: IPRATROPIUM/ALBUTEROL 3 ML NEB INH PRN (01:15)
[2024-06-04] MEDS ORDERED: ALBUMIN 25% 12.5 GM/50 ML VIAL IV ONE (03:18)
[2024-06-04] MEDS: ALBUMIN 25% 12.5 GM/50 ML VIAL IV ONE (03:23)
[2024-06-04 05:15] LABS: BASOPHILS % (AUTO) 0.2 %; EOSINOPHILS % (AUTO) 0.4 %; HCT - HEMATOCRIT 27.1 % (42.0-52.0); HGB - HEMOGLOBIN 7.2 g/dL (14.0-18.0); LYMPHOCYTES # (AUTO) 0.3 10^3/uL (1.5-3.5); LYMPHOCYTES % (AUTO) 4.9 %; MEAN CORPUSCULAR HEMOGLOBIN 20.6 pg (27.0-31.0); MEAN CORPUSCULAR HGB CONC 26.6 g/dL (32.0-36.0); MEAN CORPUSCULAR VOLUME 77.4 fL (80.0-94.0); MEAN PLATELET VOLUME 10.1 fL (7.4-11.4); MONOCYTES # (AUTO) 0.6 10^3/uL (0.0-1.0); MONOCYTES % (AUTO) 10.5 %; NEUTROPHILS # (AUTO) 4.5 10^3/uL (1.5-6.6); NEUTROPHILS % (AUTO) 83.6 %; PLT - PLATELET COUNT 146 10^3/uL (130-450); WHITE BLOOD COUNT 5.3 x10^3/uL (4.8-10.8)
[2024-06-04 05:18] LABS: SLIDE REVIEW? Indicated
[2024-06-04 05:23] LABS: CALCIUM 8.6 mg/dL (8.5-10.3); CREATININE 1.9 mg/dL (0.6-1.3); MAGNESIUM 2.2 mg/dL (1.7-2.3); POTASSIUM 4.8 mmol/L (3.5-4.5)
[2024-06-04 06:10] LABS: PLATELET ESTIMATE, MANUAL NORMAL (130-450,000) (NORMAL); PLATELET MORPHOLOGY NORMAL APPEARANCE (NORMAL)
[2024-06-04] MEDS: CIPROFLOXACIN 250 MG TABLET PO SCH (08:51)
[2024-06-04] MEDS: ATORVASTATIN 10 MG TABLET PO SCH (08:51)
[2024-06-04] MEDS: METOPROLOL SUCCINATE 50 MG TABLET PO SCH (08:52)
--- NOTE | 2024-06-04 09:35 | PROVIDER PROGRESS NOTE ---
Subjective Prog Note Date Prog Note Date: 06/04/24 Prog Note Time: 09:32 Subjective Pt reports feeling: No change Subjective: Patient is alert, awake, laying on back with right knee flexed to 90deg and foot slightly elevated. His is currently in 7/10 pain due to ulcerated right leg, any pressure or contact near the wound increases pain drastically. He slept "a few hours" last night. He did eat breakfast. Denies chest pain, shortness of breath, headache, abdominal pain. Current Medications Current Medications Current Medications: Current Medications Generic Name Dose Route Start Last Admin Trade Name Freq PRN Reason Stop Dose Admin Acetaminophen 650 mg 06/03/24 11:53 Acetaminophen 325 Mg Tablet PO Q4HR PRN Pain or Fever > 38C (100.4F) Hydrocodone Bitart/Acetaminophen 1 tab 06/03/24 11:53 06/04/24 08:52 Hydrocod/Acetam 5/325 Mg Tablet PO 1 tab Q4HR PRN Administration Moderate Pain (Level 4-6) Albuterol/Ipratropium 3 ml 06/02/24 22:06 06/04/24 01:15 Ipratropium/Albuterol 3 Ml Neb INH 3 ml Q4H PRN Administration Wheezing/Shortness of breath Alcohol 1 amp 06/03/24 09:00 06/04/24 08:52 Ethyl Alcohol 62% Swab Ampule GORGE 1 amp BID AVIS Administration Amiodarone HCl 200 mg 06/03/24 09:00 06/04/24 08:51 Amiodarone 200 Mg Tablet PO 200 mg DAILY AVIS Administration Apixaban 5 mg 06/02/24 22:06 06/04/24 08:52 Apixaban 5 Mg Tablet PO 5 mg BID AVIS Administration Atorvastatin Calcium 20 mg 06/04/24 09:00 06/04/24 08:51 Atorvastatin 10 Mg Tablet PO 20 mg DAILY AVIS Administration Ciprofloxacin 500 mg 06/04/24 09:00 06/04/24 08:51 Ciprofloxacin 250 Mg Tablet PO 500 mg BID AVIS Administration Furosemide 40 mg 06/02/24 21:00 06/04/24 08:51 Furosemide 40 Mg/4 Ml Vial IVP 40 mg BID AVIS Administration Hydrocortisone 1 applic 06/03/24 11:00 06/04/24 08:51 Hydrocortisone 1% Cream 28 Gm Tube TOP 1 applic BID AVIS Administration Hydromorphone HCl 0.5 mg 06/02/24 20:48 06/04/24 03:09 Hydromorphone 0.5 Mg/0.5 Ml Syringe IVP 0.5 mg Q2H PRN Administration PAIN >8 Metoprolol Succinate 50 mg 06/04/24 09:00 06/04/24 08:52 Metoprolol Succinate 50 Mg Tablet PO 50 mg DAILY AVIS Administration Ondansetron HCl 4 mg 06/02/24 20:48 Ondansetron 4 Mg/2 Ml Vial IVP Q6H PRN Nausea / Vomiting Empagliflozin [ 1 each 06/03/24 09:00 06/04/24 08:53 Jardiance] 10 Mg PO 1 each Tablet DAILY AVIS Administration Sodium Chloride 10 ml 06/02/24 22:06 06/03/24 20:34 Sodium Chloride Flush 0.9% 10 Ml Syringe IVP 10 ml PRN PRN Administration NEEDED PER PROVIDER ORDERS Sodium Chloride 10 ml 06/03/24 01:00 06/04/24 08:52 Sodium Chloride Flush 0.9% 10 Ml Syringe IVP 10 ml 0100,[id number],1700 AVIS Administration Objective Vital Signs/Intake & Output Reviewed Vital Signs: Yes Vital Signs: Vital Signs x48h Temp Pulse Resp BP Pulse Ox O2 Flow Rate 06/04/24 09:00 64 15 87/45 L 99 2 06/04/24 08:00 36.5 C 98 26 H 71/46 L 99 2 06/04/24 07:00 61 21 87/60 L 97 2 06/04/24 06:00 61 25 H 98/44 L 93 2 06/04/24 05:00 61 19 99/47 L 93 2 06/04/24 04:00 36.6 C 61 24 96/44 L 93 2 06/04/24 03:00 102 H 18 118/65 98 2 06/04/24 02:00 72 30 H 107/68 92 2 Intake & Output: Intake & Output 06/01/24 06/02/24 06/03/24 06/04/24 23:59 23:59 23:59 23:59 Intake Total 550 / 550 3311 / 3311 150 / 150 Output Total 1825 / 1825 975 / 975 Balance 550 / 550 1486 / 1486 -825 / -825 Weight (kg) 92 kg 92 kg 93 kg Objective General Appearance: positive Alert and Moderate distress Eyes Bilateral: positive Normal inspection ENT: positive ENT inspection nml Neck: positive Nml inspection and No JVD Respiratory: positive Chest non-tender, No respiratory distress and Breath sounds nml Cardiovascular: positive Regular rate & rhythm Abdomen: positive Non-tender Back: positive Nml inspection Skin: positive Color nml Extremities: positive Pedal edema (B LE +2 pitting edema up to thighs) and Calf tenderness (7-10/10 R LE pain due to ulceration on R calf, moderate L LE pain due to wound/blister) Neurologic/Psychiatric: positive Oriented x3, CN's nml (2-12), Motor nml, Sensation nml and Mood/affect nml Lab Results 06/04/24 04:36 06/04/24 04:36 Other Labs: Lab Results x24hrs 06/04/24 06/04/24 06/04/24 Range/Units 04:36 04:36 04:36 WBC (4.8-10.8) x10^3/uL RBC (4.70-6.10) 10^6/uL Hgb (14.0-18.0) g/dL Hct (42.0-52.0) % MCV (80.0-94.0) fL MCH (27.0-31.0) pg MCHC (32.0-36.0) g/dL RDW (12.0-15.0) % Plt Count (130-450) 10^3/uL MPV (7.4-11.4) fL Neut # (Auto) (1.5-6.6) 10^3/uL Lymph # (Auto) (1.5-3.5) 10^3/uL [place] # (Auto) (0.0-1.0) 10^3/uL Eos # (Auto) (0.0-0.7) 10^3/uL Baso # (Auto) (0.0-0.1) 10^3/uL Absolute Nucleated RBC x10^3/uL Nucleated RBC % /100WBC Manual Slide Review Platelet Estimate (NORMAL) Platelet Morphology (NORMAL) RBC Morph Micro Appear 1+ POLYCHROMASIA 1+ OVALOCYTES 2+ HYPOCHROMASIA (NORMAL) Sodium 131 L (135-145) mmol/L Potassium 4.8 H (3.5-4.5) mmol/L Chloride 97 L (101-111) mmol/L Carbon Dioxide 28 (21-32) mmol/L Anion Gap 6.0 (6-13) BUN 61 H (6-20) mg/dL Creatinine 1.9 H (0.6-1.3) mg/dL Estimated GFR (MDRD) 34 L (>89) Glucose 118 H (74-104) mg/dL Calcium 8.6 (8.5-10.3) mg/dL Magnesium 2.2 (1.7-2.3) mg/dL 06/04/24 06/03/24 06/03/24 Range/Units 04:36 18:07 12:12 WBC 5.3 (4.8-10.8) x10^3/uL RBC 3.50 L (4.70-6.10) 10^6/uL Hgb 7.2 L (14.0-18.0) g/dL Hct 27.1 L (42.0-52.0) % MCV 77.4 L (80.0-94.0) fL MCH 20.6 L (27.0-31.0) pg MCHC 26.6 L (32.0-36.0) g/dL RDW 21.0 H (12.0-15.0) % Plt Count 146 (130-450) 10^3/uL MPV 10.1 (7.4-11.4) fL Neut # (Auto) 4.5 (1.5-6.6) 10^3/uL Lymph # (Auto) 0.3 L (1.5-3.5) 10^3/uL [place] # (Auto) 0.6 (0.0-1.0) 10^3/uL Eos # (Auto) 0.0 (0.0-0.7) 10^3/uL Baso # (Auto) 0.0 (0.0-0.1) 10^3/uL Absolute Nucleated RBC 0.00 x10^3/uL Nucleated RBC % 0.0 /100WBC Manual Slide Review Indicated Platelet Estimate NORMAL (130-450,000) (NORMAL) Platelet Morphology NORMAL APPEARANCE (NORMAL) RBC Morph Micro Appear 2+ ANISOCYTOSIS (NORMAL) Sodium 129 L 132 L (135-145) mmol/L Potassium 4.8 H 5.0 H (3.5-4.5) mmol/L Chloride 95 L 97 L (101-111) mmol/L Carbon Dioxide 29 30 (21-32) mmol/L Anion Gap 5.0 L 5.0 L (6-13) BUN 65 H 66 H (6-20) mg/dL Creatinine 2.1 H 2.0 H (0.6-1.3) mg/dL Estimated GFR (MDRD) 31 L 32 L (>89) Glucose 157 H 132 H (74-104) mg/dL Calcium 8.6 8.5 (8.5-10.3) mg/dL Magnesium (1.7-2.3) mg/dL ABX Reporting Has patient been on IV antibiotics over the past 48 hours?: No Assessment/Plan Problem List (1) Acute exacerbation of chronic heart failure: Impression: - Combination of arterial insufficiency and low output heart failure resulting in dependent edema, open ulceration due to poor wound healing in lower extremities. - Cardiology notes reviewed from 02/01/2024echo at that time showed left ventricular ejection fraction of 20%, akinesis of entire inferior, inferoapical, lateral and anterolateral bell. He also heavily calcified aortic valve with severely reduced leaflet motion. Categorized as severe aortic stenosis. Right left heart catheterization done 01/14/2024 showed no significant disease in left main, moderate size LAD, widely patent stents in the proximal and mid, and chronically occluded proximal circumflex. No aortic regurgitation was noted. Overall, patient has extensive cardiac history including CAD with stents in the RCA, heart failure with severely depressed ejection fraction of 20%, moderate to severe aortic valve stenosis, ventricular tachycardia requiring cardioversion in 01/30, paroxysmal atrial fibrillation, biventricular AICD placement. - Continue aggressive diuresis of Lasix 40mg IV BID. Will give a few doses of albumin to aid in intravascular depletion. Continue to trend. If creatinine worsens, urine output decreases, may need transfer to higher level of care with cardiology nephrology present. Continue Jardiance at this time. (2) Cellulitis of right lower leg: Impression: - Patient with increased swelling, redness, open ulceration of right lower extremity. - MRSA swab positive. - Wound culture shows growth of Pseudomonas. Switched doxycycline and amoxicillin and he is now on PO ciprofloxacin. (3) Edema, peripheral: Impression: - Subsequently there is peripheral edema due to chronic dependency and likely venous insufficiency in the setting of congestive heart failure with reduced ejection fraction and peripheral vascular disease. - Continue diuresis as outlined above. Encourage elevation of legs. (4) Pulmonary edema: Impression: Stable at this time. Patient requires 2-4 L of oxygen at home. Lungs are clear to auscultation. Continue diuresis as stated above. Qualifiers: Chronicity: acute Qualified Code(s): J81.0 - Acute pulmonary edema (5) DAVID (acute kidney injury): Impression: BUN slightly improved to 69, creatinine remains elevated at 2.1, and GFR slightly decreased to 31. - We will continue attempting to diurese this patient while maintaining kidney function. (6) Acute hyperkalemia: Impression: Potassium remains elevated at 4.8 this morning. - We will continue to monitor with daily BMP. - We will continue diuresis with Lasix. (7) Acute hyponatremia: Impression: Sodium improved to 131 this morning. - Continue to trend with daily labs. (8) Peripheral artery disease: Impression: - Chronic vascular insufficiency secondary due to low output heart failure. Vascular surgery consulted, recommends no acute vascular intervention, focus on improving perfusion of extremities. (9) COPD (chronic obstructive pulmonary disease): Impression: He remains stable on his baseline oxygen requirement of 2 L/min with SpO2 at 98%. No acute exacerbation of COPD. - We will continue his home medications. Qualifiers: COPD type: unspecified COPD Qualified Code(s): J44.9 - Chronic obstructive pulmonary disease, unspecified (10) A-fib: Impression: Chronic condition. - Continue amiodarone, Eliquis, metoprolol Qualifiers: Atrial fibrillation type: longstanding persistent Qualified Code(s): I 48.11 - Longstanding persistent atrial fibrillation
[2024-06-05 04:59] LABS: BASOPHILS % (AUTO) 0.2 %; EOSINOPHILS % (AUTO) 0.5 %; HCT - HEMATOCRIT 27.9 % (42.0-52.0); HGB - HEMOGLOBIN 7.3 g/dL (14.0-18.0); LYMPHOCYTES # (AUTO) 0.3 10^3/uL (1.5-3.5); LYMPHOCYTES % (AUTO) 4.7 %; MEAN CORPUSCULAR HEMOGLOBIN 20.7 pg (27.0-31.0); MEAN CORPUSCULAR HGB CONC 26.2 g/dL (32.0-36.0); MONOCYTES # (AUTO) 0.6 10^3/uL (0.0-1.0); MONOCYTES % (AUTO) 9.9 %; NEUTROPHILS # (AUTO) 4.7 10^3/uL (1.5-6.6); NEUTROPHILS % (AUTO) 84.3 %; PLT - PLATELET COUNT 146 10^3/uL (130-450); RED BLOOD COUNT 3.53 10^6/uL (4.70-6.10); RED CELL DISTRIBUTION WIDTH 21.1 % (12.0-15.0); WHITE BLOOD COUNT 5.6 x10^3/uL (4.8-10.8)
[2024-06-05 05:10] LABS: SLIDE REVIEW? Indicated
[2024-06-05 05:18] LABS: CALCIUM 8.7 mg/dL (8.5-10.3); CREATININE 1.9 mg/dL (0.6-1.3); MAGNESIUM 2.2 mg/dL (1.7-2.3); POTASSIUM 5.3 mmol/L (3.5-4.5)
[2024-06-05 06:10] LABS: PLATELET ESTIMATE, MANUAL NORMAL (130-450,000) (NORMAL); PLATELET MORPHOLOGY NORMAL APPEARANCE (NORMAL)
[2024-06-05] MEDS ORDERED: SODIUM ZIRCONIUM CYCLOSILICATE 5 GM PACKET PO SCH (08:00)
[2024-06-05] MEDS: INSULIN REGULAR, HUMAN 300 UNIT/3 ML PEN IVP ONE ×2 (08:36→16:10)
[2024-06-05] MEDS: DEXTROSE 50% ABBOJECT 25 GM/50 ML SYRINGE IVP ONE ×2 (08:36→16:10)
--- NOTE | 2024-06-05 08:44 | PROVIDER PROGRESS NOTE ---
Subjective Prog Note Date Prog Note Date: 06/05/24 Prog Note Time: 08:43 Subjective Pt reports feeling: Improved Subjective: He reports feeling somewhat improved, he still has pain but at this moment it is not terrible. He is seated upright on the side of the bed for a breathing treatment, with his and son present in the room. He denies chest pain, headache, confusion, abdominal cramping. His feet and legs remain swollen, tender, and red; they feel improved and less swollen. He uses a CPAP machine at home, and hasn't been using it here. His will bring it in for him. Current Medications Current Medications Current Medications: Current Medications Generic Name Dose Route Start Last Admin Trade Name Freq PRN Reason Stop Dose Admin Acetaminophen 650 mg 06/03/24 11:53 Acetaminophen 325 Mg Tablet PO Q4HR PRN Pain or Fever > 38C (100.4F) Hydrocodone Bitart/Acetaminophen 1 tab 06/03/24 11:53 06/05/24 04:26 Hydrocod/Acetam 5/325 Mg Tablet PO 1 tab Q4HR PRN Administration Moderate Pain (Level 4-6) Albuterol/Ipratropium 3 ml 06/02/24 22:06 06/05/24 02:00 Ipratropium/Albuterol 3 Ml Neb INH 3 ml Q4H PRN Administration Wheezing/Shortness of breath Alcohol 1 amp 06/03/24 09:00 06/04/24 21:13 Ethyl Alcohol 62% Swab Ampule GORGE 1 amp BID AVIS Administration Amiodarone HCl 200 mg 06/03/24 09:00 06/04/24 08:51 Amiodarone 200 Mg Tablet PO 200 mg DAILY AVIS Administration Apixaban 5 mg 06/02/24 22:06 06/04/24 21:12 Apixaban 5 Mg Tablet PO 5 mg BID AVIS Administration Atorvastatin Calcium 20 mg 06/04/24 09:00 06/04/24 08:51 Atorvastatin 10 Mg Tablet PO 20 mg DAILY AVIS Administration Ciprofloxacin 500 mg 06/04/24 09:00 06/04/24 21:12 Ciprofloxacin 250 Mg Tablet PO 500 mg BID AVIS Administration Furosemide 40 mg 06/02/24 21:00 06/04/24 21:12 Furosemide 40 Mg/4 Ml Vial IVP 40 mg BID AVIS Administration Hydrocortisone 1 applic 06/03/24 11:00 06/04/24 21:13 Hydrocortisone 1% Cream 28 Gm Tube TOP 1 applic BID AVIS Administration Hydromorphone HCl 0.5 mg 06/02/24 20:48 06/04/24 11:04 Hydromorphone 0.5 Mg/0.5 Ml Syringe IVP 0.5 mg Q2H PRN Administration PAIN >8 Metoprolol Succinate 50 mg 06/04/24 09:00 06/04/24 08:52 Metoprolol Succinate 50 Mg Tablet PO 50 mg DAILY AVIS Administration Ondansetron HCl 4 mg 06/02/24 20:48 Ondansetron 4 Mg/2 Ml Vial IVP Q6H PRN Nausea / Vomiting Empagliflozin [ 1 each 06/03/24 09:00 06/04/24 08:53 Jardiance] 10 Mg PO 1 each Tablet DAILY AVIS Administration Polyethylene Glycol 17 gm 06/05/24 09:00 Polyethylene Glycol 3350 17 Gm Packet PO DAILY AVIS Sodium Chloride 10 ml 06/02/24 22:06 06/04/24 21:12 Sodium Chloride Flush 0.9% 10 Ml Syringe IVP 10 ml PRN PRN Administration NEEDED PER PROVIDER ORDERS Sodium Chloride 10 ml 06/03/24 01:00 06/05/24 00:25 Sodium Chloride Flush 0.9% 10 Ml Syringe IVP Not Given [id number],0900,1700 [facility] Objective Vital Signs/Intake & Output Reviewed Vital Signs: Yes Vital Signs: Vital Signs x48h Temp Pulse Pulse Resp BP Pulse Ox O2 Flow Rate 06/05/24 04:00 36.7 C 62 15 105/50 L 98 4 06/05/24 03:07 4 06/05/24 02:01 3 06/05/24 02:01 60 20 3 06/05/24 01:50 62 23 101/63 97 4 Intake & Output: Intake & Output 06/02/24 06/03/24 06/04/24 06/05/24 23:59 23:59 23:59 23:59 Intake Total 550 / 550 3311 / 3311 630 / 630 325 / 325 Output Total 1825 / 1825 1500 / 1500 225 / 225 Balance 550 / 550 1486 / 1486 -870 / -870 100 / 100 Weight (kg) 92 kg 92 kg 93 kg 93 kg Objective General Appearance: positive No acute distress and Alert Eyes Bilateral: positive Normal inspection, PERRL and EOMI ENT: positive ENT inspection nml and No signs of dehydration Neck: positive Nml inspection, Thyroid nml and No JVD Respiratory: positive Chest non-tender, No respiratory distress and Rales (mild bibasilar crackles); negative Wheezes Cardiovascular: positive Regular rate & rhythm and No murmur Abdomen: positive Non-tender; negative Guarding, Rebound, Hepatomegaly, Splenomegaly or Mass Back: positive Nml inspection; negative CVA tenderness (R) or CVA tenderness (L) Skin: positive Color nml, No rash, Warm and Dry Extremities: positive Pedal edema (bilateral pitting edema of feet and legs up to knees), Calf tenderness and Other (B LE dependent rubor, edema; ulceration of right calf and blister lesion of left najera) Neurologic/Psychiatric: positive Oriented x3, CN's nml (2-12), Motor nml, Sensation nml and Mood/affect nml Lab Results 06/05/24 04:37 06/05/24 15:02 Other Labs: Lab Results x24hrs 06/05/24 06/05/24 06/05/24 Range/Units 04:37 04:37 04:37 WBC (4.8-10.8) x10^3/uL RBC (4.70-6.10) 10^6/uL Hgb (14.0-18.0) g/dL Hct (42.0-52.0) % MCV (80.0-94.0) fL MCH (27.0-31.0) pg MCHC (32.0-36.0) g/dL RDW (12.0-15.0) % Plt Count (130-450) 10^3/uL MPV (7.4-11.4) fL Neut # (Auto) (1.5-6.6) 10^3/uL Lymph # (Auto) (1.5-3.5) 10^3/uL [place] # (Auto) (0.0-1.0) 10^3/uL Eos # (Auto) (0.0-0.7) 10^3/uL Baso # (Auto) (0.0-0.1) 10^3/uL Absolute Nucleated RBC x10^3/uL Nucleated RBC % /100WBC Manual Slide Review Platelet Estimate (NORMAL) Platelet Morphology (NORMAL) RBC Morph Micro Appear 1+ OVALOCYTES 2+ HYPOCHROMASIA 2+ MICROCYTOSIS (NORMAL) Sodium 131 L (135-145) mmol/L Potassium 5.3 H (3.5-4.5) mmol/L Chloride 98 L (101-111) mmol/L Carbon Dioxide 27 (21-32) mmol/L Anion Gap 6.0 (6-13) BUN 58 H (6-20) mg/dL Creatinine 1.9 H (0.6-1.3) mg/dL Estimated GFR (MDRD) 34 L (>89) Glucose 90 (74-104) mg/dL Calcium 8.7 (8.5-10.3) mg/dL Magnesium 2.2 (1.7-2.3) mg/dL 06/05/24 Range/Units 04:37 WBC 5.6 (4.8-10.8) x10^3/uL RBC 3.53 L (4.70-6.10) 10^6/uL Hgb 7.3 L (14.0-18.0) g/dL Hct 27.9 L (42.0-52.0) % MCV 79.0 L (80.0-94.0) fL MCH 20.7 L (27.0-31.0) pg MCHC 26.2 L (32.0-36.0) g/dL RDW 21.1 H (12.0-15.0) % Plt Count 146 (130-450) 10^3/uL MPV 10.0 (7.4-11.4) fL Neut # (Auto) 4.7 (1.5-6.6) 10^3/uL Lymph # (Auto) 0.3 L (1.5-3.5) 10^3/uL [place] # (Auto) 0.6 (0.0-1.0) 10^3/uL Eos # (Auto) 0.0 (0.0-0.7) 10^3/uL Baso # (Auto) 0.0 (0.0-0.1) 10^3/uL Absolute Nucleated RBC 0.00 x10^3/uL Nucleated RBC % 0.0 /100WBC Manual Slide Review Indicated Platelet Estimate NORMAL (130-450,000) (NORMAL) Platelet Morphology NORMAL APPEARANCE (NORMAL) RBC Morph Micro Appear 2+ ANISOCYTOSIS (NORMAL) Sodium (135-145) mmol/L Potassium (3.5-4.5) mmol/L Chloride (101-111) mmol/L Carbon Dioxide (21-32) mmol/L Anion Gap (6-13) BUN (6-20) mg/dL Creatinine (0.6-1.3) mg/dL Estimated GFR (MDRD) (>89) Glucose (74-104) mg/dL Calcium (8.5-10.3) mg/dL Magnesium (1.7-2.3) mg/dL ABX Reporting Has patient been on IV antibiotics over the past 48 hours?: No Assessment/Plan Problem List (1) Acute exacerbation of chronic heart failure: Impression: - Combination of arterial insufficiency and low output heart failure resulting in dependent edema, open ulceration due to poor wound healing in lower extremities. - Overall, patient has extensive cardiac history including CAD with stents in the RCA, heart failure with severely depressed ejection fraction of 20%, moderate to severe aortic valve stenosis, ventricular tachycardia requiring cardioversion in 01/30, paroxysmal atrial fibrillation, biventricular AICD placement. - Continue aggressive diuresis of Lasix 40mg IV BID. Continue to trend. If creatinine worsens, urine output decreases, may need transfer to higher level of care with cardiology nephrology present. Continue Jardiance at this time. (2) Cellulitis of right lower leg: Impression: - Patient with ongoing swelling, redness, open ulceration of right lower extremity. - Continue PO ciprofloxacin. (3) Edema, peripheral: Impression: - Subsequently there is peripheral edema due to chronic dependency and likely venous insufficiency in the setting of congestive heart failure with reduced ejection fraction and peripheral vascular disease. - Continue diuresis as outlined above. Encourage elevation of legs. (4) Pulmonary edema: Impression: Stable at this time. Patient requires 2-4 L of oxygen at home. Lungs are clear to auscultation. Continue diuresis as stated above. Qualifiers: Chronicity: acute Qualified Code(s): J81.0 - Acute pulmonary edema (5) DAVID (acute kidney injury): Impression: BUN slightly improved to 58, creatinine remains elevated at 1.9, and GFR slightly improved to 34. - We will continue attempting to diurese this patient while maintaining kidney function. (6) Acute hyperkalemia: Impression: Potassium remains elevated at 5.3 this morning. - We will continue to monitor with daily BMP. - We will continue diuresis with Lasix. - Lokelma ordered, nebulized albuterol, insulin/D50, sodium bicarbonate. Will continue to trend. (7) Acute hyponatremia: Impression: Sodium improved to 132 this morning. - Continue to trend with daily labs. (8) Peripheral artery disease: Impression: - Chronic vascular insufficiency secondary due to low output heart failure. Vascular surgery consulted, recommends no acute vascular intervention, focus on improving perfusion of extremities.
[2024-06-05] MEDS: polyethylene glycoL 3350 17 GM PACKET PO SCH (08:56)
[2024-06-05 15:27] LABS: CALCIUM 8.8 mg/dL (8.5-10.3); CREATININE 1.9 mg/dL (0.6-1.3); POTASSIUM 5.3 mmol/L (3.5-4.5)
[2024-06-05] MEDS ORDERED: SODIUM CHLORIDE FOR INHALATION 5 ML NEB ONE (16:04)
[2024-06-05] MEDS: SODIUM BICARBONATE ABBOJECT 50 MEQ/50 ML SYRINGE IVP ONE (16:10)
[2024-06-05] MEDS: SODIUM ZIRCONIUM CYCLOSILICATE 5 GM PACKET PO ONE (16:10)
[2024-06-05] MEDS: CONCENTRATED ALBUTEROL NEB 2.5 MG/0.5 ML INH STA (16:32)
[2024-06-06 05:29] LABS: BASOPHILS % (AUTO) 0.3 %; EOSINOPHILS # (AUTO) 0.1 10^3/uL (0.0-0.7); EOSINOPHILS % (AUTO) 1.5 %; HCT - HEMATOCRIT 26.5 % (42.0-52.0); LYMPHOCYTES # (AUTO) 0.3 10^3/uL (1.5-3.5); MEAN CORPUSCULAR HEMOGLOBIN 20.6 pg (27.0-31.0); MEAN CORPUSCULAR HGB CONC 26.4 g/dL (32.0-36.0); MEAN CORPUSCULAR VOLUME 77.9 fL (80.0-94.0); MONOCYTES # (AUTO) 0.6 10^3/uL (0.0-1.0); MONOCYTES % (AUTO) 8.4 %; NEUTROPHILS # (AUTO) 5.6 10^3/uL (1.5-6.6); NEUTROPHILS % (AUTO) 84.6 %; PLT - PLATELET COUNT 164 10^3/uL (130-450); RED CELL DISTRIBUTION WIDTH 21.7 % (12.0-15.0); WHITE BLOOD COUNT 6.6 x10^3/uL (4.8-10.8)
[2024-06-06 05:42] LABS: SLIDE REVIEW? Indicated
[2024-06-06 05:45] LABS: CALCIUM 8.7 mg/dL (8.5-10.3); CREATININE 1.8 mg/dL (0.6-1.3); POTASSIUM 4.8 mmol/L (3.5-4.5)
[2024-06-06 06:19] LABS: PLATELET ESTIMATE, MANUAL NORMAL (130-450,000) (NORMAL); PLATELET MORPHOLOGY NORMAL APPEARANCE (NORMAL)
--- NOTE | 2024-06-06 08:51 | PROVIDER PROGRESS NOTE ---
Subjective Subjective Subjective: He reports feeling somewhat improved, he still has pain but at this moment it is not terrible. He is seated upright on the side of the bed for a breathing treatment, with his and son present in the room. He denies chest pain, headache, confusion, abdominal cramping. His feet and legs remain swollen, tender, and red. He uses a CPAP machine at home, and hasn't been using it here. His brought it in yesterday, and he states he had a great sleep. Overall, he is in good spirits and is excited to go home tomorrow. Current Medications Current Medications Current Medications: Current Medications Generic Name Dose Route Start Last Admin Trade Name Freq PRN Reason Stop Dose Admin Acetaminophen 650 mg 06/03/24 11:53 Acetaminophen 325 Mg Tablet PO Q4HR PRN Pain or Fever > 38C (100.4F) Hydrocodone Bitart/Acetaminophen 1 tab 06/03/24 11:53 06/06/24 00:48 Hydrocod/Acetam 5/325 Mg Tablet PO 1 tab Q4HR PRN Administration Moderate Pain (Level 4-6) Albuterol/Ipratropium 3 ml 06/02/24 22:06 06/05/24 02:00 Ipratropium/Albuterol 3 Ml Neb INH 3 ml Q4H PRN Administration Wheezing/Shortness of breath Alcohol 1 amp 06/03/24 09:00 06/05/24 20:08 Ethyl Alcohol 62% Swab Ampule GORGE 1 amp BID AVIS Administration Amiodarone HCl 200 mg 06/03/24 09:00 06/05/24 08:55 Amiodarone 200 Mg Tablet PO 200 mg DAILY AVIS Administration Apixaban 5 mg 06/02/24 22:06 06/05/24 20:08 Apixaban 5 Mg Tablet PO 5 mg BID AVIS Administration Atorvastatin Calcium 20 mg 06/04/24 09:00 06/05/24 08:54 Atorvastatin 10 Mg Tablet PO 20 mg DAILY AVIS Administration Ciprofloxacin 500 mg 06/04/24 09:00 06/05/24 20:08 Ciprofloxacin 250 Mg Tablet PO 500 mg BID AVIS Administration Docusate Sodium 250 - 500 mg 06/06/24 09:00 Docusate Sodium 250 Mg Capsule PO DAILY AVIS Furosemide 40 mg 06/02/24 21:00 06/05/24 20:08 Furosemide 40 Mg/4 Ml Vial IVP 40 mg BID AVIS Administration Hydrocortisone 1 applic 06/03/24 11:00 06/05/24 20:08 Hydrocortisone 1% Cream 28 Gm Tube TOP 1 applic BID AVIS Administration Hydromorphone HCl 0.5 mg 06/02/24 20:48 06/04/24 11:04 Hydromorphone 0.5 Mg/0.5 Ml Syringe IVP 0.5 mg Q2H PRN Administration PAIN >8 Metoprolol Succinate 50 mg 06/04/24 09:00 06/05/24 08:55 Metoprolol Succinate 50 Mg Tablet PO 50 mg DAILY AVIS Administration Ondansetron HCl 4 mg 06/02/24 20:48 Ondansetron 4 Mg/2 Ml Vial IVP Q6H PRN Nausea / Vomiting Empagliflozin [ 1 each 06/03/24 09:00 06/05/24 08:56 Jardiance] 10 Mg PO 1 each Tablet DAILY AVIS Administration Polyethylene Glycol 17 gm 06/05/24 09:00 06/05/24 08:56 Polyethylene Glycol 3350 17 Gm Packet PO 17 gm DAILY AVIS Administration Senna 8.6 - 17.2 mg 06/06/24 09:00 Senna 8.6 Mg Tablet PO DAILY AVIS Sodium Chloride 10 ml 06/02/24 22:06 06/04/24 21:12 Sodium Chloride Flush 0.9% 10 Ml Syringe IVP 10 ml PRN PRN Administration NEEDED PER PROVIDER ORDERS Sodium Chloride 10 ml 06/03/24 01:00 06/06/24 01:24 Sodium Chloride Flush 0.9% 10 Ml Syringe IVP 10 ml 0100,0900,1700 AVIS Administration Objective Vital Signs/Intake & Output Reviewed Vital Signs: Yes Vital Signs: Vital Signs x48h Temp Pulse Resp BP Pulse Ox O2 Flow Rate 06/06/24 08:15 98.5 F 71 22 89/67 L 100 06/06/24 06:00 69 16 74/59 L 97 06/06/24 01:49 80 17 88/48 L 99 4 Intake & Output: Intake & Output 06/03/24 06/04/24 06/05/24 06/06/24 23:59 23:59 23:59 23:59 Intake Total 3311 / 3311 630 / 630 1180 / 1180 Output Total 1825 / 1825 1500 / 1500 925 / 925 200 / 200 Balance 1486 / 1486 -870 / -870 255 / 255 -200 / -200 Weight (kg) 92 kg 93 kg 93 kg 93 kg Objective General Appearance: positive No acute distress and Alert Eyes Bilateral: positive Normal inspection, PERRL and EOMI ENT: positive ENT inspection nml and No signs of dehydration Neck: positive Nml inspection, Thyroid nml and No JVD Respiratory: positive Chest non-tender, No respiratory distress and Rales (mild bibasilar crackles); negative Wheezes Cardiovascular: positive Regular rate & rhythm and No murmur Abdomen: positive Non-tender; negative Guarding, Rebound, Hepatomegaly, Splenomegaly or Mass Back: positive Nml inspection; negative CVA tenderness (R) or CVA tenderness (L) Skin: positive Color nml, No rash, Warm and Dry Extremities: positive Pedal edema (bilateral pitting edema of feet and legs up to knees), Calf tenderness and Other (B LE dependent rubor, edema; ulceration of right calf and blister lesion of left najera) Neurologic/Psychiatric: positive Oriented x3, CN's nml (2-12), Motor nml, Sensation nml and Mood/affect nml Lab Results 06/06/24 05:04 06/06/24 05:04 Other Labs: Lab Results x24hrs 06/06/24 06/06/24 06/06/24 Range/Units 06:13 05:04 05:04 WBC (4.8-10.8) x10^3/uL RBC (4.70-6.10) 10^6/uL Hgb (14.0-18.0) g/dL Hct (42.0-52.0) % MCV (80.0-94.0) fL MCH (27.0-31.0) pg MCHC (32.0-36.0) g/dL RDW (12.0-15.0) % Plt Count (130-450) 10^3/uL MPV (7.4-11.4) fL Neut # (Auto) (1.5-6.6) 10^3/uL Lymph # (Auto) (1.5-3.5) 10^3/uL [place] # (Auto) (0.0-1.0) 10^3/uL Eos # (Auto) (0.0-0.7) 10^3/uL Baso # (Auto) (0.0-0.1) 10^3/uL Absolute Nucleated RBC x10^3/uL Nucleated RBC % /100WBC Manual Slide Review Platelet Estimate (NORMAL) Platelet Morphology (NORMAL) RBC Morph Micro Appear 1+ POLYCHROMASIA 1+ OVALOCYTES (NORMAL) Sodium 133 L (135-145) mmol/L Potassium 4.8 H (3.5-4.5) mmol/L Chloride 97 L (101-111) mmol/L Carbon Dioxide 31 (21-32) mmol/L Anion Gap 5.0 L (6-13) BUN 57 H (6-20) mg/dL Creatinine 1.8 H (0.6-1.3) mg/dL Estimated GFR (MDRD) 37 L (>89) Glucose 92 (74-104) mg/dL Calcium 8.7 (8.5-10.3) mg/dL Blood Type AB NEGATIVE Antibody Screen NEGATIVE Crossmatch IS Only See Detail 06/06/24 06/06/24 06/06/24 Range/Units 05:04 05:04 05:04 WBC 6.6 (4.8-10.8) x10^3/uL RBC 3.40 L (4.70-6.10) 10^6/uL Hgb 7.0 L* (14.0-18.0) g/dL Hct 26.5 L (42.0-52.0) % MCV 77.9 L (80.0-94.0) fL MCH 20.6 L (27.0-31.0) pg MCHC 26.4 L (32.0-36.0) g/dL RDW 21.7 H (12.0-15.0) % Plt Count 164 (130-450) 10^3/uL MPV 10.0 (7.4-11.4) fL Neut # (Auto) 5.6 (1.5-6.6) 10^3/uL Lymph # (Auto) 0.3 L (1.5-3.5) 10^3/uL [place] # (Auto) 0.6 (0.0-1.0) 10^3/uL Eos # (Auto) 0.1 (0.0-0.7) 10^3/uL Baso # (Auto) 0.0 (0.0-0.1) 10^3/uL Absolute Nucleated RBC 0.00 x10^3/uL Nucleated RBC % 0.0 /100WBC Manual Slide Review Indicated Platelet Estimate NORMAL (130-450,000) (NORMAL) Platelet Morphology NORMAL APPEARANCE (NORMAL) RBC Morph Micro Appear 1+ MICROCYTOSIS 1+ HYPOCHROMASIA 2+ ANISOCYTOSIS (NORMAL) Sodium (135-145) mmol/L Potassium (3.5-4.5) mmol/L Chloride (101-111) mmol/L Carbon Dioxide (21-32) mmol/L Anion Gap (6-13) BUN (6-20) mg/dL Creatinine (0.6-1.3) mg/dL Estimated GFR (MDRD) (>89) Glucose (74-104) mg/dL Calcium (8.5-10.3) mg/dL Blood Type Antibody Screen Crossmatch IS Only 06/05/24 06/05/24 06/05/24 Range/Units 20:56 18:47 15:02 WBC (4.8-10.8) x10^3/uL RBC (4.70-6.10) 10^6/uL Hgb (14.0-18.0) g/dL Hct (42.0-52.0) % MCV (80.0-94.0) fL MCH (27.0-31.0) pg MCHC (32.0-36.0) g/dL RDW (12.0-15.0) % Plt Count (130-450) 10^3/uL MPV (7.4-11.4) fL Neut # (Auto) (1.5-6.6) 10^3/uL Lymph # (Auto) (1.5-3.5) 10^3/uL [place] # (Auto) (0.0-1.0) 10^3/uL Eos # (Auto) (0.0-0.7) 10^3/uL Baso # (Auto) (0.0-0.1) 10^3/uL Absolute Nucleated RBC x10^3/uL Nucleated RBC % /100WBC Manual Slide Review Platelet Estimate (NORMAL) Platelet Morphology (NORMAL) RBC Morph Micro Appear (NORMAL) Sodium 132 L (135-145) mmol/L Potassium 5.0 H 5.1 H 5.3 H (3.5-4.5) mmol/L Chloride 97 L (101-111) mmol/L Carbon Dioxide 30 (21-32) mmol/L Anion Gap 5.0 L (6-13) BUN 58 H (6-20) mg/dL Creatinine 1.9 H (0.6-1.3) mg/dL Estimated GFR (MDRD) 34 L (>89) Glucose 85 (74-104) mg/dL Calcium 8.8 (8.5-10.3) mg/dL Blood Type Antibody Screen Crossmatch IS Only ABX Reporting Has patient been on IV antibiotics over the past 48 hours?: No Assessment/Plan Problem List (1) Acute exacerbation of chronic heart failure: Impression: - Combination of arterial insufficiency and low output heart failure resulting in dependent edema, open ulceration due to poor wound healing in lower extremities. - Overall, patient has extensive cardiac history including CAD with stents in the RCA, heart failure with severely depressed ejection fraction of 20%, moderate to severe aortic valve stenosis, ventricular tachycardia requiring cardioversion in 01/30, paroxysmal atrial fibrillation, biventricular AICD placement. - Continue aggressive diuresis of Lasix 40mg IV BID. Continue to trend. If creatinine worsens, urine output decreases, may need transfer to higher level of care with cardiology nephrology present. Continue Jardiance at this time. (2) Cellulitis of right lower leg: Impression: - Patient with ongoing swelling, redness, open ulceration of right lower extremity. - Continue PO ciprofloxacin due to Pseudomonas growing in wound. Added Bactrim today for cellulitis, concern for MRSA. (3) Edema, peripheral: Impression: - Subsequently there is peripheral edema due to chronic dependency and likely venous insufficiency in the setting of congestive heart failure with reduced ejection fraction and peripheral vascular disease. - Continue diuresis as outlined above. Encourage elevation of legs. (4) Anemia: Impression: - Chronic. No acute blood loss noted. No GI bleed - no bowel movements yet. - No blood in urine. - Has been low but stable. Type and screen completed. Will await recheck and transfuse for Hb < 7. Qualifiers: Anemia type: unspecified type Qualified Code(s): D64.9 - Anemia, unspecified (5) Pulmonary edema: Impression: Stable at this time. Patient requires 2-4 L of oxygen at home. Lungs are clear to auscultation. Continue diuresis as stated above. Qualifiers: Chronicity: acute Qualified Code(s): J81.0 - Acute pulmonary edema (6) DAVID (acute kidney injury): Impression: Improving. - We will continue attempting to diurese this patient while maintaining kidney function. (7) Acute hyperkalemia: Impression: Improving. - We will continue to monitor with daily BMP. - We will continue diuresis with Lasix. - Lokelma ordered, nebulized albuterol, insulin/D50, sodium bicarbonate ordered yesterday. Will continue to trend. (8) Acute hyponatremia: Impression: Sodium improved. - Continue to trend with daily labs. (9) Peripheral artery disease: Impression: - Chronic vascular insufficiency secondary due to low output heart failure. Vascular surgery consulted, recommends no acute vascular intervention, focus on improving perfusion of extremities.
[2024-06-06] MEDS: DOCUSATE SODIUM 250 MG CAPSULE PO SCH (09:06)
[2024-06-06] MEDS: SENNA 8.6 MG TABLET PO SCH (09:07)
[2024-06-06] MEDS: SULFAMETH/TRIMETH DS 800/160 MG TABLET PO SCH (09:15)
[2024-06-06] MEDS: ONDANSETRON 4 MG/2 ML VIAL IVP PRN (12:46)
[2024-06-06] MEDS: LACTULOSE 10 GM /15 ML UDC PO SCH (13:00)
[2024-06-06 15:59] LABS: HCT - HEMATOCRIT 29.3 % (42.0-52.0); HGB - HEMOGLOBIN 7.5 g/dL (14.0-18.0)
[2024-06-06] MEDS: MULTIVITAMIN W/MINERALS TABLET PO SCH (17:02)
[2024-06-07 08:22] LABS: BASOPHILS % (AUTO) 0.6 %; EOSINOPHILS # (AUTO) 0.1 10^3/uL (0.0-0.7); EOSINOPHILS % (AUTO) 1.3 %; HCT - HEMATOCRIT 26.5 % (42.0-52.0); LYMPHOCYTES # (AUTO) 0.3 10^3/uL (1.5-3.5); LYMPHOCYTES % (AUTO) 6.3 %; MEAN CORPUSCULAR HEMOGLOBIN 20.6 pg (27.0-31.0); MEAN CORPUSCULAR HGB CONC 26.4 g/dL (32.0-36.0); MEAN CORPUSCULAR VOLUME 77.9 fL (80.0-94.0); MEAN PLATELET VOLUME 9.1 fL (7.4-11.4); MONOCYTES # (AUTO) 0.5 10^3/uL (0.0-1.0); MONOCYTES % (AUTO) 9.5 %; NEUTROPHILS # (AUTO) 4.4 10^3/uL (1.5-6.6); NEUTROPHILS % (AUTO) 82.1 %; PLT - PLATELET COUNT 150 10^3/uL (130-450); RED CELL DISTRIBUTION WIDTH 21.6 % (12.0-15.0); WHITE BLOOD COUNT 5.4 x10^3/uL (4.8-10.8)
[2024-06-07 09:01] LABS: CALCIUM 8.9 mg/dL (8.5-10.3); CREATININE 2.2 mg/dL (0.6-1.3); POTASSIUM 5.5 mmol/L (3.5-4.5)
[2024-06-07 09:15] LABS: SLIDE REVIEW? Indicated
[2024-06-07 09:18] LABS: PLATELET ESTIMATE, MANUAL NORMAL (130-450,000) (NORMAL); PLATELET MORPHOLOGY NORMAL APPEARANCE (NORMAL)
[2024-06-07 09:20] LABS: WBC MORPHOLOGY (MULTIPLE) NORMAL APPEARANCE (NORMAL)
[2024-06-07] MEDS: INSULIN REGULAR, HUMAN 300 UNIT/3 ML PEN IVP ONE (10:04)
[2024-06-07] MEDS: SODIUM ZIRCONIUM CYCLOSILICATE 5 GM PACKET PO SCH (10:04)
[2024-06-07] MEDS: DEXTROSE 50% ABBOJECT 25 GM/50 ML SYRINGE IVP ONE (10:04)
[2024-06-07] MEDS: SODIUM BICARBONATE ABBOJECT 50 MEQ/50 ML SYRINGE IVP ONE (10:04)
[2024-06-07] MEDS: CONCENTRATED ALBUTEROL NEB 2.5 MG/0.5 ML INH STA (10:12)
--- NOTE | 2024-06-07 11:22 | PROVIDER PROGRESS NOTE ---
Subjective Subjective Subjective: He reports feeling somewhat improved, he still has pain but at this moment it is not terrible. He is seated upright on the side of the bed for a breathing treatment, with his and son present in the room. He denies chest pain, headache, confusion, abdominal cramping. His feet and legs remain swollen, tender, and red. He uses a CPAP machine at home, and hasn't been using it here. His brought it in yesterday, and he states he had a great sleep. Overall, he is in good spirits and is excited to go home tomorrow. Current Medications Current Medications Current Medications: Current Medications Generic Name Dose Route Start Last Admin Trade Name Freq PRN Reason Stop Dose Admin Acetaminophen 650 mg 06/03/24 11:53 Acetaminophen 325 Mg Tablet PO Q4HR PRN Pain or Fever > 38C (100.4F) Hydrocodone Bitart/Acetaminophen 1 tab 06/03/24 11:53 06/06/24 20:26 Hydrocod/Acetam 5/325 Mg Tablet PO 1 tab Q4HR PRN Administration Moderate Pain (Level 4-6) Albuterol/Ipratropium 3 ml 06/02/24 22:06 06/07/24 03:30 Ipratropium/Albuterol 3 Ml Neb INH 3 ml Q4H PRN Administration Wheezing/Shortness of breath Alcohol 1 amp 06/03/24 09:00 06/07/24 08:38 Ethyl Alcohol 62% Swab Ampule GORGE 1 amp BID AVIS Administration Amiodarone HCl 200 mg 06/03/24 09:00 06/07/24 08:37 Amiodarone 200 Mg Tablet PO 200 mg DAILY AVIS Administration Apixaban 5 mg 06/02/24 22:06 06/07/24 08:37 Apixaban 5 Mg Tablet PO 5 mg BID AVIS Administration Atorvastatin Calcium 20 mg 06/04/24 09:00 06/07/24 08:37 Atorvastatin 10 Mg Tablet PO 20 mg DAILY AVIS Administration Ciprofloxacin 500 mg 06/04/24 09:00 06/07/24 08:37 Ciprofloxacin 250 Mg Tablet PO 500 mg BID AVIS Administration Docusate Sodium 250 - 500 mg 06/06/24 09:00 06/07/24 08:37 Docusate Sodium 250 Mg Capsule PO 500 mg DAILY AVIS Administration Furosemide 40 mg 06/08/24 09:00 Furosemide 40 Mg Tablet PO DAILY AVIS Hydrocortisone 1 applic 06/03/24 11:00 06/07/24 08:38 Hydrocortisone 1% Cream 28 Gm Tube TOP 1 applic BID AVIS Administration Hydromorphone HCl 0.5 mg 06/02/24 20:48 06/04/24 11:04 Hydromorphone 0.5 Mg/0.5 Ml Syringe IVP 0.5 mg Q2H PRN Administration PAIN >8 Lactulose 10 gm 06/06/24 12:00 06/07/24 08:38 Lactulose 10 Gm /15 Ml Udc PO 10 gm DAILY AVIS Administration Metoprolol Succinate 50 mg 06/04/24 09:00 06/07/24 08:38 Metoprolol Succinate 50 Mg Tablet PO Not Given DAILY AVIS Multivitamins/Minerals 1 tab 06/06/24 17:00 06/07/24 08:37 Multivitamin W/Minerals Tablet PO 1 tab DAILYWM AVIS Administration Ondansetron HCl 4 mg 06/02/24 20:48 06/06/24 12:46 Ondansetron 4 Mg/2 Ml Vial IVP 4 mg Q6H PRN Administration Nausea / Vomiting Empagliflozin [ 1 each 06/03/24 09:00 06/07/24 08:38 Jardiance] 10 Mg PO 1 each Tablet DAILY AVSI Administration Polyethylene Glycol 17 gm 06/05/24 09:00 06/07/24 08:38 Polyethylene Glycol 3350 17 Gm Packet PO 17 gm DAILY AVIS Administration Senna 8.6 - 17.2 mg 06/06/24 09:00 06/07/24 08:38 Senna 8.6 Mg Tablet PO 17.2 mg DAILY AVIS Administration Sodium Chloride 10 ml 06/02/24 22:06 06/04/24 21:12 Sodium Chloride Flush 0.9% 10 Ml Syringe IVP 10 ml PRN PRN Administration NEEDED PER PROVIDER ORDERS Sodium Chloride 10 ml 06/03/24 01:00 06/07/24 08:39 Sodium Chloride Flush 0.9% 10 Ml Syringe IVP 10 ml 0100,0900,1700 AVIS Administration Sodium Zirconium Cyclosilicate 10 gm 06/07/24 10:00 06/07/24 10:04 Sodium Zirconium Cyclosilicate 5 Gm Packet PO 10 gm DAILY AVIS Administration Trimethoprim/Sulfamethoxazole 1 tab 06/06/24 09:00 06/07/24 08:39 Sulfameth/Trimeth Ds 800/160 Mg Tablet PO 1 tab BID AVIS Administration Objective Vital Signs/Intake & Output Reviewed Vital Signs: Yes Vital Signs: Vital Signs x48h Temp Pulse Pulse Resp BP Pulse Ox O2 Flow Rate 06/07/24 10:20 112 H 20 06/07/24 05:07 98.2 F 82 17 90/51 L 99 3 06/07/24 03:30 76 20 4 Intake & Output: Intake & Output 06/04/24 06/05/24 06/06/24 06/07/24 23:59 23:59 23:59 23:59 Intake Total 630 / 630 1180 / 1180 600 / 600 240 / 240 Output Total 1500 / 1500 925 / 925 675 / 675 400 / 400 Balance -870 / -870 255 / 255 -75 / -75 -160 / -160 Weight (kg) 93 kg 93 kg 93 kg 93.5 kg Objective General Appearance: positive No acute distress and Alert Eyes Bilateral: positive Normal inspection, PERRL and EOMI ENT: positive ENT inspection nml and No signs of dehydration Neck: positive Nml inspection, Thyroid nml and No JVD Respiratory: positive Chest non-tender, No respiratory distress and Rales (mild bibasilar crackles); negative Wheezes Cardiovascular: positive Regular rate & rhythm and No murmur Abdomen: positive Non-tender; negative Guarding, Rebound, Hepatomegaly, Splenomegaly or Mass Back: positive Nml inspection; negative CVA tenderness (R) or CVA tenderness (L) Skin: positive Color nml, No rash, Warm and Dry Extremities: positive Pedal edema (bilateral pitting edema of feet and legs up to knees), Calf tenderness and Other (B LE dependent rubor, edema; ulceration of right calf and blister lesion of left najera) Neurologic/Psychiatric: positive Oriented x3, CN's nml (2-12), Motor nml, Sensation nml and Mood/affect nml Lab Results 06/07/24 08:16 06/07/24 08:16 Other Labs: Lab Results x24hrs 06/07/24 06/07/24 06/07/24 Range/Units 08:16 08:16 08:16 WBC (4.8-10.8) x10^3/uL RBC (4.70-6.10) 10^6/uL Hgb (14.0-18.0) g/dL Hct (42.0-52.0) % MCV (80.0-94.0) fL MCH (27.0-31.0) pg MCHC (32.0-36.0) g/dL RDW (12.0-15.0) % Plt Count (130-450) 10^3/uL MPV (7.4-11.4) fL Neut # (Auto) (1.5-6.6) 10^3/uL Lymph # (Auto) (1.5-3.5) 10^3/uL [place] # (Auto) (0.0-1.0) 10^3/uL Eos # (Auto) (0.0-0.7) 10^3/uL Baso # (Auto) (0.0-0.1) 10^3/uL Absolute Nucleated RBC x10^3/uL Nucleated RBC % /100WBC Manual Slide Review WBC Morphology (NORMAL) Platelet Estimate (NORMAL) Platelet Morphology (NORMAL) RBC Morph Micro Appear 2+ POIKILOCYTOSIS 1+ MICROCYTOSIS 4+ HYPOCHROMASIA (NORMAL) Sodium 132 L (135-145) mmol/L Potassium 5.5 H (3.5-4.5) mmol/L Chloride 97 L (101-111) mmol/L Carbon Dioxide 30 (21-32) mmol/L Anion Gap 5.0 L (6-13) BUN 58 H (6-20) mg/dL Creatinine 2.2 H (0.6-1.3) mg/dL Estimated GFR (MDRD) 29 L (>89) Glucose 99 (74-104) mg/dL Calcium 8.9 (8.5-10.3) mg/dL Blood Type Antibody Screen Crossmatch IS Only 06/07/24 06/06/24 06/06/24 Range/Units 08:16 15:55 06:13 WBC 5.4 (4.8-10.8) x10^3/uL RBC 3.40 L (4.70-6.10) 10^6/uL Hgb 7.0 L* 7.5 L (14.0-18.0) g/dL Hct 26.5 L 29.3 L (42.0-52.0) % MCV 77.9 L (80.0-94.0) fL MCH 20.6 L (27.0-31.0) pg MCHC 26.4 L (32.0-36.0) g/dL RDW 21.6 H (12.0-15.0) % Plt Count 150 (130-450) 10^3/uL MPV 9.1 (7.4-11.4) fL Neut # (Auto) 4.4 (1.5-6.6) 10^3/uL Lymph # (Auto) 0.3 L (1.5-3.5) 10^3/uL [place] # (Auto) 0.5 (0.0-1.0) 10^3/uL Eos # (Auto) 0.1 (0.0-0.7) 10^3/uL Baso # (Auto) 0.0 (0.0-0.1) 10^3/uL Absolute Nucleated RBC 0.00 x10^3/uL Nucleated RBC % 0.0 /100WBC Manual Slide Review Indicated WBC Morphology NORMAL APPEARANCE (NORMAL) Platelet Estimate NORMAL (130-450,000) (NORMAL) Platelet Morphology NORMAL APPEARANCE (NORMAL) RBC Morph Micro Appear 2+ ANISOCYTOSIS (NORMAL) Sodium (135-145) mmol/L Potassium (3.5-4.5) mmol/L Chloride (101-111) mmol/L Carbon Dioxide (21-32) mmol/L Anion Gap (6-13) BUN (6-20) mg/dL Creatinine (0.6-1.3) mg/dL Estimated GFR (MDRD) (>89) Glucose (74-104) mg/dL Calcium (8.5-10.3) mg/dL Blood Type AB NEGATIVE Antibody Screen NEGATIVE Crossmatch IS Only See Detail ABX Reporting Has patient been on IV antibiotics over the past 48 hours?: No Assessment/Plan Problem List (1) Acute exacerbation of chronic heart failure: Impression: - Combination of arterial insufficiency and low output heart failure resulting in dependent edema, open ulceration due to poor wound healing in lower extremities. - Overall, patient has extensive cardiac history including CAD with stents in the RCA, heart failure with severely depressed ejection fraction of 20%, moderate to severe aortic valve stenosis, ventricular tachycardia requiring cardioversion in 01/30, paroxysmal atrial fibrillation, biventricular AICD placement. - Continue aggressive diuresis. Will switch to oral Lasix tomorrow. Continue to trend. Continue Jardiance at this time. (2) Cellulitis of right lower leg: Impression: - Patient with ongoing swelling, redness, open ulceration of right lower extremity. - Continue PO ciprofloxacin due to Pseudomonas growing in wound. Switched from Bactrim to doxycycline for cellulitis, concern for MRSA. (3) Anemia: Impression: - Chronic. No acute blood loss noted. No GI bleed - no bowel movements yet. - No blood in urine. - Has been low but stable. Type and screen completed. Will await recheck and transfuse for Hb < 7. One unit ordered today. Qualifiers: Anemia type: unspecified type Qualified Code(s): D64.9 - Anemia, unspecified (4) Edema, peripheral: Impression: - Subsequently there is peripheral edema due to chronic dependency and likely venous insufficiency in the setting of congestive heart failure with reduced ejection fraction and peripheral vascular disease. - Continue diuresis as outlined above. Encourage elevation of legs. (5) Pulmonary edema: Impression: Stable at this time. Patient requires 2-4 L of oxygen at home. Lungs are clear to auscultation. Continue diuresis as stated above. Qualifiers: Chronicity: acute Qualified Code(s): J81.0 - Acute pulmonary edema (6) DAVID (acute kidney injury): Impression: - We will continue attempting to diurese this patient while maintaining kidney function. (7) Acute hyperkalemia: Impression: - We will continue to monitor with daily BMP. - We will continue diuresis with Lasix. - Lokelma ordered, nebulized albuterol, insulin/D50, sodium bicarbonate ordered. Will continue to trend. (8) Acute hyponatremia: Impression: Sodium improved. - Continue to trend with daily labs. (9) Peripheral artery disease: Impression: - Chronic vascular insufficiency secondary due to low output heart failure. Vascular surgery consulted, recommends no acute vascular intervention, focus on improving perfusion of extremities.
[2024-06-07 15:56] LABS: HCT - HEMATOCRIT 28.4 % (42.0-52.0)
[2024-06-07 16:08] LABS: CALCIUM 8.8 mg/dL (8.5-10.3); CREATININE 2.2 mg/dL (0.6-1.3); POTASSIUM 5.4 mmol/L (3.5-4.5)
[2024-06-07] MEDS: SODIUM ZIRCONIUM CYCLOSILICATE 5 GM PACKET PO STA (17:00)
[2024-06-07] MEDS: DOXYCYCLINE 100 MG TABLET PO SCH (21:26)
[2024-06-08 07:53] LABS: HCT - HEMATOCRIT 28.3 % (42.0-52.0); HGB - HEMOGLOBIN 7.8 g/dL (14.0-18.0); MEAN CORPUSCULAR HEMOGLOBIN 21.5 pg (27.0-31.0); MEAN CORPUSCULAR HGB CONC 27.6 g/dL (32.0-36.0); MEAN PLATELET VOLUME 9.4 fL (7.4-11.4); RED BLOOD COUNT 3.63 10^6/uL (4.70-6.10); RED CELL DISTRIBUTION WIDTH 21.7 % (12.0-15.0); WHITE BLOOD COUNT 6.1 x10^3/uL (4.8-10.8)
[2024-06-08] MEDS: FUROSEMIDE 40 MG TABLET PO SCH (08:18)
[2024-06-08 08:19] LABS: CREATININE 2.3 mg/dL (0.6-1.3); POTASSIUM 5.3 mmol/L (3.5-4.5)
--- NOTE | 2024-06-08 10:25 | ADVANCE CARE PLANNING NOTE ---
Advance Care Planning Planning Encounter Date: 06/08/24 Time: 10:00 Purpose: With patient's worsening renal function, we talked about what the next episode likely including possible transfer to a facility that has a electronic installer to discuss next steps including dialysis. Parties in Attendance: Patient and patient's . Decisional Capacity of the Patient: Patient had full decisional capacity. Diagnosis for Encounter (1) Acute exacerbation of chronic heart failure: Summary: Patient with lower extremity swelling, wound on right lower extremity. Continuing oral diuresis with Lasix 40 mg daily for symptomatic relief. Cardiac issues started in 2017 when he had a rotational arthrectomy done, as well as 3 drug-eluting stents placed. Patient with lower extremity swelling, wound on right lower extremity. Continuing oral diuresis with Lasix 40 mg daily. In March 2023, he was hospitalized for congestive heart failure. At this time he had a AICD placed, was noted to have aortic valve stenosis. He was also noted to have severe COPD with FEV1 35% of predicted. In September 2023, he had worsening shortness of breath and dizziness. He was referred back to cardiology for this. Since then, he has been hospitalized for heart failure exacerbations. In fact, in January 2024 at [facility], an echo was repeated and it showed that he had an EF of 20%, akinesis of multiple bell. It also showed moderate to severe mitral valve regurgitation, as well as aortic valve stenosis, mild aortic regurgitation, moderate tricuspid regurgitation. He had ventricular tachycardia episode there, and underwent synchronized cardioversion and treatment with IV Levophed and amiodarone. Encounter Subjective/Patient's Story: Patient is a 79-year-old male who lived previously in [place] with his first . After his first divorce, he met his current online. They decided to move to [facility], because they have always liked it. They have 6 children amongst them. Prior to this, they helped take care of each other. He has a history of COPD, but he felt his quality of life really started to go down when he was diagnosed with all his heart problems in September 2023. He has been told by his glass toughening operator that he is terminal. It is important to him to get his affairs in order prior to his passing. He wants to help his out when he can. 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 He knows what hospice is, and that is what he wants to proceed with. His is supportive of this. Objective/Medical Story: Patient is a 78-year-old gentleman who has a history of COPD due to previous smoking history, obstructive sleep apnea, as well as extensive cardiac history. This started first in 2017 when he had a rotational arthrectomy done, as well as 3 drug-eluting stents placed. He was doing okay at first, but then in March 2023, he was hospitalized for congestive heart failure. At this time he had a AICD placed, was noted to have aortic valve stenosis. He was also noted to have severe COPD with FEV1 35% of predicted. Then in September 2023, he had worsening shortness of breath and dizziness. He was referred back to cardiology for this. Since then, he has been hospitalized for heart failure exacerbations. In fact, in January 2024 at [facility], an echo was repeated and it showed that he had an EF of 20%, akinesis of multiple bell. It also showed moderate to severe mitral valve regurgitation, as well as aortic valve stenosis, mild aortic regurgitation, moderate tricuspid regurgitation. He had ventricular tachycardia episode there, and underwent synchronized cardioversion and treatment with IV Levophed and amiodarone. His kidney issues started last month, and have not improved. He has had many instances where he has come in with fluid overload including lower extremity swelling or difficulty breathing, requiring diuresis. This time, his creatinine has continued to worse, and he has had worsening hyperkalemia as well with diuresis based on his clinical picture of being fluid overloaded, with lower extremity swelling and crackles on examination. Goals of Care: The patient is very clear in his goals. He would like to be home, he would like to be symptom free including pain, anxiety, lower extremity swelling, difficulty breathing. Plan: We had a very long discussion with his stepdaughter, step son-in-law, , as well as himself. We discussed different options. With his resistant hyperkalemia despite medical management, he needs to be transferred to a facility with a electronic installer and possible dialysis. I spoke with a electronic installer out of [facility], and they were agreeable to transfer. I relayed this information to the patient and his . He was very adamant that this is not what he wanted, even if he ultimately did not require the dialysis. We talked about his goals of care. He reiterated that he would like to be home. We talked about the risks of going home including fatal arrhythmias, and . We then talked about his goals of care. We talked about Hospice care. I explained to him that this would mean no further medical treatment, including aggressive medical treatment, and more management of symptoms to keep him pain- free, anxiety free, help with his dyspnea. He demonstrated understanding, and agreed that this is what he wanted. Additional Discussion: I spoke with hospice care and our social media senior associate. They can do hospice intake on Sunday. Code Status: Do Not Attempt Resuscitation Time spent on advance care plannin
[2024-06-08] MEDS: CONCENTRATED ALBUTEROL NEB 2.5 MG/0.5 ML INH STA ×2 (11:43→19:10)
[2024-06-08] MEDS: DEXTROSE 50% ABBOJECT 25 GM/50 ML SYRINGE IVP ONE ×2 (12:15→19:13)
[2024-06-08] MEDS: INSULIN REGULAR, HUMAN 300 UNIT/3 ML PEN IVP ONE ×2 (12:16→19:13)
[2024-06-08] MEDS: SODIUM ZIRCONIUM CYCLOSILICATE 5 GM PACKET PO ONE (12:16)
[2024-06-08] MEDS: SODIUM BICARBONATE ABBOJECT 50 MEQ/50 ML SYRINGE IVP ONE (12:16)
--- NOTE | 2024-06-08 14:24 | PROVIDER PROGRESS NOTE ---
Subjective Subjective Subjective: He reports feeling somewhat improved, he still has pain but at this moment it is not terrible. He is seated upright on the side of the bed for a breathing treatment, with his and son present in the room. He denies chest pain, headache, confusion, abdominal cramping. His feet and legs remain swollen, tender, and red. He uses a CPAP machine at home, and hasn't been using it here. His brought it in yesterday, and he states he had a great sleep. Overall, he is in good spirits and is excited to go home tomorrow. Current Medications Current Medications Current Medications: Current Medications Generic Name Dose Route Start Last Admin Trade Name Freq PRN Reason Stop Dose Admin Acetaminophen 650 mg 06/03/24 11:53 Acetaminophen 325 Mg Tablet PO Q4HR PRN Pain or Fever > 38C (100.4F) Hydrocodone Bitart/Acetaminophen 1 tab 06/03/24 11:53 06/07/24 21:26 Hydrocod/Acetam 5/325 Mg Tablet PO 1 tab Q4HR PRN Administration Moderate Pain (Level 4-6) Albuterol/Ipratropium 3 ml 06/02/24 22:06 06/07/24 22:00 Ipratropium/Albuterol 3 Ml Neb INH 3 ml Q4H PRN Administration Wheezing/Shortness of breath Alcohol 1 amp 06/03/24 09:00 06/08/24 08:18 Ethyl Alcohol 62% Swab Ampule GORGE 1 amp BID AVIS Administration Amiodarone HCl 200 mg 06/03/24 09:00 06/08/24 08:18 Amiodarone 200 Mg Tablet PO 200 mg DAILY AVIS Administration Apixaban 5 mg 06/02/24 22:06 06/08/24 08:18 Apixaban 5 Mg Tablet PO 5 mg BID AVIS Administration Atorvastatin Calcium 20 mg 06/04/24 09:00 06/08/24 08:18 Atorvastatin 10 Mg Tablet PO 20 mg DAILY AVIS Administration Ciprofloxacin 500 mg 06/04/24 09:00 06/08/24 08:19 Ciprofloxacin 250 Mg Tablet PO 500 mg BID AVIS Administration Docusate Sodium 250 - 500 mg 06/06/24 09:00 06/08/24 08:18 Docusate Sodium 250 Mg Capsule PO 500 mg DAILY AVIS Administration Doxycycline Hyclate 100 mg 06/07/24 21:00 06/08/24 08:19 Doxycycline 100 Mg Tablet PO 100 mg BID AVIS Administration Furosemide 40 mg 06/08/24 09:00 06/08/24 08:18 Furosemide 40 Mg Tablet PO 40 mg DAILY AVIS Administration Hydrocortisone 1 applic 06/03/24 11:00 06/08/24 08:21 Hydrocortisone 1% Cream 28 Gm Tube TOP 1 applic BID AVIS Administration Hydromorphone HCl 0.5 mg 06/02/24 20:48 06/04/24 11:04 Hydromorphone 0.5 Mg/0.5 Ml Syringe IVP 0.5 mg Q2H PRN Administration PAIN >8 Lactulose 10 gm 06/06/24 12:00 06/08/24 08:17 Lactulose 10 Gm /15 Ml Udc PO 10 gm DAILY AVIS Administration Metoprolol Succinate 50 mg 06/04/24 09:00 06/08/24 08:19 Metoprolol Succinate 50 Mg Tablet PO 50 mg DAILY AVIS Administration Multivitamins/Minerals 1 tab 06/06/24 17:00 06/08/24 08:19 Multivitamin W/Minerals Tablet PO 1 tab DAILYWM AVIS Administration Ondansetron HCl 4 mg 06/02/24 20:48 06/06/24 12:46 Ondansetron 4 Mg/2 Ml Vial IVP 4 mg Q6H PRN Administration Nausea / Vomiting Empagliflozin [ 1 each 06/03/24 09:00 06/08/24 08:17 Jardiance] 10 Mg PO 1 each Tablet DAILY AVIS Administration Polyethylene Glycol 17 gm 06/05/24 09:00 06/08/24 08:17 Polyethylene Glycol 3350 17 Gm Packet PO 17 gm DAILY AVIS Administration Senna 8.6 - 17.2 mg 06/06/24 09:00 06/08/24 08:18 Senna 8.6 Mg Tablet PO 17.2 mg DAILY AVIS Administration Sodium Chloride 10 ml 06/02/24 22:06 06/04/24 21:12 Sodium Chloride Flush 0.9% 10 Ml Syringe IVP 10 ml PRN PRN Administration NEEDED PER PROVIDER ORDERS Sodium Chloride 10 ml 06/03/24 01:00 06/08/24 08:19 Sodium Chloride Flush 0.9% 10 Ml Syringe IVP 10 ml 0100,0900,1700 AVIS Administration Sodium Zirconium Cyclosilicate 10 gm 06/07/24 10:00 06/08/24 08:18 Sodium Zirconium Cyclosilicate 5 Gm Packet PO 10 gm DAILY AVIS Administration Objective Vital Signs/Intake & Output Reviewed Vital Signs: Yes Vital Signs: Vital Signs x48h Temp Pulse Resp Pulse Ox O2 Flow Rate 06/08/24 13:57 97.9 F 72 20 97 3 06/08/24 08:30 3 Intake & Output: Intake & Output 06/05/24 06/06/24 06/07/24 06/08/24 23:59 23:59 23:59 23:59 Intake Total 1180 / 1180 600 / 600 1020 / 1020 495 / 495 Output Total 925 / 925 675 / 675 1000 / 1000 100 / 100 Balance 255 / 255 -75 / -75 395 / 395 Weight (kg) 93 kg 93 kg 93.5 kg Objective General Appearance: positive No acute distress and Alert Eyes Bilateral: positive Normal inspection, PERRL and EOMI ENT: positive ENT inspection nml and No signs of dehydration Neck: positive Nml inspection, Thyroid nml and No JVD Respiratory: positive Chest non-tender, No respiratory distress and Rales (mild bibasilar crackles); negative Wheezes Cardiovascular: positive Regular rate & rhythm and No murmur Abdomen: positive Non-tender; negative Guarding, Rebound, Hepatomegaly, Splenomegaly or Mass Back: positive Nml inspection; negative CVA tenderness (R) or CVA tenderness (L) Skin: positive Color nml, No rash, Warm and Dry Extremities: positive Pedal edema (bilateral pitting edema of feet and legs up to knees), Calf tenderness and Other (B LE dependent rubor, edema; ulceration of right calf and blister lesion of left najera) Neurologic/Psychiatric: positive Oriented x3, CN's nml (2-12), Motor nml, Sensation nml and Mood/affect nml Lab Results 06/08/24 07:45 06/08/24 07:45 Other Labs: Lab Results x24hrs 06/08/24 06/07/24 06/06/24 Range/Units 07:45 15:49 06:13 WBC 6.1 (4.8-10.8) x10^3/uL RBC 3.63 L (4.70-6.10) 10^6/uL Hgb 7.8 L 8.0 L (14.0-18.0) g/dL Hct 28.3 L 28.4 L (42.0-52.0) % MCV 78.0 L (80.0-94.0) fL MCH 21.5 L (27.0-31.0) pg MCHC 27.6 L (32.0-36.0) g/dL RDW 21.7 H (12.0-15.0) % Plt Count 149 (130-450) 10^3/uL MPV 9.4 (7.4-11.4) fL Sodium 132 L 130 L (135-145) mmol/L Potassium 5.3 H 5.4 H (3.5-4.5) mmol/L Chloride 95 L 95 L (101-111) mmol/L Carbon Dioxide 32 28 (21-32) mmol/L Anion Gap 5.0 L 7.0 (6-13) BUN 62 H 60 H (6-20) mg/dL Creatinine 2.3 H 2.2 H (0.6-1.3) mg/dL Estimated GFR (MDRD) 28 L 29 L (>89) Glucose 94 110 H (74-104) mg/dL Calcium 9.0 8.8 (8.5-10.3) mg/dL Crossmatch IS Only See Detail ABX Reporting Has patient been on IV antibiotics over the past 48 hours?: No Assessment/Plan Problem List (1) Acute exacerbation of chronic heart failure: Impression: - Combination of arterial insufficiency and low output heart failure resulting in dependent edema, open ulceration due to poor wound healing in lower extremities. - Overall, patient has extensive cardiac history including CAD with stents in the RCA, heart failure with severely depressed ejection fraction of 20%, moderate to severe aortic valve stenosis, ventricular tachycardia requiring cardioversion in 01/30, paroxysmal atrial fibrillation, biventricular AICD placement. - I have placed him on oral Lasix today. - Long discussion with patient and patient's at bedside. We discussed different options. With his resistant hyperkalemia despite medical management, he needs to be transferred to a facility with a air duct mechanic and may need possible dialysis. I spoke with a air duct mechanic out of [facility], and they were agreeable to transfer. I relayed this information to the patient and his . He was very adamant that this is not what he wanted, i.e. the transfer, even if he ultimately did not require the dialysis. We then talked about his goals of care. We talked about Hospice care. I explained to him that this would mean no further medical treatment, including aggressive medical treatment, and more management of symptoms to keep him pain-free, anxiety free, help with his dyspnea. He demonstrated understanding, and agreed that this is what he wanted. (2) Cellulitis of right lower leg: Impression: - Patient with ongoing swelling, redness, open ulceration of right lower extremity. - Continue PO ciprofloxacin due to Pseudomonas growing in wound. Switched from Bactrim to doxycycline for cellulitis, concern for MRSA. (3) Anemia: Impression: - Chronic. No acute blood loss noted. No GI bleed - no bowel movements yet. - No blood in urine. - Has been low but stable. Type and screen completed. Will await recheck and transfuse for Hb < 7. Qualifiers: Anemia type: unspecified type Qualified Code(s): D64.9 - Anemia, unspecified (4) Edema, peripheral: Impression: - Subsequently there is peripheral edema due to chronic dependency and likely venous insufficiency in the setting of congestive heart failure with reduced ejection fraction and peripheral vascular disease. - Continue diuresis as outlined above. Encourage elevation of legs. (5) Pulmonary edema: Impression: Stable at this time. Patient requires 2-4 L of oxygen at home. Continue diuresis as stated above. Qualifiers: Chronicity: acute Qualified Code(s): J81.0 - Acute pulmonary edema (6) DAVID (acute kidney injury): Impression: - We will continue attempting to diurese this patient while maintaining kidney function. (7) Acute hyperkalemia: Impression: - We will continue to monitor with daily BMP. - We will continue diuresis with Lasix. - Lokelma ordered, nebulized albuterol, insulin/D50, sodium bicarbonate ordered. Will continue to trend. (8) Acute hyponatremia: Impression: Sodium improved. - Continue to trend with daily labs. (9) Peripheral artery disease: Impression: - Chronic vascular insufficiency secondary due to low output heart failure. Vascular surgery consulted, recommends no acute vascular intervention, focus on improving perfusion of extremities.
[2024-06-08 18:07] LABS: CALCIUM 9.1 mg/dL (8.5-10.3); CREATININE 2.5 mg/dL (0.6-1.3); POTASSIUM 4.9 mmol/L (3.5-4.5)
[2024-06-08 23:34] VITALS: O2SAT 100
[2024-06-09 04:55] LABS: HCT - HEMATOCRIT 27.5 % (42.0-52.0); HGB - HEMOGLOBIN 7.5 g/dL (14.0-18.0); MEAN CORPUSCULAR HEMOGLOBIN 21.2 pg (27.0-31.0); MEAN CORPUSCULAR HGB CONC 27.3 g/dL (32.0-36.0); MEAN CORPUSCULAR VOLUME 77.9 fL (80.0-94.0); MEAN PLATELET VOLUME 9.3 fL (7.4-11.4); RED BLOOD COUNT 3.53 10^6/uL (4.70-6.10); RED CELL DISTRIBUTION WIDTH 22.2 % (12.0-15.0); WHITE BLOOD COUNT 6.1 x10^3/uL (4.8-10.8)
[2024-06-09 05:13] LABS: CALCIUM 8.9 mg/dL (8.5-10.3); CREATININE 2.3 mg/dL (0.6-1.3); POTASSIUM 5.4 mmol/L (3.5-4.5)
[2024-06-09 07:10] VITALS: BP 94/48; TEMP 97.9
[2024-06-09] MEDS ORDERED: CONCENTRATED ALBUTEROL NEB 2.5 MG/0.5 ML INH STA (08:09)
[2024-06-09] MEDS: SODIUM ZIRCONIUM CYCLOSILICATE 5 GM PACKET PO STA (08:30)
[2024-06-09] MEDS: INSULIN REGULAR, HUMAN 300 UNIT/3 ML PEN IVP ONE (08:49)
[2024-06-09] MEDS: DEXTROSE 50% ABBOJECT 25 GM/50 ML SYRINGE IVP ONE (08:49)
[2024-06-09] MEDS: SODIUM BICARBONATE ABBOJECT 50 MEQ/50 ML SYRINGE IVP ONE (08:49)
--- NOTE | 2024-06-09 09:48 | Discharge Summary ---
"Discharge Summary Admit Date: 06/30/24 Discharge Date: 06/09/24 Discharging Provider: Dr. Abdulaziz Page Primary Care Provider: Ailyn Arreola Code Status: Do Not Attempt Resuscitation Discharge Facility Name: [facility] DIAGNOSES Admission Diagnoses: Acute exacerbation of chronic heart failure Pulmonary edema Acute kidney injury Acute hypokalemia Acute hyponatremia Peripheral arterial disease Peripheral edema COPD Discharge Diagnoses with Status of Each Condition: Acute exacerbation of chronic heart failure: Overall, patient has extensive cardiac history including CAD with stents in the RCA, heart failure with severely depressed ejection fraction of 20%, moderate to severe aortic valve stenosis, ventricular tachycardia requiring cardioversion in 01/30, paroxysmal atrial fibrillation, biventricular AICD placement. Long discussion with patient and patient's at bedside. We discussed different options. With his resistant hyperkalemia despite medical management, he needs to be transferred to a facility with a plate slitter and inspector and may need possible dialysis. I spoke with a plate slitter and inspector out of [facility], and they were agreeable to transfer. I relayed this information to the patient and his . He was very adamant that this is not what he wanted, i.e. the transfer, even if he ultimately did not require the dialysis. We then talked about his goals of care. We talked about Hospice care. I explained to him that this would mean no further medical treatment, including aggressive medical treatment, and more management of symptoms to keep him pain-free, anxiety free, help with his dyspnea. He demonstrated understanding, and agreed that this is what he wanted. Will still discharge him on Lasix 40 mg twice daily, as well as Lokelma daily to help with symptomatic relief. Cellulitis of right lower legcontinue 2 more days of p.o. ciprofloxacin, as well as 5 more days of doxycycline for cellulitis and wound. Anemiastable, no acute blood loss noted. Did receive 1 unit PRBCs. Peripheral edemamuch improved from admission with diuresis. Continue elevation of legs. Pulmonary edemastable at this time, continue diuresis as above. Acute kidney injurycontinues to worsen, patient does not want to see nephrology at this time. Hospice care is a plan. Acute hyperkalemiaalso remains elevated, patient does not want to see nephrology at this time. Hospice care is the plan. Acute hyponatremiaresolving. Peripheral arterial diseasechronic, we will focus on symptomatic relief. HPI History of Present Illness: AMANDEEP Her: 79-year-old gentleman with known history of heart failure with reduced ejection fraction, peripheral edema, COPD recently treated for cellulitis of the right ankle with oral antibiotics [facility] of right lower extremity pain. This pain has been ongoing for for 1 month. He has been not sleeping in a bed but sleeping in a chair because he has more pain in his legs when they are elevated. He also has difficulty lying flat due to paroxysmal nocturnal dyspnea. He has not been wearing his CPAP for some time now for an unknown reason. Last echocardiogram is dated January 11, 2024 at [facility] showed severely dilated left ventricle, LVEF estimate 20% akinesis of the entire inferior inferior apical lateral and anterolateral bell grossly normal RV size with likely mildly reduced RV systolic function, eccentric moderate to severe mitral valve regurgitation, heavily calcified aortic valve with severely reduced leaflet motion, with severe stenosis mild aortic valve regurgitation elevated right ventricular systolic pressure of 59 mmHg moderate tricuspid valve regurg moderate bilateral pleural effusions His PCP is Ailyn Arreola here with [facility]. He is also seen by cardiology. He has not been seen by nephrology.His oracle application architect is Jaguar Wiley at [facility] in [place] When asked about CODE STATUS, patient states that he does not want CPR but he does want to be on a ventilator. He states that he would only want extreme measures taken to continue his life if he were able to have his current quality of life or better. His Obdulia would be his medical decision maker with his son Irvin as a secondary contact. CONSULTS | PROCEDURES Consultations: Palliative Care, Hospice Procedures: Chest x-ray, duplex scan of lower extremities HOSPITAL COURSE Hospital Course: Patient is a 78-year-old gentleman who has a history of COPD due to previous smoking history, obstructive sleep apnea, as well as extensive cardiac history. This started first in 2017 when he had a rotational arthrectomy done, as well as 3 drug-eluting stents placed. He was doing okay at first, but then in March 2023, he was hospitalized for congestive heart failure. At this time he had a AICD placed, was noted to have aortic valve stenosis. He was also noted to have severe COPD with FEV1 35% of predicted. Then in September 2023, he had worsening shortness of breath and dizziness. He was referred back to cardiology for this. Since then, he has been hospitalized for heart failure exacerbations. In fact, in January 2024 at [facility], an echo was repeated and it showed that he had an EF of 20%, akinesis of multiple bell. It also showed moderate to severe mitral valve regurgitation, as well as aortic valve stenosis, mild aortic regurgitation, moderate tricuspid regurgitation. He had ventricular tachycardia episode there, and underwent synchronized cardioversion and treatment with IV Levophed and amiodarone. His kidney issues started last month, and have not improved. He has had many instances where he has come in with fluid overload including lower extremity swelling or difficulty breathing, requiring diuresis. This time, his creatinine has continued to worse, and he has had worsening hyperkalemia as well with diuresis based on his clinical picture of being fluid overloaded, with lower extremity swelling noted. We are also treating him for wounds on his right lower extremity. The patient is very clear in his goals. He would like to be home, he would like to be symptom free including pain, anxiety, lower extremity swelling, difficulty breathing. We had a very long discussion with his stepdaughter, step son-in-law, , as well as himself. We discussed different options. With his resistant hyperkalemia despite medical management, he needs to be transferred to a facility with a plate slitter and inspector and possible dialysis. I spoke with a plate slitter and inspector out of [facility], and they were agreeable to transfer. I relayed this information to the patient and his . He was very adamant that this is not what he wanted, even if he ultimately did not require the dialysis. We talked about his goals of care. He reiterated that he would like to be home. We talked about the risks of going home including fatal arrhythmias, and . We then talked about his goals of care. We talked about Hospice care. I explained to him that this would mean no further medical treatment, including aggressive medical treatment, and more management of symptoms to keep him pain- free, anxiety free, help with his dyspnea. He demonstrated understanding, and agreed that this is what he wanted. I spoke with Hospice, and we discharged him home with Hospice, intake to be done tomorrow. ALLERGIES Allergies Allergy/AdvReac Type Severity Reaction Status Date / Time calcium carbonate (From Tums) AdvReac Intermediate Vomiting Verified 06/02/24 16:03 MEDICATIONS Ambulatory Orders Medication Instructions Recorded Confirmed multivitamin 1 ea PO DAILY 10/25/15 06/02/24 atorvastatin 20 mg tablet 20 mg PO DAILY 06/28/18 06/02/24 apixaban 5 mg tablet (Eliquis) 5 mg PO BID 12/28/22 06/02/24 ipratropium 0.5 mg-albuterol 3 mg 3 ml inhalation Q4H PRN 09/26/23 06/03/24 (2.5 mg base)/3 mL nebulization Wheezing/Shortness of breath #360 soln mL empagliflozin 10 mg tablet 10 mg PO DAILY 01/16/24 06/02/24 (Jardiance) nitroglycerin 0.4 mg sublingual 0.4 mg sublingual Q5M PRN chest 01/16/24 06/02/24 tablet pain omega-3 fatty acids 1,000 mg 1,000 mg PO QDAY 01/16/24 06/02/24 capsule Permanent Disabled Placard #1 ea 01/28/24 05/15/24 amiodarone 200 mg tablet 200 mg PO DAILY 02/22/24 06/02/24 budesonide-formoterol HFA 160 2 puff inhalation BID #10.2 grams 02/22/24 06/03/24 mcg-4.5 mcg/actuation aerosol inhaler (Symbicort) metoprolol succinate 50 mg 50 mg PO DAILY 30 days #30 tabs 03/16/24 06/02/24 tablet,extended release 24 hr furosemide 40 mg tablet (Lasix) 40 mg PO BID #60 tabs 04/07/24 06/02/24 lidocaine 5 % topical gel 2 ea transdermal QID #113 grams 05/15/24 06/02/24 metolazone 2.5 mg tablet 2.5 mg PO .COMPLEX 06/02/24 06/02/24 ciprofloxacin HCl 250 mg tablet 500 mg (2 x 250 mg) PO BID 2 days 06/09/24 #8 tabs doxycycline hyclate 100 mg tablet 100 mg PO BID 5 days #10 tabs 06/09/24 hydrocodone 5 mg-acetaminophen 325 1 tab PO Q4HR PRN Moderate Pain 06/09/24 mg tablet (Level 4-6) #14 tabs hydrocortisone-aloe vera 1 % 1 applic topical BID #14.2 grams 06/09/24 topical cream sodium zirconium cyclosilicate 5 10 g PO 1400 #11 ea 06/09/24 gram oral powder packet (Lokelma) PHYSICAL EXAM AT DISCHARGE General Appearance: positive No acute distress, Alert and Anxious Eyes Bilateral: positive Normal inspection, PERRL and EOMI ENT: positive ENT inspection nml and Pharynx nml Neck: positive Nml inspection, Thyroid nml and No JVD Respiratory: positive Chest non-tender and Rales (mild bibasilar crackles noted) Cardiovascular: positive Regular rate & rhythm, No murmur and Tachycardia Peripheral Pulses: positive 2+ Abdomen: positive Non-tender; negative Guarding, Rebound, Hepatomegaly or Splenomegaly Back: positive Nml inspection; negative CVA tenderness (R) or CVA tenderness (L) Skin: positive Color nml, Dry and Other (Erythema of right leg, ulceration of the right lower leg, with continued drainage) Extremities: positive Pedal edema (2+ noted, improving ); negative Non-tender (tender to palpation of RLE) Neurologic/Psychiatric: positive Oriented x3, Motor nml and Mood/affect nml LABS 06/09/24 04:38 06/09/24 04:38 DIAGNOSTIC IMAGING Diagnostic Imaging Results: Final report reviewed QUALITY (Female Hip Fx Only) Was patient sent home on osteoporosis medication?: No FOLLOW UP Follow Up: Follow-up with hospice care. TIME SPENT Time Spent in Discharge (Minutes): 35 Discharge Plan Discharge Patient Disposition: 50 Hospice/Home DC/Xfer Condition: Stable Prescriptions: New ciprofloxacin HCl 250 mg Tablet 500 mg PO BID 2 Days Qty: 8 0RF doxycycline hyclate 100 mg Tablet 100 mg PO BID 5 Days Qty: 10 0RF hydrocodone-acetaminophen 5-325 mg Tablet 1 tab PO Q4HR PRN (Reason: Moderate Pain (Level 4-6)) Qty: 14 0RF hydrocortisone-aloe vera 1 % Cream 1 applic topical BID Qty: 14.2 0RF Lokelma 5 gram Powder In Packet 10 g PO 1400 Qty: 11 0RF Continued furosemide [Lasix] 40 mg tablet 40 mg PO BID Qty: 60 2RF multivitamin 1 EACH capsule 1 ea PO DAILY atorvastatin 20 MG tablet 20 mg PO DAILY Eliquis 5 MG tablet 5 mg PO BID 0RF ipratropium-albuterol 3 ML solution for nebulization 3 ml inhalation Q4H PRN (Reason: Wheezing/Shortness of breath) Qty: 360 2RF Rx Instructions: Nebulize 3 mL every 4 hours as needed for wheezing/shortness of breath. metoprolol succinate 50 mg Tablet Extended Release 24 Hr 50 mg PO DAILY 30 Days Qty: 30 0RF lidocaine 5 % gel 2 ea transdermal QID Qty: 113 0RF metolazone 2.5 mg tablet 2.5 mg PO .COMPLEX Rx Instructions: 2.5 mg orally M, W, F; (DME) Permanent Disabled Placard Misc See Rx Instructions .MEDSUPPLY Qty: 1 0RF Rx Instructions: As directed Jardiance 10 mg tablet 10 mg PO DAILY omega-3 fatty acids 1,000 mg capsule 1,000 mg PO QDAY nitroglycerin 0.4 mg tablet, sublingual 0.4 mg sublingual Q5M PRN (Reason: chest pain) Rx Instructions: do not exceed 3 doses per episode amiodarone 200 mg tablet 200 mg PO DAILY budesonide-formoterol [Symbicort] 160-4.5 mcg/actuation HFA aerosol inhaler 2 puff inhalation BID Qty: 10.2 4RF Discontinued spironolactone 25 mg tablet 25 mg PO DAILY losartan 25 mg tablet 25 mg PO DAILY Activity Restrictions: Activity as Tolerated Diet: Cardiac Health Concerns: You came in for lower extremity swelling, pain, redness, especially of your right leg. We started you on a IV water pill, to help get the extra fluid off. We also started you on antibiotics for your legs. While you were here, your kidney numbers worsened, and you had high potassium, likely a result of your high kidney levels. We talked about what next steps could look like including transfer to a hospital with nephrology services, or a kidney doctors. You have been dealing with cardiac issues since 2018 from what I can tell from your cardiology notes. I understand that it has been frustrating. We discussed your long-term goals of care. You stated that you do not want any aggressive medical treatment, that you wanted to be comfortable. We talked about hospice. The hospice team will be coming in tomorrow to see you to set up intake. I am glad that we were able to honor your wishes. I hope that you remain pain- free, your shortness of breath is well-controlled, and you get to spend a lot of time with your family and friends. Thank you for letting us take care of you. Print Language: Mongolian Patient Instructions: Hospice, Heart Failure Diet Changes, Heart Failure Dc Stand Alone Forms: PCP List Follow-up Care: Ailyn Arreola, ANGULAR JS DEVELOPER [Primary Care Provider] -"
[2024-06-09] MEDS ORDERED: SODIUM ZIRCONIUM CYCLOSILICATE 5 GM PACKET PO SCH (14:00)
== END 2024-06-09 11:56 | disposition hospice, home (50) | DRG 291 ==
LOC: ED 15:34 → ICU 20:48
PROVIDERS: ADMIT Physician Assistant Medical; ATTEND Physician Assistant Medical
DX: I25.2 Old myocardial infarction; Z95.0 Presence of cardiac pacemaker; Z95.5 Presence of coronary angioplasty implant and graft; Z95.810 Presence of automatic (implantable) cardiac defibrillator; I50.23 Acute on chronic systolic (congestive) heart failure; Z99.81 Dependence on supplemental oxygen; I25.10 Atherosclerotic heart disease of native coronary artery without angina pectoris; I77.1 Stricture of artery; E87.1 Hypo-osmolality and hyponatremia; I73.9 Peripheral vascular disease, unspecified; Z87.891 Personal history of nicotine dependence; B95.62 Methicillin resistant Staphylococcus aureus infection as the cause of diseases classified elsewhere; I95.9 Hypotension, unspecified; B96.5 Pseudomonas (aeruginosa) (mallei) (pseudomallei) as the cause of diseases classified elsewhere; N17.9 Acute kidney failure, unspecified; L03.115 Cellulitis of right lower limb; I48.11 Longstanding persistent atrial fibrillation; G47.33 Obstructive sleep apnea (adult) (pediatric); D64.9 Anemia, unspecified; I11.0 Hypertensive heart disease with heart failure; I35.0 Nonrheumatic aortic (valve) stenosis; Z79.01 Long term (current) use of anticoagulants; E87.5 Hyperkalemia; J44.9 Chronic obstructive pulmonary disease, unspecified